=== PATIENT | male | born 1960 | race Caucasian/White ===

== ENCOUNTER 2016-11-08 14:46 | Emergency (ER) | payer OTHER ==
[~2016-11-08] VITALS: Ht 180.3 cm; Wt 82.0 kg
[2016-11-08 14:54] VITALS: Ht 180.3 cm; Wt 82.0 kg
[2016-11-08] MEDS ORDERED: SULF1TAB31 PO (15:14)
[2016-11-08] MEDS ORDERED: CEPH-443 PO (15:14)
[2016-11-08] MEDS ORDERED: NAPR-688 PO (15:14)
--- NOTE | 2016-11-08 15:36 | ERD ---
ER Documentation Chief Complaint Date/Time DATE: 11/08/16 TIME: 15:29 Chief Complaint right ring finger and right wrist wound, pt.doesn't want to be admitted. HPI This is a 56-year-old male with a history of congestive heart failure and IV drug abuse presenting to the emergency department with infected wound ulcers of the right volar wrist and proximal phalanx of the right fourth digit from a scratch that occurred on November 02. Patient states that his right hand started swelling with a lot of redness on Monday morning in which she was seen at [facility] and was admitted. Patient states that he was placed on Vancomycin IV, he was in the hospital for a few days until he eloped yesterday. Patient states that it has significantly got better however he does not want to get worse since he eloped from the hospital. Patient states that he does not want to get admitted again and he wants to try oral antibiotics. Patient denies any fevers. He states his pain is 2 out of 10 with no restricted range of motion. He denies any chest pain or shortness of breath. ROS All systems reviewed and are negative except as per history of present illness. Medications Home Meds Active Scripts Naproxen* (Naproxen*) 500 Mg Tablet, 500 MG PO BID Y for PAIN AND OR ELEVATED TEMP, #30 TAB Prov:VIDHYA QUIGLEY PA-C 11/08/16 Sulfamethoxazole/Trimethoprim* (Bactrim Ds* Tablet) 1 Each Tablet, 1 TAB PO BID for 10 Days, TAB Prov:VIDHYA QUIGLEY PA-C 11/08/16 Cephalexin* (Keflex*) 500 Mg Capsule, 500 MG PO QID for 10 Days, CAP Prov:VIDHYA QUIGLEY PA-C 11/08/16 Physical Exam Vitals Vital Signs Date Time Temp Pulse Resp B/P Pulse Ox O2 Delivery O2 Flow Rate FiO2 11/08/16 14:54 98.4 60 18 144/71 98 Physical Exam Const: Well-developed well-nourished no acute distress Head: Atraumatic Eyes: Normal Conjunctiva ENT: Normal External Ears, Nose and Mouth. Neck: Full range of motion..~ No meningismus. Resp: Clear to auscultation bilaterally Cardio: Regular rate and rhythm, no murmurs Abd: Soft, non tender, non distended. Normal bowel sounds Skin: No petechiae or rashes Back: No midline or flank tenderness Ext: open wound stage 1 ulcer 2cm x2cm on proximal dorsal right 4th digit with mild surrounding erythema with drainage, 3cm x 3cm stage 1 wound ulcer with mild surrounding erythema on right volar wrist Neur: Awake and alert Psych: Normal Mood and Affect Procedures/MDM This is a 56-year-old male with a history of congestive heart failure and IV drug abuse presenting to the emergency department with infected wound ulcers of the right volar wrist and proximal phalanx of the right fourth digit from a scratch that occurred on November 02. Patient was seen at [facility] and was admitted Monday morning. Patient states that he was placed on Vancomycin IV, he was in the hospital for a few days until he eloped yesterday. Patient states that it has significantly got better and he eloped from the hospital yesterday. He states it has not worsened. Patient states that he does not want to get admitted again and he wants to try oral antibiotics. On examination, patient had open wound stage 1 ulcer 2cm x2cm on proximal dorsal right 4th digit with mild surrounding erythema with drainage, 3cm x 3cm stage 1 wound ulcer with mild surrounding erythema on right volar wrist. There was no evidence of osteomyelitis, lymphangitis or bacteremia. Patient is afebrile and appears well. I have discussed this case with my supervising physician who suggested to place patient on Keflex and Bactrim for the next 10 days. I have given patient a lengthy discussion on his condition. In addition discussed to follow-up at a integration specialist as soon as possible, I have given him information on the amputation prevention center, I have discussed to return here for a wound check if he is unable to do that. Patient stable for discharge per home with strict precautions to return to the emergency room for any worsening signs or symptoms. He understands and agrees with this plan Departure Diagnosis: Primary Impression: Cellulitis Additional Impression: Abscess Condition: Fair Patient Instructions: Cellulitis Referrals: [facility] Additional Instructions: FOLLOW-UP AT THE [facility] SOON POSSIBLE Take all medicines as directed. Return to this facility if you are not improving as expected. VIDHYA QUIGLEY PA-C November 08, 2016 15:36
== END 2016-11-08 15:22 | disposition home or self-care (01) ==
LOC: E/R 14:46
DX: L03.011 Cellulitis of right finger (principal); L02.511 Cutaneous abscess of right hand

== ENCOUNTER 2017-02-21 07:55 | Inpatient (IN) | payer OTHER ==
[~2017-02-21] VITALS: Ht 180.3 cm; Wt 87.3 kg
[2017-02-21] VITALS (11 sets, daily range): BP systolic 95–114; BP diastolic 61–83; PULSE 87–96; RESP 13–20; Ht 180.3 cm; Wt 87.3 kg
[~2017-02-21 07:55] MED LIST: CEPH-443 PO; NAPR-688 PO; SULF1TAB31 PO
[2017-02-21] MEDS ORDERED: ONDANSETRON 4 MG INJ IV STA (08:10)
[2017-02-21] MEDS ORDERED: SODIUM CHLORIDE 0.9% 1L BAG IV* STA (08:10)
[2017-02-21] MEDS ORDERED: AZITHROMYCIN 500MG/NS (PMX) 250 ML IVPB ONE (08:30)
[2017-02-21] MEDS ORDERED: LIDOCAINE 1% (MPF) 5 ML VIAL SC ONE (08:30)
[2017-02-21] MEDS ORDERED: IBUPROFEN 600 MG TAB PO ONE (08:30)
[2017-02-21] MEDS ORDERED: NALOXONE 2 MG SYG IV ONE (08:30)
[2017-02-21] MEDS ORDERED: CEFTRIAXONE 1 GM/50 ML (PMX) 50 ML IVPB ONE (08:30)
[2017-02-21 09:02] LABS: ABNORMAL IP MESSAGE 1; BASOPHILS % 0.3 % (0.0-2.0); HEMATOCRIT 42.7 % (42.0-52.0); HEMOGLOBIN 13.7 g/dl (14.0-18.0); LYMPHOCYTES # 0.5 10^3/ul (0.8-2.9); MEAN CORPUSCULAR HEMOGLOBIN 27.2 pg (29.0-33.0); MEAN CORPUSCULAR HGB CONC 32.1 g/dl (32.0-37.0); MEAN CORPUSCULAR VOLUME 84.7 fl (82.0-101.0); MEAN PLATELET VOLUME 10.3 fl (7.4-10.4); MONOCYTE # 0.4 10^3/ul (0.3-0.9); MONOCYTES % 3.3 % (0.0-11.0); NEUTROPHILS % 91.8 % (39.0-77.0); PLATELET COUNT 249 10^3/UL (140-415); POSITIVE DIFF @See below; RED BLOOD COUNT 5.04 10^6/ul (4.70-6.10); RED CELL DISTRIBUTION WIDTH 16.6 % (11.5-14.5); WHITE BLOOD COUNT 12.6 10^3/ul (4.8-10.8)
--- NOTE | 2017-02-21 09:09 | RADRPT ---
PROCEDURE: XR Chest. CLINICAL INDICATION: Chest pain TECHNIQUE: Single frontal view of the chest was obtained COMPARISON: None FINDINGS: The heart is enlarged. The thoracic aorta is calcified. There is right lower lobe atelectasis. There is no pleural effusion or pneumothorax. RPTAT: AA IMPRESSION: Moderate cardiomegaly. Calcified aorta consistent with atherosclerotic disease. Right lower lobe atelectasis. .Manpreet Cordero MD, MD Date Time Electronically viewed and signed by .Manpreet Cordero MD, on 02/21/2017 09:08 .S/
[2017-02-21] MEDS ORDERED: ASPIRIN 81 MG TAB ONE (09:18)
[2017-02-21 09:19] LABS: ALBUMIN 3.4 g/dl (3.3-4.9); ALBUMIN/GLOBULIN RATIO 0.85; BILIRUBIN,INDIRECT 0.4 mg/dl (0-1.1); BILIRUBIN,TOTAL 0.4 mg/dl (0.2-1.3); CALCIUM 8.3 mg/dl (8.4-10.2); CREATININE 1.52 mg/dl (0.61-1.24); POTASSIUM 4.6 mmol/L (3.5-5.1); TOTAL PROTEIN 7.4 g/dl (6.1-8.1)
[2017-02-21 09:34] LABS: TROPONIN-I 0.14 ng/ml (0.00-0.12)
[2017-02-21 09:40] LABS: INR 1.29; PROTIME 16.2 Sec (12.2-14.2); PT RATIO 1.3
[2017-02-21 09:41] LABS: PARTIAL THROMBOPLASTIN TIME 29.1 Sec (25.0-35.0)
--- NOTE | 2017-02-21 10:21 | ERA ---
ER Documentation Chief Complaint Date/Time DATE: 02/21/17 TIME: 09:58 Chief Complaint sob HPI 56-year-old man with a history of congestive heart failure and IV Heroin abuse presents with cough, shortness, fever 1 day. He denies chest pain, no vomiting or diarrhea, no headache or blurry vision. Patient admits to using morphine today and is sleepy. He denies suicidal homicidal ideation. ROS All systems reviewed and are negative except as per history of present illness. Medications Home Meds Active Scripts Naproxen* (Naproxen*) 500 Mg Tablet, 500 MG PO BID Y for PAIN AND OR ELEVATED TEMP, #30 TAB Prov:VIDHYA QUIGLEY-C 11/08/16 Sulfamethoxazole/Trimethoprim* (Bactrim Ds* Tablet) 1 Each Tablet, 1 TAB PO BID for 10 Days, TAB Prov:VIDHYA QUIGLEY-C 11/08/16 Cephalexin* (Keflex*) 500 Mg Capsule, 500 MG PO QID for 10 Days, CAP Prov:VIDHYA QUIGLEY-C 11/08/16 Allergies Allergies: Coded Allergies: No Known Allergy (Unverified , 02/21/17) PMhx/Soc Congestive heart failure and IV heroin abuse Hx Respiratory Disorders: Yes (COPD) Hx Alcohol Use: Yes Hx Substance Use: Yes (HEROIN) Smoking Status: Current every day smoker FmHx Family History: No diabetes Physical Exam Vitals Vital Signs Date Time Temp Pulse Resp B/P Pulse Ox O2 Delivery O2 Flow Rate FiO2 02/21/17 09:42 111 30 117/81 95 Nasal Cannula 4.0 02/21/17 07:59 101.3 122 24 105/75 95 Physical Exam GENERAL: Well-developed man, appears intoxicated, dehydrated, febrile HEENT: Dry mucous membranes, pink conjunctiva, pinpoint pupils, no cervical spine deformity NEURO: Alert and oriented 1, no focal deficits or facial asymmetry, pinpoint pupils bilaterally CARDIAC: Tachycardic and regular, no murmurs rubs or gallops LUNGS: Poor breath sounds bilaterally, crackles at the bases, no wheezes or stridor ABDOMEN: Soft nontender, no guarding, no rigidity, no rebound, no psoas sign no obturator sign. Normoactive bowel sounds SKIN: Warm and dry to touch, no abrasions, contusions, or hematomas, no lacerations, no ecchymosis, no target lesions, and without ulcers EXTREMITIES: No clubbing cyanosis, 3+ pitting edema in the lower extremities bilaterally, calves are bilaterally symmetrical, no Homans sign, no popliteal cord sign. Distal pulses equal and bilateral PSYCH: Normal affect without agitation or irritability Result Diagram: 02/21/17 0833 02/21/17 0833 Results 24 hrs Laboratory Tests Test 02/21/17 08:33 White Blood Count 12.610^3/ul Red Blood Count 5.0410^6/ul Hemoglobin 13.7g/dl Hematocrit 42.7% Mean Corpuscular Volume 84.7fl Mean Corpuscular Hemoglobin 27.2pg Mean Corpuscular Hemoglobin Concent 32.1g/dl Red Cell Distribution Width 16.6% Platelet Count 63088^3/UL Mean Platelet Volume 10.3fl Neutrophils % 91.8% Lymphocytes % 4.0% Monocytes % 3.3% Eosinophils % 0.0% Basophils % 0.3% Nucleated Red Blood Cells % 0.0/100WBC Neutrophils # (Manual) 11.610^3/ul Lymphocytes # 0.510^3/ul Monocytes # 0.410^3/ul Eosinophils # 0.010^3/ul Basophils # 0.010^3/ul Nucleated Red Blood Cells # 0.010^3/ul Prothrombin Time 16.2Sec Prothrombin Time Ratio 1.3 INR International Normalized Ratio 1.29 Activated Partial Thromboplast Time 29.1Sec Sodium Level 140mmol/L Potassium Level 4.6mmol/L Chloride Level 106mmol/L Carbon Dioxide Level 17mmol/L Anion Gap 22 Blood Urea Nitrogen 29mg/dl Creatinine 1.52mg/dl Glucose Level 131mg/dl Lactic Acid Level 3.1mmol/L Calcium Level 8.3mg/dl Total Bilirubin 0.4mg/dl Direct Bilirubin 0.00mg/dl Indirect Bilirubin 0.4mg/dl Aspartate Amino Transf (AST/SGOT) 50IU/L Alanine Aminotransferase (ALT/SGPT) 38IU/L Alkaline Phosphatase 58IU/L Troponin I 0.140ng/ml Total Protein 7.4g/dl Albumin 3.4g/dl Globulin 4.00g/dl Albumin/Globulin Ratio 0.85 Lipase 78U/L Current Medications Medications (Trade) Dose Ordered Sig/Ilana Route PRN Reason Start Time Stop Time Status Last Admin Dose Admin Sodium Chloride 2000 ml 2,000 ml BOLUS OVER 2 HOURS STAT IV* 02/21/17 08:10 02/21/17 08:13 DC 02/21/17 09:09 Ceftriaxone Sodium 50 ml @ 100 mls/hr ONCE ONCE IVPB 02/21/17 08:30 02/21/17 08:59 DC 02/21/17 08:54 Azithromycin (Zithromax 500mg/ NS (Pmx)) 250 ml @ 250 mls/hr ONCE ONCE IVPB 02/21/17 08:30 02/21/17 09:29 DC 02/21/17 08:30 Ondansetron HCl (Zofran Inj) 4 mg ONCE STAT IV 02/21/17 08:10 02/21/17 08:13 DC 02/21/17 08:53 Ibuprofen (Motrin) 600 mg ONCE ONCE PO 02/21/17 08:30 02/21/17 08:31 DC 02/21/17 08:53 Naloxone HCl (Narcan) 2 mg ONCE ONCE IV 02/21/17 08:30 02/21/17 08:31 DC 02/21/17 08:53 Lidocaine (Xylocaine 1% (Mpf)) 5 ml ONCE ONCE SC 02/21/17 08:30 02/21/17 08:31 DC Aspirin (Aspirin) 81 mg STK-MED ONCE .ROUTE 02/21/17 09:18 02/21/17 09:19 DC Procedures/MDM IV line was established patient was placed on senior architect/design manager rhythm strip revealed a sinus tachycardia at 120 bpm. Patient was febrile, blood and urine cultures have been ordered results are pending I will follow-up. One view x-ray performed, read by me reveals a right lower lobe infiltrate, no pneumothorax, no end of the diaphragm. EKG performed, read by me revealed a sinus tachycardia at 117 bpm, right axis deviation, right ventricular conduction delay with incarceration of 102 ms, no concerning ST elevations or depressions noted. Diffuse T-wave inversions. CBC was normal, electrolytes revealed kidney injury with a BUN/creatinine 29/1.5 , liver function tests normal, troponin Positive at 0.14. Lactic acid elevated at 3.1.Coagulation profile is normal, urine analysis is also been ordered results are pending I will follow-up. I administered 2 L normal saline intravenously this is not the full 30 cc/kg although patient has history of severe CHF and I feel the risks of more IV fluids outweigh any benefit. Patient received ceftriaxone 1 g IV and azithromycin 500 mg IV. For fever he received ibuprofen 600 mg p.o. and naloxone 2 mg IV 1 for opioid intoxication. I also administered aspirin 324 mg p.o. for cardioprotective measures. Patient's infectious symptoms have not stabilized and the patient is at risk of rapid decompensation. The patient will be admitted for careful hydration, antibiotic therapy, and infectious source control. Severe Sepsis Assessment: Infectious Source: Right-sided pneumonia End organ damage indicated by: [Lactate > 2.0 mmol/L Elevated troponin at 0.14. Severe Sepsis Managment: Blood Cultures X 2 before broad spectrum antibiotics initiated within 3 hours of recognition. 30 ml/kg NS bolus Completed Initial Lactate: Elevated Repeat Lactate elevated Critical Care: Time: 50 minutes, this was time separate from other blue billable procedures. Treatments/Evaluations: Emergent fluid management, while maintaining close respiratory support. Immediate broad spectrum antibiotic therapy. Simultaneous assessment for possible sources in order to direct therapy. Consideration for invasive and chemical support to prevent respiratory or cardiac collapse. Septic Shock Assessment (1 hour post 30 ml/kg fluid bolus): Hypotension (SBP < 90 or 40 mmHg drop, MAP < 65): [No] Lactic acid > 4.0 [No] Perfusion Reassessment for Septic Shock: Temp 98.4, pulse 100, respiratory rate 20 breaths per minute, blood pressure 140 /80 Heart Exam: Regular rate rhythm Lung Exam: Bibasilar crackles Capillary Refill: Less than 2 seconds Peripheral Pulses: Radially present Skin: [place] warm and dry Hypotensive Treatment (not required for isolated lactic acid elevation): Comfort Care: No Central LIne: Not indicated Vasopressor started: Not indicated I considered further perfusion assessment with CVP measurement, SCVO2, bedside ultrasound volume assessment, passive leg raise, trial of further fluid bolus. And preceded with IV fluids, IV antibiotics, and aspirin Accepting Care Team: Current data and ongoing care discussed. Time: Time of admission Primary Provider: Hospitalist Consulting: Infectious disease and cardiology Outstanding Data: none Departure Diagnosis: Primary Impression: Sepsis Qualified Code: A41.9 - Sepsis, due to unspecified organism Additional Impressions: Aspiration pneumonia Qualified Code: J69.0 - Aspiration pneumonia of right lower lobe due to vomit Heroin overdose Qualified Code: T40.1X1A - Accidental overdose of heroin, initial encounter CHF (congestive heart failure) Qualified Code: I50.21 - Acute systolic congestive heart failure Non-STEMI (non-ST elevated myocardial infarction) Condition: DIVYA Trejo MD Feb 21, 2017 10:09
[2017-02-21] MEDS ORDERED: ONDANSETRON 4 MG INJ IV PRN (10:30)
[2017-02-21] MEDS ORDERED: HYDROCODONE/APAP (5/325) TAB PO PRN (10:30)
[2017-02-21] MEDS ORDERED: NACL 0.9% 3 ML SYG IV SCH (10:30)
[2017-02-21] MEDS ORDERED: DOCUSATE SODIUM 100 MG CAP PO PRN (10:30)
[2017-02-21] MEDS ORDERED: MAGNESIUM HYDROXIDE 30ML CUP PO PRN (10:30)
[2017-02-21] MEDS ORDERED: ASPIRIN 81 MG TAB PO ONE (10:30)
[2017-02-21] MEDS ORDERED: ACETAMINOPHEN 325 MG TAB PO PRN (10:30)
[2017-02-21] MEDS ORDERED: BISACODYL 10 MG SUPP PR PRN (10:30)
[2017-02-21] MEDS ORDERED: ACETAMINOPHEN 650 MG SUPP PR PRN (10:30)
[2017-02-21] MEDS ORDERED: NITROGLYCERIN (SL) 0.4 MG TAB SL PRN (10:30)
--- NOTE | 2017-02-21 11:33 | HP ---
Date/Time of Note Date/Time of Note DATE: 02/21/17 TIME: 11:28 Assessment/Plan VTE Prophylaxis VTE Prophylaxis Intervention: SCD's Assessment/Plan Chief Complaint/Hosp Course Assessment and plan 1. Sepsis likely from aspiration pneumonia. Will resume antibiotics for now. Will get ID consult to follow. Will check cook culture. Antipyretics for fever. 2. CHF with decompensation. Will get evs tech to follow. Follow-up on echocardiogram. 3. Elevated troponin. Suspect non-ST elevated myocardial infarction. Trend troponin levels. Will get evs tech evaluation. Placed on therapeutic dose of Lovenox for now. 4. Heroin overdose. Patient was given Narcan in the ER. Patient remains more alert. Continue with oxygen supplementation. Monitor neuro status. Will get director of social media marketing to follow. 5. Reported homeless status. flume worker to follow. 6. Acute renal insufficiency. Provide with IV hydration. Will get handy man consultation Admission process 40 minutes Discussed plan of care with Dr. Foster Problems: HPI/ROS Admit Date/Time Admit Date/Time Hx of Present Illness This is a 56-year-old male with history of CHF and IV heroin abuse who came [facility] after reports of increased shortness of breath for 5 days duration (per exam patient was also noted with increased swelling in bilateral lower extremities). Patient self reportedly stated that he took heroin last night and after he took heroin he became lethargic and had an increase in shortness of breath. He denies any chest pain however. He was brought to [facility] for further evaluation. Upon examination he had a chest x-ray that showed moderate cardiomegaly and calcified aorta consistent with atherosclerotic disease as well as right lower lobe atelectasis. On labs she was noted with a white count of 12.6 lactic 3.1 and acute renal insufficiency with creatinine of 1.52 and BUN of 29. He also had an elevated troponin I of 0.140. Patient was seen tachypneic with respirations in the 30s. His temp was 101.3 and heart rate at 111. Patient was given Narcan in the ER. He currently is more alert however remains tachypneic with increased shortness of breath. He reports he does have medications for congestive heart failure but does not take them at home. We will evaluate him for the aformentiond issues PMH/Family/Social Past Medical History Medical/surgical history 1. Heroin abuse 2. Congestive heart failure Family History Significant Family History: no pertinent family hx Social History Smoking Status: Current every day smoker Drug Use: heroin Exam/Review of Systems Vital Signs Vitals Vital Signs Date Time Temp Pulse Resp B/P Pulse Ox O2 Delivery O2 Flow Rate FiO2 02/21/17 09:42 111 30 117/81 95 Nasal Cannula 4.0 02/21/17 07:59 101.3 Exam Constitutional: alert, distress Psych: nl mood/affect Head: normocephalic Eyes: nl conjunctiva Respiratory: labored breathing, other (tachypneic, diminished) Cardiovascular: other (diminished heart sounds) Gastrointestinal: non-tender, soft Extremities: edema (bilateral upper and lower extremities ) Neurological: nl speech, other (lethargic) Labs Result Diagram: 02/21/1783202/21/17832 Medications Medications Current Medications Ondansetron HCl (Zofran Inj) 4 mg Q6H PRN IV NAUSEA AND/OR VOMITING; Start at 10:30 Acetaminophen (Tylenol Tab) 650 mg Q6H PRN PO PAIN LEVEL 1-3 OR FEVER; Start at 10:30 Acetaminophen (Tylenol Supp) 650 mg Q6H PRN [place] PAIN LEVEL 1-3 OR FEVER; Start 02/21/17 at 10:30 Acetaminophen/ Hydrocodone Bitart ([place] (5/325)) 1 tab Q6H PRN PO MODERATE PAIN LEVEL 4-6; Start 02/21/17 at 10:30 Morphine Sulfate (morphine) 2 mg Q4H PRN IV SEVERE PAIN LEVEL 7-10; Start 02/21 at 10:30 Docusate Sodium (Colace) 100 mg Q12H PRN PO CONSTIPATION; Start 02/21/17 at 10: 30 Magnesium Hydroxide (Milk Of Mag) 30 ml DAILY PRN PO CONSTIPATION; Start at 10:30 Bisacodyl (Dulcolax Supp) 10 mg DAILY PRN [place] CONSTIPATION; Start 02/21/17 at 10 :30 Pantoprazole (Protonix Iv) 40 mg DAILY@06 IV ; Start 02/22/17 at 06:00 Enoxaparin Sodium (Lovenox) 75 mg Q12 SC ; Start 02/21/17 at 21:00 Aspirin (Aspirin) 81 mg DAILY PO ; Start 02/23/17 at 09:00 Nitroglycerin (Nitroglycerin (Sl Tab) 0.4 Mg) 1 tab Q5M PRN SL CHEST PAIN; Start 02/21/17 at 10:30 TEODORO DALEY Feb 21, 2017 11:33
[2017-02-21] MEDS: CEFTRIAXONE 1 GM/50 ML (PMX) 50 ML IVPB SCH (12:00)
[2017-02-21] MEDS: AZITHROMYCIN 500MG/NS (PMX) 250 ML IV SCH (12:00)
[2017-02-21 12:05] LABS: AADO2 Arterial 45.2 mmHg (7.0-24.0); Allen Test ACCEPTAB; Arterial Base Excess -11.6 mmol/L (-3.0-3); Arterial COHb 0.3 % (0.0-3.0); Arterial Fraction of Oxyhgb 97.3 % (93.0-99.0); Arterial HCO3 12.1 mmol/L (22.0-26.0); Arterial MetHb 0.3 % (0.0-1.5); Arterial Total Hemglobin 14.4 g/dl (12.0-18.0); MODE NASAL CANNULA
--- NOTE | 2017-02-21 13:10 | CONS ---
Date/Time of Note Date/Time of Note DATE: 02/21/17 TIME: 13:09 Consultation Date/Type/Reason Admit Date/Time Date of Consultation: Feb 21, 2017 Type of Consultation: ID Reason for Consultation Antibiotic management Psychological: nl mood/affect Social History Smoking Status: Current every day smoker Drug Use: heroin Exam/Review of Systems Vital Signs Vitals Vital Signs Date Time Temp Pulse Resp B/P Pulse Ox O2 Delivery O2 Flow Rate FiO2 02/21/17 12:22 96 24 91/62 95 Nasal Cannula 2.0 02/21/17 07:59 101.3 Results Result Diagram: 02/21/17 0833 02/21/17 0833 Results 24 hrs Laboratory Tests Test 02/21/17 08:33 02/21/17 11:45 White Blood Count 12.6 H Red Blood Count 5.04 Hemoglobin 13.7 L Hematocrit 42.7 Mean Corpuscular Volume 84.7 Mean Corpuscular Hemoglobin 27.2 L Mean Corpuscular Hemoglobin Concent 32.1 Red Cell Distribution Width 16.6 H Platelet Count 249 Mean Platelet Volume 10.3 Neutrophils % 91.8 H Lymphocytes % 4.0 L Monocytes % 3.3 Eosinophils % 0.0 Basophils % 0.3 Nucleated Red Blood Cells % 0.0 Neutrophils # (Manual) 11.6 H Lymphocytes # 0.5 L Monocytes # 0.4 Eosinophils # 0.0 Basophils # 0.0 Nucleated Red Blood Cells # 0.0 Prothrombin Time 16.2 H Prothrombin Time Ratio 1.3 INR International Normalized Ratio 1.29 Activated Partial Thromboplast Time 29.1 Sodium Level 140 Potassium Level 4.6 Chloride Level 106 Carbon Dioxide Level 17 L Anion Gap 22 H Blood Urea Nitrogen 29 H Creatinine 1.52 H Glucose Level 131 Lactic Acid Level 3.1 *H Calcium Level 8.3 L Total Bilirubin 0.4 Direct Bilirubin 0.00 Indirect Bilirubin 0.4 Aspartate Amino Transf (AST/SGOT) 50 H Alanine Aminotransferase (ALT/SGPT) 38 Alkaline Phosphatase 58 Troponin I 0.140 *H Total Protein 7.4 Albumin 3.4 Globulin 4.00 H Albumin/Globulin Ratio 0.85 Lipase 78 Blood Gas Specimen Source Blood arterial Arterial Blood Date Drawn 02/21/2017 12:00:00 PM Arterial Blood pH (Temp corrected) 7.335 L Arterial Blood pCO2 (Temp correct) 23.3 L Arterial Blood pO2 (Temp corrected) 119.8 H Arterial Blood HCO3 12.1 L Arterial Blood Base Excess -11.6 L Arterial Blood Oxygen Saturation 97.9 Henri Test ACCEPTAB Arterial Blood Gas Puncture Site Left Radial Arterial Blood Carboxyhemoglobin 0.3 Arterial Blood Methemoglobin 0.3 Blood Gas A-a O2 Differential 45.2 H Oxyhemoglobin Percent 97.3 Total Hemoglobin 14.4 Blood Gas Temperature 37.0 Blood Gas Modality NASAL CANNULA FiO2 27.0 Blood Gas Notified Whom MDA Blood Gas Notified Time 02/21/2017 12:04:00 PM Medications Medications Current Medications Ondansetron HCl (Zofran Inj) 4 mg Q6H PRN IV NAUSEA AND/OR VOMITING; Start at 10:30 Acetaminophen (Tylenol Tab) 650 mg Q6H PRN PO PAIN LEVEL 1-3 OR FEVER; Start at 10:30 Acetaminophen (Tylenol Supp) 650 mg Q6H PRN [place] PAIN LEVEL 1-3 OR FEVER; Start 02/21/17 at 10:30 Acetaminophen/ Hydrocodone Bitart ([place] (5/325)) 1 tab Q6H PRN PO MODERATE PAIN LEVEL 4-6; Start 02/21/17 at 10:30 Morphine Sulfate (morphine) 2 mg Q4H PRN IV SEVERE PAIN LEVEL 7-10; Start 02/21 at 10:30 Docusate Sodium (Colace) 100 mg Q12H PRN PO CONSTIPATION; Start 02/21/17 at 10: 30 Magnesium Hydroxide (Milk Of Mag) 30 ml DAILY PRN PO CONSTIPATION; Start at 10:30 Bisacodyl (Dulcolax Supp) 10 mg DAILY PRN [place] CONSTIPATION; Start 02/21/17 at 10 :30 Pantoprazole (Protonix Iv) 40 mg DAILY@06 IV ; Start 02/22/17 at 06:00 Enoxaparin Sodium (Lovenox) 75 mg Q12 SC ; Start 02/21/17 at 21:00 Aspirin (Aspirin) 81 mg DAILY PO ; Start 02/23/17 at 09:00 Nitroglycerin 1 tab 1 tab Q5M PRN SL CHEST PAIN; Start 02/21/17 at 10:30 Ceftriaxone Sodium 50 ml @ 100 mls/hr Q24H IVPB ; Start 02/21/17 at 12:00 Azithromycin 250 ml @ 250 mls/hr Q24H IV ; Start 02/21/17 at 12:00 Sodium Chloride (NS) 1,000 ml @ 75 mls/hr [id number] IV ; Start 02/21/17 at 12:00 SUSANNA RICARDO MD Feb 21, 2017 13:09
[2017-02-21] MEDS ORDERED: SOD CHLORIDE 0.9% 100 ML ONE (13:36)
[2017-02-21] MEDS: SOD CHLORIDE 0.9% 1,000 ML IV SCH (13:43)
--- NOTE | 2017-02-21 13:55 | RADRPT ---
PROCEDURE: US guidance for PICC line CLINICAL INDICATION: PICC line placement TECHNIQUE: Multiple real-time images were acquired of the patient's arm utilizing a high resolutio n transducer. This was performed by the PICC line nurse for venous access. COMPARISON: None FINDINGS: Ultrasound guidance for PICC line placement. IMPRESSION: Ultrasound guidance for PICC line placement. RPTAT: AA .Manpreet Cordero MD, MD Date Time Electronically viewed and signed by .Manpreet Cordero MD, on 02/21/2017 13:55 .S/
--- NOTE | 2017-02-21 14:23 | RADRPT ---
PROCEDURE: XR Chest. CLINICAL INDICATION: Check Line Placement TECHNIQUE: Single frontal view of the chest was obtained. COMPARISON: Chest x-ray from 02/21/2017 FINDINGS: There has been interval placement of a left-sided PICC line with its tip in the mid SVC. There is stable moderate to severe cardiomegaly and mild pulmonary vascular congestion. A likely layering effusion is identified on the right. There is no pneumothorax. IMPRESSION: Interval placement of a left-sided PICC line with its tip in the mid SVC. Stable moderate to severe cardiomegaly and mild ovary vascular congestion. Likely layering right pleural effusion. RPTAT: EE Physician Grecia Date Time Electronically viewed and signed by Marshall Sena Physician on 02/21/2017 14:23 /
--- NOTE | 2017-02-21 15:34 | CONS ---
DATE OF ADMISSION: 02/21/2017 DATE OF CONSULTATION: 02/21/2017 INFECTIOUS DISEASE CONSULTATION: REASON FOR CONSULTATION: Antibiotic management. HISTORY OF PRESENT ILLNESS: Clyde Gonzalez is a 56-year-old male with numerous problems, who comes in with sepsis and is being seen for antibiotic management. Past problems include: 1. History of congestive heart failure. 2. IV heroin abuse. He comes into the emergency room with increased shortness of breath of 5 days duration. The patient also has swelling in his lower extremities bilaterally. The patient took heroin last night, became lethargic and had increasing shortness of breath. He has no chest pain. Chest x-ray shows moderate cardiomegaly, calcified aorta, consistent with atherosclerotic disease and right lower lobe atelectasis. LABORATORY DATA: His white count was 12.6, H and H of 13.7 and 42.7, platelet count 249,000. BUN and creatinine 29 and 1.52. CO2 was 17. PAST MEDICAL HISTORY: Past medical history and operations as outlined. FAMILY HISTORY: Noncontributory. SOCIAL HISTORY: He is a current every day smoker. He does not drink. He does abuse drugs, he uses heroin. ALLERGIES: NONE TO PENICILLIN, SULFA, OR FOODS. MEDICATION: Per chart. REVIEW OF SYSTEMS: As per HPI. PHYSICAL EXAMINATION: GENERAL: Patient is a well-developed, well-nourished male who is awake, responsive, in [id number] distress. VITAL SIGNS: T-max of 101.3. Pulse of 111, blood pressure 171/81, respirations of 30. He is on nasal cannula at 4 liters. SKIN: Without generalized rash. HEENT: Within normal limits. NECK: Supple. Lymph nodes nonpalpable. CHEST: Decreased breath sounds at the bases with tachypnea. HEART: Without murmur or gallop. ABDOMEN: Soft, nontender without organosplenomegaly or masses. EXTREMITIES: Without cyanosis or clubbing. He has edema bilateral lower extremities. RECTAL/GENITAL: Deferred. NEUROLOGICAL: No focal neurological abnormalities. IMPRESSION AND PLAN: The patient comes in with fever, leukocytosis, probable pneumonitis. He was started on ceftriaxone and azithromycin since it is community acquired pneumonia. Blood cultures and urine cultures were done. We will continue him on this current therapy. I will dictate my findings to the hospitalist. Dictated By: Pete Montoya MD JD/jeramy/chelsea /Document#: [id number]
[2017-02-21 17:06] LABS: CK-MB 49.3 ng/ml (0.0-2.4)
[2017-02-21 17:08] LABS: TROPONIN-I 1.16 ng/ml (0.00-0.12)
[2017-02-21 17:13] LABS: AADO2 Arterial 64.7 mmHg (7.0-24.0); Allen Test ACCEPTAB; Arterial Base Excess -6.4 mmol/L (-3.0-3); Arterial COHb 0.3 % (0.0-3.0); Arterial Fraction of Oxyhgb 95.9 % (93.0-99.0); Arterial HCO3 18.3 mmol/L (22.0-26.0); Arterial MetHb 0.3 % (0.0-1.5); Arterial Total Hemglobin 14.2 g/dl (12.0-18.0); MODE NASAL CANNULA
--- NOTE | 2017-02-21 17:20 | CONS ---
DATE OF ADMISSION: 02/21/2017 DATE OF CONSULTATION: 02/21/2017 REASON FOR CONSULTATION: Respiratory distress. Thank you, Dr. Mitchell, for this consultation. HISTORY OF PRESENT ILLNESS: This is a 56-year-old gentleman, history of heart failure, IV heroin abuse, states he last used heroin yesterday. He came in with increasing shortness of breath, orthopnea, PND. On admission, found to have lactic acidosis with metabolic acidosis. He was given Narcan in the emergency room at which point he became more alert and oriented. At this point, he is somewhat drowsy yet again. Currently, he is hemodynamically stable. PAST MEDICAL HISTORY: As above. MEDICATIONS: Per chart. ALLERGIES: UNKNOWN. SOCIAL HISTORY: Tobacco history: Unknown. Alcohol history: Unknown. History of IV drug abuse. PHYSICAL EXAMINATION: GENERAL: Chronically ill-appearing gentleman, grimaces to painful stimuli, follows simple commands. VITAL SIGNS: Currently afebrile. T-max was 101.3. Pulse is 110, blood pressure 117/81, O2 saturation 96 percent on 4 L nasal cannula. NECK: Supple. No JVD or lymphadenopathy. CARDIAC: S1, S2. No added sounds or murmurs. CHEST: Diminished air entry bilaterally. ABDOMEN: Soft, nontender. No guarding or rebound. EXTREMITIES: No cyanosis, clubbing. Edema +1. NEUROLOGIC: Generalized weakness. LABORATORY: White count 12.6, hemoglobin 13.7, platelets 249,000. Sodium 140, potassium 4.6, chloride 106. Bicarb was 17, BUN 29, creatinine 1.52, lactic acid 3.1. Troponin 0.14. ABG pending at time of this dictation. Chest x-ray shows right lower lobe atelectasis and cardiomegaly. EKG shows sinus tachycardia. IMPRESSION: 1. Intravenous heroin abuse with altered mental status. 2. Possible aspiration pneumonia. 3. Possible community-acquired pneumonia. 4. Metabolic acidosis. 5. Lactic acidosis. 6. Elevated troponin, likely secondary to hypoperfusion. 7. Exclude infective endocarditis given history of intravenous drug abuse. PLAN: 1. Admit to intensive care unit. 2. Continue broad-spectrum antibiotics pending cultures. 3. Aspiration precautions. 4. Supplemental O2. 5. Serial arterial blood gas, and lactate. 6. PICC line placement for IV access. 7. A 2D echocardiogram. 8. DVT and GI prophylaxis. Dictated By: Rd Young MD /jeramy/bernadine /Document#: [id number]
--- NOTE | 2017-02-21 17:41 | RADRPT ---
PROCEDURE: Renal US. CLINICAL INDICATION: Acute kidney injury. TECHNIQUE: Multiple sonographic images of the kidneys and urinary bladder were obtained. The imag es were reviewed on a PACS workstation. COMPARISON: No prior studies are available for comparison. FINDINGS: The right kidney measures 13.0 x 5.1 x 4.6 cm. The left kidney measures 12.7 x 4.9 x 4.4 cm. There is no renal mass. There is no hydronephrosis. There is no renal calculus. Renal parenchymal thickness is normal bilaterally. Both kidneys are hyperechoic consistent with medical renal disease. There is moderate ascites. Debris is present in the urinary bladder. The bladder is otherwise unremarkable. IMPRESSION: 1. Hydronephrosis. 2. Bilateral hyperechoic kidneys consistent with medical renal disease. 3. Moderate ascites. 4. Debris in the urinary bladder. RPTAT: QQ .Hugo Moreno MD, Date Time Electronically viewed and signed by .Hugo Moreno MD, MD on 02/21/2017 17:40 .R/
[2017-02-21 19:16] LABS: ADD UMIC YES; UR ASCORBIC ACID NEGATIVE (NEGATIVE); UR BILIRUBIN (Dip) NEGATIVE (NEGATIVE); UR BLOOD (Dip) 3+ mg/dL (NEGATIVE); UR CLARITY SLIGHTLY CLOUDY (CLEAR); UR COLOR AMBER (YELLOW); UR GLUCOSE (Dip) 1+ mg/dL (NEGATIVE); UR KETONES (Dip) NEGATIVE (NEGATIVE); UR LEUKOCYTE ESTERASE (Dip) NEGATIVE Leu/ul (NEGATIVE); UR NITRITE (Dip) NEGATIVE (NEGATIVE); UR RBC 2 /HPF (0-5); UR SPECIFIC GRAVITY (Dip) 1.018 (1.003-1.030); UR TOTAL PROTEIN (Dip) 2+ mg/dl (NEGATIVE); UR UROBILINOGEN (Dip) 2+ mg/dL (NEGATIVE)
[2017-02-21] MEDS: FAMOTIDINE 20 MG INJ IV SCH (20:52)
[2017-02-21] MEDS: ENOXAPARIN 100 MG/ML SYG SC SCH (20:54)
[2017-02-21 21:06] LABS: CK-MB 50.8 ng/ml (0.0-2.4); TROPONIN-I 1.38 ng/ml (0.00-0.12)
[2017-02-21] MEDS: IPRATROPIUM (NEB) 0.5 MG/2.5 ML AMP HHN SCH (22:09)
[2017-02-21] MEDS: LEVALBUTEROL (NEB) 0.63 MG/3 ML AMP HHN SCH (22:09)
[2017-02-22] VITALS (23 sets, daily range): BP systolic 75–125; BP diastolic 51–89; PULSE 88–114; RESP 13–33
[2017-02-22] MEDS: IPRATROPIUM (NEB) 0.5 MG/2.5 ML AMP HHN SCH ×5 (00:17→20:00)
[2017-02-22] MEDS: LEVALBUTEROL (NEB) 0.63 MG/3 ML AMP HHN SCH ×5 (00:17→20:00)
[2017-02-22] MEDS: SOD CHLORIDE 0.9% 1,000 ML IV SCH (02:29)
--- NOTE | 2017-02-22 03:02 | CONS ---
DATE OF ADMISSION: 02/21/2017 DATE OF CONSULTATION: 02/21/2017 REASON FOR CONSULTATION: Acute kidney injury. REFERRING PHYSICIAN: Dr. Hidalgo. HISTORY OF PRESENT ILLNESS: This is a 56-year-old male with a past medical history of CHF, a history of heroin abuse, who presents to [facility] with increased shortness of breath. The patient says he took heroin the prior evening, was noted to become lethargic, increased shortness of breath. As a result, came to [facility] for evaluation. Upon arrival, the patient noted to have an elevated white count 12.6, lactic acid 3.1. The patient had a BUN of 29, creatinine 1.52, and a temperature a 101. In the emergency room, the patient was given IV fluids, IV antibiotics and admitted to ICU for continued care. In terms of patient's renal history, the patient denies any prior history of chronic kidney disease. Denies any hemoptysis, hematemesis, hematochezia. PAST MEDICAL HISTORY: As stated above. History of heroin abuse, history of CHF, cardiomyopathy with previous ejection fraction of 25 percent. PAST SURGICAL HISTORY: None. ALLERGIES: NONE. FAMILY HISTORY: Noncontributory. SOCIAL HISTORY: Positive for heroin and tobacco use. MEDICATION: Reviewed. REVIEW OF SYSTEMS: Fourteen review of systems conducted. Pertinent positives stated in HPI, otherwise negative. PHYSICAL EXAMINATION: VITAL SIGNS: Blood pressure is 117/71, respirations 30, pulse 111, pulse ox is 90. HEENT: Head is normocephalic. NECK: Supple. HEART: Regular rate. LUNGS: Show diminished breath sounds at the base. ABDOMEN: Soft, nontender to palpation. No rebound or guarding. EXTREMITIES: Negative for clubbing, cyanosis. Positive edema. DERMATOLOGIC: Clean. No rashes. MUSCULOSKELETAL: No joint effusion. NEUROLOGIC: No change in exam. LABORATORY: Shows a white count 12.6, hemoglobin 13.7, crit of 42.7. Sodium 140, potassium 4.6, chloride 106, bicarb 17, BUN 29, creatinine 1.52. IMPRESSION AND PLAN: 1. Nonoliguric acute kidney injury with unknown baseline creatinine. Etiology is possibly due to see hemodynamics, questionable underlying chronic kidney disease. Plan at this point is to check a UA with microanalysis. Check urine electrolytes. We will check a renal ultrasound. Would continue current treatment plan and supportive care. Renally dose all medications. Avoid nephrotoxins. Continue gentle intravenous hydration. Monitor ins and outs closely, as the patient has underlying history of congestive heart failure. Continue antibiotic therapy. 2. Sepsis. The patient is currently on broad-spectrum antibiotics and gentle intravenous hydration. We will continue to monitor closely. 3. Anemia. Monitor H and H levels. 4. Mineral bone disorder. We will monitor calcium and phosphorus levels. 5. Congestive heart failure. The patient appears decompensated with lower extremity edema. We will follow up 2D echo. Monitor closely on intravenous hydration. The patient may require to be started on diuretic therapy. 6. Heroin overdose. 7. Continue supportive care. Thank you, Dr. Hidalgo, for this interesting consult. It will be a pleasure to follow the patient throughout the hospital course. Dictated By: Frandy Gonzalez DO /jeramy/heather /Document#: [id number]
[2017-02-22] MEDS ORDERED: PANTOPRAZOLE 40 MG INJ IV SCH (06:00)
[2017-02-22 06:40] LABS: BASOPHILS % 0.3 % (0.0-2.0); HEMATOCRIT 40.7 % (42.0-52.0); HEMOGLOBIN 12.7 g/dl (14.0-18.0); LYMPHOCYTES % 10.2 % (15.0-51.0); MEAN CORPUSCULAR HEMOGLOBIN 26.8 pg (29.0-33.0); MEAN CORPUSCULAR HGB CONC 31.2 g/dl (32.0-37.0); MEAN CORPUSCULAR VOLUME 85.9 fl (82.0-101.0); MONOCYTE # 0.8 10^3/ul (0.3-0.9); MONOCYTES % 8.2 % (0.0-11.0); NEUTROPHILS % 80.9 % (39.0-77.0); PLATELET COUNT 146 10^3/UL (140-415); RED BLOOD COUNT 4.74 10^6/ul (4.70-6.10); RED CELL DISTRIBUTION WIDTH 16.9 % (11.5-14.5); WHITE BLOOD COUNT 9.7 10^3/ul (4.8-10.8)
[2017-02-22 07:13] LABS: ALBUMIN 2.3 g/dl (3.3-4.9); ALBUMIN/GLOBULIN RATIO 0.69; BILIRUBIN,INDIRECT 0.1 mg/dl (0-1.1); BILIRUBIN,TOTAL 0.1 mg/dl (0.2-1.3); CALCIUM 7.1 mg/dl (8.4-10.2); CREATININE 1.59 mg/dl (0.61-1.24); MAGNESIUM 1.6 mg/dl (1.7-2.5); PHOSPHORUS 3.9 mg/dl (2.5-4.9); POTASSIUM 3.9 mmol/L (3.5-5.1); TOTAL PROTEIN 5.6 g/dl (6.1-8.1)
[2017-02-22 07:19] LABS: T3 UPTAKE 41.7 % (23.5-40.5)
[2017-02-22 07:33] LABS: THYROID STIMULATING HORMONE 2.06 MIU/L (0.465-4.680)
--- NOTE | 2017-02-22 07:48 | PN ---
DATE: 02/22/2017 SUBJECTIVE DATA: Patient is stable. No events overnight. No fevers, chills, nausea, vomiting. No shortness of breath. OBJECTIVE DATA: VITAL SIGNS: Blood pressure 137/49, respirations 18, pulse 92, temperature 97.8. HEENT: Head is normocephalic. NECK: Supple. HEART: Regular rate. LUNGS: Diminished breath sounds at the base. ABDOMEN: Soft, nontender to palpation. No rebound or guarding. EXTREMITIES: Negative for clubbing, cyanosis. Positive edema. DERMATOLOGIC: No rashes. MUSCULOSKELETAL: No joint effusion. NEUROLOGIC: No change in exam. MEDICATIONS: Reviewed. LABORATORY AND DIAGNOSTIC DATA: Is currently pending. The patient's urinalysis shows approximately 1 percent. Protein creatinine ratio 2 g/g of creatinine. The patient's renal ultrasound shows bilateral hyperechoic kidneys consistent with medical renal disease and moderate ascites. ASSESSMENT AND PLAN: 1. Nonoliguric acute kidney injury on top of chronic kidney disease with unknown baseline creatinine. The patient's renal ultrasound shows hyperechoic kidneys consistent with chronic kidney disease. Etiology of current acute kidney injury is possibly hemodynamics, sepsis. Plan at this point would be to continue supportive care. Renally dose medications for nephrotoxins. Will hold IV fluids. The patient is with noted lower extremity edema and history of cardiomyopathy. 2. Sepsis. Continue current treatment plan with IV antibiotics. 3. Anemia. Monitor H and H levels. 4. Mineral bone disorder. Continue to modify calcium and phosphorus levels. 5. History of congestive heart failure. The patient is currently decompensated with noted lower extremity edema. We will hold IV fluids. Follow up 2D echo. Consider starting diuretic therapy. 6. Thyroid overdose. Continue to monitor. Continue supportive care. Dictated By: Frandy Gonzalez DO /jeramy/power /Document#: [id number]
[2017-02-22] MEDS: FAMOTIDINE 20 MG INJ IV SCH ×2 (08:08→21:13)
[2017-02-22] MEDS: ENOXAPARIN 100 MG/ML SYG SC SCH (08:09)
[2017-02-22 08:17] LABS: AADO2 Arterial 82.3 mmHg (7.0-24.0); Allen Test ACCEPTAB; Arterial Base Excess -7.8 mmol/L (-3.0-3); Arterial COHb 0.4 % (0.0-3.0); Arterial Fraction of Oxyhgb 95.7 % (93.0-99.0); Arterial HCO3 14.5 mmol/L (22.0-26.0); Arterial MetHb 0.2 % (0.0-1.5); Arterial Total Hemglobin 14.2 g/dl (12.0-18.0); MODE NASAL CANNULA
--- NOTE | 2017-02-22 08:20 | CONS ---
DATE OF ADMISSION: 02/21/2017 DATE OF CONSULTATION: 02/21/2017 REFERRING PHYSICIAN: Dr. Grubbs. REASON FOR CONSULTATION: Shortness of breath, abnormal EKG. HISTORY OF PRESENT ILLNESS: Mr. Gonzalez is a 56-year-old gentleman with history of hypertension, dyslipidemia, history of cardiomyopathy, history of heart failure with reduced ejection fraction, according to him 20 percent to 10 percent, who comes to the hospital now for evaluation of fever for 1 day and lower extremity swelling. The patient with heroin use. Now the patient says that he has been hospitalized at [facility], had an angiogram with a doctor, which showed no blockages, but heart function of 10 percent. The patient is in congestive heart failure. At the moment, he reports some shortness of breath, but no chest pain. At this particular time, patient is tachycardic with some nonspecific ST-T changes. There is no evidence of ST elevations on EKG. For now, conservative therapy is expected. The patient's heroin overdose was reversed with Narcan and he is recovering now. We will try to obtain records from [facility] to evaluate if recent left heart cath was done. Other than that, we will continue medical optimization as noted. PAST MEDICAL HISTORY: 1. Hypertension. 2. Dyslipidemia. 3. History of drug abuse. 4. History of cardiomyopathy, likely nonischemic per patient's description. SOCIAL HISTORY: Patient has a history of heroin use, tobacco use, cocaine use, as well as smoking. ALLERGIES: NO KNOWN DRUG ALLERGIES. FAMILY HISTORY: Negative for sudden cardiac or premature coronary artery disease. MEDICATION: 1. Naproxen. 2. Bactrim double-strength. 3. Keflex for upper respiratory illness. REVIEW OF SYSTEMS: GENERAL: No fevers or chills. There is no shortness of breath. HEENT: No changes to vision or hearing. CARDIOVASCULAR: No chest pain reported. RESPIRATORY: No shortness of breath. GASTROINTESTINAL: No nausea, vomiting. GENITOURINARY: No dysuria, hematuria. NEUROLOGIC: No focal neurologic deficits. HEMATOLOGIC: . PSYCHIATRIC: Possible history of psychiatric disease. MUSCULOSKELETAL: Recent lower extremity swelling. PHYSICAL EXAMINATION: VITAL SIGNS: Temperature is 101.3, heart rate is 111, blood pressure 117/81. GENERAL: A thin gentleman, alert and oriented x3. Aware of his condition. HEENT: Head is normocephalic, atraumatic. Eyes, anicteric. NECK: Supple. JVD 6 cm. There is no lymphadenopathy, thyromegaly. CARDIAC: Regular with a soft 2/6 murmur, mid sternal, is appreciated. LUNGS: at the base. ABDOMEN: Distended. Bowel sounds are present. There is no hepatosplenomegaly. GENITOURINARY: Intact. EXTREMITIES: Show edema and chronic changes. LABORATORY: 1. White blood cell count 12.6, hemoglobin 13.7, platelets 249. He had an INR of 1.2. Lactic acid 3.1. Troponin is 0.14. 2. EKG: Sinus tachycardia with some nonspecific ST-T depressions. IMPRESSION AND PLAN: 1. Cardiomyopathy. Patient with cardiomyopathy, possibly nonischemic. Patient said that he had a left heart catheterization with a doctor at [facility] 2 weeks ago, which was normal. We will try to obtain records from [place]. For now, conservative therapy is expected. We will keep him euvolemic and diurese him gently as the blood pressure allows. 2. Hypertension. Patient has low blood pressure, status post heroin use, which might be contributing. Continue to monitor for now. He has some evidence of heart failure. 3. Congestive heart failure, acute on chronic, likely systolic. Continue gentle diuresis as blood pressure allows. 4. Elevated troponin. The patient has a mildly elevated troponin at 0.14. We will track troponin serially. We will continue to rule the patient out for acute ischemia. 5. Patient with fever, infectious versus drug related. Antibiotics per primary team. 6. Acute renal failure. Creatinine is elevated to 1.5. Continue to avoid nephrotoxic medications. I would like to thank, Dr. Grubbs, for referring this patient for my evaluation. Dictated By: Petr Quevedo MD /jeramy/heather /Document#: [id number]
[2017-02-22] MEDS: morphine 2 MG INJ IV PRN ×2 (08:23→12:09)
--- NOTE | 2017-02-22 08:36 | RADRPT ---
PROCEDURE: Chest 1 views. CLINICAL INDICATION: Shortness of breath. TECHNIQUE: AP views of the chest was obtained. COMPARISON: DR NICOLE CHEST 02/21/2017 FINDINGS: The heart is large. Central pulmonary vascular congestion and mild interstitial prominence is seen i n both lungs. Left mid and lower lung infiltrates, possibly combined with small pleural effusion ar e stable. Left-sided PICC line is unchanged. The osseous structures are stable. IMPRESSION: Cardiomegaly . Stable central pulmonary vascular congestion and mild interstitial prominence in both lungs. Stable right mid and lower lung infiltrates, possibly combined small pleural effusion. RPTAT: AA .Benjamin Simeon MD, MD Date Time Electronically viewed and signed by .Benjamin Simeon MD, MD on 02/22/2017 08:35 .P/
[2017-02-22] MEDS: CEFTRIAXONE 1 GM/50 ML (PMX) 50 ML IVPB SCH (11:28)
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
[2017-02-22] MEDS: AZITHROMYCIN 500MG/NS (PMX) 250 ML IV SCH (12:21)
--- NOTE | 2017-02-22 12:39 | PN ---
Date/Time of Note Date/Time of Note DATE: 02/22/17 TIME: 12:33 Assessment/Plan VTE Prophylaxis VTE Prophylaxis Intervention: SCD's Lines/Catheters IV Catheter Type (from [facility]): Central Line Central line still needed: Yes Urinary Cath still in place: No Assessment/Plan Chief Complaint/Hosp Course Assessment and plan 1. Sepsis from community-acquired pneumonia. Continue on antibiotics. ID consult following. Appears to be improving at present. 2. CHF with decompensation. shipping and receiving clerk following. Awaiting echo result. diuresis per dry mixer 3. Elevated troponin. Suspect non-ST elevated myocardial infarction. Sales Property Manager following. Continue the recommendations. 4. Heroin overdose. Patient was given Narcan in the ER. Patient remains more alert. Continue with oxygen supplementation. Monitor neuro status. Will get pain management physician to follow for possible methadone initiation 5. Reported homeless status. quarry worker to follow. 6. Acute renal insufficiency. IV fluids per dry mixer. Monitor renal panel. Medications to be renally dosed. 7. Transaminitis. Patient with history of hepatitis C. Patient for outpatient follow-up for this issue. Follow-up on serology Disposition plan: Continue telemetry monitoring. Continue medical optimization for CHF and antibiotics for pneumonia. Transfer to telemetry once cleared by consultants Discussed plan of care with Dr. Foster Problems: Subjective 24 Hr Interval Summary Free Text/Dictation More alert and oriented at this time. Reports better breathing. Denies any chest pain. Exam/Review of Systems Vital Signs Vitals Vital Signs Date Time Temp Pulse Resp B/P Pulse Ox O2 Delivery O2 Flow Rate FiO2 02/22/17 09:00 101 24 97/75 96 Nasal Cannula 2.0 02/22/17 08:00 98.6 Intake and Output 02/21/17 02/21/17 02/22/17 15:00 23:00 07:00 Intake Total 150 ml 840 ml 725 ml Output Total 200 ml 250 ml Balance 150 ml 640 ml 475 ml Exam Constitutional: alert, no s/s of distress Psych: nl mood/affect Head: normocephalic Eyes: nl conjunctiva Respiratory: diminished Cardiovascular: Tachycardic Gastrointestinal: non-tender, soft Extremities: edema (bilateral upper and lower extremities ) Neurological: nl speech, other (lethargic) Results Result Diagram: 02/22/1752902/22/17529 Results 24 hrs Laboratory Tests Test 02/21/17 15:39 02/21/17 16:27 02/21/17 17:00 02/21/17 18:30 Lactic Acid Level 1.2 Creatine Kinase 4407 H Creatine Kinase Index 1.1 Creatinine Kinase MB (Mass) 49.30 H Troponin I 1.160 *H Blood Gas Specimen Source Blood arterial Arterial Blood Date Drawn 02/21/2017 5:04:49 PM Arterial Blood pH (Temp corrected) 7.347 L Arterial Blood pCO2 (Temp correct) 34.2 L Arterial Blood pO2 (Temp corrected) 94.6 Arterial Blood HCO3 18.3 L Arterial Blood Base Excess -6.4 L Arterial Blood Oxygen Saturation 96.5 Henri Test ACCEPTAB Arterial Blood Gas Puncture Site Left Radial Arterial Blood Carboxyhemoglobin 0.3 Arterial Blood Methemoglobin 0.3 Blood Gas A-a O2 Differential 64.7 H Oxyhemoglobin Percent 95.9 Total Hemoglobin 14.2 Blood Gas Temperature 37.0 Blood Gas Modality NASAL CANNULA FiO2 28.0 Blood Gas Notified Whom M.D. Blood Gas Notified Time 02/21/2017 5:13:18 PM Urine Color HIWOT Urine Clarity SLIGHTLY CLOUDY A Urine pH 5.0 Urine Specific [place] 1.018 Urine Ketones NEGATIVE Urine Nitrite NEGATIVE Urine Bilirubin NEGATIVE Urine Urobilinogen 2+ H Urine Leukocyte Esterase NEGATIVE Urine Microscopic RBC 2 Urine Microscopic WBC 4 Urine Hemoglobin 3+ H Urine Random Creatinine 134.76 Urine Random Sodium 32 Urine Glucose 1+ H Urine Total Protein 324.0 H Test 02/21/17 20:16 02/22/17 05:30 02/22/17 07:00 Lactic Acid Level 1.8 Creatine Kinase 4400 H Creatine Kinase Index 1.2 Creatinine Kinase MB (Mass) 50.80 H Troponin I 1.380 *H White Blood Count 9.7 # Red Blood Count 4.74 Hemoglobin 12.7 L Hematocrit 40.7 L Mean Corpuscular Volume 85.9 Mean Corpuscular Hemoglobin 26.8 L Mean Corpuscular Hemoglobin Concent 31.2 L Red Cell Distribution Width 16.9 H Platelet Count 146 # Mean Platelet Volume 12.0 H Neutrophils % 80.9 H Lymphocytes % 10.2 L Monocytes % 8.2 Eosinophils % 0.0 Basophils % 0.3 Nucleated Red Blood Cells % 0.0 Neutrophils # (Manual) 7.9 H Lymphocytes # 1.0 Monocytes # 0.8 Eosinophils # 0.0 Basophils # 0.0 Nucleated Red Blood Cells # 0.0 Sodium Level 138 Potassium Level 3.9 Chloride Level 108 Carbon Dioxide Level 19 L Anion Gap 15 # Blood Urea Nitrogen 32 H Creatinine 1.59 H Glucose Level 89 # Hemoglobin A1c 5.9 Calcium Level 7.1 L Phosphorus Level 3.9 Magnesium Level 1.6 L Total Bilirubin 0.1 L Direct Bilirubin 0.00 Indirect Bilirubin 0.1 Aspartate Amino Transf (AST/SGOT) 158 #H Alanine Aminotransferase (ALT/SGPT) 83 H Alkaline Phosphatase 61 Total Protein 5.6 #L Albumin 2.3 #L Globulin 3.30 H Albumin/Globulin Ratio 0.69 Triglycerides Level 63 Cholesterol Level 57 L LDL Cholesterol, Calculated 25 HDL Cholesterol 19 L Cholesterol/HDL Ratio 3.0 Thyroid Stimulating Hormone (TSH) 2.060 Free Thyroxine Index 2.88 Thyroxine (T4) 6.9 Triiodothyronine (T3) Uptake 41.7 H Blood Gas Specimen Source Blood arterial Arterial Blood Date Drawn 02/22/2017 7:40:14 AM Arterial Blood pH (Temp corrected) 7.420 Arterial Blood pCO2 (Temp correct) 22.8 L Arterial Blood pO2 (Temp corrected) 83.3 Arterial Blood HCO3 14.5 L Arterial Blood Base Excess -7.8 L Arterial Blood Oxygen Saturation 96.3 Henri Test ACCEPTAB Arterial Blood Gas Puncture Site Right Radial Arterial Blood Carboxyhemoglobin 0.4 Arterial Blood Methemoglobin 0.2 Blood Gas A-a O2 Differential 82.3 H Oxyhemoglobin Percent 95.7 Total Hemoglobin 14.2 Blood Gas Temperature 37.0 Blood Gas Modality NASAL CANNULA FiO2 27.0 Blood Gas Notified Whom JLD Blood Gas Notified Time 02/22/2017 8:17:47 AM Medications Medications Current Medications Ondansetron HCl (Zofran Inj) 4 mg Q6H PRN IV NAUSEA AND/OR VOMITING; Start at 10:30 Acetaminophen (Tylenol Tab) 650 mg Q6H PRN PO PAIN LEVEL 1-3 OR FEVER; Start at 10:30 Acetaminophen (Tylenol Supp) 650 mg Q6H PRN [place] PAIN LEVEL 1-3 OR FEVER; Start 02/21/17 at 10:30 Acetaminophen/ Hydrocodone Bitart ([place] (5/325)) 1 tab Q6H PRN PO MODERATE PAIN LEVEL 4-6; Start 02/21/17 at 10:30 Morphine Sulfate (morphine) 2 mg Q4H PRN IV SEVERE PAIN LEVEL 7-10 Last administered on 02/22/17 12:09; Admin Dose 2 MG; Start 02/21/17 at 10:30 Docusate Sodium (Colace) 100 mg Q12H PRN PO CONSTIPATION; Start 02/21/17 at 10: 30 Magnesium Hydroxide (Milk Of Mag) 30 ml DAILY PRN PO CONSTIPATION; Start at 10:30 Bisacodyl (Dulcolax Supp) 10 mg DAILY PRN [place] CONSTIPATION; Start 02/21/17 at 10 :30 Enoxaparin Sodium (Lovenox) 75 mg Q12 SC Last administered on 02/22/17 08:09; Admin Dose 75 MG; Start 02/21/17 at 21:00 Aspirin (Aspirin) 81 mg DAILY PO ; Start 02/23/17 at 09:00 Nitroglycerin 1 tab 1 tab Q5M PRN SL CHEST PAIN; Start 02/21/17 at 10:30 Ceftriaxone Sodium 50 ml @ 100 mls/hr Q24H IVPB Last administered on 11:28; Admin Dose 100 MLS/HR; Start 02/21/17 at 12:00 Azithromycin (Zithromax 500mg/ NS (Pmx)) 250 ml @ 250 mls/hr Q24H IV Last administered on 02/22/17 12:21; Admin Dose 250 MLS/HR; Start 02/21/17 at 12:00 IV Flush (NS 10 ml) 10 ml PRN PRN IV IV PROTOCOL; Start 02/21/17 at 14:00 Famotidine (Pepcid Iv) 20 mg BID IV Last administered on 02/22/17 08:08; Admin Dose 20 MG; Start 02/21/17 at 21:00 TEODORO DALEY Feb 22, 2017 12:39
--- NOTE | 2017-02-22 12:46 | CONS ---
Date/Time of Note Date/Time of Note DATE: 02/22/17 TIME: 12:42 Consult Date/Type/Reason Admit Date/Time Feb 21, 2017 at 09:56 Initial Consult Date 02/21/17 Type of Consultation: Pulm Subjective Awake alert oriented. Hemodynamically stable. Objective Vital Signs Date Time Temp Pulse Resp B/P Pulse Ox O2 Delivery O2 Flow Rate FiO2 02/22/17 09:00 101 24 97/75 96 Nasal Cannula 2.0 02/22/17 08:00 98.6 Intake and Output 02/21/17 02/21/17 02/22/17 15:00 23:00 07:00 Intake Total 150 ml 840 ml 725 ml Output Total 200 ml 250 ml Balance 150 ml 640 ml 475 ml Exam PHYSICAL EXAMINATION: GENERAL: Chronically ill-appearing gentleman, oriented, comfortable. VITAL SIGNS: NECK: Supple. No JVD or lymphadenopathy. CARDIAC: S1, S2. No added sounds or murmurs. CHEST: Diminished air entry bilaterally. ABDOMEN: Soft, nontender. No guarding or rebound. EXTREMITIES: No cyanosis, clubbing. Edema +1. NEUROLOGIC: Generalized weakness. Results/Medications Result Diagram: 02/22/17 0530 02/22/17 0530 Results 24 hrs Laboratory Tests Test 02/21/17 15:39 02/21/17 16:27 02/21/17 17:00 02/21/17 18:30 Lactic Acid Level 1.2 Creatine Kinase 4407 H Creatine Kinase Index 1.1 Creatinine Kinase MB (Mass) 49.30 H Troponin I 1.160 *H Blood Gas Specimen Source Blood arterial Arterial Blood Date Drawn 02/21/2017 5:04:49 PM Arterial Blood pH (Temp corrected) 7.347 L Arterial Blood pCO2 (Temp correct) 34.2 L Arterial Blood pO2 (Temp corrected) 94.6 Arterial Blood HCO3 18.3 L Arterial Blood Base Excess -6.4 L Arterial Blood Oxygen Saturation 96.5 Henri Test ACCEPTAB Arterial Blood Gas Puncture Site Left Radial Arterial Blood Carboxyhemoglobin 0.3 Arterial Blood Methemoglobin 0.3 Blood Gas A-a O2 Differential 64.7 H Oxyhemoglobin Percent 95.9 Total Hemoglobin 14.2 Blood Gas Temperature 37.0 Blood Gas Modality NASAL CANNULA FiO2 28.0 Blood Gas Notified Whom [place] Blood Gas Notified Time 02/21/2017 5:13:18 PM Urine Color HIWOT Urine Clarity SLIGHTLY CLOUDY A Urine pH 5.0 Urine Specific [place] 1.018 Urine Ketones NEGATIVE Urine Nitrite NEGATIVE Urine Bilirubin NEGATIVE Urine Urobilinogen 2+ H Urine Leukocyte Esterase NEGATIVE Urine Microscopic RBC 2 Urine Microscopic WBC 4 Urine Hemoglobin 3+ H Urine Random Creatinine 134.76 Urine Random Sodium 32 Urine Glucose 1+ H Urine Total Protein 324.0 H Test 02/21/17 20:16 02/22/17 05:30 02/22/17 07:00 Lactic Acid Level 1.8 Creatine Kinase 4400 H Creatine Kinase Index 1.2 Creatinine Kinase MB (Mass) 50.80 H Troponin I 1.380 *H White Blood Count 9.7 # Red Blood Count 4.74 Hemoglobin 12.7 L Hematocrit 40.7 L Mean Corpuscular Volume 85.9 Mean Corpuscular Hemoglobin 26.8 L Mean Corpuscular Hemoglobin Concent 31.2 L Red Cell Distribution Width 16.9 H Platelet Count 146 # Mean Platelet Volume 12.0 H Neutrophils % 80.9 H Lymphocytes % 10.2 L Monocytes % 8.2 Eosinophils % 0.0 Basophils % 0.3 Nucleated Red Blood Cells % 0.0 Neutrophils # (Manual) 7.9 H Lymphocytes # 1.0 Monocytes # 0.8 Eosinophils # 0.0 Basophils # 0.0 Nucleated Red Blood Cells # 0.0 Sodium Level 138 Potassium Level 3.9 Chloride Level 108 Carbon Dioxide Level 19 L Anion Gap 15 # Blood Urea Nitrogen 32 H Creatinine 1.59 H Glucose Level 89 # Hemoglobin A1c 5.9 Calcium Level 7.1 L Phosphorus Level 3.9 Magnesium Level 1.6 L Total Bilirubin 0.1 L Direct Bilirubin 0.00 Indirect Bilirubin 0.1 Aspartate Amino Transf (AST/SGOT) 158 #H Alanine Aminotransferase (ALT/SGPT) 83 H Alkaline Phosphatase 61 Total Protein 5.6 #L Albumin 2.3 #L Globulin 3.30 H Albumin/Globulin Ratio 0.69 Triglycerides Level 63 Cholesterol Level 57 L LDL Cholesterol, Calculated 25 HDL Cholesterol 19 L Cholesterol/HDL Ratio 3.0 Thyroid Stimulating Hormone (TSH) 2.060 Free Thyroxine Index 2.88 Thyroxine (T4) 6.9 Triiodothyronine (T3) Uptake 41.7 H Blood Gas Specimen Source Blood arterial Arterial Blood Date Drawn 02/22/2017 7:40:14 AM Arterial Blood pH (Temp corrected) 7.420 Arterial Blood pCO2 (Temp correct) 22.8 L Arterial Blood pO2 (Temp corrected) 83.3 Arterial Blood HCO3 14.5 L Arterial Blood Base Excess -7.8 L Arterial Blood Oxygen Saturation 96.3 Henri Test ACCEPTAB Arterial Blood Gas Puncture Site Right Radial Arterial Blood Carboxyhemoglobin 0.4 Arterial Blood Methemoglobin 0.2 Blood Gas A-a O2 Differential 82.3 H Oxyhemoglobin Percent 95.7 Total Hemoglobin 14.2 Blood Gas Temperature 37.0 Blood Gas Modality NASAL CANNULA FiO2 27.0 Blood Gas Notified Whom JLD Blood Gas Notified Time 02/22/2017 8:17:47 AM Medications Current Medications Ondansetron HCl (Zofran Inj) 4 mg Q6H PRN IV NAUSEA AND/OR VOMITING; Start at 10:30 Acetaminophen (Tylenol Tab) 650 mg Q6H PRN PO PAIN LEVEL 1-3 OR FEVER; Start at 10:30 Acetaminophen (Tylenol Supp) 650 mg Q6H PRN [place] PAIN LEVEL 1-3 OR FEVER; Start 02/21/17 at 10:30 Acetaminophen/ Hydrocodone Bitart ([place] (5/325)) 1 tab Q6H PRN PO MODERATE PAIN LEVEL 4-6; Start 02/21/17 at 10:30 Morphine Sulfate (morphine) 2 mg Q4H PRN IV SEVERE PAIN LEVEL 7-10 Last administered on 02/22/17 12:09; Admin Dose 2 MG; Start 02/21/17 at 10:30 Docusate Sodium (Colace) 100 mg Q12H PRN PO CONSTIPATION; Start 02/21/17 at 10: 30 Magnesium Hydroxide (Milk Of Mag) 30 ml DAILY PRN PO CONSTIPATION; Start at 10:30 Bisacodyl (Dulcolax Supp) 10 mg DAILY PRN [place] CONSTIPATION; Start 02/21/17 at 10 :30 Enoxaparin Sodium (Lovenox) 75 mg Q12 SC Last administered on 02/22/17 08:09; Admin Dose 75 MG; Start 02/21/17 at 21:00 Aspirin (Aspirin) 81 mg DAILY PO ; Start 02/23/17 at 09:00 Nitroglycerin 1 tab 1 tab Q5M PRN SL CHEST PAIN; Start 02/21/17 at 10:30 Ceftriaxone Sodium 50 ml @ 100 mls/hr Q24H IVPB Last administered on 11:28; Admin Dose 100 MLS/HR; Start 02/21/17 at 12:00 Azithromycin (Zithromax 500mg/ NS (Pmx)) 250 ml @ 250 mls/hr Q24H IV Last administered on 02/22/17 12:21; Admin Dose 250 MLS/HR; Start 02/21/17 at 12:00 IV Flush (NS 10 ml) 10 ml PRN PRN IV IV PROTOCOL; Start 02/21/17 at 14:00 Famotidine (Pepcid Iv) 20 mg BID IV Last administered on 02/22/17 08:08; Admin Dose 20 MG; Start 02/21/17 at 21:00 Assessment/Plan Chief Complaint/Hosp Course IMPRESSION: 1. Intravenous heroin abuse with altered mental status. Now neurologically improved. 2. Possible aspiration pneumonia. 3. Possible community-acquired pneumonia. 4. Metabolic acidosis. 5. Lactic acidosis. 6. Elevated troponin, likely secondary to hypoperfusion. 7. Exclude infective endocarditis given history of intravenous drug abuse. PLAN: 1. Transfer [facility]. 2. Continue broad-spectrum antibiotics pending cultures. de escalate abx soon. 3. Aspiration precautions. 4. Supplemental O2. 5. Serial arterial blood gas, and lactate. 6. s/w consult re substance abuse. 7. Cardiac recs. recent angiogram per chart. 8. DVT and GI prophylaxis. Problems: MANOLO DURAN MD, [facility] Feb 22, 2017 12:46
[2017-02-22] MEDS ORDERED: NA BICARBONATE 8.4% 50 ML SYG IV STA ×2 (13:53→14:00)
[2017-02-22] MEDS: SODIUM BICARBONATE (IV ADD) 150 MEQ in DEXTROSE 5%-0.45% NACL 1,000 ML IV SCH (14:44)
[2017-02-22 14:53] LABS: HAAIG REFLEX REFLEX FILED
[2017-02-22 14:58] LABS: ABNORMAL IP MESSAGE 1; HEMATOCRIT 41.7 % (42.0-52.0); HEMOGLOBIN 12.8 g/dl (14.0-18.0); MEAN CORPUSCULAR HEMOGLOBIN 26.7 pg (29.0-33.0); MEAN CORPUSCULAR HGB CONC 30.7 g/dl (32.0-37.0); MEAN CORPUSCULAR VOLUME 87.1 fl (82.0-101.0); MEAN PLATELET VOLUME 11.3 fl (7.4-10.4); PLATELET COUNT 158 10^3/UL (140-415); POSITIVE DIFF @See below; RED BLOOD COUNT 4.79 10^6/ul (4.70-6.10); RED CELL DISTRIBUTION WIDTH 16.7 % (11.5-14.5); WHITE BLOOD COUNT 7.3 10^3/ul (4.8-10.8)
[2017-02-22 15:16] LABS: AADO2 Arterial 243.6 mmHg (7.0-24.0); Allen Test ACCEPTAB; Arterial Base Excess -19.2 mmol/L (-3.0-3); Arterial COHb 0.1 % (0.0-3.0); Arterial HCO3 7.5 mmol/L (22.0-26.0); Arterial MetHb 0.2 % (0.0-1.5); Arterial Total Hemglobin 15.2 g/dl (12.0-18.0); MODE NEBULIZER8
[2017-02-22 15:19] LABS: AADO2 Arterial 489.8 mmHg (7.0-24.0); Allen Test ACCEPTAB; Arterial Base Excess -6.9 mmol/L (-3.0-3); Arterial COHb 0.1 % (0.0-3.0); Arterial Fraction of Oxyhgb 98.8 % (93.0-99.0); Arterial HCO3 16.6 mmol/L (22.0-26.0); Arterial MetHb 0.3 % (0.0-1.5); Arterial Total Hemglobin 14.2 g/dl (12.0-18.0); MODE MASK - NRB
[2017-02-22 15:21] LABS: CALCIUM 7.1 mg/dl (8.4-10.2); CREATININE 1.81 mg/dl (0.61-1.24); POTASSIUM 3.8 mmol/L (3.5-5.1)
[2017-02-22] MEDS: ALBUMIN HUMAN 5% 250 ML IV SCH ×2 (15:42→17:46)
[2017-02-22] MEDS ORDERED: FUROSEMIDE 40 MG INJ IV ONE (16:00)
[2017-02-22 16:31] LABS: LYMPHOCYTES # 0.4 10^3/ul (0.8-2.9); MONOCYTE # 0.2 10^3/ul (0.3-0.9); MONOCYTES % (M) 3 % (0-11)
[2017-02-22 16:32] LABS: BURR CELLS FEW; HEPATITIS B CORE ANTIBODY NEGATIVE (NEGATIVE)
[2017-02-22 16:33] LABS: PLATELET ESTIMATE NORMAL
--- NOTE | 2017-02-22 16:56 | CONS ---
Date/Time of Note Date/Time of Note DATE: 02/22/17 TIME: 16:49 Assessment/Plan Assessment/Plan Chief Complaint/Hosp Course IMP: 1.CHF 2.Hypotensiopn 3.Renal failure 4.Nstemi-decreasing enzymes 5. Acidosis 6. Bacteremia Recc: -Tele -serial ecg's -trend cardiac enzymes -Contineu asa -Follow HR/BP closely -ongoing renal eval Problems: Consultation Date/Type/Reason Admit Date/Time Feb 21, 2017 at 09:56 Initial Consult Date 02/21/17 Type of Consultation: cardiology Reason for Consultation Chest pain Referring Provider: NOLBERTO MEDINA MD Exam/Review of Systems Vital Signs Vitals Vital Signs Date Time Temp Pulse Resp B/P Pulse Ox O2 Delivery O2 Flow Rate FiO2 02/22/17 16:00 98.0 103 24 112/85 100 Nasal Cannula 2.0 Intake and Output 02/21/17 02/21/17 02/22/17 14:59 22:59 06:59 Intake Total 75 ml 840 ml 800 ml Output Total 200 ml 250 ml Balance 75 ml 640 ml 550 ml Exam Review of Systems: CONSTITUTIONAL: No fevers, chills. PULMONARY: No sob CARDIOVASCULAR: No chest pain/palpitations GASTROINTESTINAL: No nausea/vomiting. GENITOURINARY: No hematuria/dysuria. MUSCULOSKELETAL: No myagias/arthalgias. PSYCHIATRIC: The patient denies depression. NEUROLOGIC: No weakness Constitutional: alert Psych: no complaints ENMT: mucosa pink and moist Neck: jvd, supple Cardiovascular: regular rate and rhythm Gastrointestinal: non-tender, soft Musculoskeletal: muscle tone (normal) Extremities: pitting pedal edema (Bilateral) Neurological: other (No focal deficits) Results Result Diagram: 02/22/17 1440 02/22/17 1440 Results 24 hrs Laboratory Tests Test 02/21/17 17:00 02/21/17 18:30 02/21/17 20:16 02/22/17 05:30 Blood Gas Specimen Source Blood arterial Arterial Blood Date Drawn 02/21/2017 5:04:49 PM Arterial Blood pH (Temp corrected) 7.347 L Arterial Blood pCO2 (Temp correct) 34.2 L Arterial Blood pO2 (Temp corrected) 94.6 Arterial Blood HCO3 18.3 L Arterial Blood Base Excess -6.4 L Arterial Blood Oxygen Saturation 96.5 Henri Test ACCEPTAB Arterial Blood Gas Puncture Site Left Radial Arterial Blood Carboxyhemoglobin 0.3 Arterial Blood Methemoglobin 0.3 Blood Gas A-a O2 Differential 64.7 H Oxyhemoglobin Percent 95.9 Total Hemoglobin 14.2 Blood Gas Temperature 37.0 Blood Gas Modality NASAL CANNULA FiO2 28.0 Blood Gas Notified Whom M.DJaclyn Blood Gas Notified Time 02/21/2017 5:13:18 PM Urine Color HIWOT Urine Clarity SLIGHTLY CLOUDY A Urine pH 5.0 Urine Specific [facility] 1.018 Urine Ketones NEGATIVE Urine Nitrite NEGATIVE Urine Bilirubin NEGATIVE Urine Urobilinogen 2+ H Urine Leukocyte Esterase NEGATIVE Urine Microscopic RBC 2 Urine Microscopic WBC 4 Urine Hemoglobin 3+ H Urine Random Creatinine 134.76 Urine Random Sodium 32 Urine Glucose 1+ H Urine Total Protein 324.0 H Lactic Acid Level 1.8 Creatine Kinase 4400 H Creatine Kinase Index 1.2 Creatinine Kinase MB (Mass) 50.80 H Troponin I 1.380 *H White Blood Count 9.7 # Red Blood Count 4.74 Hemoglobin 12.7 L Hematocrit 40.7 L Mean Corpuscular Volume 85.9 Mean Corpuscular Hemoglobin 26.8 L Mean Corpuscular Hemoglobin Concent 31.2 L Red Cell Distribution Width 16.9 H Platelet Count 146 # Mean Platelet Volume 12.0 H Neutrophils % 80.9 H Lymphocytes % 10.2 L Monocytes % 8.2 Eosinophils % 0.0 Basophils % 0.3 Nucleated Red Blood Cells % 0.0 Neutrophils # (Manual) 7.9 H Lymphocytes # 1.0 Monocytes # 0.8 Eosinophils # 0.0 Basophils # 0.0 Nucleated Red Blood Cells # 0.0 Sodium Level 138 Potassium Level 3.9 Chloride Level 108 Carbon Dioxide Level 19 L Anion Gap 15 # Blood Urea Nitrogen 32 H Creatinine 1.59 H Glucose Level 89 # Hemoglobin A1c 5.9 Calcium Level 7.1 L Phosphorus Level 3.9 Magnesium Level 1.6 L Total Bilirubin 0.1 L Direct Bilirubin 0.00 Indirect Bilirubin 0.1 Aspartate Amino Transf (AST/SGOT) 158 #H Alanine Aminotransferase (ALT/SGPT) 83 H Alkaline Phosphatase 61 Total Protein 5.6 #L Albumin 2.3 #L Globulin 3.30 H Albumin/Globulin Ratio 0.69 Triglycerides Level 63 Cholesterol Level 57 L LDL Cholesterol, Calculated 25 HDL Cholesterol 19 L Cholesterol/HDL Ratio 3.0 Thyroid Stimulating Hormone (TSH) 2.060 Free Thyroxine Index 2.88 Thyroxine (T4) 6.9 Triiodothyronine (T3) Uptake 41.7 H Test 02/22/17 07:00 02/22/17 13:18 02/22/17 14:40 02/22/17 14:45 Blood Gas Specimen Source Blood arterial Blood arterial Blood arterial Arterial Blood Date Drawn 02/22/2017 7:40:14 AM 02/22/2017 1:30:00 PM 02/22/2017 2:50:33 PM Arterial Blood pH (Temp corrected) 7.420 7.158 *L 7.385 Arterial Blood pCO2 (Temp correct) 22.8 L 21.6 L 28.3 L Arterial Blood pO2 (Temp corrected) 83.3 110.2 H 194.9 H Arterial Blood HCO3 14.5 L 7.5 *L 16.6 L Arterial Blood Base Excess -7.8 L -19.2 L -6.9 L Arterial Blood Oxygen Saturation 96.3 96.3 99.2 H Henri Test ACCEPTAB ACCEPTAB ACCEPTAB Arterial Blood Gas Puncture Site Right Radial Right Radial Right Radial Arterial Blood Carboxyhemoglobin 0.4 0.1 0.1 Arterial Blood Methemoglobin 0.2 0.2 0.3 Blood Gas A-a O2 Differential 82.3 H 243.6 H 489.8 H Oxyhemoglobin Percent 95.7 96.0 98.8 Total Hemoglobin 14.2 15.2 14.2 Blood Gas Temperature 37.0 37.0 37.0 Blood Gas Modality NASAL CANNULA NEBULIZER8 MASK - NRB FiO2 27.0 53.0 100.0 Blood Gas Notified Whom LUCAS ZAVALA Blood Gas Notified Time 02/22/2017 8:17:47 AM 02/22/2017 1:40:00 PM 02/22/2017 3:19:08 PM Blood Gas Critical Value Read Back Gabriella PERKINS RN White Blood Count 7.3 # Red Blood Count 4.79 Hemoglobin 12.8 L Hematocrit 41.7 L Mean Corpuscular Volume 87.1 Mean Corpuscular Hemoglobin 26.7 L Mean Corpuscular Hemoglobin Concent 30.7 L Red Cell Distribution Width 16.7 H Platelet Count 158 Mean Platelet Volume 11.3 H Neutrophils % Segmented Neutrophils % (Manual) 88 H Band Neutrophils % (Manual) 3 Lymphocytes % Lymphocytes % (Manual) 6 L Monocytes % Monocytes % (Manual) 3 Eosinophils % Basophils % Nucleated Red Blood Cells % 0.0 Neutrophils # (Manual) 6.4 Band Neutrophils # 0.2 Absolute Lymphocytes (Manual) 0.4 L Lymphocytes # 0.4 L Monocytes # 0.2 L Absolute Monocytes (Manual) 0.2 L Eosinophils # Basophils # Nucleated Red Blood Cells # Platelet Estimate NORMAL Macrocytosis FEW Sodium Level 141 Potassium Level 3.8 Chloride Level 105 Carbon Dioxide Level 20 L Anion Gap 20 H Blood Urea Nitrogen 35 H Creatinine 1.81 H Glucose Level 237 #H Lactic Acid Level 6.2 *H Calcium Level 7.1 L Hepatitis B Surface Antigen NEGATIVE Hepatitis B Core Total Antibody NEGATIVE Hepatitis C Antibody REACTIVE H Medications Medications Current Medications Ondansetron HCl (Zofran Inj) 4 mg Q6H PRN IV NAUSEA AND/OR VOMITING; Start at 10:30 Acetaminophen (Tylenol Tab) 650 mg Q6H PRN PO PAIN LEVEL 1-3 OR FEVER; Start at 10:30 Acetaminophen (Tylenol Supp) 650 mg Q6H PRN [place] PAIN LEVEL 1-3 OR FEVER; Start 02/21/17 at 10:30 Acetaminophen/ Hydrocodone Bitart ([place] (5/325)) 1 tab Q6H PRN PO MODERATE PAIN LEVEL 4-6; Start 02/21/17 at 10:30 Morphine Sulfate (morphine) 2 mg Q4H PRN IV SEVERE PAIN LEVEL 7-10 Last administered on 02/22/17 12:09; Admin Dose 2 MG; Start 02/21/17 at 10:30 Docusate Sodium (Colace) 100 mg Q12H PRN PO CONSTIPATION; Start 02/21/17 at 10: 30 Magnesium Hydroxide (Milk Of Mag) 30 ml DAILY PRN PO CONSTIPATION; Start at 10:30 Bisacodyl (Dulcolax Supp) 10 mg DAILY PRN [place] CONSTIPATION; Start 02/21/17 at 10 :30 Enoxaparin Sodium (Lovenox) 75 mg Q12 SC Last administered on 02/22/17 08:09; Admin Dose 75 MG; Start 02/21/17 at 21:00 Aspirin (Aspirin) 81 mg DAILY PO ; Start 02/23/17 at 09:00 Nitroglycerin 1 tab 1 tab Q5M PRN SL CHEST PAIN; Start 02/21/17 at 10:30 Ceftriaxone Sodium 50 ml @ 100 mls/hr Q24H IVPB Last administered on 11:28; Admin Dose 100 MLS/HR; Start 02/21/17 at 12:00 Azithromycin (Zithromax 500mg/ NS (Pmx)) 250 ml @ 250 mls/hr Q24H IV Last administered on 02/22/17 12:21; Admin Dose 250 MLS/HR; Start 02/21/17 at 12:00 IV Flush (NS 10 ml) 10 ml PRN PRN IV IV PROTOCOL; Start 02/21/17 at 14:00 Famotidine 20 mg 20 mg BID IV Last administered on 02/22/17 08:08; Admin Dose 20 MG; Start 02/21/17 at 21:00 Sodium Bicarbonate 150 meq/Dextrose/ Sodium Chloride 1,150 ml @ 100 mls/hr [id number] IV Last administered on 02/22/17 14:44; Admin Dose 100 MLS/HR; Start 02/22/17 at 14:30 Albumin Human 250 ml @ 250 mls/hr Q1H IV Last administered on 02/22/17 15:42 ; Admin Dose 250 MLS/HR; Start 02/22/17 at 15:30; Stop 02/22/17 at 17:29 Norepinephrine/ Dextrose (Levophed/D5W) 500 ml @ 1.87 mls/hr TITRATE PRN IV SBP ABOVE 90; Start 02/22/17 at 15:30 CELINE LI Feb 22, 2017 16:56
--- NOTE | 2017-02-22 17:54 | CONS ---
Date/Time of Note Date/Time of Note DATE: 02/22/17 TIME: 17:50 Assessment/Plan Assessment/Plan Additional Assessment/Plan Brief note H/O heroin use last time 2 day ago CHF asp pna SHRUTHI Homeless Hep OD Begin methadone 40 mg daily Will not escalate current opioids Consultation Date/Type/Reason Admit Date/Time Feb 21, 2017 at 09:56 Type of Consultation: Pain Management Psychological: no complaints Social History Smoking Status: Current every day smoker Drug Use: heroin Exam/Review of Systems Vital Signs Vitals Vital Signs Date Time Temp Pulse Resp B/P Pulse Ox O2 Delivery O2 Flow Rate FiO2 02/22/17 17:18 2.0 02/22/17 17:00 100 23 98/76 100 Nasal Cannula 02/22/17 16:00 98.0 Intake and Output 02/21/17 02/21/17 02/22/17 15:00 23:00 07:00 Intake Total 150 ml 840 ml 725 ml Output Total 200 ml 250 ml Balance 150 ml 640 ml 475 ml Exam Constitutional: alert, oriented, well developed Eyes: EOMI, PERRL, nl conjunctiva, nl lids, nl sclera Respiratory: congested cough, crackles/rales Cardiovascular: No S3, No S4, No bruits, No diastolic murmur, No edema, No gallop, No irregular rhythm, No jugular venous distention (JVD), No murmurs/ extra sounds, No nl pulses, No other, No regular rate and rhythm, No rub, No systolic murmur Neurological: 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-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, nl mental status, nl speech, nl strength, No DTR's symmetric, No confused, No focal weakness, No lethargic, No numbness , No other, No reflexes, No unresponsive Results Result Diagram: 02/22/17 1440 02/22/17 1440 Results 24 hrs Laboratory Tests Test 02/21/17 18:30 02/21/17 20:16 02/22/17 05:30 02/22/17 07:00 Urine Color HIWOT Urine Clarity SLIGHTLY CLOUDY A Urine pH 5.0 Urine Specific [place] 1.018 Urine Ketones NEGATIVE Urine Nitrite NEGATIVE Urine Bilirubin NEGATIVE Urine Urobilinogen 2+ H Urine Leukocyte Esterase NEGATIVE Urine Microscopic RBC 2 Urine Microscopic WBC 4 Urine Hemoglobin 3+ H Urine Random Creatinine 134.76 Urine Random Sodium 32 Urine Glucose 1+ H Urine Total Protein 324.0 H Lactic Acid Level 1.8 Creatine Kinase 4400 H Creatine Kinase Index 1.2 Creatinine Kinase MB (Mass) 50.80 H Troponin I 1.380 *H White Blood Count 9.7 # Red Blood Count 4.74 Hemoglobin 12.7 L Hematocrit 40.7 L Mean Corpuscular Volume 85.9 Mean Corpuscular Hemoglobin 26.8 L Mean Corpuscular Hemoglobin Concent 31.2 L Red Cell Distribution Width 16.9 H Platelet Count 146 # Mean Platelet Volume 12.0 H Neutrophils % 80.9 H Lymphocytes % 10.2 L Monocytes % 8.2 Eosinophils % 0.0 Basophils % 0.3 Nucleated Red Blood Cells % 0.0 Neutrophils # (Manual) 7.9 H Lymphocytes # 1.0 Monocytes # 0.8 Eosinophils # 0.0 Basophils # 0.0 Nucleated Red Blood Cells # 0.0 Sodium Level 138 Potassium Level 3.9 Chloride Level 108 Carbon Dioxide Level 19 L Anion Gap 15 # Blood Urea Nitrogen 32 H Creatinine 1.59 H Glucose Level 89 # Hemoglobin A1c 5.9 Calcium Level 7.1 L Phosphorus Level 3.9 Magnesium Level 1.6 L Total Bilirubin 0.1 L Direct Bilirubin 0.00 Indirect Bilirubin 0.1 Aspartate Amino Transf (AST/SGOT) 158 #H Alanine Aminotransferase (ALT/SGPT) 83 H Alkaline Phosphatase 61 Total Protein 5.6 #L Albumin 2.3 #L Globulin 3.30 H Albumin/Globulin Ratio 0.69 Triglycerides Level 63 Cholesterol Level 57 L LDL Cholesterol, Calculated 25 HDL Cholesterol 19 L Cholesterol/HDL Ratio 3.0 Thyroid Stimulating Hormone (TSH) 2.060 Free Thyroxine Index 2.88 Thyroxine (T4) 6.9 Triiodothyronine (T3) Uptake 41.7 H Blood Gas Specimen Source Blood arterial Arterial Blood Date Drawn 02/22/2017 7:40:14 AM Arterial Blood pH (Temp corrected) 7.420 Arterial Blood pCO2 (Temp correct) 22.8 L Arterial Blood pO2 (Temp corrected) 83.3 Arterial Blood HCO3 14.5 L Arterial Blood Base Excess -7.8 L Arterial Blood Oxygen Saturation 96.3 Henri Test ACCEPTAB Arterial Blood Gas Puncture Site Right Radial Arterial Blood Carboxyhemoglobin 0.4 Arterial Blood Methemoglobin 0.2 Blood Gas A-a O2 Differential 82.3 H Oxyhemoglobin Percent 95.7 Total Hemoglobin 14.2 Blood Gas Temperature 37.0 Blood Gas Modality NASAL CANNULA FiO2 27.0 Blood Gas Notified Whom JLD Blood Gas Notified Time 02/22/2017 8:17:47 AM Test 02/22/17 13:18 02/22/17 14:40 02/22/17 14:45 Blood Gas Specimen Source Blood arterial Blood arterial Arterial Blood Date Drawn 02/22/2017 1:30:00 PM 02/22/2017 2:50:33 PM Arterial Blood pH (Temp corrected) 7.158 *L 7.385 Arterial Blood pCO2 (Temp correct) 21.6 L 28.3 L Arterial Blood pO2 (Temp corrected) 110.2 H 194.9 H Arterial Blood HCO3 7.5 *L 16.6 L Arterial Blood Base Excess -19.2 L -6.9 L Arterial Blood Oxygen Saturation 96.3 99.2 H Henri Test ACCEPTAB ACCEPTAB Arterial Blood Gas Puncture Site Right Radial Right Radial Arterial Blood Carboxyhemoglobin 0.1 0.1 Arterial Blood Methemoglobin 0.2 0.3 Blood Gas A-a O2 Differential 243.6 H 489.8 H Oxyhemoglobin Percent 96.0 98.8 Total Hemoglobin 15.2 14.2 Blood Gas Temperature 37.0 37.0 Blood Gas Modality NEBULIZER8 MASK - NRB FiO2 53.0 100.0 Blood Gas Critical Value Read Back Gabriella PERKINS RN Blood Gas Notified Whom LUCAS JLD Blood Gas Notified Time 02/22/2017 1:40:00 PM 02/22/2017 3:19:08 PM White Blood Count 7.3 # Red Blood Count 4.79 Hemoglobin 12.8 L Hematocrit 41.7 L Mean Corpuscular Volume 87.1 Mean Corpuscular Hemoglobin 26.7 L Mean Corpuscular Hemoglobin Concent 30.7 L Red Cell Distribution Width 16.7 H Platelet Count 158 Mean Platelet Volume 11.3 H Neutrophils % Segmented Neutrophils % (Manual) 88 H Band Neutrophils % (Manual) 3 Lymphocytes % Lymphocytes % (Manual) 6 L Monocytes % Monocytes % (Manual) 3 Eosinophils % Basophils % Nucleated Red Blood Cells % 0.0 Neutrophils # (Manual) 6.4 Band Neutrophils # 0.2 Absolute Lymphocytes (Manual) 0.4 L Lymphocytes # 0.4 L Monocytes # 0.2 L Absolute Monocytes (Manual) 0.2 L Eosinophils # Basophils # Nucleated Red Blood Cells # Platelet Estimate NORMAL Macrocytosis FEW Sodium Level 141 Potassium Level 3.8 Chloride Level 105 Carbon Dioxide Level 20 L Anion Gap 20 H Blood Urea Nitrogen 35 H Creatinine 1.81 H Glucose Level 237 #H Lactic Acid Level 6.2 *H Calcium Level 7.1 L Hepatitis B Surface Antigen NEGATIVE Hepatitis B Core Total Antibody NEGATIVE Hepatitis C Antibody REACTIVE H Medications Medications Current Medications Ondansetron HCl (Zofran Inj) 4 mg Q6H PRN IV NAUSEA AND/OR VOMITING; Start at 10:30 Acetaminophen (Tylenol Tab) 650 mg Q6H PRN PO PAIN LEVEL 1-3 OR FEVER; Start at 10:30 Acetaminophen (Tylenol Supp) 650 mg Q6H PRN IN PAIN LEVEL 1-3 OR FEVER; Start 02/21/17 at 10:30 Acetaminophen/ Hydrocodone Bitart (Cyclone (5/325)) 1 tab Q6H PRN PO MODERATE PAIN LEVEL 4-6; Start 02/21/17 at 10:30 Morphine Sulfate (morphine) 2 mg Q4H PRN IV SEVERE PAIN LEVEL 7-10 Last administered on 02/22/17 12:09; Admin Dose 2 MG; Start 02/21/17 at 10:30 Docusate Sodium (Colace) 100 mg Q12H PRN PO CONSTIPATION; Start 02/21/17 at 10: 30 Magnesium Hydroxide (Milk Of Mag) 30 ml DAILY PRN PO CONSTIPATION; Start at 10:30 Bisacodyl (Dulcolax Supp) 10 mg DAILY PRN IN CONSTIPATION; Start 02/21/17 at 10 :30 Aspirin (Aspirin) 81 mg DAILY PO ; Start 02/23/17 at 09:00 Nitroglycerin 1 tab 1 tab Q5M PRN SL CHEST PAIN; Start 02/21/17 at 10:30 Ceftriaxone Sodium 50 ml @ 100 mls/hr Q24H IVPB Last administered on 11:28; Admin Dose 100 MLS/HR; Start 02/21/17 at 12:00 Azithromycin (Zithromax 500mg/ NS (Pmx)) 250 ml @ 250 mls/hr Q24H IV Last administered on 02/22/17 12:21; Admin Dose 250 MLS/HR; Start 02/21/17 at 12:00 IV Flush (NS 10 ml) 10 ml PRN PRN IV IV PROTOCOL; Start 02/21/17 at 14:00 Famotidine 20 mg 20 mg BID IV Last administered on 02/22/17 08:08; Admin Dose 20 MG; Start 02/21/17 at 21:00 Sodium Bicarbonate 150 meq/Dextrose/ Sodium Chloride 1,150 ml @ 100 mls/hr [id number] IV Last administered on 02/22/17 14:44; Admin Dose 100 MLS/HR; Start 02/22/17 at 14:30 Norepinephrine/ Dextrose (Levophed/D5W) 500 ml @ 1.87 mls/hr TITRATE PRN IV SBP ABOVE 90; Start 02/22/17 at 15:30 Enoxaparin Sodium (Lovenox) 75 mg DAILY SC ; Start 02/23/17 at 09:00 ROSEMARY HANEY Feb 22, 2017 17:54
[2017-02-22] MEDS: METHADONE 10 MG TAB PO SCH (18:14)
--- NOTE | 2017-02-22 18:24 | RADRPT ---
Echocardiogram Report ADDENDUM Patient Name: KHADIJAH MALDONADO Gender: Male Date: 1960 Study Date: 21-Feb-2017 Manager People: [facility] Location: [facility] Ref. Physician: SANTANA NGO Quality: Adequate Procedures: Transthoracic echocardiogram with complete 2D, M-Mode, and doppler examination. Indications: Chest Pain. 2D/M Mode Doppler Measurement Value Normal Ranges Measurement Value Normal Ranges LVIDd 2D 7.6 3.5 - 5.6 cm AV Peak Sergio 0.5 m/sec LVIDs 2D 7.0 2.1 - 4.1 cm AV Peak PG 1.0 mmHg FS 2D 7.5 % AI Peak PG 27.0 mmHg LVPWd 2D 1.1 0.6 - 1.1 cm AI Peak Sergio 2.6 m/sec IVSd 2D 1.1 0.6 - 1.1 cm AI PHT 383.0 msec IVS/LVPW 2D 1.0 LVOT Peak Sergio 0.4 m/sec AoR Diam 2D 2.8 2.0 - 3.7 cm LVOT Peak PG 1.0 mmHg LA/Ao 2D 2 0 - 1 MV E Peak Sergio 0.4 m/sec EDV 2D 437.0 cm3 MR Peak PG 56.0 mmHg ESV 2D 346.0 cm3 MR Peak Sergio 3.7 m/sec LA Dimen 2D 5.4 2.3 - 4.0 cm TR Peak Sergio 2.8 m/sec TR Peak PG 32.0 mmHg RVSP 47.0 mmHg Findings Left Ventricle: Normal left ventricular wall thickness. Severe enlargement of left ventricle cavity. Severe global left ventricular systolic dysfunction. Ejection fraction is visually estimated at 15 %. Abnormal Diastolic Function. Right Ventricle: Moderate right ventricular systolic dysfunction. Severe enlargement of right ventricle. Left Atrium: There is severe enlargement of left atrium. Right Atrium: There is severe enlargement of right atrium. Mitral Valve: Mitral valve leaflets appear mildly thickened. Moderate mitral valve regurgitation. Aortic Valve: Aortic sclerosis without stenosis. Trace aortic valve regurgitation. Tricuspid Valve: Estimated peak PA systolic pressure 47 mmHg. Tricuspid valve appears mildly thickened. There is moderate tricuspid regurgitation. Pulmonic Valve: Pulmonic valve not well visualized. There is trace pulmonic regurgitation. Pericardium: Normal pericardium with no significant pericardial effusion. Aorta: Normal aortic root. IVC: Dilated IVC without respiratory collapse consistent with elevated right atrial pressure. Conclusions 1.Normal left ventricular wall thickness. Severe enlargement of left ventricle cavity. Severe global left ventricular systolic dysfunction. Ejection fraction is visually estimated at 15%. Abnormal Diastolic Function. 2.Moderate right ventricular systolic dysfunction. Severe enlargement of right ventricle. 3.There is severe enlargement of left atrium. 4.There is severe enlargement of right atrium. 5.Mitral valve leaflets appear mildly thickened. Moderate mitral valve regurgitation. 6.Aortic sclerosis without stenosis. Trace aortic valve regurgitation. 7.Estimated peak PA systolic pressure 47 mmHg. Tricuspid valve appears mildly thickened. There is moderate tricuspid regurgitation. 8.Pulmonic valve not well visualized. There is trace pulmonic regurgitation. Electronically Signed By: Cem Gipson 22-Feb-2017 18:25:14 -0700 [ADDENDUM] Patient Name: KHADIJAH MALDONADO Study Date: 21-Feb-2017 [id number]
[2017-02-22 20:13] LABS: ADD UMIC YES; UR ASCORBIC ACID NEGATIVE (NEGATIVE); UR BILIRUBIN (Dip) NEGATIVE (NEGATIVE); UR BLOOD (Dip) 2+ mg/dL (NEGATIVE); UR CLARITY CLOUDY (CLEAR); UR COLOR AMBER (YELLOW); UR GLUCOSE (Dip) 2+ mg/dL (NEGATIVE); UR KETONES (Dip) NEGATIVE (NEGATIVE); UR LEUKOCYTE ESTERASE (Dip) NEGATIVE Leu/ul (NEGATIVE); UR NITRITE (Dip) NEGATIVE (NEGATIVE); UR NONSQUAMOUS EPITHELIAL CELL 1 /HPF (NONE SEEN); UR RBC 3 /HPF (0-5); UR SPECIFIC GRAVITY (Dip) 1.017 (1.003-1.030); UR TOTAL PROTEIN (Dip) 2+ mg/dl (NEGATIVE); UR UROBILINOGEN (Dip) 2+ mg/dL (NEGATIVE)
--- NOTE | 2017-02-22 20:39 | RADRPT ---
PROCEDURE: Ultrasound of the bilateral lower extremity venous system. CLINICAL INDICATION: Bilateral leg pain and swelling, deep venous thrombosis TECHNIQUE: Soni scale with and without compression, color doppler, spectral doppler of the venous system of the bilateral lower extremities was performed. Venous augmentation maneuvers were utilized . COMPARISON: No prior studies are available for comparison. FINDINGS: RIGHT: Common femoral vein: Patent. Femoral vein: Patent. Popliteal vein: Patent. Calf veins: Patent. No soft tissue abnormalities are identified. LEFT: Common femoral vein: Patent. Femoral vein: Patent. Popliteal vein: Patent. Calf veins: Patent. No soft tissue abnormalities are identified. IMPRESSION: No evidence of a deep vein thrombosis within the bilateral lower extremities. RPTAT: AADD .Gerald Haji MD, MD Date Time Electronically viewed and signed by .Gerald Haji MD, on 02/22/2017 20:39 .B/
[2017-02-23] VITALS (14 sets, daily range): BP systolic 104–127; BP diastolic 73–88; PULSE 85–94; RESP 13–19
[2017-02-23] MEDS: LEVALBUTEROL (NEB) 0.63 MG/3 ML AMP HHN SCH ×4 (02:00→20:43)
[2017-02-23] MEDS: IPRATROPIUM (NEB) 0.5 MG/2.5 ML AMP HHN SCH ×4 (02:00→20:43)
[2017-02-23] MEDS: SODIUM BICARBONATE (IV ADD) 150 MEQ in DEXTROSE 5%-0.45% NACL 1,000 ML IV SCH (02:07)
[2017-02-23 04:16] LABS: CALCIUM 7.6 mg/dl (8.4-10.2); CREATININE 1.51 mg/dl (0.61-1.24); POTASSIUM 3.6 mmol/L (3.5-5.1)
[2017-02-23 04:19] LABS: POSITIVE DIFF @See below; RED CELL DISTRIBUTION WIDTH 16.6 % (11.5-14.5)
[2017-02-23 04:27] LABS: BASOPHILS % 0.2 % (0.0-2.0); EOSINOPHILS % 0.2 % (0.0-7.0); HEMATOCRIT 35.5 % (42.0-52.0); HEMOGLOBIN 11.5 g/dl (14.0-18.0); LYMPHOCYTES # 0.9 10^3/ul (0.8-2.9); LYMPHOCYTES % 9.4 % (15.0-51.0); MEAN CORPUSCULAR HEMOGLOBIN 27.6 pg (29.0-33.0); MEAN CORPUSCULAR HGB CONC 32.4 g/dl (32.0-37.0); MEAN CORPUSCULAR VOLUME 85.1 fl (82.0-101.0); MEAN PLATELET VOLUME 11.7 fl (7.4-10.4); MONOCYTE # 0.7 10^3/ul (0.3-0.9); MONOCYTES % 7.6 % (0.0-11.0); NEUTROPHILS % 82.2 % (39.0-77.0); PLATELET COUNT 131 10^3/UL (140-415); RED BLOOD COUNT 4.17 10^6/ul (4.70-6.10); WHITE BLOOD COUNT 9.1 10^3/ul (4.8-10.8)
[2017-02-23 05:08] LABS: CK-MB 14.7 ng/ml (0.0-2.4); TROPONIN-I 1.09 ng/ml (0.00-0.12)
--- NOTE | 2017-02-23 07:42 | PN ---
Date/Time of Note Date/Time of Note DATE: 02/23/17 TIME: 07:35 Assessment/Plan VTE Prophylaxis VTE Prophylaxis Intervention: SCD's Lines/Catheters IV Catheter Type (from Nrs): Central Line Central line still needed: Yes Urinary Cath still in place: Yes Reason Cath still needed: other (indicate) (monitor I&O) Assessment/Plan Chief Complaint/Hosp Course Assessment and plan 1. Sepsis from community-acquired pneumonia. Continue on antibiotics. ID consult following. slowly improving. 2. CHF with decompensation. drop wire hanger following. Awaiting echo result. diuresis per certified public accountant 3. Elevated troponin. in the setting of sepsis and renal insufficiency. Shoulder Joiner following. continue with recs 4. Heroin overdose. methadone per pain director of revenue cycle management. 5. Reported homeless status. lead worker of housekeeping and laundry following 6. Acute renal insufficiency. IV fluids per certified public accountant. Monitor renal panel. Medications renally dosed. slowly improving 7. Transaminitis. Patient with history of hepatitis C. monitor. For outpatient follow up Disposition plan: monitor for clinical improvement of resp status. PT ordered. Discussed plan of care with Dr. Foster Critical Care time: 30 minutes Problems: Subjective 24 Hr Interval Summary Free Text/Dictation Less reported shortness of breath at this time. No reports of chest pain. Exam/Review of Systems Vital Signs Vitals Vital Signs Date Time Temp Pulse Resp B/P Pulse Ox O2 Delivery O2 Flow Rate FiO2 02/23/17 04:00 88 02/23/17 03:00 13 127/82 100 Nasal Cannula 2.0 02/23/17 02:27 27 02/23/17 00:00 98.0 Intake and Output 02/22/17 02/22/17 02/23/17 15:00 23:00 07:00 Intake Total 700 ml 1420 ml 800 ml Output Total 240 ml 1775 ml 125 ml Balance 460 ml -355 ml 675 ml Exam Constitutional: alert, no s/s of distress, less sob Psych: nl mood/affect Head: normocephalic Eyes: nl conjunctiva Respiratory: diminished bilaterally Cardiovascular: regular rate today Gastrointestinal: non-tender, soft Extremities: edema (bilateral upper and lower extremities ) Neurological: nl speech, other (lethargic) Results Result Diagram: 02/23/17 0342 02/23/17 0342 Results 24 hrs Laboratory Tests Test 8/30/17 13:18 02/22/17 14:40 02/22/17 14:45 02/22/17 15:10 Blood Gas Specimen Source Blood arterial Blood arterial Arterial Blood Date Drawn 02/22/2017 1:30:00 PM 02/22/2017 2:50:33 PM Arterial Blood pH (Temp corrected) 7.158 *L 7.385 Arterial Blood pCO2 (Temp correct) 21.6 L 28.3 L Arterial Blood pO2 (Temp corrected) 110.2 H 194.9 H Arterial Blood HCO3 7.5 *L 16.6 L Arterial Blood Base Excess -19.2 L -6.9 L Arterial Blood Oxygen Saturation 96.3 99.2 H Henri Test ACCEPTAB ACCEPTAB Arterial Blood Gas Puncture Site Right Radial Right Radial Arterial Blood Carboxyhemoglobin 0.1 0.1 Arterial Blood Methemoglobin 0.2 0.3 Blood Gas A-a O2 Differential 243.6 H 489.8 H Oxyhemoglobin Percent 96.0 98.8 Total Hemoglobin 15.2 14.2 Blood Gas Temperature 37.0 37.0 Blood Gas Modality [id number] MASK - NRB FiO2 53.0 100.0 Blood Gas Critical Value Read Back Gabriella PERKINS RN Blood Gas Notified Whom RASHMID LUCAS Blood Gas Notified Time 02/22/2017 1:40:00 PM 02/22/2017 3:19:08 PM White Blood Count 7.3 # Red Blood Count 4.79 Hemoglobin 12.8 L Hematocrit 41.7 L Mean Corpuscular Volume 87.1 Mean Corpuscular Hemoglobin 26.7 L Mean Corpuscular Hemoglobin Concent 30.7 L Red Cell Distribution Width 16.7 H Platelet Count 158 Mean Platelet Volume 11.3 H Neutrophils % Segmented Neutrophils % (Manual) 88 H Band Neutrophils % (Manual) 3 Lymphocytes % Lymphocytes % (Manual) 6 L Monocytes % Monocytes % (Manual) 3 Eosinophils % Basophils % Nucleated Red Blood Cells % 0.0 Neutrophils # (Manual) 6.4 Band Neutrophils # 0.2 Absolute Lymphocytes (Manual) 0.4 L Lymphocytes # 0.4 L Monocytes # 0.2 L Absolute Monocytes (Manual) 0.2 L Eosinophils # Basophils # Nucleated Red Blood Cells # Platelet Estimate NORMAL Macrocytosis FEW Sodium Level 141 Potassium Level 3.8 Chloride Level 105 Carbon Dioxide Level 20 L Anion Gap 20 H Blood Urea Nitrogen 35 H Creatinine 1.81 H Glucose Level 237 #H Lactic Acid Level 6.2 *H Calcium Level 7.1 L Hepatitis B Surface Antigen NEGATIVE Hepatitis B Core Total Antibody NEGATIVE Hepatitis C Antibody REACTIVE H Urine Color HIWOT Urine Clarity CLOUDY A Urine pH 5.0 Urine Specific [place] 1.017 Urine Ketones NEGATIVE Urine Nitrite NEGATIVE Urine Bilirubin NEGATIVE Urine Urobilinogen 2+ H Urine Leukocyte Esterase NEGATIVE Urine Microscopic RBC 3 Urine Microscopic WBC 1 Urine Granular Casts FEW A Urine Hemoglobin 2+ H Urine Glucose 2+ H Urine Total Protein 2+ H Test 02/23/17 03:42 White Blood Count 9.1 # Red Blood Count 4.17 L Hemoglobin 11.5 L Hematocrit 35.5 L Mean Corpuscular Volume 85.1 Mean Corpuscular Hemoglobin 27.6 L Mean Corpuscular Hemoglobin Concent 32.4 Red Cell Distribution Width 16.6 H Platelet Count 131 L Mean Platelet Volume 11.7 H Neutrophils % 82.2 H Lymphocytes % 9.4 L Monocytes % 7.6 Eosinophils % 0.2 Basophils % 0.2 Nucleated Red Blood Cells % 0.0 Neutrophils # (Manual) 7.5 Lymphocytes # 0.9 Monocytes # 0.7 Eosinophils # 0.0 Basophils # 0.0 Nucleated Red Blood Cells # 0.0 Sodium Level 141 Potassium Level 3.6 Chloride Level 100 Carbon Dioxide Level 29 Anion Gap 16 Blood Urea Nitrogen 34 H Creatinine 1.51 H Glucose Level 106 # Calcium Level 7.6 L Creatine Kinase 1512 #H Creatine Kinase Index 1.0 Creatinine Kinase MB (Mass) 14.70 H Troponin I 1.090 *H Medications Medications Current Medications Ondansetron HCl (Zofran Inj) 4 mg Q6H PRN IV NAUSEA AND/OR VOMITING; Start at 10:30 Acetaminophen (Tylenol Tab) 650 mg Q6H PRN PO PAIN LEVEL 1-3 OR FEVER; Start at 10:30 Acetaminophen (Tylenol Supp) 650 mg Q6H PRN ND PAIN LEVEL 1-3 OR FEVER; Start 02/21/17 at 10:30 Morphine Sulfate (morphine) 2 mg Q4H PRN IV SEVERE PAIN LEVEL 7-10 Last administered on 02/22/17t 12:09; Admin Dose 2 MG; Start 02/21/17 at 10:30 Docusate Sodium (Colace) 100 mg Q12H PRN PO CONSTIPATION; Start 02/21/17 at 10: 30 Magnesium Hydroxide (Milk Of Mag) 30 ml DAILY PRN PO CONSTIPATION; Start at 10:30 Bisacodyl (Dulcolax Supp) 10 mg DAILY PRN ND CONSTIPATION; Start 02/21/17 at 10 :30 Aspirin (Aspirin) 81 mg DAILY PO ; Start 02/23/17 at 09:00 Nitroglycerin 1 tab 1 tab Q5M PRN SL CHEST PAIN; Start 02/21/17 at 10:30 Ceftriaxone Sodium 50 ml @ 100 mls/hr Q24H IVPB Last administered on 11:28; Admin Dose 100 MLS/HR; Start 02/21/17 at 12:00 Azithromycin (Zithromax 500mg/ NS (Pmx)) 250 ml @ 250 mls/hr Q24H IV Last administered on 02/22/17 12:21; Admin Dose 250 MLS/HR; Start 02/21/17 at 12:00 IV Flush (NS 10 ml) 10 ml PRN PRN IV IV PROTOCOL; Start 02/21/17 at 14:00 Famotidine 20 mg 20 mg BID IV Last administered on 02/22/17 21:13; Admin Dose 20 MG; Start 02/21/17 at 21:00 Sodium Bicarbonate 150 meq/Dextrose/ Sodium Chloride 1,150 ml @ 100 mls/hr [id number] IV Last administered on 02/23/17 02:07; Admin Dose 100 MLS/HR; Start 02/22/17 at 14:30 Norepinephrine/ Dextrose (Levophed/D5W) 500 ml @ 1.87 mls/hr TITRATE PRN IV SBP ABOVE 90; Start 02/22/17 at 15:30 Enoxaparin Sodium (Lovenox) 75 mg DAILY SC ; Start 02/23/17 at 09:00 TEODORO DALEY Feb 23, 2017 07:42
--- NOTE | 2017-02-23 08:21 | RADRPT ---
PROCEDURE: XR Chest. CLINICAL INDICATION: Shortness of breath, CHF TECHNIQUE: AP Portable chest. COMPARISON: 02/22/2017 FINDINGS: The left PICC line is unchanged. The cardiac silhouette is markedly enlarged, stable. The aortic arch is calcified. Pulmonary edema, right lower lung opacity and pleural effusion are similar in appearance. Retrocardiac opacity also again noted. No pneumothorax is seen. The osseous structures are intact. IMPRESSION: Left PICC line remains in place. P Unchanged CHF, right pleural effusion, right lower lobe and retrocardiac opacities. Cardiomegaly. Physician Willard Date Time Electronically viewed and signed by Physician Willard on 02/23/2017 08:20 CS/
[2017-02-23 08:36] LABS: AADO2 Arterial 20.9 mmHg (7.0-24.0); Allen Test ACCEPTAB; Arterial Base Excess 6.6 mmol/L (-3.0-3); Arterial COHb 0.2 % (0.0-3.0); Arterial Fraction of Oxyhgb 95.6 % (93.0-99.0); Arterial HCO3 30.7 mmol/L (22.0-26.0); Arterial MetHb 0.3 % (0.0-1.5); Arterial Total Hemglobin 12.9 g/dl (12.0-18.0); MODE ROOM AIR
[2017-02-23] MEDS ORDERED: FUROSEMIDE 40 MG INJ IV ONE (09:00)
[2017-02-23] MEDS: METHADONE 10 MG TAB PO SCH (09:13)
[2017-02-23] MEDS: ASPIRIN 81 MG TAB PO SCH (09:13)
[2017-02-23] MEDS: FAMOTIDINE 20 MG INJ IV SCH (09:14)
[2017-02-23] MEDS: ENOXAPARIN 80 MG/0.8 ML SYG SC SCH (09:16)
--- NOTE | 2017-02-23 10:08 | PN ---
DATE: 02/23/2017 SUBJECTIVE DATA: Patient is stable. No events overnight. No fevers, chills, nausea, vomiting. OBJECTIVE DATA: VITAL SIGNS: Blood pressure is 104/73, temperature 98, respiration 18, pulse 72. HEENT: Head is normocephalic. NECK: Supple. HEART: Regular rate. LUNGS: Show diminished breath sounds at the base. ABDOMEN: Soft, nontender to palpation. No rebound or guarding. EXTREMITIES: Negative for clubbing, cyanosis. No edema. DERMATOLOGIC: Clean. No rashes. MUSCULOSKELETAL: No joint effusion. NEUROLOGIC: Unchanged exam. MEDICATIONS: Reviewed. LABORATORY AND DIAGNOSTIC DATA: Shows sodium 141, potassium 3.6, chloride 100, BUN 34, creatinine 1.51. White count 9.1, hemoglobin 11.5, crit 35.5, platelet count is 131. ASSESSMENT AND PLAN: 1. Nonoliguric acute kidney injury on top of chronic kidney disease. Etiology of acute kidney injury secondary to hemodynamics, possible tubular injury. Renal function has improved in the last 24 hours. The patient responded well to a diuretic challenge. At this point, continue current treatment, supportive care. Renally dose all meds. 2. Severe metabolic acidosis. Gap . The patient is currently on bicarbonate drip with clinical improvement. We will discontinue bicarbonate drip at this time, and monitor. 3. Sepsis. Continue current intravenous antibiotics. 4. Anemia. Continue to monitor H and H levels. 5. Mineral bone disorder. Continue to monitor calcium and phosphorus levels. 6. History of congestive heart failure. The patient is decompensated. Continue intermittent diuretic therapy as needed. 7. Heroin overdose. Continue to monitor. Continue supportive care. Dictated By: Frandy Gonzalez DO /jeramy/heather /Document#: [id number]
[2017-02-23] MEDS ORDERED: BACITRACIN 0.9 GM OINT TOP SCH (13:00)
--- NOTE | 2017-02-23 13:14 | CONS ---
Date/Time of Note Date/Time of Note DATE: 02/23/17 TIME: 13:13 Consult Date/Type/Reason Admit Date/Time Feb 21, 2017 at 09:56 Initial Consult Date 02/21/17 Type of Consultation: Pulmonary Ordering Provider: NOLBERTO MEDINA MD Subjective Significant improvement compared to yesterday Objective Vital Signs Date Time Temp Pulse Resp B/P Pulse Ox O2 Delivery O2 Flow Rate FiO2 02/23/17 12:26 98.0 82 18 113/78 98 02/23/17 07:35 21 02/23/17 03:00 Nasal Cannula 2.0 Intake and Output 02/22/17 02/22/17 02/23/17 15:00 23:00 07:00 Intake Total 700 ml 1420 ml 800 ml Output Total 240 ml 1775 ml 125 ml Balance 460 ml -355 ml 675 ml Exam PHYSICAL EXAMINATION GENERAL: Elderly gentleman, nasal cannula oxygen VITAL SIGNS: see below. HEENT: Pupils equal, round, and reactive to light. CARDIAC: S1, S2, 1/6 systolic ejection murmur CHEST: Diminished air entry bilaterally. ABDOMEN: Mildly distended. Bowel sounds present no guarding or rebound EXTREMITIES: No cyanosis, clubbing edema +1 NEUROLOGIC: Generalized weakness Results/Medications Result Diagram: 02/23/17 0342 02/23/17 0342 Results 24 hrs Laboratory Tests Test 02/22/17 13:18 02/22/17 14:40 02/22/17 14:45 02/22/17 15:10 Blood Gas Specimen Source Blood arterial Blood arterial Arterial Blood Date Drawn 02/22/2017 1:30:00 PM 02/22/2017 2:50:33 PM Arterial Blood pH (Temp corrected) 7.158 *L 7.385 Arterial Blood pCO2 (Temp correct) 21.6 L 28.3 L Arterial Blood pO2 (Temp corrected) 110.2 H 194.9 H Arterial Blood HCO3 7.5 *L 16.6 L Arterial Blood Base Excess -19.2 L -6.9 L Arterial Blood Oxygen Saturation 96.3 99.2 H Henri Test ACCEPTAB ACCEPTAB Arterial Blood Gas Puncture Site Right Radial Right Radial Arterial Blood Carboxyhemoglobin 0.1 0.1 Arterial Blood Methemoglobin 0.2 0.3 Blood Gas A-a O2 Differential 243.6 H 489.8 H Oxyhemoglobin Percent 96.0 98.8 Total Hemoglobin 15.2 14.2 Blood Gas Temperature 37.0 37.0 Blood Gas Modality [id number] MASK - NRB FiO2 53.0 100.0 Blood Gas Critical Value Read Back Gabriella PERKINS RN Blood Gas Notified Whom JLMariya ZAVALA Blood Gas Notified Time 02/22/2017 1:40:00 PM 02/22/2017 3:19:08 PM White Blood Count 7.3 # Red Blood Count 4.79 Hemoglobin 12.8 L Hematocrit 41.7 L Mean Corpuscular Volume 87.1 Mean Corpuscular Hemoglobin 26.7 L Mean Corpuscular Hemoglobin Concent 30.7 L Red Cell Distribution Width 16.7 H Platelet Count 158 Mean Platelet Volume 11.3 H Neutrophils % Segmented Neutrophils % (Manual) 88 H Band Neutrophils % (Manual) 3 Lymphocytes % Lymphocytes % (Manual) 6 L Monocytes % Monocytes % (Manual) 3 Eosinophils % Basophils % Nucleated Red Blood Cells % 0.0 Neutrophils # (Manual) 6.4 Band Neutrophils # 0.2 Absolute Lymphocytes (Manual) 0.4 L Lymphocytes # 0.4 L Monocytes # 0.2 L Absolute Monocytes (Manual) 0.2 L Eosinophils # Basophils # Nucleated Red Blood Cells # Platelet Estimate NORMAL Macrocytosis FEW Sodium Level 141 Potassium Level 3.8 Chloride Level 105 Carbon Dioxide Level 20 L Anion Gap 20 H Blood Urea Nitrogen 35 H Creatinine 1.81 H Glucose Level 237 #H Lactic Acid Level 6.2 *H Calcium Level 7.1 L Hepatitis B Surface Antigen NEGATIVE Hepatitis B Core Total Antibody NEGATIVE Hepatitis C Antibody REACTIVE H Urine Color HIWOT Urine Clarity CLOUDY A Urine pH 5.0 Urine Specific [place] 1.017 Urine Ketones NEGATIVE Urine Nitrite NEGATIVE Urine Bilirubin NEGATIVE Urine Urobilinogen 2+ H Urine Leukocyte Esterase NEGATIVE Urine Microscopic RBC 3 Urine Microscopic WBC 1 Urine Granular Casts FEW A Urine Hemoglobin 2+ H Urine Glucose 2+ H Urine Total Protein 2+ H Test 02/23/17 03:42 02/23/17 07:00 02/23/17 07:58 White Blood Count 9.1 # Red Blood Count 4.17 L Hemoglobin 11.5 L Hematocrit 35.5 L Mean Corpuscular Volume 85.1 Mean Corpuscular Hemoglobin 27.6 L Mean Corpuscular Hemoglobin Concent 32.4 Red Cell Distribution Width 16.6 H Platelet Count 131 L Mean Platelet Volume 11.7 H Neutrophils % 82.2 H Lymphocytes % 9.4 L Monocytes % 7.6 Eosinophils % 0.2 Basophils % 0.2 Nucleated Red Blood Cells % 0.0 Neutrophils # (Manual) 7.5 Lymphocytes # 0.9 Monocytes # 0.7 Eosinophils # 0.0 Basophils # 0.0 Nucleated Red Blood Cells # 0.0 Sodium Level 141 Potassium Level 3.6 Chloride Level 100 Carbon Dioxide Level 29 Anion Gap 16 Blood Urea Nitrogen 34 H Creatinine 1.51 H Glucose Level 106 # Calcium Level 7.6 L Creatine Kinase 1512 #H Creatine Kinase Index 1.0 Creatinine Kinase MB (Mass) 14.70 H Troponin I 1.090 *H Blood Gas Specimen Source Blood arterial Arterial Blood Date Drawn 02/23/2017 8:20:38 AM Arterial Blood pH (Temp corrected) 7.481 H Arterial Blood pCO2 (Temp correct) 42.1 Arterial Blood pO2 (Temp corrected) 78.4 L Arterial Blood HCO3 30.7 H Arterial Blood Base Excess 6.6 H Arterial Blood Oxygen Saturation 96.1 Henri Test ACCEPTAB Arterial Blood Gas Puncture Site Right Radial Arterial Blood Carboxyhemoglobin 0.2 Arterial Blood Methemoglobin 0.3 Blood Gas A-a O2 Differential 20.9 Oxyhemoglobin Percent 95.6 Total Hemoglobin 12.9 Blood Gas Temperature 37.0 Blood Gas Modality ROOM AIR FiO2 21.0 Blood Gas Notified Whom SN Blood Gas Notified Time 02/23/2017 8:36:15 AM Lactic Acid Level 2.0 Medications Current Medications Ondansetron HCl (Zofran Inj) 4 mg Q6H PRN IV NAUSEA AND/OR VOMITING; Start at 10:30 Acetaminophen (Tylenol Tab) 650 mg Q6H PRN PO PAIN LEVEL 1-3 OR FEVER; Start at 10:30 Acetaminophen (Tylenol Supp) 650 mg Q6H PRN [place] PAIN LEVEL 1-3 OR FEVER; Start 02/21/17 at 10:30 Morphine Sulfate (morphine) 2 mg Q4H PRN IV SEVERE PAIN LEVEL 7-10 Last administered on 02/22/17t 12:09; Admin Dose 2 MG; Start 02/21/17 at 10:30 Docusate Sodium (Colace) 100 mg Q12H PRN PO CONSTIPATION; Start 02/21/17 at 10: 30 Magnesium Hydroxide (Milk Of Mag) 30 ml DAILY PRN PO CONSTIPATION; Start at 10:30 Bisacodyl (Dulcolax Supp) 10 mg DAILY PRN [place] CONSTIPATION; Start 02/21/17 at 10 :30 Aspirin (Aspirin) 81 mg DAILY PO Last administered on 02/23/17 09:13; Admin Dose 81 MG; Start 02/23/17 at 09:00 Nitroglycerin 1 tab 1 tab Q5M PRN SL CHEST PAIN; Start 02/21/17 at 10:30 Ceftriaxone Sodium 50 ml @ 100 mls/hr Q24H IVPB Last administered on 11:28; Admin Dose 100 MLS/HR; Start 02/21/17 at 12:00 Azithromycin (Zithromax 500mg/ NS (Pmx)) 250 ml @ 250 mls/hr Q24H IV Last administered on 02/22/17 12:21; Admin Dose 250 MLS/HR; Start 02/21/17 at 12:00 IV Flush 10 ml 10 ml PRN PRN IV IV PROTOCOL; Start 02/21/17 at 14:00 Norepinephrine/ Dextrose (Levophed/D5W) 500 ml @ 1.87 mls/hr TITRATE PRN IV SBP ABOVE 90; Start 02/22/17 at 15:30; Status Future Hold Enoxaparin Sodium (Lovenox) 75 mg DAILY SC Last administered on 02/23/17 09:16 ; Admin Dose 75 MG; Start 02/23/17 at 09:00 Pantoprazole (Protonix Tab) 40 mg DAILY@06 PO ; Start 02/24/17 at 06:00 Assessment/Plan Chief Complaint/Hosp Course IMPRESSION: 1. Intravenous heroin abuse with altered mental status. Now neurologically improved. 2. Possible aspiration pneumonia. 3. Possible community-acquired pneumonia. 4. Metabolic acidosis. 5. Lactic acidosis. 6. Elevated troponin, likely secondary to hypoperfusion. 7. Exclude infective endocarditis given history of intravenous drug abuse. PLAN: 1. Transfer to tele. 2. Continue broad-spectrum antibiotics pending cultures. de escalate abx soon. 3. Aspiration precautions. 4. Supplemental O2. 5. Serial arterial blood gas, and lactate. 6. s/w consult re substance abuse. 7. Cardiac recs. recent angiogram per chart. 8. DVT and GI prophylaxis. Problems: MANOLO DURAN [facility], [facility] Feb 23, 2017 13:14
[2017-02-23] MEDS: CEFTRIAXONE 1 GM/50 ML (PMX) 50 ML IVPB SCH (13:44)
[2017-02-23] MEDS: AZITHROMYCIN 500MG/NS (PMX) 250 ML IV SCH (15:01)
--- NOTE | 2017-02-23 15:03 | CONS ---
Date/Time of Note Date/Time of Note DATE: 02/23/17 TIME: 15:02 Assessment/Plan Assessment/Plan Additional Assessment/Plan There is no nausea vomiting not complaining of withdrawal symptoms dizziness diplopia disorientation tachycardia tachypnea or diaphoresis. He is comfortable right now but he is negotiating with me to give him opioids to go home, strongly recommend against this including not giving him methadone when he is ready to be discharged. He will be instructed to go directly to methadone clinic. Consultation Date/Type/Reason Admit Date/Time Feb 21, 2017 at 09:56 Initial Consult Date 02/21/17 Type of Consultation: Pain management Referring Provider: NOLBERTO MEDINA MD Exam/Review of Systems Vital Signs Vitals Vital Signs Date Time Temp Pulse Resp B/P Pulse Ox O2 Delivery O2 Flow Rate FiO2 02/23/17 13:20 18 95 21 02/23/17 12:26 98.0 82 113/78 02/23/17 03:00 Nasal Cannula 2.0 Intake and Output 02/22/17 02/22/17 02/23/17 14:59 22:59 06:59 Intake Total 600 ml 1320 ml 500 ml Output Total 240 ml 1675 ml 225 ml Balance 360 ml -355 ml 275 ml Exam Constitutional: alert, oriented, well developed, No distress, No frail, No non-verbal, No obese, No other Neurological: 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, nl mental status, nl speech, nl strength, No DTR's symmetric, No confused, No focal weakness, No lethargic, No numbness , No other, No reflexes, No unresponsive Results Result Diagram: 02/23/17 0342 02/23/17 0342 Results 24 hrs Laboratory Tests Test 02/22/17 15:10 02/23/17 03:42 02/23/17 07:00 02/23/17 07:58 Urine Color HIWOT Urine Clarity CLOUDY A Urine pH 5.0 Urine Specific [place] 1.017 Urine Ketones NEGATIVE Urine Nitrite NEGATIVE Urine Bilirubin NEGATIVE Urine Urobilinogen 2+ H Urine Leukocyte Esterase NEGATIVE Urine Microscopic RBC 3 Urine Microscopic WBC 1 Urine Granular Casts FEW A Urine Hemoglobin 2+ H Urine Glucose 2+ H Urine Total Protein 2+ H White Blood Count 9.1 # Red Blood Count 4.17 L Hemoglobin 11.5 L Hematocrit 35.5 L Mean Corpuscular Volume 85.1 Mean Corpuscular Hemoglobin 27.6 L Mean Corpuscular Hemoglobin Concent 32.4 Red Cell Distribution Width 16.6 H Platelet Count 131 L Mean Platelet Volume 11.7 H Neutrophils % 82.2 H Lymphocytes % 9.4 L Monocytes % 7.6 Eosinophils % 0.2 Basophils % 0.2 Nucleated Red Blood Cells % 0.0 Neutrophils # (Manual) 7.5 Lymphocytes # 0.9 Monocytes # 0.7 Eosinophils # 0.0 Basophils # 0.0 Nucleated Red Blood Cells # 0.0 Sodium Level 141 Potassium Level 3.6 Chloride Level 100 Carbon Dioxide Level 29 Anion Gap 16 Blood Urea Nitrogen 34 H Creatinine 1.51 H Glucose Level 106 # Calcium Level 7.6 L Creatine Kinase 1512 #H Creatine Kinase Index 1.0 Creatinine Kinase MB (Mass) 14.70 H Troponin I 1.090 *H Blood Gas Specimen Source Blood arterial Arterial Blood Date Drawn 02/23/2017 8:20:38 AM Arterial Blood pH (Temp corrected) 7.481 H Arterial Blood pCO2 (Temp correct) 42.1 Arterial Blood pO2 (Temp corrected) 78.4 L Arterial Blood HCO3 30.7 H Arterial Blood Base Excess 6.6 H Arterial Blood Oxygen Saturation 96.1 Henri Test ACCEPTAB Arterial Blood Gas Puncture Site Right Radial Arterial Blood Carboxyhemoglobin 0.2 Arterial Blood Methemoglobin 0.3 Blood Gas A-a O2 Differential 20.9 Oxyhemoglobin Percent 95.6 Total Hemoglobin 12.9 Blood Gas Temperature 37.0 Blood Gas Modality ROOM AIR FiO2 21.0 Blood Gas Notified Whom SN Blood Gas Notified Time 02/23/2017 8:36:15 AM Lactic Acid Level 2.0 Medications Medications Current Medications Ondansetron HCl (Zofran Inj) 4 mg Q6H PRN IV NAUSEA AND/OR VOMITING; Start at 10:30 Acetaminophen (Tylenol Tab) 650 mg Q6H PRN PO PAIN LEVEL 1-3 OR FEVER; Start at 10:30 Acetaminophen (Tylenol Supp) 650 mg Q6H PRN [place] PAIN LEVEL 1-3 OR FEVER; Start 02/21/17 at 10:30 Morphine Sulfate (morphine) 2 mg Q4H PRN IV SEVERE PAIN LEVEL 7-10 Last administered on 02/22/17t 12:09; Admin Dose 2 MG; Start 02/21/17 at 10:30 Docusate Sodium (Colace) 100 mg Q12H PRN PO CONSTIPATION; Start 02/21/17 at 10: 30 Magnesium Hydroxide (Milk Of Mag) 30 ml DAILY PRN PO CONSTIPATION; Start at 10:30 Bisacodyl (Dulcolax Supp) 10 mg DAILY PRN [place] CONSTIPATION; Start 02/21/17 at 10 :30 Aspirin (Aspirin) 81 mg DAILY PO Last administered on 02/23/17 09:13; Admin Dose 81 MG; Start 02/23/17 at 09:00 Nitroglycerin 1 tab 1 tab Q5M PRN SL CHEST PAIN; Start 02/21/17 at 10:30 Ceftriaxone Sodium 50 ml @ 100 mls/hr Q24H IVPB Last administered on 13:44; Admin Dose 100 MLS/HR; Start 02/21/17 at 12:00 Azithromycin (Zithromax 500mg/ NS (Pmx)) 250 ml @ 250 mls/hr Q24H IV Last administered on 02/22/17 12:21; Admin Dose 250 MLS/HR; Start 02/21/17 at 12:00 IV Flush 10 ml 10 ml PRN PRN IV IV PROTOCOL; Start 02/21/17 at 14:00 Norepinephrine/ Dextrose (Levophed/D5W) 500 ml @ 1.87 mls/hr TITRATE PRN IV SBP ABOVE 90; Start 02/22/17 at 15:30; Status Future Hold Enoxaparin Sodium (Lovenox) 75 mg DAILY SC Last administered on 02/23/17 09:16 ; Admin Dose 75 MG; Start 02/23/17 at 09:00 Pantoprazole (Protonix Tab) 40 mg DAILY@06 PO ; Start 02/24/17 at 06:00 Mupirocin (Bactroban) 1 applic BID TOP ; Start 02/23/17 at 15:30 ROSEMARY HANEY Feb 23, 2017 15:03
[2017-02-23] MEDS: MUPIROCIN 2% 22 GM OINT TOP SCH ×2 (15:30→22:27)
[2017-02-23 15:37] LABS: MICROALBUMIN 97.9 mg/dL
--- NOTE | 2017-02-23 16:56 | PN ---
DATE: 02/23/2017 SUBJECTIVE DATA: No events overnight. No fevers. The patient is awake, looks comfortable. Denies pain. LABORATORY AND DIAGNOSTIC DATA: WBC 9.1, platelets 131, neutrophils 82.2. BUN 34, creatinine 1.51. Lactic acid went down to 2. Microbiology: Blood culture grew staph species. Nares swab came back positive for MRSA. Urine culture negative. Antimicrobials. The patient is on topical Bactroban to nares, Zithromax, Rocephin. PHYSICAL EXAMINATION: GENERAL: This is an ill-appearing, middle-aged, white man, who is awake, in no distress. HEENT: Head atraumatic, normocephalic. Sclerae anicteric. Buccal mucosa dry. NECK: Supple. CHEST: Rise symmetrical. Breath sounds diminished at the bases. HEART: S1, S2. ABDOMEN: Soft, bowel sounds present. EXTREMITIES: Trace edema. ASSESSMENT: 1. Resolving sepsis. 2. Staph bacteremia, likely contaminant. 3. Pneumonia. 4. Methicillin-resistant Staphylococcus aureus nares colonization. 5. Elevated troponin. 6. Acute possibly on chronic kidney disease. 7. History of drug abuse. PLAN: The patient remains stable. 2D echo on admission revealed no vegetations, however, ejection fraction was 15 percent. Cardiology follows him. He is also being seen by pulmonary team and nephrology. Continue present care. Dictated By: Wes Elaine NP /[email or web address]/[email or web address] /Document#: [id number]
--- NOTE | 2017-02-23 17:03 | RADRPT ---
Vent Rate: 86 bpm RR Interval: 0 msec TX Interval: 150 msec QRS Duration: 104 msec QT Interval: 398 msec QTC Interval: 476 msec P-R-T Norden: 39 - 74 - -90 degrees Normal sinus rhythm ST amp; T wave abnormality, consider inferolateral ischemia Prolonged QT Abnormal ECG Electronically Signed By: Eliseo Hernández [id number]
--- NOTE | 2017-02-23 18:11 | CONS ---
Date/Time of Note Date/Time of Note DATE: 02/23/17 TIME: 18:07 Assessment/Plan Assessment/Plan Chief Complaint/Hosp Course IMP: 1.CHF 2.Hypotension 3.Renal failure 4.Nstemi-decreasing enzymes 5. Acidosis 6. Bacteremia 7. Cardiomyopathy-low EF 15-20% by echo this admit Recc: -Tele -serial ecg's -trend cardiac enzymes -Contineu asa -lasix diuresis -Follow HR/BP closely -ongoing renal eval Problems: Consultation Date/Type/Reason Admit Date/Time Feb 21, 2017 at 09:56 Initial Consult Date 02/21/17 Type of Consultation: cardiology Reason for Consultation CHF Referring Provider: NOLBERTO MEDINA MD Exam/Review of Systems Vital Signs Vitals Vital Signs Date Time Temp Pulse Resp B/P Pulse Ox O2 Delivery O2 Flow Rate FiO2 02/23/17 16:29 98.0 110 18 118/79 98 02/23/17 13:20 21 02/23/17 03:00 Nasal Cannula 2.0 Intake and Output 02/22/17 02/22/17 02/23/17 15:00 23:00 07:00 Intake Total 700 ml 1420 ml 800 ml Output Total 240 ml 1775 ml 125 ml Balance 460 ml -355 ml 675 ml Exam Review of Systems: CONSTITUTIONAL: No fevers, chills. PULMONARY: ongoing sob CARDIOVASCULAR: No chest pain/palpitations GASTROINTESTINAL: No nausea/vomiting. GENITOURINARY: No hematuria/dysuria. MUSCULOSKELETAL: No myagias/arthalgias. PSYCHIATRIC: The patient denies depression. NEUROLOGIC: No weakness Constitutional: alert Psych: no complaints ENMT: mucosa pink and moist Neck: jvd (9 cm water), supple Respiratory: diminished breath sounds Cardiovascular: regular rate and rhythm Gastrointestinal: non-tender, soft Musculoskeletal: muscle tone Extremities: pitting pedal edema (bilaterall) Neurological: other (No focal def) Results Result Diagram: 02/23/17 0342 02/23/17 0342 Results 24 hrs Laboratory Tests Test 02/23/17 03:42 02/23/17 07:00 02/23/17 07:58 White Blood Count 9.1 # Red Blood Count 4.17 L Hemoglobin 11.5 L Hematocrit 35.5 L Mean Corpuscular Volume 85.1 Mean Corpuscular Hemoglobin 27.6 L Mean Corpuscular Hemoglobin Concent 32.4 Red Cell Distribution Width 16.6 H Platelet Count 131 L Mean Platelet Volume 11.7 H Neutrophils % 82.2 H Lymphocytes % 9.4 L Monocytes % 7.6 Eosinophils % 0.2 Basophils % 0.2 Nucleated Red Blood Cells % 0.0 Neutrophils # (Manual) 7.5 Lymphocytes # 0.9 Monocytes # 0.7 Eosinophils # 0.0 Basophils # 0.0 Nucleated Red Blood Cells # 0.0 Sodium Level 141 Potassium Level 3.6 Chloride Level 100 Carbon Dioxide Level 29 Anion Gap 16 Blood Urea Nitrogen 34 H Creatinine 1.51 H Glucose Level 106 # Calcium Level 7.6 L Creatine Kinase 1512 #H Creatine Kinase Index 1.0 Creatinine Kinase MB (Mass) 14.70 H Troponin I 1.090 *H Blood Gas Specimen Source Blood arterial Arterial Blood Date Drawn 02/23/2017 8:20:38 AM Arterial Blood pH (Temp corrected) 7.481 H Arterial Blood pCO2 (Temp correct) 42.1 Arterial Blood pO2 (Temp corrected) 78.4 L Arterial Blood HCO3 30.7 H Arterial Blood Base Excess 6.6 H Arterial Blood Oxygen Saturation 96.1 Henri Test ACCEPTAB Arterial Blood Gas Puncture Site Right Radial Arterial Blood Carboxyhemoglobin 0.2 Arterial Blood Methemoglobin 0.3 Blood Gas A-a O2 Differential 20.9 Oxyhemoglobin Percent 95.6 Total Hemoglobin 12.9 Blood Gas Temperature 37.0 Blood Gas Modality ROOM AIR FiO2 21.0 Blood Gas Notified Whom SN Blood Gas Notified Time 02/23/2017 8:36:15 AM Lactic Acid Level 2.0 Medications Medications Current Medications Ondansetron HCl (Zofran Inj) 4 mg Q6H PRN IV NAUSEA AND/OR VOMITING; Start at 10:30 Acetaminophen (Tylenol Tab) 650 mg Q6H PRN PO PAIN LEVEL 1-3 OR FEVER; Start at 10:30 Acetaminophen (Tylenol Supp) 650 mg Q6H PRN [place] PAIN LEVEL 1-3 OR FEVER; Start 02/21/17 at 10:30 Morphine Sulfate (morphine) 2 mg Q4H PRN IV SEVERE PAIN LEVEL 7-10 Last administered on 02/22/17t 12:09; Admin Dose 2 MG; Start 02/21/17 at 10:30 Docusate Sodium (Colace) 100 mg Q12H PRN PO CONSTIPATION; Start 02/21/17 at 10: 30 Magnesium Hydroxide (Milk Of Mag) 30 ml DAILY PRN PO CONSTIPATION; Start at 10:30 Bisacodyl (Dulcolax Supp) 10 mg DAILY PRN [place] CONSTIPATION; Start 02/21/17 at 10 :30 Aspirin (Aspirin) 81 mg DAILY PO Last administered on 02/23/17 09:13; Admin Dose 81 MG; Start 02/23/17 at 09:00 Nitroglycerin 1 tab 1 tab Q5M PRN SL CHEST PAIN; Start 02/21/17 at 10:30 Ceftriaxone Sodium 50 ml @ 100 mls/hr Q24H IVPB Last administered on 13:44; Admin Dose 100 MLS/HR; Start 02/21/17 at 12:00 Azithromycin (Zithromax 500mg/ NS (Pmx)) 250 ml @ 250 mls/hr Q24H IV Last administered on 02/23/17 15:01; Admin Dose 250 MLS/HR; Start 02/21/17 at 12:00 IV Flush 10 ml 10 ml PRN PRN IV IV PROTOCOL; Start 02/21/17 at 14:00 Norepinephrine/ Dextrose (Levophed/D5W) 500 ml @ 1.87 mls/hr TITRATE PRN IV SBP ABOVE 90; Start 02/22/17 at 15:30; Status Future Hold Enoxaparin Sodium (Lovenox) 75 mg DAILY SC Last administered on 02/23/17 09:16 ; Admin Dose 75 MG; Start 02/23/17 at 09:00 Pantoprazole (Protonix Tab) 40 mg DAILY@06 PO ; Start 02/24/17 at 06:00 Mupirocin (Bactroban) 1 applic BID TOP ; Start 02/23/17 at 15:30 CELINE LI Feb 23, 2017 18:11
[2017-02-23] MEDS ORDERED: MUPIROCIN 2% 22 GM OINT TOP SCH (21:00)
[2017-02-23] MEDS ORDERED: FAMOTIDINE 20 MG TAB PO SCH (21:00)
[2017-02-24] VITALS (11 sets, daily range): BP systolic 109–147; BP diastolic 76–96; PULSE 91–102; RESP 16–20
[2017-02-24] MEDS: LEVALBUTEROL (NEB) 0.63 MG/3 ML AMP HHN SCH ×4 (01:56→19:39)
[2017-02-24] MEDS: IPRATROPIUM (NEB) 0.5 MG/2.5 ML AMP HHN SCH ×4 (01:57→19:39)
[2017-02-24 07:35] LABS: BASOPHILS % 0.4 % (0.0-2.0); EOSINOPHILS # 0.1 10^3/ul (0.0-0.5); EOSINOPHILS % 1.2 % (0.0-7.0); HEMATOCRIT 35.8 % (42.0-52.0); HEMOGLOBIN 11.1 g/dl (14.0-18.0); LYMPHOCYTES # 1.1 10^3/ul (0.8-2.9); LYMPHOCYTES % 14.4 % (15.0-51.0); MEAN CORPUSCULAR HEMOGLOBIN 26.7 pg (29.0-33.0); MEAN CORPUSCULAR VOLUME 86.3 fl (82.0-101.0); MONOCYTE # 0.6 10^3/ul (0.3-0.9); MONOCYTES % 7.9 % (0.0-11.0); NEUTROPHILS % 75.7 % (39.0-77.0); PLATELET COUNT 128 10^3/UL (140-415); POSITIVE DIFF @See below; RED BLOOD COUNT 4.15 10^6/ul (4.70-6.10); RED CELL DISTRIBUTION WIDTH 16.7 % (11.5-14.5); WHITE BLOOD COUNT 7.6 10^3/ul (4.8-10.8)
[2017-02-24 07:57] LABS: CALCIUM 7.7 mg/dl (8.4-10.2); CREATININE 1.31 mg/dl (0.61-1.24); POTASSIUM 3.8 mmol/L (3.5-5.1)
[2017-02-24] MEDS: PANTOPRAZOLE (EC) 40 MG TAB PO SCH (08:05)
[2017-02-24] MEDS: FUROSEMIDE 20 MG INJ IV SCH ×2 (08:05→17:34)
[2017-02-24] MEDS: ENOXAPARIN 80 MG/0.8 ML SYG SC SCH (08:09)
[2017-02-24] MEDS: ASPIRIN 81 MG TAB PO SCH (08:21)
[2017-02-24] MEDS: METHADONE 10 MG TAB PO SCH (08:21)
--- NOTE | 2017-02-24 09:22 | PN ---
DATE: 02/24/2017 SUBJECTIVE DATA: Patient is stable. No acute events overnight. No fevers, chills, nausea, vomiting. OBJECTIVE DATA: VITAL SIGNS: Blood pressure is 147/96, respirations 16, pulse 74, temperature 98.1. HEENT: Head is normocephalic. NECK: Supple. HEART: Regular rate. LUNGS: Diminished breath sounds at the base. ABDOMEN: Soft. Nontender to palpation. No rebound or guarding. EXTREMITIES: Negative for clubbing, cyanosis. No edema. DERMATOLOGIC: No rashes. MUSCULOSKELETAL: No joint effusion. NEUROLOGIC: No change in exam. MEDICATIONS: Reviewed. LABORATORY AND DIAGNOSTIC DATA: Sodium 135, potassium 3.8, BUN 31, creatinine 1.31. White count 7.7, hemoglobin 9.1, hematocrit 25.8. Platelet count is 128,000. ASSESSMENT AND PLAN: 1. Nonoliguric acute kidney injury on top of chronic kidney disease, etiology can secondary to hemodynamics. Renal function has been improving. Responding well to diuretic therapy. Continue current treatment plan. 2. Status post metabolic acidosis. 3. Sepsis. Continue current antibiotic regimen. 4. Anemia. Monitor H and H levels. 5. Mineral bone disorder. Monitor calcium and phosphorus levels. 6. History of congestive heart failure. Continue current medical management. Continue diuretic therapy. 7. History of heroin overdose. Continue supportive care. 8. Acute respiratory failure secondary to congestive heart failure. Continue nebulizers and bronchodilators. Follow up with Pulmonary. Dictated By: Frandy Gonzalez DO /[email or web address]/power /Document#: [id number]
[2017-02-24] MEDS: MUPIROCIN 2% 22 GM OINT TOP SCH ×2 (10:16→21:05)
[2017-02-24] MEDS: CEFTRIAXONE 1 GM/50 ML (PMX) 50 ML IVPB SCH (12:14)
[2017-02-24] MEDS: AZITHROMYCIN 500MG/NS (PMX) 250 ML IV SCH (12:30)
--- NOTE | 2017-02-24 13:27 | CONS ---
Date/Time of Note Date/Time of Note DATE: 02/24/17 TIME: 13:25 Assessment/Plan Assessment/Plan Additional Assessment/Plan Chest x-ray was reviewed from yesterday which is showing cardiomegaly and possibly right pleural effusion. Assessment recommendations; 1. Patient admitted with CHF exacerbation with significant clinical improvement. 2. History of heroine abuse. 3. Renal insufficiency with continually improving serum creatinine. 4. Severe cardiomyopathy. 5. Coagulase-negative bacteremia. 6. Possibly right lower lobe pneumonia as well. Continue current treatment. Patient responding well to current treatment regimen. Consultation Date/Type/Reason Admit Date/Time Feb 21, 2017 at 09:56 Initial Consult Date 02/21/17 Type of Consultation: Pulmonary Referring Provider: NOLBERTO MEDINA MD 24 HR Interval Summary Free Text/Dictation Patient condition stable. Patient currently being walked in the room by physical therapist. He denies any chest pain, does complain of dyspnea on exertion. Denies any wheezing, sputum production. General exam; middle-aged male, awake and alert. Currently in no distress. Exam/Review of Systems Vital Signs Vitals Vital Signs Date Time Temp Pulse Resp B/P Pulse Ox O2 Delivery O2 Flow Rate FiO2 02/24/17 12:58 95 02/24/17 11:34 98.1 18 109/76 94 02/24/17 08:00 Nasal Cannula 5.0 02/24/17 01:57 21 Intake and Output 02/23/17 02/23/17 02/24/17 15:00 23:00 07:00 Intake Total 250 ml 750 ml 400 ml Output Total 200 ml 900 ml Balance 50 ml -150 ml 400 ml Exam HEENT exam; supple neck, positive JVD. No lymphadenopathy. Midline trachea. No thyromegaly. No neck masses. No neck bruits. Patient has a multiple carious teeth. Chest exam; diminished but clear breath sounds. S1-S2 audible, no murmurs. Regular rhythm. Abdomen exam; soft, no organomegaly. Bowel sounds audible. Extremity exam; 1+ edema in lower extremities bilaterally. 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 Results Result Diagram: 02/24/17 0717 02/24/17 0717 Results 24 hrs Laboratory Tests Test 02/24/17 07:17 White Blood Count 7.6 Red Blood Count 4.15 L Hemoglobin 11.1 L Hematocrit 35.8 L Mean Corpuscular Volume 86.3 Mean Corpuscular Hemoglobin 26.7 L Mean Corpuscular Hemoglobin Concent 31.0 L Red Cell Distribution Width 16.7 H Platelet Count 128 L Mean Platelet Volume 12.0 H Neutrophils % 75.7 Lymphocytes % 14.4 L Monocytes % 7.9 Eosinophils % 1.2 Basophils % 0.4 Nucleated Red Blood Cells % 0.0 Neutrophils # (Manual) 5.7 Lymphocytes # 1.1 Monocytes # 0.6 Eosinophils # 0.1 Basophils # 0.0 Nucleated Red Blood Cells # 0.0 Sodium Level 135 Potassium Level 3.8 Chloride Level 100 Carbon Dioxide Level 28 Anion Gap 11 Blood Urea Nitrogen 31 H Creatinine 1.31 H Glucose Level 83 Calcium Level 7.7 L Medications Medications Current Medications Ondansetron HCl (Zofran Inj) 4 mg Q6H PRN IV NAUSEA AND/OR VOMITING; Start at 10:30 Acetaminophen (Tylenol Tab) 650 mg Q6H PRN PO PAIN LEVEL 1-3 OR FEVER; Start at 10:30 Acetaminophen (Tylenol Supp) 650 mg Q6H PRN [place] PAIN LEVEL 1-3 OR FEVER; Start 02/21/17 at 10:30 Morphine Sulfate (morphine) 2 mg Q4H PRN IV SEVERE PAIN LEVEL 7-10 Last administered on 02/22/17 12:09; Admin Dose 2 MG; Start 02/21/17 at 10:30 Docusate Sodium (Colace) 100 mg Q12H PRN PO CONSTIPATION; Start 02/21/17 at 10: 30 Magnesium Hydroxide (Milk Of Mag) 30 ml DAILY PRN PO CONSTIPATION; Start at 10:30 Bisacodyl (Dulcolax Supp) 10 mg DAILY PRN [place] CONSTIPATION; Start 02/21/17 at 10 :30 Aspirin (Aspirin) 81 mg DAILY PO Last administered on 02/24/17 08:21; Admin Dose 81 MG; Start 02/23/17 at 09:00 Nitroglycerin 1 tab 1 tab Q5M PRN SL CHEST PAIN; Start 02/21/17 at 10:30 Ceftriaxone Sodium 50 ml @ 100 mls/hr Q24H IVPB Last administered on 02/24/17 12:14; Admin Dose 100 MLS/HR; Start 02/21/17 at 12:00 Azithromycin (Zithromax 500mg/ NS (Pmx)) 250 ml @ 250 mls/hr Q24H IV Last administered on 02/24/17 12:30; Admin Dose 250 MLS/HR; Start 02/21/17 at 12:00 IV Flush (NS 10 ml) 10 ml PRN PRN IV IV PROTOCOL; Start 02/21/17 at 14:00 Enoxaparin Sodium (Lovenox) 75 mg DAILY SC Last administered on 02/24/17 08:09 ; Admin Dose 75 MG; Start 02/23/17 at 09:00 Pantoprazole (Protonix Tab) 40 mg DAILY@06 PO Last administered on 02/24/17 08: 05; Admin Dose 40 MG; Start 02/24/17 at 06:00 Mupirocin (Bactroban) 1 applic BID TOP Last administered on 02/24/17 10:16; Admin Dose 1 APPLIC; Start 02/23/17 at 15:30 SUSHIL MORENO Feb 24, 2017 13:27
--- NOTE | 2017-02-24 13:29 | CONS ---
Date/Time of Note Date/Time of Note DATE: 02/24/17 TIME: 13:26 Assessment/Plan Assessment/Plan Chief Complaint/Hosp Course SUBJECTIVE DATA: No events overnight. No fevers. The patient is alert and feels better today Microbiology: Blood culture grew staph species. Nares swab came back positive for MRSA. Urine culture negative. Antimicrobials: topical Bactroban to nares, Zithromax, Rocephin. PHYSICAL EXAMINATION: GENERAL: This is an ill-appearing, middle-aged, white man, who is awake, in no distress. HEENT: Head atraumatic, normocephalic. Sclerae anicteric. Buccal mucosa dry. NECK: Supple. CHEST: Rise symmetrical. Breath sounds diminished at the bases. HEART: S1, S2. ABDOMEN: Soft, bowel sounds present. EXTREMITIES: BLE edema +1. ASSESSMENT: 1. Resolving sepsis. 2. Staph bacteremia, likely contaminant. 3. Pneumonia. 4. Methicillin-resistant Staphylococcus aureus nares colonization. 5. CM with EF 15% and NSTEMI. 6. Acute possibly on chronic kidney disease. 7. History of drug abuse. PLAN: The patient remains stable. Continue present care, abx, f/u card/ pulmonary rec-s. 2D echo on admission revealed no vegetations DW staff Problems: Consultation Date/Type/Reason Admit Date/Time Feb 21, 2017 at 09:56 Initial Consult Date 02/21/17 Type of Consultation: id Referring Provider: NOLBERTO MEDINA MD Exam/Review of Systems Vital Signs Vitals Vital Signs Date Time Temp Pulse Resp B/P Pulse Ox O2 Delivery O2 Flow Rate FiO2 02/24/17 12:58 95 02/24/17 11:34 98.1 18 109/76 94 02/24/17 08:00 Nasal Cannula 5.0 02/24/17 01:57 21 Intake and Output 02/23/17 02/23/17 02/24/17 15:00 23:00 07:00 Intake Total 250 ml 750 ml 400 ml Output Total 200 ml 900 ml Balance 50 ml -150 ml 400 ml Results Result Diagram: 02/24/1717 02/24/1717 Results 24 hrs Laboratory Tests Test 02/24/17 07:17 White Blood Count 7.6 Red Blood Count 4.15 L Hemoglobin 11.1 L Hematocrit 35.8 L Mean Corpuscular Volume 86.3 Mean Corpuscular Hemoglobin 26.7 L Mean Corpuscular Hemoglobin Concent 31.0 L Red Cell Distribution Width 16.7 H Platelet Count 128 L Mean Platelet Volume 12.0 H Neutrophils % 75.7 Lymphocytes % 14.4 L Monocytes % 7.9 Eosinophils % 1.2 Basophils % 0.4 Nucleated Red Blood Cells % 0.0 Neutrophils # (Manual) 5.7 Lymphocytes # 1.1 Monocytes # 0.6 Eosinophils # 0.1 Basophils # 0.0 Nucleated Red Blood Cells # 0.0 Sodium Level 135 Potassium Level 3.8 Chloride Level 100 Carbon Dioxide Level 28 Anion Gap 11 Blood Urea Nitrogen 31 H Creatinine 1.31 H Glucose Level 83 Calcium Level 7.7 L Medications Medications Current Medications Ondansetron HCl (Zofran Inj) 4 mg Q6H PRN IV NAUSEA AND/OR VOMITING; Start at 10:30 Acetaminophen (Tylenol Tab) 650 mg Q6H PRN PO PAIN LEVEL 1-3 OR FEVER; Start at 10:30 Acetaminophen (Tylenol Supp) 650 mg Q6H PRN [place] PAIN LEVEL 1-3 OR FEVER; Start 02/21/17 at 10:30 Morphine Sulfate (morphine) 2 mg Q4H PRN IV SEVERE PAIN LEVEL 7-10 Last administered on 02/22/17 12:09; Admin Dose 2 MG; Start 02/21/17 at 10:30 Docusate Sodium (Colace) 100 mg Q12H PRN PO CONSTIPATION; Start 02/21/17 at 10: 30 Magnesium Hydroxide (Milk Of Mag) 30 ml DAILY PRN PO CONSTIPATION; Start at 10:30 Bisacodyl (Dulcolax Supp) 10 mg DAILY PRN [place] CONSTIPATION; Start 02/21/17 at 10 :30 Aspirin (Aspirin) 81 mg DAILY PO Last administered on 02/24/17 08:21; Admin Dose 81 MG; Start 02/23/17 at 09:00 Nitroglycerin 1 tab 1 tab Q5M PRN SL CHEST PAIN; Start 02/21/17 at 10:30 Ceftriaxone Sodium 50 ml @ 100 mls/hr Q24H IVPB Last administered on 02/24/17 12:14; Admin Dose 100 MLS/HR; Start 02/21/17 at 12:00 Azithromycin (Zithromax 500mg/ NS (Pmx)) 250 ml @ 250 mls/hr Q24H IV Last administered on 02/24/17 12:30; Admin Dose 250 MLS/HR; Start 02/21/17 at 12:00 IV Flush (NS 10 ml) 10 ml PRN PRN IV IV PROTOCOL; Start 02/21/17 at 14:00 Enoxaparin Sodium (Lovenox) 75 mg DAILY SC Last administered on 02/24/17 08:09 ; Admin Dose 75 MG; Start 02/23/17 at 09:00 Pantoprazole (Protonix Tab) 40 mg DAILY@06 PO Last administered on 02/24/17 08: 05; Admin Dose 40 MG; Start 02/24/17 at 06:00 Mupirocin (Bactroban) 1 applic BID TOP Last administered on 02/24/17 10:16; Admin Dose 1 APPLIC; Start 02/23/17 at 15:30 BRETT DEL ANGEL NP Feb 24, 2017 13:29
[2017-02-24] MEDS ORDERED: FUROSEMIDE 20 MG INJ IV ONE (14:00)
--- NOTE | 2017-02-24 14:20 | RADRPT ---
PROCEDURE: XR Chest. CLINICAL INDICATION: Shortness of breath. TECHNIQUE: Single frontal view. COMPARISON: 02/23/2017. FINDINGS: There is air space disease in the right mid and lower lung zones consistent with pneumonia, worse th an seen previously. There is left basilar atelectasis or pneumonia, also worse than seen previously . The left arm PICC line is in satisfactory and unchanged position. The heart is enlarged. There is calcification in the aorta consistent with atherosclerosis. There is a moderate right pleural effusion and small left pleural effusion. There is no pneumothorax. IMPRESSION: 1. Worse appearance of the lungs and larger bilateral pleural effusions. 2. Cardiomegaly and atherosclerosis. 3. Left arm PICC line in satisfactory position. RPTAT: QQ .Hugo Moreno MD, MD Date Time Electronically viewed and signed by .Hugo Moreno MD, MD on 02/24/2017 14:19 .R/
--- NOTE | 2017-02-24 15:17 | CONS ---
Date/Time of Note Date/Time of Note DATE: 02/24/17 TIME: 15:14 Assessment/Plan Assessment/Plan Chief Complaint/Hosp Course IMP: 1.CHF 2.Hypotension 3.Renal failure 4.Nstemi-decreasing enzymes 5. Acidosis 6. Bacteremia 7. Cardiomyopathy-low EF 15-20% by echo this admit Recc: -Tele -serial ecg's -Continue asa -lasix diuresis -Follow HR/BP closely and will digoxin IVP and then PO -Low dose ACEI afterload reduction as tolerated -ongoing renal eval Problems: Consultation Date/Type/Reason Admit Date/Time Feb 21, 2017 at 09:56 Initial Consult Date 02/21/17 Type of Consultation: cardiology Reason for Consultation Chest pain/cardiomyopathy/CHF Referring Provider: NOLBERTO MEDINA MD Exam/Review of Systems Vital Signs Vitals Vital Signs Date Time Temp Pulse Resp B/P Pulse Ox O2 Delivery O2 Flow Rate FiO2 02/24/17 13:53 121 20 97 Nasal Cannula 5.0 02/24/17 11:34 98.1 109/76 02/24/17 01:57 21 Intake and Output 02/23/17 02/23/17 02/24/17 15:00 23:00 07:00 Intake Total 250 ml 750 ml 400 ml Output Total 200 ml 900 ml Balance 50 ml -150 ml 400 ml Exam Review of Systems: CONSTITUTIONAL: No fevers, chills. PULMONARY: No sob CARDIOVASCULAR: No chest pain/palpitations GASTROINTESTINAL: No nausea/vomiting. GENITOURINARY: No hematuria/dysuria. MUSCULOSKELETAL: No myagias/arthalgias. PSYCHIATRIC: The patient denies depression. NEUROLOGIC: No weakness Constitutional: alert Psych: no complaints Head: normocephalic ENMT: mucosa pink and moist Neck: jvd (9 cm water), supple Respiratory: diminished breath sounds (at bases/B) Cardiovascular: regular rate and rhythm Gastrointestinal: non-tender, soft Musculoskeletal: muscle tone (normal) Extremities: edema (none) Neurological: other (No focal deficits) Results Result Diagram: 02/24/1717 02/24/1717 Results 24 hrs Laboratory Tests Test 02/24/17 07:17 02/24/17 13:49 White Blood Count 7.6 Red Blood Count 4.15 L Hemoglobin 11.1 L Hematocrit 35.8 L Mean Corpuscular Volume 86.3 Mean Corpuscular Hemoglobin 26.7 L Mean Corpuscular Hemoglobin Concent 31.0 L Red Cell Distribution Width 16.7 H Platelet Count 128 L Mean Platelet Volume 12.0 H Neutrophils % 75.7 Lymphocytes % 14.4 L Monocytes % 7.9 Eosinophils % 1.2 Basophils % 0.4 Nucleated Red Blood Cells % 0.0 Neutrophils # (Manual) 5.7 Lymphocytes # 1.1 Monocytes # 0.6 Eosinophils # 0.1 Basophils # 0.0 Nucleated Red Blood Cells # 0.0 Sodium Level 135 Potassium Level 3.8 Chloride Level 100 Carbon Dioxide Level 28 Anion Gap 11 Blood Urea Nitrogen 31 H Creatinine 1.31 H Glucose Level 83 Calcium Level 7.7 L Bedside Glucose 163 Medications Medications Current Medications Ondansetron HCl (Zofran Inj) 4 mg Q6H PRN IV NAUSEA AND/OR VOMITING; Start at 10:30 Acetaminophen (Tylenol Tab) 650 mg Q6H PRN PO PAIN LEVEL 1-3 OR FEVER Last administered on 02/24/17 14:00; Admin Dose 650 MG; Start 02/21/17 at 10:30 Acetaminophen (Tylenol Supp) 650 mg Q6H PRN [place] PAIN LEVEL 1-3 OR FEVER; Start 02/21/17 at 10:30 Morphine Sulfate (morphine) 2 mg Q4H PRN IV SEVERE PAIN LEVEL 7-10 Last administered on 02/22/17 12:09; Admin Dose 2 MG; Start 02/21/17 at 10:30 Docusate Sodium (Colace) 100 mg Q12H PRN PO CONSTIPATION; Start 02/21/17 at 10: 30 Magnesium Hydroxide (Milk Of Mag) 30 ml DAILY PRN PO CONSTIPATION; Start at 10:30 Bisacodyl (Dulcolax Supp) 10 mg DAILY PRN [place] CONSTIPATION; Start 02/21/17 at 10 :30 Aspirin (Aspirin) 81 mg DAILY PO Last administered on 02/24/17 08:21; Admin Dose 81 MG; Start 02/23/17 at 09:00 Nitroglycerin 1 tab 1 tab Q5M PRN SL CHEST PAIN Last administered on 02/24/17 14:17; Admin Dose 1 TAB; Start 02/21/17 at 10:30 Ceftriaxone Sodium 50 ml @ 100 mls/hr Q24H IVPB Last administered on 02/24/17 12:14; Admin Dose 100 MLS/HR; Start 02/21/17 at 12:00 Azithromycin (Zithromax 500mg/ NS (Pmx)) 250 ml @ 250 mls/hr Q24H IV Last administered on 02/24/17 12:30; Admin Dose 250 MLS/HR; Start 02/21/17 at 12:00 IV Flush (NS 10 ml) 10 ml PRN PRN IV IV PROTOCOL; Start 02/21/17 at 14:00 Enoxaparin Sodium (Lovenox) 75 mg DAILY SC Last administered on 02/24/17 08:09 ; Admin Dose 75 MG; Start 02/23/17 at 09:00 Pantoprazole (Protonix Tab) 40 mg DAILY@06 PO Last administered on 02/24/17 08: 05; Admin Dose 40 MG; Start 02/24/17 at 06:00 Mupirocin (Bactroban) 1 applic BID TOP Last administered on 02/24/17 10:16; Admin Dose 1 APPLIC; Start 02/23/17 at 15:30 CELINE LI Feb 24, 2017 15:17
[2017-02-24] MEDS ORDERED: DIGOXIN 500 MCG INJ IV ONE (15:30)
--- NOTE | 2017-02-24 15:40 | RADRPT ---
Vent Rate: 110 bpm RR Interval: 0 msec HI Interval: 154 msec QRS Duration: 112 msec QT Interval: 358 msec QTC Interval: 484 msec P-R-T [place]: 49 - 104 - -36 degrees Sinus tachycardia Rightward axis Voltage criteria for left ventricular hypertrophy Cannot rule out Septal infarct , age undetermined T wave abnormality, consider inferior ischemia Abnormal ECG Electronically Signed By: Eliseo Hernández [id number]
--- NOTE | 2017-02-24 16:19 | PN ---
Date/Time of Note Date/Time of Note DATE: 02/24/17 TIME: 16:10 Assessment/Plan VTE Prophylaxis VTE Prophylaxis Intervention: LMWH Lines/Catheters IV Catheter Type (from Nrsg): PICC Line Central line still needed: Yes Urinary Cath still in place: Yes Reason Cath still needed: other (indicate) Assessment/Plan Assessment/Plan 1. CHF, systolic, LVEF 15-20%, acute on chronic, lasix and lisinopril, follow up with cardiology 2. Hypotension due to CHF 3. Nstemi-decreasing enzymes, on lovenox/aspirin, statin, follow up with cardiology 4. CKD, stage 3, follow up with BMP 5. Polysubstance abuse, including IVDA, on methadone 6. Bacteremia, follow up with ID 7. Community acquired pneumonia, on rocephin and zithromax 8. Hepatitis C Subjective 24 Hr Interval Summary Free Text/Dictation shortness of breath, orthopnea, and dizziness Exam/Review of Systems Vital Signs Vitals Vital Signs Date Time Temp Pulse Resp B/P Pulse Ox O2 Delivery O2 Flow Rate FiO2 02/24/17 15:33 98.4 52 16 112/78 99 02/24/17 13:53 Nasal Cannula 5.0 02/24/17 01:57 21 Intake and Output 02/23/17 02/23/17 02/24/17 15:00 23:00 07:00 Intake Total 250 ml 750 ml 400 ml Output Total 200 ml 900 ml Balance 50 ml -150 ml 400 ml Exam Constitutional: alert, oriented Head: atraumatic, normocephalic Eyes: EOMI, PERRL, nl conjunctiva, nl lids ENMT: nl external ears & nose, nl lips & teeth, nl nasal mucosa & septum Neck: non-tender, supple Respiratory: crackles/rales, normal air movement, No congested cough, No diminished breath sounds, No intercostal retraction, No labored breathing, No other, No respirations, No tactile fremitus, No wheezing Cardiovascular: nl pulses, regular rate and rhythm, No S3, No S4, No bruits, No diastolic murmur, No edema, No gallop, No irregular rhythm, No jugular venous distention (JVD), No murmurs/extra sounds, No other, No rub, No systolic murmur Gastrointestinal: nl liver, spleen, non-tender, soft, No ascites, No bowel sounds, No distended, No firm, No hepatomegaly, No mass , No other, No rebound or guarding, No splenomegaly, No surgical scars, No tender Musculoskeletal: nl extremities to inspection Extremities: edema, normal pulses Neurological: PERCUSSION INSTRUMENT TUNER II-XII intact, nl mental status, nl speech, nl strength Results Result Diagram: 02/24/17 0717 02/24/17 0717 Results 24 hrs Laboratory Tests Test 02/24/17 07:17 02/24/17 13:49 White Blood Count 7.6 Red Blood Count 4.15 L Hemoglobin 11.1 L Hematocrit 35.8 L Mean Corpuscular Volume 86.3 Mean Corpuscular Hemoglobin 26.7 L Mean Corpuscular Hemoglobin Concent 31.0 L Red Cell Distribution Width 16.7 H Platelet Count 128 L Mean Platelet Volume 12.0 H Neutrophils % 75.7 Lymphocytes % 14.4 L Monocytes % 7.9 Eosinophils % 1.2 Basophils % 0.4 Nucleated Red Blood Cells % 0.0 Neutrophils # (Manual) 5.7 Lymphocytes # 1.1 Monocytes # 0.6 Eosinophils # 0.1 Basophils # 0.0 Nucleated Red Blood Cells # 0.0 Sodium Level 135 Potassium Level 3.8 Chloride Level 100 Carbon Dioxide Level 28 Anion Gap 11 Blood Urea Nitrogen 31 H Creatinine 1.31 H Glucose Level 83 Calcium Level 7.7 L Bedside Glucose 163 Medications Medications Current Medications Ondansetron HCl (Zofran Inj) 4 mg Q6H PRN IV NAUSEA AND/OR VOMITING; Start at 10:30 Acetaminophen (Tylenol Tab) 650 mg Q6H PRN PO PAIN LEVEL 1-3 OR FEVER Last administered on 02/24/17 14:00; Admin Dose 650 MG; Start 02/21/17 at 10:30 Acetaminophen (Tylenol Supp) 650 mg Q6H PRN [place] PAIN LEVEL 1-3 OR FEVER; Start 02/21/17 at 10:30 Morphine Sulfate (morphine) 2 mg Q4H PRN IV SEVERE PAIN LEVEL 7-10 Last administered on 02/22/17 12:09; Admin Dose 2 MG; Start 02/21/17 at 10:30 Docusate Sodium (Colace) 100 mg Q12H PRN PO CONSTIPATION; Start 02/21/17 at 10: 30 Magnesium Hydroxide (Milk Of Mag) 30 ml DAILY PRN PO CONSTIPATION; Start at 10:30 Bisacodyl (Dulcolax Supp) 10 mg DAILY PRN [place] CONSTIPATION; Start 02/21/17 at 10 :30 Aspirin (Aspirin) 81 mg DAILY PO Last administered on 02/24/17 08:21; Admin Dose 81 MG; Start 02/23/17 at 09:00 Nitroglycerin 1 tab 1 tab Q5M PRN SL CHEST PAIN Last administered on 02/24/17 14:17; Admin Dose 1 TAB; Start 02/21/17 at 10:30 Ceftriaxone Sodium 50 ml @ 100 mls/hr Q24H IVPB Last administered on 02/24/17 12:14; Admin Dose 100 MLS/HR; Start 02/21/17 at 12:00 Azithromycin (Zithromax 500mg/ NS (Pmx)) 250 ml @ 250 mls/hr Q24H IV Last administered on 02/24/17 12:30; Admin Dose 250 MLS/HR; Start 02/21/17 at 12:00 IV Flush (NS 10 ml) 10 ml PRN PRN IV IV PROTOCOL; Start 02/21/17 at 14:00 Enoxaparin Sodium (Lovenox) 75 mg DAILY SC Last administered on 02/24/17 08:09 ; Admin Dose 75 MG; Start 02/23/17 at 09:00 Pantoprazole (Protonix Tab) 40 mg DAILY@06 PO Last administered on 02/24/17 08: 05; Admin Dose 40 MG; Start 02/24/17 at 06:00 Mupirocin (Bactroban) 1 applic BID TOP Last administered on 02/24/17 10:16; Admin Dose 1 APPLIC; Start 02/23/17 at 15:30 Hydralazine HCl (Apresoline) 10 mg Q8 PO ; Start 02/24/17 at 22:00 JERRY ALVAREZ MD Feb 24, 2017 16:19
[2017-02-25] VITALS (13 sets, daily range): BP systolic 110–148; BP diastolic 63–89; PULSE 86–104; RESP 16–18
[2017-02-25] MEDS: IPRATROPIUM (NEB) 0.5 MG/2.5 ML AMP HHN SCH ×4 (01:48→20:00)
[2017-02-25] MEDS: LEVALBUTEROL (NEB) 0.63 MG/3 ML AMP HHN SCH ×4 (01:48→20:00)
[2017-02-25] MEDS ORDERED: MAGNESIUM SULFATE 2 GM/50 ML 50 ML IVPB ONE (05:30)
[2017-02-25] MEDS: PANTOPRAZOLE (EC) 40 MG TAB PO SCH (06:30)
[2017-02-25] MEDS: FUROSEMIDE 20 MG INJ IV SCH ×2 (06:31→17:38)
[2017-02-25 06:55] LABS: ABNORMAL IP MESSAGE 1; BASOPHILS % 0.4 % (0.0-2.0); EOSINOPHILS # 0.1 10^3/ul (0.0-0.5); EOSINOPHILS % 1.7 % (0.0-7.0); HEMATOCRIT 35.3 % (42.0-52.0); HEMOGLOBIN 10.8 g/dl (14.0-18.0); LYMPHOCYTES # 0.7 10^3/ul (0.8-2.9); LYMPHOCYTES % 13.5 % (15.0-51.0); MEAN CORPUSCULAR HEMOGLOBIN 26.4 pg (29.0-33.0); MEAN CORPUSCULAR HGB CONC 30.6 g/dl (32.0-37.0); MEAN CORPUSCULAR VOLUME 86.3 fl (82.0-101.0); MEAN PLATELET VOLUME 13.1 fl (7.4-10.4); MONOCYTE # 0.6 10^3/ul (0.3-0.9); MONOCYTES % 11.2 % (0.0-11.0); NEUTROPHILS % 72.8 % (39.0-77.0); PLATELET COUNT 103 10^3/UL (140-415); POSITIVE DIFF @See below; RED BLOOD COUNT 4.09 10^6/ul (4.70-6.10); RED CELL DISTRIBUTION WIDTH 16.5 % (11.5-14.5); WHITE BLOOD COUNT 5.2 10^3/ul (4.8-10.8)
[2017-02-25 07:14] LABS: CALCIUM 7.6 mg/dl (8.4-10.2); CREATININE 1.16 mg/dl (0.61-1.24); POTASSIUM 3.6 mmol/L (3.5-5.1)
[2017-02-25] MEDS: MUPIROCIN 2% 22 GM OINT TOP SCH ×2 (08:28→21:16)
[2017-02-25] MEDS: METHADONE 10 MG TAB PO SCH (08:29)
[2017-02-25] MEDS: ASPIRIN 81 MG TAB PO SCH (08:29)
[2017-02-25] MEDS: ENOXAPARIN 80 MG/0.8 ML SYG SC SCH (08:42)
[2017-02-25] MEDS ORDERED: LISINOPRIL 5 MG TAB PO SCH (09:00)
--- NOTE | 2017-02-25 11:04 | PN ---
Date/Time of Note Date/Time of Note DATE: 02/25/17 TIME: 11:04 Assessment/Plan VTE Prophylaxis VTE Prophylaxis Intervention: other Lines/Catheters IV Catheter Type (from [facility]): PICC Line Central line still needed: Yes Urinary Cath still in place: Yes Reason Cath still needed: urinary retention Assessment/Plan Chief Complaint/Hosp Course SUBJECTIVE DATA: Patient is stable. No acute events overnight. No fevers, chills, nausea, vomiting. OBJECTIVE DATA: HEENT: Head is normocephalic. NECK: Supple. HEART: Regular rate. LUNGS: Diminished breath sounds at the base. ABDOMEN: Soft. Nontender to palpation. No rebound or guarding. EXTREMITIES: Negative for clubbing, cyanosis. No edema. DERMATOLOGIC: No rashes. MUSCULOSKELETAL: No joint effusion. NEUROLOGIC: No change in exam. MEDICATIONS: Reviewed. ASSESSMENT AND PLAN: 1. Nonoliguric acute kidney injury on top of chronic kidney disease, etiology can secondary to hemodynamics. Renal function has been improving. Responding well to diuretic therapy. Continue current treatment plan. 2. Status post metabolic acidosis. 3. Sepsis. Continue current antibiotic regimen. 4. Anemia. Monitor H and H levels. 5. Mineral bone disorder. Monitor calcium and phosphorus levels. 6. History of congestive heart failure. Continue current medical management. Continue diuretic therapy. 7. History of heroin overdose. Continue supportive care. 8. Acute respiratory failure secondary to congestive heart failure. Continue nebulizers and bronchodilators. Follow up with Pulmonary. Problems: Exam/Review of Systems Vital Signs Vitals Vital Signs Date Time Temp Pulse Resp B/P Pulse Ox O2 Delivery O2 Flow Rate FiO2 02/25/17 08:36 91 02/25/17 07:46 98.7 18 119/80 99 02/25/17 01:56 3.0 02/25/17 01:48 Nasal Cannula 02/24/17 01:57 21 Intake and Output 02/24/17 02/24/17 02/25/17 15:00 23:00 07:00 Intake Total 350 ml 720 ml 650 ml Output Total 2850 ml 1800 ml Balance 350 ml -2130 ml -1150 ml Results Result Diagram: 02/25/17 0556 02/25/17 0556 Results 24 hrs Laboratory Tests Test 02/24/17 13:49 02/24/17 15:15 02/25/17 05:56 Bedside Glucose 163 Troponin I 0.513 *H White Blood Count 5.2 # Red Blood Count 4.09 L Hemoglobin 10.8 L Hematocrit 35.3 L Mean Corpuscular Volume 86.3 Mean Corpuscular Hemoglobin 26.4 L Mean Corpuscular Hemoglobin Concent 30.6 L Red Cell Distribution Width 16.5 H Platelet Count 103 L Mean Platelet Volume 13.1 H Neutrophils % 72.8 Lymphocytes % 13.5 L Monocytes % 11.2 H Eosinophils % 1.7 Basophils % 0.4 Nucleated Red Blood Cells % 0.0 Neutrophils # (Manual) 3.8 Lymphocytes # 0.7 L Monocytes # 0.6 Eosinophils # 0.1 Basophils # 0.0 Nucleated Red Blood Cells # 0.0 Sodium Level 137 Potassium Level 3.6 Chloride Level 97 Carbon Dioxide Level 32 H Anion Gap 12 Blood Urea Nitrogen 26 H Creatinine 1.16 Glucose Level 80 Calcium Level 7.6 L Medications Medications Current Medications Ondansetron HCl (Zofran Inj) 4 mg Q6H PRN IV NAUSEA AND/OR VOMITING; Start at 10:30 Acetaminophen (Tylenol Tab) 650 mg Q6H PRN PO PAIN LEVEL 1-3 OR FEVER Last administered on 02/24/17 14:00; Admin Dose 650 MG; Start 02/21/17 at 10:30 Acetaminophen (Tylenol Supp) 650 mg Q6H PRN [place] PAIN LEVEL 1-3 OR FEVER; Start 02/21/17 at 10:30 Morphine Sulfate (morphine) 2 mg Q4H PRN IV SEVERE PAIN LEVEL 7-10 Last administered on 02/22/17 12:09; Admin Dose 2 MG; Start 02/21/17 at 10:30 Docusate Sodium (Colace) 100 mg Q12H PRN PO CONSTIPATION; Start 02/21/17 at 10: 30 Magnesium Hydroxide (Milk Of Mag) 30 ml DAILY PRN PO CONSTIPATION; Start at 10:30 Bisacodyl (Dulcolax Supp) 10 mg DAILY PRN [place] CONSTIPATION; Start 02/21/17 at 10 :30 Aspirin (Aspirin) 81 mg DAILY PO Last administered on 02/25/17 08:29; Admin Dose 81 MG; Start 02/23/17 at 09:00 Nitroglycerin 1 tab 1 tab Q5M PRN SL CHEST PAIN Last administered on 02/24/17 14:17; Admin Dose 1 TAB; Start 02/21/17 at 10:30 Ceftriaxone Sodium 50 ml @ 100 mls/hr Q24H IVPB Last administered on 02/24/17 12:14; Admin Dose 100 MLS/HR; Start 02/21/17 at 12:00 Azithromycin (Zithromax 500mg/ NS (Pmx)) 250 ml @ 250 mls/hr Q24H IV Last administered on 02/24/17 12:30; Admin Dose 250 MLS/HR; Start 02/21/17 at 12:00 IV Flush (NS 10 ml) 10 ml PRN PRN IV IV PROTOCOL; Start 02/21/17 at 14:00 Enoxaparin Sodium (Lovenox) 75 mg DAILY SC Last administered on 02/25/17 08:42 ; Admin Dose 75 MG; Start 02/23/17 at 09:00 Pantoprazole (Protonix Tab) 40 mg DAILY@06 PO Last administered on 02/25/17 06: 30; Admin Dose 40 MG; Start 02/24/17 at 06:00 Mupirocin (Bactroban) 1 applic BID TOP Last administered on 02/25/17 08:28; Admin Dose 1 APPLIC; Start 02/23/17 at 15:30 Hydralazine HCl (Apresoline) 10 mg Q8 PO Last administered on 02/25/17 06:31; Admin Dose 10 MG; Start 02/24/17 at 22:00 CAN RIBERA DO Feb 25, 2017 11:04
--- NOTE | 2017-02-25 11:39 | CONS ---
Date/Time of Note Date/Time of Note DATE: 02/25/17 TIME: 11:38 Consult Date/Type/Reason Admit Date/Time Feb 21, 2017 at 09:56 Initial Consult Date 02/21/17 Type of Consultation: Pulmonary Ordering Provider: NOLBERTO MEDINA MD Subjective Remains comfortable slowly improving Objective Vital Signs Date Time Temp Pulse Resp B/P Pulse Ox O2 Delivery O2 Flow Rate FiO2 02/25/17 11:24 98.1 79 16 148/83 97 02/25/17 08:20 Nasal Cannula 5.0 02/24/17 01:57 21 Intake and Output 02/24/17 02/24/17 02/25/17 15:00 23:00 07:00 Intake Total 350 ml 720 ml 650 ml Output Total 2850 ml 1800 ml Balance 350 ml -2130 ml -1150 ml Exam PHYSICAL EXAMINATION GENERAL: Elderly gentleman, nasal cannula oxygen VITAL SIGNS: see below. HEENT: Pupils equal, round, and reactive to light. CARDIAC: S1, S2, 1/6 systolic ejection murmur CHEST: Diminished air entry bilaterally. ABDOMEN: Mildly distended. Bowel sounds present no guarding or rebound EXTREMITIES: No cyanosis, clubbing edema +1 NEUROLOGIC: Generalized weakness Results/Medications Result Diagram: 02/25/17 0556 02/25/17 0556 Results 24 hrs Laboratory Tests Test 02/24/17 13:49 02/24/17 15:15 02/25/17 05:56 Bedside Glucose 163 Troponin I 0.513 *H White Blood Count 5.2 # Red Blood Count 4.09 L Hemoglobin 10.8 L Hematocrit 35.3 L Mean Corpuscular Volume 86.3 Mean Corpuscular Hemoglobin 26.4 L Mean Corpuscular Hemoglobin Concent 30.6 L Red Cell Distribution Width 16.5 H Platelet Count 103 L Mean Platelet Volume 13.1 H Neutrophils % 72.8 Lymphocytes % 13.5 L Monocytes % 11.2 H Eosinophils % 1.7 Basophils % 0.4 Nucleated Red Blood Cells % 0.0 Neutrophils # (Manual) 3.8 Lymphocytes # 0.7 L Monocytes # 0.6 Eosinophils # 0.1 Basophils # 0.0 Nucleated Red Blood Cells # 0.0 Sodium Level 137 Potassium Level 3.6 Chloride Level 97 Carbon Dioxide Level 32 H Anion Gap 12 Blood Urea Nitrogen 26 H Creatinine 1.16 Glucose Level 80 Calcium Level 7.6 L Medications Current Medications Ondansetron HCl (Zofran Inj) 4 mg Q6H PRN IV NAUSEA AND/OR VOMITING; Start at 10:30 Acetaminophen (Tylenol Tab) 650 mg Q6H PRN [place] PAIN LEVEL 1-3 OR FEVER Last administered on 02/24/17 14:00; Admin Dose 650 MG; Start 02/21/17 at 10:30 Acetaminophen (Tylenol Supp) 650 mg Q6H PRN [place] PAIN LEVEL 1-3 OR FEVER; Start 02/21/17 at 10:30 Morphine Sulfate (morphine) 2 mg Q4H PRN IV SEVERE PAIN LEVEL 7-10 Last administered on 02/22/17 12:09; Admin Dose 2 MG; Start 02/21/17 at 10:30 Docusate Sodium (Colace) 100 mg Q12H PRN PO CONSTIPATION; Start 02/21/17 at 10: 30 Magnesium Hydroxide (Milk Of Mag) 30 ml DAILY PRN PO CONSTIPATION; Start at 10:30 Bisacodyl (Dulcolax Supp) 10 mg DAILY PRN [place] CONSTIPATION; Start 02/21/17 at 10 :30 Aspirin (Aspirin) 81 mg DAILY PO Last administered on 02/25/17 08:29; Admin Dose 81 MG; Start 02/23/17 at 09:00 Nitroglycerin 1 tab 1 tab Q5M PRN SL CHEST PAIN Last administered on 02/24/17 14:17; Admin Dose 1 TAB; Start 02/21/17 at 10:30 Ceftriaxone Sodium 50 ml @ 100 mls/hr Q24H IVPB Last administered on 02/24/17 12:14; Admin Dose 100 MLS/HR; Start 02/21/17 at 12:00 Azithromycin (Zithromax 500mg/ NS (Pmx)) 250 ml @ 250 mls/hr Q24H IV Last administered on 02/24/17 12:30; Admin Dose 250 MLS/HR; Start 02/21/17 at 12:00 IV Flush (NS 10 ml) 10 ml PRN PRN IV IV PROTOCOL; Start 02/21/17 at 14:00 Enoxaparin Sodium (Lovenox) 75 mg DAILY SC Last administered on 02/25/17 08:42 ; Admin Dose 75 MG; Start 02/23/17 at 09:00 Pantoprazole (Protonix Tab) 40 mg DAILY@06 PO Last administered on 02/25/17 06: 30; Admin Dose 40 MG; Start 02/24/17 at 06:00 Mupirocin (Bactroban) 1 applic BID TOP Last administered on 02/25/17 08:28; Admin Dose 1 APPLIC; Start 02/23/17 at 15:30 Hydralazine HCl (Apresoline) 10 mg Q8 PO Last administered on 02/25/17 06:31; Admin Dose 10 MG; Start 02/24/17 at 22:00 Assessment/Plan Chief Complaint/Hosp Course IMPRESSION: 1. Intravenous heroin abuse with altered mental status. Now neurologically improved. 2. Possible aspiration pneumonia. 3. Possible community-acquired pneumonia. 4. Metabolic acidosis. 5. Lactic acidosis. 6. Elevated troponin, likely secondary to hypoperfusion. 7. Exclude infective endocarditis given history of intravenous drug abuse. PLAN: 1. Encourage ambulation 2. Continue broad-spectrum antibiotics pending cultures. de escalate abx soon. 3. Aspiration precautions. 4. Supplemental O2. Consider discharge planning Problems: MANOLO DURAN [facility], [facility] Feb 25, 2017 11:39
[2017-02-25] MEDS: AZITHROMYCIN 500MG/NS (PMX) 250 ML IV SCH (12:24)
[2017-02-25] MEDS: CEFTRIAXONE 1 GM/50 ML (PMX) 50 ML IVPB SCH (12:24)
--- NOTE | 2017-02-25 18:00 | CONS ---
Date/Time of Note Date/Time of Note DATE: 02/25/17 TIME: 18:00 Assessment/Plan Assessment/Plan Chief Complaint/Hosp Course DUPLICATE DRAFT NOTE OPENED IN ERROR -> Patient seen & examined, see alternative note of same date 02/25/17 Problems: Consultation Date/Type/Reason Admit Date/Time Feb 21, 2017 at 09:56 Initial Consult Date 02/21/17 Type of Consultation: ID Referring Provider: NOLBERTO MEDINA MD Exam/Review of Systems Vital Signs Vitals Vital Signs Date Time Temp Pulse Resp B/P Pulse Ox O2 Delivery O2 Flow Rate FiO2 02/25/17 16:37 86 02/25/17 15:29 98.1 16 110/63 97 02/25/17 13:50 3.0 02/25/17 13:28 Nasal Cannula 02/24/17 01:57 21 Intake and Output 02/24/17 02/24/17 02/25/17 15:00 23:00 07:00 Intake Total 350 ml 720 ml 650 ml Output Total 2850 ml 1800 ml Balance 350 ml -2130 ml -1150 ml Results Result Diagram: 02/25/17 0556 02/25/17 0556 Results 24 hrs Laboratory Tests Test 02/25/17 05:56 White Blood Count 5.2 # Red Blood Count 4.09 L Hemoglobin 10.8 L Hematocrit 35.3 L Mean Corpuscular Volume 86.3 Mean Corpuscular Hemoglobin 26.4 L Mean Corpuscular Hemoglobin Concent 30.6 L Red Cell Distribution Width 16.5 H Platelet Count 103 L Mean Platelet Volume 13.1 H Neutrophils % 72.8 Lymphocytes % 13.5 L Monocytes % 11.2 H Eosinophils % 1.7 Basophils % 0.4 Nucleated Red Blood Cells % 0.0 Neutrophils # (Manual) 3.8 Lymphocytes # 0.7 L Monocytes # 0.6 Eosinophils # 0.1 Basophils # 0.0 Nucleated Red Blood Cells # 0.0 Sodium Level 137 Potassium Level 3.6 Chloride Level 97 Carbon Dioxide Level 32 H Anion Gap 12 Blood Urea Nitrogen 26 H Creatinine 1.16 Glucose Level 80 Calcium Level 7.6 L Medications Medications Current Medications Ondansetron HCl (Zofran Inj) 4 mg Q6H PRN IV NAUSEA AND/OR VOMITING; Start at 10:30 Acetaminophen (Tylenol Tab) 650 mg Q6H PRN PO PAIN LEVEL 1-3 OR FEVER Last administered on 02/24/17 14:00; Admin Dose 650 MG; Start 02/21/17 at 10:30 Acetaminophen (Tylenol Supp) 650 mg Q6H PRN [place] PAIN LEVEL 1-3 OR FEVER; Start 02/21/17 at 10:30 Morphine Sulfate (morphine) 2 mg Q4H PRN IV SEVERE PAIN LEVEL 7-10 Last administered on 02/22/17 12:09; Admin Dose 2 MG; Start 02/21/17 at 10:30 Docusate Sodium (Colace) 100 mg Q12H PRN PO CONSTIPATION; Start 02/21/17 at 10: 30 Magnesium Hydroxide (Milk Of Mag) 30 ml DAILY PRN PO CONSTIPATION; Start at 10:30 Bisacodyl (Dulcolax Supp) 10 mg DAILY PRN [place] CONSTIPATION; Start 02/21/17 at 10 :30 Aspirin (Aspirin) 81 mg DAILY PO Last administered on 02/25/17 08:29; Admin Dose 81 MG; Start 02/23/17 at 09:00 Nitroglycerin 1 tab 1 tab Q5M PRN SL CHEST PAIN Last administered on 02/24/17 14:17; Admin Dose 1 TAB; Start 02/21/17 at 10:30 Ceftriaxone Sodium 50 ml @ 100 mls/hr Q24H IVPB Last administered on 02/25/17 12:24; Admin Dose 100 MLS/HR; Start 02/21/17 at 12:00 Azithromycin (Zithromax 500mg/ NS (Pmx)) 250 ml @ 250 mls/hr Q24H IV Last administered on 02/25/17 12:24; Admin Dose 250 MLS/HR; Start 02/21/17 at 12:00 IV Flush (NS 10 ml) 10 ml PRN PRN IV IV PROTOCOL; Start 02/21/17 at 14:00 Enoxaparin Sodium (Lovenox) 75 mg DAILY SC Last administered on 02/25/17 08:42 ; Admin Dose 75 MG; Start 02/23/17 at 09:00 Pantoprazole (Protonix Tab) 40 mg DAILY@06 PO Last administered on 02/25/17 06: 30; Admin Dose 40 MG; Start 02/24/17 at 06:00 Mupirocin (Bactroban) 1 applic BID TOP Last administered on 02/25/17 08:28; Admin Dose 1 APPLIC; Start 02/23/17 at 15:30 Hydralazine HCl (Apresoline) 10 mg Q8 PO Last administered on 02/25/17 13:21; Admin Dose 10 MG; Start 02/24/17 at 22:00 MANISHA WONG NP Feb 25, 2017 18:00 14:17; Admin Dose 1 TAB; Start 02/21/17 at 10:30 Ceftriaxone Sodium 50 ml @ 100 mls/hr Q24H IVPB Last administered on 02/25/17 12:24; Admin Dose 100 MLS/HR; Start 02/21/17 at 12:00 Azithromycin (Zithromax 500mg/ NS (Pmx)) 250 ml @ 250 mls/hr Q24H IV Last administered on 02/25/17 12:24; Admin Dose 250 MLS/HR; Start 02/21/17 at 12:00 IV Flush (NS 10 ml) 10 ml PRN PRN IV IV PROTOCOL; Start 02/21/17 at 14:00 Enoxaparin Sodium (Lovenox) 75 mg DAILY SC Last administered on 02/25/17 08:42 ; Admin Dose 75 MG; Start 02/23/17 at 09:00 Pantoprazole (Protonix Tab) 40 mg DAILY@06 PO Last administered on 02/25/17 06: 30; Admin Dose 40 MG; Start 02/24/17 at 06:00 Mupirocin (Bactroban) 1 applic BID TOP Last administered on 02/25/17 08:28; Admin Dose 1 APPLIC; Start 02/23/17 at 15:30 Hydralazine HCl (Apresoline) 10 mg Q8 PO Last administered on 02/25/17 13:21; Admin Dose 10 MG; Start 02/24/17 at 22:00 MANISHA WONG NP Feb 25, 2017 18:00
--- NOTE | 2017-02-25 18:49 | PN ---
Date/Time of Note Date/Time of Note DATE: 02/25/17 TIME: 18:41 Assessment/Plan VTE Prophylaxis VTE Prophylaxis Intervention: SCD's Lines/Catheters IV Catheter Type (from Nrs): PICC Line Central line still needed: Yes Urinary Cath still in place: Yes Reason Cath still needed: other (indicate) (monitor I&O) Assessment/Plan Chief Complaint/Hosp Course Assessment and plan 1. Sepsis from community-acquired pneumonia. Continue on antibiotics. Monitor for clinical improvement. 2. CHF with decompensation. aircraft layout worker following. continue optimization with cardiovascular medications 3. Elevated troponin. in the setting of sepsis and renal insufficiency. Vehicle Inspector following. continue with recs 4. Heroin overdose. methadone per pain rental management trainee. 5. Reported homeless status. second worker following 6. Acute renal insufficiency. IV fluids per director nursery school. Monitor renal panel. Medications renally dosed. stable. 7. Transaminitis. Patient with history of hepatitis C. monitor. For outpatient follow up Disposition plan: Will get case management to follow. Patient reports homeless status. Will see for placement. Discussed plan of care with Dr. Foster Problems: Subjective 24 Hr Interval Summary Free Text/Dictation Patient with some reported shortness of breath. slightly worse today. Exam/Review of Systems Vital Signs Vitals Vital Signs Date Time Temp Pulse Resp B/P Pulse Ox O2 Delivery O2 Flow Rate FiO2 02/25/17 16:37 86 02/25/17 15:29 98.1 16 110/63 97 02/25/17 13:50 3.0 02/25/17 13:28 Nasal Cannula 02/24/17 01:57 21 Intake and Output 02/24/17 02/24/17 02/25/17 15:00 23:00 07:00 Intake Total 350 ml 720 ml 650 ml Output Total 2850 ml 1800 ml Balance 350 ml -2130 ml -1150 ml Exam Constitutional: slightly anxious, reports some dyspnea Psych: nl mood/affect Head: normocephalic Eyes: nl conjunctiva Respiratory: diminished bilaterally Cardiovascular: regular rate Gastrointestinal: non-tender, soft Extremities: edema (bilateral upper and lower extremities less on lower extremities) Neurological: nl speech, other (lethargic) Results Result Diagram: 02/25/17 0556 02/25/17 0556 Results 24 hrs Laboratory Tests Test 02/25/17 05:56 White Blood Count 5.2 # Red Blood Count 4.09 L Hemoglobin 10.8 L Hematocrit 35.3 L Mean Corpuscular Volume 86.3 Mean Corpuscular Hemoglobin 26.4 L Mean Corpuscular Hemoglobin Concent 30.6 L Red Cell Distribution Width 16.5 H Platelet Count 103 L Mean Platelet Volume 13.1 H Neutrophils % 72.8 Lymphocytes % 13.5 L Monocytes % 11.2 H Eosinophils % 1.7 Basophils % 0.4 Nucleated Red Blood Cells % 0.0 Neutrophils # (Manual) 3.8 Lymphocytes # 0.7 L Monocytes # 0.6 Eosinophils # 0.1 Basophils # 0.0 Nucleated Red Blood Cells # 0.0 Sodium Level 137 Potassium Level 3.6 Chloride Level 97 Carbon Dioxide Level 32 H Anion Gap 12 Blood Urea Nitrogen 26 H Creatinine 1.16 Glucose Level 80 Calcium Level 7.6 L Medications Medications Current Medications Ondansetron HCl (Zofran Inj) 4 mg Q6H PRN IV NAUSEA AND/OR VOMITING; Start at 10:30 Acetaminophen (Tylenol Tab) 650 mg Q6H PRN PO PAIN LEVEL 1-3 OR FEVER Last administered on 02/24/17 14:00; Admin Dose 650 MG; Start 02/21/17 at 10:30 Acetaminophen (Tylenol Supp) 650 mg Q6H PRN [place] PAIN LEVEL 1-3 OR FEVER; Start 02/21/17 at 10:30 Morphine Sulfate (morphine) 2 mg Q4H PRN IV SEVERE PAIN LEVEL 7-10 Last administered on 02/22/17 12:09; Admin Dose 2 MG; Start 02/21/17 at 10:30 Docusate Sodium (Colace) 100 mg Q12H PRN PO CONSTIPATION; Start 02/21/17 at 10: 30 Magnesium Hydroxide (Milk Of Mag) 30 ml DAILY PRN PO CONSTIPATION; Start at 10:30 Bisacodyl (Dulcolax Supp) 10 mg DAILY PRN [place] CONSTIPATION; Start 02/21/17 at 10 :30 Aspirin (Aspirin) 81 mg DAILY PO Last administered on 02/25/17 08:29; Admin Dose 81 MG; Start 02/23/17 at 09:00 Nitroglycerin 1 tab 1 tab Q5M PRN SL CHEST PAIN Last administered on 02/24/17 14:17; Admin Dose 1 TAB; Start 02/21/17 at 10:30 Ceftriaxone Sodium 50 ml @ 100 mls/hr Q24H IVPB Last administered on 02/25/17 12:24; Admin Dose 100 MLS/HR; Start 02/21/17 at 12:00 Azithromycin (Zithromax 500mg/ NS (Pmx)) 250 ml @ 250 mls/hr Q24H IV Last administered on 02/25/17 12:24; Admin Dose 250 MLS/HR; Start 02/21/17 at 12:00 IV Flush (NS 10 ml) 10 ml PRN PRN IV IV PROTOCOL; Start 02/21/17 at 14:00 Enoxaparin Sodium (Lovenox) 75 mg DAILY SC Last administered on 02/25/17 08:42 ; Admin Dose 75 MG; Start 02/23/17 at 09:00 Pantoprazole (Protonix Tab) 40 mg DAILY@06 PO Last administered on 02/25/17 06: 30; Admin Dose 40 MG; Start 02/24/17 at 06:00 Mupirocin (Bactroban) 1 applic BID TOP Last administered on 02/25/17 08:28; Admin Dose 1 APPLIC; Start 02/23/17 at 15:30 Hydralazine HCl (Apresoline) 10 mg Q8 PO Last administered on 02/25/17 13:21; Admin Dose 10 MG; Start 02/24/17 at 22:00 TEODORO DALEY Feb 25, 2017 18:49
--- NOTE | 2017-02-25 20:33 | CONS ---
Date/Time of Note Date/Time of Note DATE: 02/25/17 TIME: 20:19 Assessment/Plan Assessment/Plan Chief Complaint/Hosp Course ID PROGRESS NOTE CURRENT ABX: => Bactroban to nares, Zithromax, Rocephin. 24H INTERVAL SUMMARY * No fevers, VSS, no new issues, no c/o offered, O2 5L via NC * Microbiology: Blood culture grew staph species. Nares swab came back positive for MRSA. Urine culture negative. EXAM GEN: VSS, no fevers, HEENT: Unremarkable NECK: WNL CVS: RRR CHEST: Equal chest rise bilaterally, without dyspnea on observation ABD: Soft, NT EXT: (+)Generalized edema x 4, fluid overload ID ASSESSMENT 56 yo M w/PMHx illicit IVDU heroin abuse admit with: 1. Sepsis present on admission 2. Staph bacteremia CoNS x 2 species in 1/2 bottles on admission, likely contaminant. * 2D ECHO (-)Vegetation 3. Pneumonia = CAP w/bilateral infiltrates 4. Acute CHF exacerbation 5. CMY with EF 15% and NSTEMI. 6. Acute possibly on chronic kidney disease. 7. (+)Tobaccoism (+) MRSA Nares->Bactroban INVASIVES: PICC CURRENT ABX: =>Azith #4 + Ceftriaxone ID RECOMMENDATIONS 1. DC Azith & Continue Ceftriaxone 2. Start Doxycycline IV Q12 H for MRSA coverage of PNA 3. DC PICC upon discharge from [facility]; would NOT DC current IVDU home with PICC line due to high risk self-injury if he self-injects . Problems: Consultation Date/Type/Reason Admit Date/Time Feb 21, 2017 at 09:56 Initial Consult Date 02/21/17 Type of Consultation: ID Referring Provider: NOLBERTO MEDINA MD Exam/Review of Systems Vital Signs Vitals Vital Signs Date Time Temp Pulse Resp B/P Pulse Ox O2 Delivery O2 Flow Rate FiO2 02/25/17 19:49 98.5 91 18 128/89 93 02/25/17 13:50 3.0 02/25/17 13:28 Nasal Cannula 02/24/17 01:57 21 Intake and Output 02/24/17 02/24/17 02/25/17 15:00 23:00 07:00 Intake Total 350 ml 720 ml 650 ml Output Total 2850 ml 1800 ml Balance 350 ml -2130 ml -1150 ml Results Result Diagram: 02/25/17 0556 02/25/17 0556 Results 24 hrs Laboratory Tests Test 02/25/17 05:56 White Blood Count 5.2 # Red Blood Count 4.09 L Hemoglobin 10.8 L Hematocrit 35.3 L Mean Corpuscular Volume 86.3 Mean Corpuscular Hemoglobin 26.4 L Mean Corpuscular Hemoglobin Concent 30.6 L Red Cell Distribution Width 16.5 H Platelet Count 103 L Mean Platelet Volume 13.1 H Neutrophils % 72.8 Lymphocytes % 13.5 L Monocytes % 11.2 H Eosinophils % 1.7 Basophils % 0.4 Nucleated Red Blood Cells % 0.0 Neutrophils # (Manual) 3.8 Lymphocytes # 0.7 L Monocytes # 0.6 Eosinophils # 0.1 Basophils # 0.0 Nucleated Red Blood Cells # 0.0 Sodium Level 137 Potassium Level 3.6 Chloride Level 97 Carbon Dioxide Level 32 H Anion Gap 12 Blood Urea Nitrogen 26 H Creatinine 1.16 Glucose Level 80 Calcium Level 7.6 L Medications Medications Current Medications Ondansetron HCl (Zofran Inj) 4 mg Q6H PRN IV NAUSEA AND/OR VOMITING; Start at 10:30 Acetaminophen (Tylenol Tab) 650 mg Q6H PRN PO PAIN LEVEL 1-3 OR FEVER Last administered on 02/24/17 14:00; Admin Dose 650 MG; Start 02/21/17 at 10:30 Acetaminophen (Tylenol Supp) 650 mg Q6H PRN [place] PAIN LEVEL 1-3 OR FEVER; Start 02/21/17 at 10:30 Morphine Sulfate (morphine) 2 mg Q4H PRN IV SEVERE PAIN LEVEL 7-10 Last administered on 02/22/17 12:09; Admin Dose 2 MG; Start 02/21/17 at 10:30 Docusate Sodium (Colace) 100 mg Q12H PRN PO CONSTIPATION; Start 02/21/17 at 10: 30 Magnesium Hydroxide (Milk Of Mag) 30 ml DAILY PRN PO CONSTIPATION; Start at 10:30 Bisacodyl (Dulcolax Supp) 10 mg DAILY PRN [place] CONSTIPATION; Start 02/21/17 at 10 :30 Aspirin (Aspirin) 81 mg DAILY PO Last administered on 02/25/17 08:29; Admin Dose 81 MG; Start 02/23/17 at 09:00 Nitroglycerin 1 tab 1 tab Q5M PRN SL CHEST PAIN Last administered on 02/24/17 14:17; Admin Dose 1 TAB; Start 02/21/17 at 10:30 Ceftriaxone Sodium 50 ml @ 100 mls/hr Q24H IVPB Last administered on 02/25/17 12:24; Admin Dose 100 MLS/HR; Start 02/21/17 at 12:00 Azithromycin (Zithromax 500mg/ NS (Pmx)) 250 ml @ 250 mls/hr Q24H IV Last administered on 02/25/17 12:24; Admin Dose 250 MLS/HR; Start 02/21/17 at 12:00 IV Flush (NS 10 ml) 10 ml PRN PRN IV IV PROTOCOL; Start 02/21/17 at 14:00 Enoxaparin Sodium (Lovenox) 75 mg DAILY SC Last administered on 02/25/17 08:42 ; Admin Dose 75 MG; Start 02/23/17 at 09:00 Pantoprazole (Protonix Tab) 40 mg DAILY@06 PO Last administered on 02/25/17 06: 30; Admin Dose 40 MG; Start 02/24/17 at 06:00 Mupirocin (Bactroban) 1 applic BID TOP Last administered on 02/25/17 08:28; Admin Dose 1 APPLIC; Start 02/23/17 at 15:30 Hydralazine HCl (Apresoline) 10 mg Q8 PO Last administered on 02/25/17 13:21; Admin Dose 10 MG; Start 02/24/17 at 22:00 MANISHA WONG NP Feb 25, 2017 20:30
[2017-02-25] MEDS: DOXYCYCLINE 100 MG in SOD CHLORIDE 0.9% 250 ML IVPB SCH (21:00)
[2017-02-26] VITALS (15 sets, daily range): BP systolic 120–139; BP diastolic 69–88; PULSE 94–169; RESP 16–18
[2017-02-26] MEDS: IPRATROPIUM (NEB) 0.5 MG/2.5 ML AMP HHN SCH ×6 (00:08→19:27)
[2017-02-26] MEDS: LEVALBUTEROL (NEB) 0.63 MG/3 ML AMP HHN SCH ×6 (00:09→19:28)
[2017-02-26] MEDS: PANTOPRAZOLE (EC) 40 MG TAB PO SCH (05:09)
[2017-02-26] MEDS: FUROSEMIDE 20 MG INJ IV SCH ×2 (05:10→17:40)
[2017-02-26 06:59] LABS: BASOPHILS % 0.4 % (0.0-2.0); EOSINOPHILS # 0.1 10^3/ul (0.0-0.5); EOSINOPHILS % 0.9 % (0.0-7.0); HEMATOCRIT 38.8 % (42.0-52.0); HEMOGLOBIN 12.3 g/dl (14.0-18.0); LYMPHOCYTES # 0.8 10^3/ul (0.8-2.9); LYMPHOCYTES % 14.1 % (15.0-51.0); MEAN CORPUSCULAR HGB CONC 31.7 g/dl (32.0-37.0); MEAN CORPUSCULAR VOLUME 85.3 fl (82.0-101.0); MEAN PLATELET VOLUME 12.1 fl (7.4-10.4); MONOCYTE # 0.5 10^3/ul (0.3-0.9); MONOCYTES % 9.8 % (0.0-11.0); NEUTROPHILS % 74.2 % (39.0-77.0); PLATELET COUNT 152 10^3/UL (140-415); RED BLOOD COUNT 4.55 10^6/ul (4.70-6.10); RED CELL DISTRIBUTION WIDTH 16.2 % (11.5-14.5); WHITE BLOOD COUNT 5.3 10^3/ul (4.8-10.8)
[2017-02-26 07:26] LABS: CREATININE 0.92 mg/dl (0.61-1.24); POTASSIUM 3.3 mmol/L (3.5-5.1)
[2017-02-26] MEDS: MUPIROCIN 2% 22 GM OINT TOP SCH ×2 (08:44→21:14)
[2017-02-26] MEDS: DOXYCYCLINE 100 MG in SOD CHLORIDE 0.9% 250 ML IVPB SCH ×2 (08:44→21:14)
[2017-02-26] MEDS: METHADONE 10 MG TAB PO SCH (08:44)
[2017-02-26] MEDS: ASPIRIN 81 MG TAB PO SCH (08:44)
[2017-02-26] MEDS: ENOXAPARIN 80 MG/0.8 ML SYG SC SCH (08:51)
--- NOTE | 2017-02-26 09:26 | CONS ---
Date/Time of Note Date/Time of Note DATE: 02/26/17 TIME: 09:25 Consult Date/Type/Reason Admit Date/Time Feb 21, 2017 at 09:56 Initial Consult Date 02/21/17 Type of Consultation: Pulm Ordering Provider: NOLBERTO MEDINA MD Subjective Slowly improving. Objective Vital Signs Date Time Temp Pulse Resp B/P Pulse Ox O2 Delivery O2 Flow Rate FiO2 02/26/17 08:18 95 02/26/17 07:46 98.6 18 124/80 98 02/26/17 04:30 3.0 31 02/25/17 23:10 Nasal Cannula Intake and Output 02/25/17 02/25/17 02/26/17 15:00 23:00 07:00 Intake Total 50 ml 1190 ml 700 ml Output Total 3100 ml 3000 ml Balance 50 ml -1910 ml -2300 ml Exam PHYSICAL EXAMINATION GENERAL: Elderly gentleman, nasal cannula oxygen VITAL SIGNS: see below. HEENT: Pupils equal, round, and reactive to light. CARDIAC: S1, S2, 1/6 systolic ejection murmur CHEST: Diminished air entry bilaterally. ABDOMEN: Mildly distended. Bowel sounds present no guarding or rebound EXTREMITIES: No cyanosis, clubbing edema +1 NEUROLOGIC: Generalized weakness Results/Medications Result Diagram: 02/26/17 0619 02/26/17 0619 Results 24 hrs Laboratory Tests Test 02/26/17 06:19 White Blood Count 5.3 Red Blood Count 4.55 L Hemoglobin 12.3 L Hematocrit 38.8 L Mean Corpuscular Volume 85.3 Mean Corpuscular Hemoglobin 27.0 L Mean Corpuscular Hemoglobin Concent 31.7 L Red Cell Distribution Width 16.2 H Platelet Count 152 # Mean Platelet Volume 12.1 H Neutrophils % 74.2 Lymphocytes % 14.1 L Monocytes % 9.8 Eosinophils % 0.9 Basophils % 0.4 Nucleated Red Blood Cells % 0.0 Neutrophils # (Manual) 4.0 Lymphocytes # 0.8 Monocytes # 0.5 Eosinophils # 0.1 Basophils # 0.0 Nucleated Red Blood Cells # 0.0 Sodium Level 136 Potassium Level 3.3 L Chloride Level 96 L Carbon Dioxide Level 33 H Anion Gap 10 Blood Urea Nitrogen 22 H Creatinine 0.92 Glucose Level 107 Calcium Level 8.0 L Medications Current Medications Ondansetron HCl (Zofran Inj) 4 mg Q6H PRN IV NAUSEA AND/OR VOMITING; Start at 10:30 Acetaminophen (Tylenol Tab) 650 mg Q6H PRN PO PAIN LEVEL 1-3 OR FEVER Last administered on 02/24/17 14:00; Admin Dose 650 MG; Start 02/21/17 at 10:30 Acetaminophen (Tylenol Supp) 650 mg Q6H PRN [place] PAIN LEVEL 1-3 OR FEVER; Start 02/21/17 at 10:30 Morphine Sulfate (morphine) 2 mg Q4H PRN IV SEVERE PAIN LEVEL 7-10 Last administered on 02/22/17 12:09; Admin Dose 2 MG; Start 02/21/17 at 10:30 Docusate Sodium (Colace) 100 mg Q12H PRN PO CONSTIPATION; Start 02/21/17 at 10: 30 Magnesium Hydroxide (Milk Of Mag) 30 ml DAILY PRN PO CONSTIPATION; Start at 10:30 Bisacodyl (Dulcolax Supp) 10 mg DAILY PRN [place] CONSTIPATION; Start 02/21/17 at 10 :30 Aspirin (Aspirin) 81 mg DAILY PO Last administered on 02/26/17 08:44; Admin Dose 81 MG; Start 02/23/17 at 09:00 Nitroglycerin 1 tab 1 tab Q5M PRN SL CHEST PAIN Last administered on 02/24/17 14:17; Admin Dose 1 TAB; Start 02/21/17 at 10:30 Ceftriaxone Sodium (Rocephin) 50 ml @ 100 mls/hr Q24H IVPB Last administered on 02/25/17 12:24; Admin Dose 100 MLS/HR; Start 02/21/17 at 12:00 IV Flush (NS 10 ml) 10 ml PRN PRN IV IV PROTOCOL; Start 02/21/17 at 14:00 Enoxaparin Sodium (Lovenox) 75 mg DAILY SC Last administered on 02/26/17 08:51 ; Admin Dose 75 MG; Start 02/23/17 at 09:00 Pantoprazole (Protonix Tab) 40 mg DAILY@06 PO Last administered on 02/26/17 05: 09; Admin Dose 40 MG; Start 02/24/17 at 06:00 Mupirocin (Bactroban) 1 applic BID TOP Last administered on 02/26/17 08:44; Admin Dose 1 APPLIC; Start 02/23/17 at 15:30 Hydralazine HCl 10 mg 10 mg Q8 PO Last administered on 02/26/17 05:10; Admin Dose 10 MG; Start 02/24/17 at 22:00 Doxycycline Hyclate/Sodium Chloride (Vibramycin/NS) 250 ml @ 250 mls/hr Q12 IVPB Last administered on 02/26/17 08:44; Admin Dose 250 MLS/HR; Start 02/25/17 at 21:00 Assessment/Plan Chief Complaint/Hosp Course IMPRESSION: 1. Intravenous heroin abuse with altered mental status. Now neurologically improved. 2. Possible aspiration pneumonia.MRSA nares. 3. Possible community-acquired pneumonia. 4. Metabolic acidosis resolved, 5. Lactic acidosis resolved 6. Elevated troponin, likely secondary to hypoperfusion. 7. No vegetations on echo. PLAN: 1. Encourage ambulation 2. Continue broad-spectrum antibiotics pending cultures. de escalate abx soon. 3. Aspiration precautions. 4. Supplemental O2. Discharge planning Problems: MANOLO DURAN MD, [facility] Feb 26, 2017 09:26
--- NOTE | 2017-02-26 11:40 | PN ---
Date/Time of Note Date/Time of Note DATE: 02/26/17 TIME: 11:40 Assessment/Plan VTE Prophylaxis VTE Prophylaxis Intervention: other Lines/Catheters IV Catheter Type (from [facility]): PICC Line Central line still needed: Yes Urinary Cath still in place: Yes Reason Cath still needed: urinary retention Assessment/Plan Chief Complaint/Hosp Course renal follow up SUBJECTIVE DATA: Patient is stable. No acute events overnight. No fevers, chills, nausea, vomiting. OBJECTIVE DATA: HEENT: Head is normocephalic. NECK: Supple. HEART: Regular rate. LUNGS: Diminished breath sounds at the base. ABDOMEN: Soft. Nontender to palpation. No rebound or guarding. EXTREMITIES: Negative for clubbing, cyanosis. No edema. DERMATOLOGIC: No rashes. MUSCULOSKELETAL: No joint effusion. NEUROLOGIC: No change in exam. MEDICATIONS: Reviewed. ASSESSMENT AND PLAN: 1. Nonoliguric acute kidney injury on top of chronic kidney disease, etiology can secondary to hemodynamics. Renal function has been improving. Responding well to diuretic therapy. Continue current treatment plan. 2. Status post metabolic acidosis. 3. Sepsis. Continue current antibiotic regimen. 4. Anemia. Monitor H and H levels. 5. Mineral bone disorder. Monitor calcium and phosphorus levels. 6. History of congestive heart failure. Continue current medical management. Continue diuretic therapy. 7. History of heroin overdose. Continue supportive care. 8. Acute respiratory failure secondary to congestive heart failure. Continue nebulizers and bronchodilators. Follow up with Pulmonary. Problems: Exam/Review of Systems Vital Signs Vitals Vital Signs Date Time Temp Pulse Resp B/P Pulse Ox O2 Delivery O2 Flow Rate FiO2 02/26/17 11:28 99.1 95 18 128/78 98 02/26/17 10:02 Nasal Cannula 3.0 02/26/17 04:30 31 Intake and Output 02/25/17 02/25/17 02/26/17 15:00 23:00 07:00 Intake Total 50 ml 1190 ml 700 ml Output Total 3100 ml 3000 ml Balance 50 ml -1910 ml -2300 ml Results Result Diagram: 02/26/17 0619 02/26/17 0619 Results 24 hrs Laboratory Tests Test 02/26/17 06:19 White Blood Count 5.3 Red Blood Count 4.55 L Hemoglobin 12.3 L Hematocrit 38.8 L Mean Corpuscular Volume 85.3 Mean Corpuscular Hemoglobin 27.0 L Mean Corpuscular Hemoglobin Concent 31.7 L Red Cell Distribution Width 16.2 H Platelet Count 152 # Mean Platelet Volume 12.1 H Neutrophils % 74.2 Lymphocytes % 14.1 L Monocytes % 9.8 Eosinophils % 0.9 Basophils % 0.4 Nucleated Red Blood Cells % 0.0 Neutrophils # (Manual) 4.0 Lymphocytes # 0.8 Monocytes # 0.5 Eosinophils # 0.1 Basophils # 0.0 Nucleated Red Blood Cells # 0.0 Sodium Level 136 Potassium Level 3.3 L Chloride Level 96 L Carbon Dioxide Level 33 H Anion Gap 10 Blood Urea Nitrogen 22 H Creatinine 0.92 Glucose Level 107 Calcium Level 8.0 L Medications Medications Current Medications Ondansetron HCl (Zofran Inj) 4 mg Q6H PRN IV NAUSEA AND/OR VOMITING; Start at 10:30 Acetaminophen (Tylenol Tab) 650 mg Q6H PRN PO PAIN LEVEL 1-3 OR FEVER Last administered on 02/24/17 14:00; Admin Dose 650 MG; Start 02/21/17 at 10:30 Acetaminophen (Tylenol Supp) 650 mg Q6H PRN [place] PAIN LEVEL 1-3 OR FEVER; Start 02/21/17 at 10:30 Morphine Sulfate (morphine) 2 mg Q4H PRN IV SEVERE PAIN LEVEL 7-10 Last administered on 02/22/17 12:09; Admin Dose 2 MG; Start 02/21/17 at 10:30 Docusate Sodium (Colace) 100 mg Q12H PRN PO CONSTIPATION; Start 02/21/17 at 10: 30 Magnesium Hydroxide (Milk Of Mag) 30 ml DAILY PRN PO CONSTIPATION; Start at 10:30 Bisacodyl (Dulcolax Supp) 10 mg DAILY PRN [place] CONSTIPATION; Start 02/21/17 at 10 :30 Aspirin (Aspirin) 81 mg DAILY PO Last administered on 02/26/17 08:44; Admin Dose 81 MG; Start 02/23/17 at 09:00 Nitroglycerin 1 tab 1 tab Q5M PRN SL CHEST PAIN Last administered on 02/24/17 14:17; Admin Dose 1 TAB; Start 02/21/17 at 10:30 Ceftriaxone Sodium (Rocephin) 50 ml @ 100 mls/hr Q24H IVPB Last administered on 02/25/17 12:24; Admin Dose 100 MLS/HR; Start 02/21/17 at 12:00 IV Flush (NS 10 ml) 10 ml PRN PRN IV IV PROTOCOL; Start 02/21/17 at 14:00 Enoxaparin Sodium (Lovenox) 75 mg DAILY SC Last administered on 02/26/17 08:51 ; Admin Dose 75 MG; Start 02/23/17 at 09:00 Pantoprazole (Protonix Tab) 40 mg DAILY@06 PO Last administered on 02/26/17 05: 09; Admin Dose 40 MG; Start 02/24/17 at 06:00 Mupirocin (Bactroban) 1 applic BID TOP Last administered on 02/26/17 08:44; Admin Dose 1 APPLIC; Start 02/23/17 at 15:30 Hydralazine HCl 10 mg 10 mg Q8 PO Last administered on 02/26/17 05:10; Admin Dose 10 MG; Start 02/24/17 at 22:00 Doxycycline Hyclate/Sodium Chloride (Vibramycin/NS) 250 ml @ 250 mls/hr Q12 IVPB Last administered on 02/26/17 08:44; Admin Dose 250 MLS/HR; Start 02/25/17 at 21:00 CAN RIBERA DO Feb 26, 2017 11:40
[2017-02-26] MEDS: CEFTRIAXONE 1 GM/50 ML (PMX) 50 ML IVPB SCH (11:51)
--- NOTE | 2017-02-26 14:29 | PN ---
Date/Time of Note Date/Time of Note DATE: 02/26/17 TIME: 14:27 Assessment/Plan VTE Prophylaxis VTE Prophylaxis Intervention: LMWH Lines/Catheters IV Catheter Type (from Nrsg): PICC Line Central line still needed: Yes Urinary Cath still in place: Yes Reason Cath still needed: other (indicate) (monitor I&O) Assessment/Plan Chief Complaint/Hosp Course Assessment and plan 1. Sepsis from community-acquired pneumonia. Continue on antibiotics. improving 2. CHF with decompensation. glaze grinder following. continue optimization with cardiovascular medications. improving 3. Elevated troponin. in the setting of sepsis and renal insufficiency. Electric Power Line Examiner following. continue with recs 4. Heroin overdose. methadone per pain configuration management manager. 5. Reported homeless status. back shoe worker following 6. Acute renal insufficiency. IV fluids per spragger. Monitor renal panel. Medications renally dosed. stable. 7. Transaminitis. Patient with history of hepatitis C. monitor. For outpatient follow up Disposition plan: Awaiting for possible placement. Follow up with case management Discussed plan of care with Dr. Foster Problems: Subjective 24 Hr Interval Summary Free Text/Dictation no s/s of distress Exam/Review of Systems Vital Signs Vitals Vital Signs Date Time Temp Pulse Resp B/P Pulse Ox O2 Delivery O2 Flow Rate FiO2 02/26/17 13:32 96 02/26/17 11:28 99.1 18 128/78 98 02/26/17 10:02 Nasal Cannula 3.0 02/26/17 04:30 31 Intake and Output 02/25/17 02/25/17 02/26/17 14:59 22:59 06:59 Intake Total 50 ml 1190 ml 700 ml Output Total 3100 ml 3000 ml Balance 50 ml -1910 ml -2300 ml Exam Constitutional: slightly anxious, reports some dyspnea Psych: nl mood/affect Head: normocephalic Eyes: nl conjunctiva Respiratory: diminished bilaterally Cardiovascular: regular rate Gastrointestinal: non-tender, soft Extremities: edema (bilateral upper and lower extremities less on lower extremities) Neurological: nl speech, other (lethargic) Results Result Diagram: 02/26/1719 02/26/1719 Results 24 hrs Laboratory Tests Test 02/26/17 06:19 White Blood Count 5.3 Red Blood Count 4.55 L Hemoglobin 12.3 L Hematocrit 38.8 L Mean Corpuscular Volume 85.3 Mean Corpuscular Hemoglobin 27.0 L Mean Corpuscular Hemoglobin Concent 31.7 L Red Cell Distribution Width 16.2 H Platelet Count 152 # Mean Platelet Volume 12.1 H Neutrophils % 74.2 Lymphocytes % 14.1 L Monocytes % 9.8 Eosinophils % 0.9 Basophils % 0.4 Nucleated Red Blood Cells % 0.0 Neutrophils # (Manual) 4.0 Lymphocytes # 0.8 Monocytes # 0.5 Eosinophils # 0.1 Basophils # 0.0 Nucleated Red Blood Cells # 0.0 Sodium Level 136 Potassium Level 3.3 L Chloride Level 96 L Carbon Dioxide Level 33 H Anion Gap 10 Blood Urea Nitrogen 22 H Creatinine 0.92 Glucose Level 107 Calcium Level 8.0 L Medications Medications Current Medications Ondansetron HCl (Zofran Inj) 4 mg Q6H PRN IV NAUSEA AND/OR VOMITING; Start at 10:30 Acetaminophen (Tylenol Tab) 650 mg Q6H PRN PO PAIN LEVEL 1-3 OR FEVER Last administered on 02/24/17 14:00; Admin Dose 650 MG; Start 02/21/17 at 10:30 Acetaminophen (Tylenol Supp) 650 mg Q6H PRN [place] PAIN LEVEL 1-3 OR FEVER; Start 02/21/17 at 10:30 Morphine Sulfate (morphine) 2 mg Q4H PRN IV SEVERE PAIN LEVEL 7-10 Last administered on 02/22/17 12:09; Admin Dose 2 MG; Start 02/21/17 at 10:30 Docusate Sodium (Colace) 100 mg Q12H PRN PO CONSTIPATION; Start 02/21/17 at 10: 30 Magnesium Hydroxide (Milk Of Mag) 30 ml DAILY PRN PO CONSTIPATION; Start at 10:30 Bisacodyl (Dulcolax Supp) 10 mg DAILY PRN [place] CONSTIPATION; Start 02/21/17 at 10 :30 Aspirin (Aspirin) 81 mg DAILY PO Last administered on 02/26/17 08:44; Admin Dose 81 MG; Start 02/23/17 at 09:00 Nitroglycerin 1 tab 1 tab Q5M PRN SL CHEST PAIN Last administered on 02/24/17 14:17; Admin Dose 1 TAB; Start 02/21/17 at 10:30 Ceftriaxone Sodium (Rocephin) 50 ml @ 100 mls/hr Q24H IVPB Last administered on 02/26/17 11:51; Admin Dose 100 MLS/HR; Start 02/21/17 at 12:00 IV Flush (NS 10 ml) 10 ml PRN PRN IV IV PROTOCOL; Start 02/21/17 at 14:00 Enoxaparin Sodium (Lovenox) 75 mg DAILY SC Last administered on 02/26/17 08:51 ; Admin Dose 75 MG; Start 02/23/17 at 09:00 Pantoprazole (Protonix Tab) 40 mg DAILY@06 PO Last administered on 02/26/17 05: 09; Admin Dose 40 MG; Start 02/24/17 at 06:00 Mupirocin (Bactroban) 1 applic BID TOP Last administered on 02/26/17 08:44; Admin Dose 1 APPLIC; Start 02/23/17 at 15:30 Hydralazine HCl 10 mg 10 mg Q8 PO Last administered on 02/26/17 05:10; Admin Dose 10 MG; Start 02/24/17 at 22:00 Doxycycline Hyclate/Sodium Chloride (Vibramycin/NS) 250 ml @ 250 mls/hr Q12 IVPB Last administered on 02/26/17 08:44; Admin Dose 250 MLS/HR; Start 02/25/17 at 21:00 TEODORO DALEY Feb 26, 2017 14:29
--- NOTE | 2017-02-26 17:50 | CONS ---
Date/Time of Note Date/Time of Note DATE: 02/26/17 TIME: 17:48 Assessment/Plan Assessment/Plan Chief Complaint/Hosp Course ID PROGRESS NOTE CURRENT ABX: => Bactroban to nares, + Ceftriaxone #5 + Doxy #2 Azith #4 Zithromax, Rocephin. 24H INTERVAL SUMMARY * Lethargic, sitting HOB 45degrees in bed dozing off -- No fevers, VSS, no new issues, no c/o offered, O2 5L via NC * Microbiology: Blood culture grew staph species. Nares swab came back positive for MRSA. Urine culture negative. EXAM GEN: VSS, no fevers, HEENT: Unremarkable NECK: WNL CVS: RRR CHEST: Equal chest rise bilaterally, without dyspnea on observation ABD: Soft, NT EXT: (+)Generalized edema x 4, fluid overload ID ASSESSMENT 56 yo M w/PMHx illicit IVDU heroin abuse admit with: 1. Sepsis present on admission 2. Staph bacteremia CoNS x 2 species in 1/2 bottles on admission, likely contaminant. * 2D ECHO (-)Vegetation 3. Pneumonia = CAP w/bilateral infiltrates 4. Acute CHF exacerbation 5. CMY with EF 15% and NSTEMI. 6. Acute possibly on chronic kidney disease. 7. (+)Tobaccoism (+) MRSA Nares->Bactroban INVASIVES: PICC CURRENT ABX: =>+ Ceftriaxone #5 + Doxy #2 Azith #4 ID RECOMMENDATIONS 1. DC Azith 02/25/17 & Continue Ceftriaxone 2. Started Doxycycline IV Q12 H for MRSA coverage of PNA 3. DC PICC upon discharge from [facility]; would NOT DC current IVDU home with PICC line due to high risk self-injury if he self-injects . Problems: Consultation Date/Type/Reason Admit Date/Time Feb 21, 2017 at 09:56 Initial Consult Date 02/21/17 Type of Consultation: ID Referring Provider: NOLBERTO MEDINA MD Exam/Review of Systems Vital Signs Vitals Vital Signs Date Time Temp Pulse Resp B/P Pulse Ox O2 Delivery O2 Flow Rate FiO2 02/26/17 16:16 94 02/26/17 15:48 18 95 Nasal Cannula 2.0 02/26/17 15:36 98.0 120/69 02/26/17 04:30 31 Intake and Output 02/25/17 02/25/17 02/26/17 15:00 23:00 07:00 Intake Total 50 ml 1190 ml 700 ml Output Total 3100 ml 3000 ml Balance 50 ml -1910 ml -2300 ml Results Result Diagram: 02/26/17 0619 02/26/17 0619 Results 24 hrs Laboratory Tests Test 02/26/17 06:19 White Blood Count 5.3 Red Blood Count 4.55 L Hemoglobin 12.3 L Hematocrit 38.8 L Mean Corpuscular Volume 85.3 Mean Corpuscular Hemoglobin 27.0 L Mean Corpuscular Hemoglobin Concent 31.7 L Red Cell Distribution Width 16.2 H Platelet Count 152 # Mean Platelet Volume 12.1 H Neutrophils % 74.2 Lymphocytes % 14.1 L Monocytes % 9.8 Eosinophils % 0.9 Basophils % 0.4 Nucleated Red Blood Cells % 0.0 Neutrophils # (Manual) 4.0 Lymphocytes # 0.8 Monocytes # 0.5 Eosinophils # 0.1 Basophils # 0.0 Nucleated Red Blood Cells # 0.0 Sodium Level 136 Potassium Level 3.3 L Chloride Level 96 L Carbon Dioxide Level 33 H Anion Gap 10 Blood Urea Nitrogen 22 H Creatinine 0.92 Glucose Level 107 Calcium Level 8.0 L Medications Medications Current Medications Ondansetron HCl (Zofran Inj) 4 mg Q6H PRN IV NAUSEA AND/OR VOMITING; Start at 10:30 Acetaminophen (Tylenol Tab) 650 mg Q6H PRN PO PAIN LEVEL 1-3 OR FEVER Last administered on 02/24/17 14:00; Admin Dose 650 MG; Start 02/21/17 at 10:30 Acetaminophen (Tylenol Supp) 650 mg Q6H PRN [place] PAIN LEVEL 1-3 OR FEVER; Start 02/21/17 at 10:30 Morphine Sulfate (morphine) 2 mg Q4H PRN IV SEVERE PAIN LEVEL 7-10 Last administered on 02/22/17 12:09; Admin Dose 2 MG; Start 02/21/17 at 10:30 Docusate Sodium (Colace) 100 mg Q12H PRN PO CONSTIPATION; Start 02/21/17 at 10: 30 Magnesium Hydroxide (Milk Of Mag) 30 ml DAILY PRN PO CONSTIPATION; Start at 10:30 Bisacodyl (Dulcolax Supp) 10 mg DAILY PRN [place] CONSTIPATION; Start 02/21/17 at 10 :30 Aspirin (Aspirin) 81 mg DAILY PO Last administered on 02/26/17 08:44; Admin Dose 81 MG; Start 02/23/17 at 09:00 Nitroglycerin 1 tab 1 tab Q5M PRN SL CHEST PAIN Last administered on 02/24/17 14:17; Admin Dose 1 TAB; Start 02/21/17 at 10:30 Ceftriaxone Sodium (Rocephin) 50 ml @ 100 mls/hr Q24H IVPB Last administered on 02/26/17 11:51; Admin Dose 100 MLS/HR; Start 02/21/17 at 12:00 IV Flush (NS 10 ml) 10 ml PRN PRN IV IV PROTOCOL; Start 02/21/17 at 14:00 Enoxaparin Sodium (Lovenox) 75 mg DAILY SC Last administered on 02/26/17 08:51 ; Admin Dose 75 MG; Start 02/23/17 at 09:00 Pantoprazole (Protonix Tab) 40 mg DAILY@06 PO Last administered on 02/26/17 05: 09; Admin Dose 40 MG; Start 02/24/17 at 06:00 Mupirocin (Bactroban) 1 applic BID TOP Last administered on 02/26/17 08:44; Admin Dose 1 APPLIC; Start 02/23/17 at 15:30 Hydralazine HCl 10 mg 10 mg Q8 PO Last administered on 02/26/17 14:35; Admin Dose 10 MG; Start 02/24/17 at 22:00 Doxycycline Hyclate/Sodium Chloride (Vibramycin/NS) 250 ml @ 250 mls/hr Q12 IVPB Last administered on 02/26/17 08:44; Admin Dose 250 MLS/HR; Start 02/25/17 at 21:00 MANISHA WONG NP Feb 26, 2017 17:50
[2017-02-27] VITALS (12 sets, daily range): BP systolic 108–159; BP diastolic 83–100; PULSE 95–105; RESP 15–18
[2017-02-27] MEDS: IPRATROPIUM (NEB) 0.5 MG/2.5 ML AMP HHN SCH ×4 (01:03→19:20)
[2017-02-27] MEDS: LEVALBUTEROL (NEB) 0.63 MG/3 ML AMP HHN SCH ×4 (01:04→19:20)
--- NOTE | 2017-02-27 04:37 | RADRPT ---
PROCEDURE: XR Chest. CLINICAL INDICATION: Dyspnea, pneumonia TECHNIQUE: Single frontal view of the chest was obtained COMPARISON: 02/24/2017 FINDINGS: Increased density is again seen the right mid to lower lung suggestive of consolidation/pneumonia in addition to a small to moderate pleural effusion with the pleural effusion apparently improved comp ared to previous study. There is increased density in the left lower lobe behind the heart which ap pears to be minimal improved compared to previous study which could be secondary to consolidation/pn eumonia. Enlargement of the cardiac silhouette is again seen. Calcification in the aortic arch. Th ere is minimal prominence of the lung interstitium likely minimal chronic changes. Left PICC line ti p near atriocaval junction. ECG leads projected over the chest. IMPRESSION: Increased density is again seen the right mid to lower lung suggestive of consolidation/pneumonia in addition to a small to moderate pleural effusion with the pleural effusion apparently improved comp ared to previous study. There is increased density in the left lower lobe behind the heart which ap pears to be minimal improved compared to previous study which could be secondary to consolidation/pn eumonia. Enlargement of the cardiac silhouette is again seen. RPTAT: HJES .Satya Pacheco MD, MD Date Time Electronically viewed and signed by .Satya Pacheco MD, MD on 02/27/2017 04:36 .S/
[2017-02-27] MEDS: PANTOPRAZOLE (EC) 40 MG TAB PO SCH (05:30)
[2017-02-27] MEDS: FUROSEMIDE 20 MG INJ IV SCH ×2 (05:30→17:24)
[2017-02-27] MEDS: METHADONE 10 MG TAB PO SCH ×2 (07:25→10:45)
[2017-02-27] MEDS: ENOXAPARIN 80 MG/0.8 ML SYG SC SCH (09:00)
[2017-02-27] MEDS: MUPIROCIN 2% 22 GM OINT TOP SCH ×2 (09:00→21:00)
--- NOTE | 2017-02-27 09:23 | PN ---
DATE: 02/27/2017 SUBJECTIVE DATA: The patient is stable. No events overnight. No fevers, chills, nausea, vomiting. OBJECTIVE DATA: VITAL SIGNS: Blood pressure is 131/85, temperature 99.6, pulse 106, respirations 18. HEENT: Head is normocephalic. NECK: Supple. HEART: Regular rate. LUNGS: Diminished breath sounds at the base. ABDOMEN: Soft, nontender to palpation. No rebound. No guarding. EXTREMITIES: Negative for clubbing, cyanosis. No edema. DERMATOLOGIC: No rashes. MUSCULOSKELETAL: No joint effusion. NEUROLOGIC: No change in exam. MEDICATIONS: Reviewed. LABORATORY AND DIAGNOSTIC DATA: Currently pending. ASSESSMENT AND PLAN: 1. Nonoliguric acute kidney injury on top of chronic kidney disease, etiology secondary to hemodynamics. Renal function has improved. Continue current treatment. Supportive care. Renally dose all meds. 2. Anemia. Monitor H and H levels. 3. Mineral bone disorder. Monitor calcium and phosphorus levels. 4. Sepsis. Continue current antibiotic regimen. 5. History of congestive heart failure. Continue current medical management. 6. History of heroin overdose. Continue supportive care. 7. Acute respiratory failure secondary to congestive heart failure. Continue current medical management. Dictated By: Frandy Gonzalez DO /jeramy/ec /Document#: [id number]
[2017-02-27] MEDS: ASPIRIN 81 MG TAB PO SCH (09:33)
[2017-02-27] MEDS: DOXYCYCLINE 100 MG in SOD CHLORIDE 0.9% 250 ML IVPB SCH ×2 (09:50→21:27)
[2017-02-27 10:42] LABS: BASOPHILS % 0.4 % (0.0-2.0); EOSINOPHILS % 0.4 % (0.0-7.0); HEMATOCRIT 36.6 % (42.0-52.0); HEMOGLOBIN 11.2 g/dl (14.0-18.0); LYMPHOCYTES # 0.8 10^3/ul (0.8-2.9); LYMPHOCYTES % 15.8 % (15.0-51.0); MEAN CORPUSCULAR HEMOGLOBIN 26.2 pg (29.0-33.0); MEAN CORPUSCULAR HGB CONC 30.6 g/dl (32.0-37.0); MEAN CORPUSCULAR VOLUME 85.5 fl (82.0-101.0); MEAN PLATELET VOLUME 11.9 fl (7.4-10.4); MONOCYTE # 0.4 10^3/ul (0.3-0.9); MONOCYTES % 8.3 % (0.0-11.0); NEUTROPHILS % 74.7 % (39.0-77.0); PLATELET COUNT 161 10^3/UL (140-415); RED BLOOD COUNT 4.28 10^6/ul (4.70-6.10); RED CELL DISTRIBUTION WIDTH 16.5 % (11.5-14.5); WHITE BLOOD COUNT 5.2 10^3/ul (4.8-10.8)
[2017-02-27 11:20] LABS: CALCIUM 8.1 mg/dl (8.4-10.2); CREATININE 0.84 mg/dl (0.61-1.24); POTASSIUM 3.4 mmol/L (3.5-5.1)
--- NOTE | 2017-02-27 11:38 | CONS ---
Date/Time of Note Date/Time of Note DATE: 02/27/17 TIME: 11:37 Consult Date/Type/Reason Admit Date/Time Feb 21, 2017 at 09:56 Initial Consult Date 02/21/17 Type of Consultation: pulm Ordering Provider: NOLBERTO MEDINA MD Subjective Comfortable Objective Vital Signs Date Time Temp Pulse Resp B/P Pulse Ox O2 Delivery O2 Flow Rate FiO2 02/27/17 11:13 Nasal Cannula 3.0 02/27/17 08:18 105 02/27/17 07:41 99.6 18 131/85 92 02/26/17 04:30 31 Intake and Output 02/26/17 02/26/17 02/27/17 15:00 23:00 07:00 Intake Total 1300 ml 900 ml Output Total 900 ml 1000 ml Balance 400 ml -100 ml Exam PHYSICAL EXAMINATION GENERAL: Elderly gentleman, nasal cannula oxygen VITAL SIGNS: see below. HEENT: Pupils equal, round, and reactive to light. CARDIAC: S1, S2, 1/6 systolic ejection murmur CHEST: Diminished air entry bilaterally. ABDOMEN: Mildly distended. Bowel sounds present no guarding or rebound EXTREMITIES: No cyanosis, clubbing edema +1 NEUROLOGIC: Generalized weakness Results/Medications Result Diagram: 02/27/17 1003 02/27/17 1003 Results 24 hrs Laboratory Tests Test 02/27/17 10:03 White Blood Count 5.2 Red Blood Count 4.28 L Hemoglobin 11.2 L Hematocrit 36.6 L Mean Corpuscular Volume 85.5 Mean Corpuscular Hemoglobin 26.2 L Mean Corpuscular Hemoglobin Concent 30.6 L Red Cell Distribution Width 16.5 H Platelet Count 161 Mean Platelet Volume 11.9 H Neutrophils % 74.7 Lymphocytes % 15.8 Monocytes % 8.3 Eosinophils % 0.4 Basophils % 0.4 Nucleated Red Blood Cells % 0.0 Neutrophils # (Manual) 3.9 Lymphocytes # 0.8 Monocytes # 0.4 Eosinophils # 0.0 Basophils # 0.0 Nucleated Red Blood Cells # 0.0 Sodium Level 136 Potassium Level 3.4 L Chloride Level 96 L Carbon Dioxide Level 33 H Anion Gap 10 Blood Urea Nitrogen 22 H Creatinine 0.84 Glucose Level 104 Calcium Level 8.1 L Medications Current Medications Ondansetron HCl (Zofran Inj) 4 mg Q6H PRN IV NAUSEA AND/OR VOMITING; Start at 10:30 Acetaminophen (Tylenol Tab) 650 mg Q6H PRN PO PAIN LEVEL 1-3 OR FEVER Last administered on 02/24/17 14:00; Admin Dose 650 MG; Start 02/21/17 at 10:30 Acetaminophen (Tylenol Supp) 650 mg Q6H PRN [place] PAIN LEVEL 1-3 OR FEVER; Start 02/21/17 at 10:30 Morphine Sulfate (morphine) 2 mg Q4H PRN IV SEVERE PAIN LEVEL 7-10 Last administered on 02/22/17 12:09; Admin Dose 2 MG; Start 02/21/17 at 10:30 Docusate Sodium (Colace) 100 mg Q12H PRN PO CONSTIPATION; Start 02/21/17 at 10: 30 Magnesium Hydroxide (Milk Of Mag) 30 ml DAILY PRN PO CONSTIPATION; Start at 10:30 Bisacodyl (Dulcolax Supp) 10 mg DAILY PRN [place] CONSTIPATION; Start 02/21/17 at 10 :30 Aspirin (Aspirin) 81 mg DAILY PO Last administered on 02/27/17 09:33; Admin Dose 81 MG; Start 02/23/17 at 09:00 Nitroglycerin 1 tab 1 tab Q5M PRN SL CHEST PAIN Last administered on 02/24/17 14:17; Admin Dose 1 TAB; Start 02/21/17 at 10:30 Ceftriaxone Sodium (Rocephin) 50 ml @ 100 mls/hr Q24H IVPB Last administered on 02/26/17 11:51; Admin Dose 100 MLS/HR; Start 02/21/17 at 12:00 IV Flush (NS 10 ml) 10 ml PRN PRN IV IV PROTOCOL; Start 02/21/17 at 14:00 Enoxaparin Sodium (Lovenox) 75 mg DAILY SC Last administered on 02/26/17 08:51 ; Admin Dose 75 MG; Start 02/23/17 at 09:00 Pantoprazole (Protonix Tab) 40 mg DAILY@06 PO Last administered on 02/27/17 05: 30; Admin Dose 40 MG; Start 02/24/17 at 06:00 Mupirocin (Bactroban) 1 applic BID TOP Last administered on 02/26/17 21:14; Admin Dose 1 APPLIC; Start 8/31/17 at 15:30 Hydralazine HCl 10 mg 10 mg Q8 PO Last administered on 02/27/17 05:31; Admin Dose 10 MG; Start 02/24/17 at 22:00 Doxycycline Hyclate/Sodium Chloride (Vibramycin/NS) 250 ml @ 250 mls/hr Q12 IVPB Last administered on 02/27/17 09:50; Admin Dose 250 MLS/HR; Start 02/25/17 at 21:00 Assessment/Plan Chief Complaint/Hosp Course IMPRESSION: 1. Intravenous heroin abuse with altered mental status. Now neurologically improved. 2. Possible aspiration pneumonia.MRSA nares. 3. Possible community-acquired pneumonia. 4. Metabolic acidosis resolved, 5. Lactic acidosis resolved 6. Elevated troponin, likely secondary to hypoperfusion. 7. No vegetations on echo. 8. ABG on RA, may require home o2. PLAN: 1. Encourage ambulation 2. Continue broad-spectrum antibiotics pending cultures. de escalate abx soon. 3. Aspiration precautions. 4. Supplemental O2. Discharge planning Problems: MANOLO DURAN MD, [facility] Feb 27, 2017 11:38
[2017-02-27] MEDS: CEFTRIAXONE 1 GM/50 ML (PMX) 50 ML IVPB SCH (12:12)
--- NOTE | 2017-02-27 15:32 | PN ---
Date/Time of Note Date/Time of Note DATE: 02/27/17 TIME: 15:31 Assessment/Plan VTE Prophylaxis VTE Prophylaxis Intervention: LMWH Lines/Catheters [facility] ([facility] PICC Line Central line still needed: Yes Urinary Cath still in place: Yes Reason Cath still needed: other (indicate) Assessment/Plan Chief Complaint/Hosp Course 1. Sepsis with underlying pneumonia [aspiration versus community-acquired] and gram-positive bacteremia. No evidence of septic shock. On antimicrobials as per infectious diseases. 2. Acute on chronic congestive heart failure exacerbation. Systolic and diastolic dysfunction. Renew diuresis. 3. Severe cardiomyopathy. Ejection fraction 15%. Management as per cardiology. 4. Non-ST elevation myocardial infarction. Remains on therapeutic anticoagulation. Followed by cardiology. Aspirin. 5. Acute nonoliguric kidney injury. Being followed by nephrology. Improving BUN and creatinine. Renal dose medications. 6. Heroin abuse. Being followed by pain management team. On methadone. 7. Homeless status. 8. Fluids, electrolytes, and nutrition. Low cholesterol diet. 9. Prophylaxis. On therapeutic anticoagulation. 10. GI prophylaxis. Proton pump inhibitors. 11. Plan. Continue current management. Await further recommendations from consultants. Case discussed with Dr. Palacios. Problems: Subjective 24 Hr Interval Summary Free Text/Dictation Denies any chest pain or dyspnea. Exam/Review of Systems Vital Signs Vitals Vital Signs Date Time Temp Pulse Resp B/P Pulse Ox O2 Delivery O2 Flow Rate FiO2 02/27/17 12:10 100 02/27/17 11:58 98.5 18 131/86 96 02/27/17 11:13 Nasal Cannula 1.0 02/26/17 04:30 31 Intake and Output 02/26/17 02/26/17 02/27/17 15:00 23:00 07:00 Intake Total 1300 ml 900 ml Output Total 900 ml 1000 ml Balance 400 ml -100 ml Exam General: Adequately build 56 year-old male lying in bed in no apparent distress. HEENT: Normocephalic, atraumatic. Eyes: Anicteric sclerae, conjunctivae clear. ENT: Nasal septum midline, oral mucosa moist. Neck supple, no JVD noticed. Respiratory: Bilaterally diminished breath sounds. No use of accessory muscles of respiration. No adventitious breath sounds. Cardiovascular: S1, S2 heard. Lower rate and rhythm. Abdomen: Soft, nontender, and nondistended. Bowel sounds positive in all 4 quadrants. Genitourinary: Penoscrotal edema. Gupta catheter in place Extremities: No cyanosis, no clubbing, no edema. Peripheral pulses palpable. Neurologic: Cranial nerves II through XII grossly intact. The patient is awake, alert, and oriented. Results Result Diagram: 02/27/17 1003 02/27/17 1003 Results 24 hrs Laboratory Tests Test 02/27/17 10:03 White Blood Count 5.2 Red Blood Count 4.28 L Hemoglobin 11.2 L Hematocrit 36.6 L Mean Corpuscular Volume 85.5 Mean Corpuscular Hemoglobin 26.2 L Mean Corpuscular Hemoglobin Concent 30.6 L Red Cell Distribution Width 16.5 H Platelet Count 161 Mean Platelet Volume 11.9 H Neutrophils % 74.7 Lymphocytes % 15.8 Monocytes % 8.3 Eosinophils % 0.4 Basophils % 0.4 Nucleated Red Blood Cells % 0.0 Neutrophils # (Manual) 3.9 Lymphocytes # 0.8 Monocytes # 0.4 Eosinophils # 0.0 Basophils # 0.0 Nucleated Red Blood Cells # 0.0 Sodium Level 136 Potassium Level 3.4 L Chloride Level 96 L Carbon Dioxide Level 33 H Anion Gap 10 Blood Urea Nitrogen 22 H Creatinine 0.84 Glucose Level 104 Calcium Level 8.1 L Medications Medications Current Medications Ondansetron HCl (Zofran Inj) 4 mg Q6H PRN IV NAUSEA AND/OR VOMITING; Start at 10:30 Acetaminophen (Tylenol Tab) 650 mg Q6H PRN PO PAIN LEVEL 1-3 OR FEVER Last administered on 02/24/17 14:00; Admin Dose 650 MG; Start 02/21/17 at 10:30 Acetaminophen (Tylenol Supp) 650 mg Q6H PRN [place] PAIN LEVEL 1-3 OR FEVER; Start 02/21/17 at 10:30 Morphine Sulfate (morphine) 2 mg Q4H PRN IV SEVERE PAIN LEVEL 7-10 Last administered on 02/22/17 12:09; Admin Dose 2 MG; Start 02/21/17 at 10:30 Docusate Sodium (Colace) 100 mg Q12H PRN PO CONSTIPATION; Start 02/21/17 at 10: 30 Magnesium Hydroxide (Milk Of Mag) 30 ml DAILY PRN PO CONSTIPATION; Start at 10:30 Bisacodyl (Dulcolax Supp) 10 mg DAILY PRN [place] CONSTIPATION; Start 02/21/17 at 10 :30 Aspirin (Aspirin) 81 mg DAILY PO Last administered on 02/27/17 09:33; Admin Dose 81 MG; Start 02/23/17 at 09:00 Nitroglycerin 1 tab 1 tab Q5M PRN SL CHEST PAIN Last administered on 02/24/17 14:17; Admin Dose 1 TAB; Start 02/21/17 at 10:30 Ceftriaxone Sodium (Rocephin) 50 ml @ 100 mls/hr Q24H IVPB Last administered on 02/27/17 12:12; Admin Dose 100 MLS/HR; Start 02/21/17 at 12:00 IV Flush (NS 10 ml) 10 ml PRN PRN IV IV PROTOCOL; Start 02/21/17 at 14:00 Enoxaparin Sodium (Lovenox) 75 mg DAILY SC Last administered on 02/27/17 09:00 ; Admin Dose 75 MG; Start 02/23/17 at 09:00 Pantoprazole (Protonix Tab) 40 mg DAILY@06 PO Last administered on 02/27/17 05: 30; Admin Dose 40 MG; Start 02/24/17 at 06:00 Mupirocin (Bactroban) 1 applic BID TOP Last administered on 02/26/17 21:14; Admin Dose 1 APPLIC; Start 02/23/17 at 15:30 Hydralazine HCl 10 mg 10 mg Q8 PO Last administered on 02/27/17 13:50; Admin Dose 10 MG; Start 02/24/17 at 22:00 Doxycycline Hyclate/Sodium Chloride (Vibramycin/NS) 250 ml @ 250 mls/hr Q12 IVPB Last administered on 02/27/17 09:50; Admin Dose 250 MLS/HR; Start 02/25/17 at 21:00 LORRIE STERLING NP Feb 27, 2017 15:32
--- NOTE | 2017-02-27 16:45 | CONS ---
Date/Time of Note Date/Time of Note DATE: 02/27/17 TIME: 16:36 Assessment/Plan Assessment/Plan Chief Complaint/Hosp Course ID PROGRESS NOTE CURRENT ABX: => Bactroban to nares, + Ceftriaxone # + Doxy # Azith #4 Zithromax, Rocephin. 24H INTERVAL SUMMARY * Lethargic, sitting HOB 45degrees in bed dozing off -- No fevers, VSS, no new issues, no c/o offered, O2 5L via NC * Microbiology: Blood culture grew staph species. Nares swab came back positive for MRSA. Urine culture negative. EXAM GEN: VSS, no fevers, HEENT: Unremarkable NECK: WNL CVS: RRR CHEST: Equal chest rise bilaterally, without dyspnea on observation ABD: Soft, NT EXT: (+)Generalized edema x 4, fluid overload ID ASSESSMENT 56 yo M w/PMHx illicit IVDU heroin abuse admit with: 1. Sepsis present on admission 2. Staph bacteremia CoNS x 2 species in 1/2 bottles on admission, likely contaminant. * 2D ECHO (-)Vegetation 3. Pneumonia = CAP w/bilateral infiltrates 4. Acute CHF exacerbation 5. CMY with EF 15% and NSTEMI. 6. Acute possibly on chronic kidney disease. 7. (+)Tobaccoism (+) MRSA Nares->Bactroban INVASIVES: PICC CURRENT ABX: =>+ Ceftriaxone # + Doxy # Azith #4 ID RECOMMENDATIONS 1. DC Azith 02/25/17 & Continue Ceftriaxone 2. Started Doxycycline IV Q12 H for MRSA coverage of PNA 3. DC PICC upon discharge from [facility]; would NOT DC current IVDU home with PICC line due to high risk self-injury if he self-injects . Problems: Consultation Date/Type/Reason Admit Date/Time Feb 21, 2017 at 09:56 Initial Consult Date 02/21/17 Type of Consultation: pulm Referring Provider: NOLBERTO MEDINA MD Exam/Review of Systems Vital Signs Vitals Vital Signs Date Time Temp Pulse Resp B/P Pulse Ox O2 Delivery O2 Flow Rate FiO2 02/27/17 16:07 98.5 80 18 108/85 97 02/27/17 11:13 Nasal Cannula 1.0 02/26/17 04:30 31 Intake and Output 02/26/17 02/26/17 02/27/17 15:00 23:00 07:00 Intake Total 1300 ml 900 ml Output Total 900 ml 1000 ml Balance 400 ml -100 ml Results Result Diagram: 02/27/17 1003 02/27/17 1003 Results 24 hrs Laboratory Tests Test 02/27/17 10:03 White Blood Count 5.2 Red Blood Count 4.28 L Hemoglobin 11.2 L Hematocrit 36.6 L Mean Corpuscular Volume 85.5 Mean Corpuscular Hemoglobin 26.2 L Mean Corpuscular Hemoglobin Concent 30.6 L Red Cell Distribution Width 16.5 H Platelet Count 161 Mean Platelet Volume 11.9 H Neutrophils % 74.7 Lymphocytes % 15.8 Monocytes % 8.3 Eosinophils % 0.4 Basophils % 0.4 Nucleated Red Blood Cells % 0.0 Neutrophils # (Manual) 3.9 Lymphocytes # 0.8 Monocytes # 0.4 Eosinophils # 0.0 Basophils # 0.0 Nucleated Red Blood Cells # 0.0 Sodium Level 136 Potassium Level 3.4 L Chloride Level 96 L Carbon Dioxide Level 33 H Anion Gap 10 Blood Urea Nitrogen 22 H Creatinine 0.84 Glucose Level 104 Calcium Level 8.1 L Medications Medications Current Medications Ondansetron HCl (Zofran Inj) 4 mg Q6H PRN IV NAUSEA AND/OR VOMITING; Start at 10:30 Acetaminophen (Tylenol Tab) 650 mg Q6H PRN PO PAIN LEVEL 1-3 OR FEVER Last administered on 02/24/17 14:00; Admin Dose 650 MG; Start 02/21/17 at 10:30 Acetaminophen (Tylenol Supp) 650 mg Q6H PRN [place] PAIN LEVEL 1-3 OR FEVER; Start 02/21/17 at 10:30 Morphine Sulfate (morphine) 2 mg Q4H PRN IV SEVERE PAIN LEVEL 7-10 Last administered on 02/22/17 12:09; Admin Dose 2 MG; Start 02/21/17 at 10:30 Docusate Sodium (Colace) 100 mg Q12H PRN PO CONSTIPATION; Start 02/21/17 at 10: 30 Magnesium Hydroxide (Milk Of Mag) 30 ml DAILY PRN PO CONSTIPATION; Start at 10:30 Bisacodyl (Dulcolax Supp) 10 mg DAILY PRN [place] CONSTIPATION; Start 02/21/17 at 10 :30 Aspirin (Aspirin) 81 mg DAILY PO Last administered on 02/27/17 09:33; Admin Dose 81 MG; Start 02/23/17 at 09:00 Nitroglycerin 1 tab 1 tab Q5M PRN SL CHEST PAIN Last administered on 02/24/17 14:17; Admin Dose 1 TAB; Start 02/21/17 at 10:30 Ceftriaxone Sodium (Rocephin) 50 ml @ 100 mls/hr Q24H IVPB Last administered on 02/27/17 12:12; Admin Dose 100 MLS/HR; Start 02/21/17 at 12:00 IV Flush (NS 10 ml) 10 ml PRN PRN IV IV PROTOCOL; Start 02/21/17 at 14:00 Enoxaparin Sodium (Lovenox) 75 mg DAILY SC Last administered on 02/27/17 09:00 ; Admin Dose 75 MG; Start 02/23/17 at 09:00 Pantoprazole (Protonix Tab) 40 mg DAILY@06 PO Last administered on 02/27/17 05: 30; Admin Dose 40 MG; Start 02/24/17 at 06:00 Mupirocin (Bactroban) 1 applic BID TOP Last administered on 02/26/17 21:14; Admin Dose 1 APPLIC; Start 02/23/17 at 15:30 Hydralazine HCl 10 mg 10 mg Q8 PO Last administered on 02/27/17 13:50; Admin Dose 10 MG; Start 02/24/17 at 22:00 Doxycycline Hyclate/Sodium Chloride (Vibramycin/NS) 250 ml @ 250 mls/hr Q12 IVPB Last administered on 02/27/17 09:50; Admin Dose 250 MLS/HR; Start 02/25/17 at 21:00 MANISHA WONG VENETIAN BLIND CLEANER Feb 27, 2017 16:45
[2017-02-27 22:10] LABS: AADO2 Arterial 25.2 mmHg (7.0-24.0); Allen Test ACCEPTAB; Arterial Base Excess 10.7 mmol/L (-3.0-3); Arterial COHb 0.3 % (0.0-3.0); Arterial Fraction of Oxyhgb 93.4 % (93.0-99.0); Arterial HCO3 35.3 mmol/L (22.0-26.0); Arterial MetHb 0.3 % (0.0-1.5); Arterial Total Hemglobin 13.1 g/dl (12.0-18.0); MODE ROOM AIR
[2017-02-28] VITALS (12 sets, daily range): BP systolic 121–138; BP diastolic 83–95; PULSE 87–110; RESP 17–19
[2017-02-28] MEDS: LEVALBUTEROL (NEB) 0.63 MG/3 ML AMP HHN SCH ×4 (01:24→19:59)
[2017-02-28] MEDS: IPRATROPIUM (NEB) 0.5 MG/2.5 ML AMP HHN SCH ×4 (01:24→19:59)
[2017-02-28] MEDS: FUROSEMIDE 20 MG INJ IV SCH ×2 (05:35→17:30)
[2017-02-28] MEDS: PANTOPRAZOLE (EC) 40 MG TAB PO SCH (05:35)
[2017-02-28 06:36] LABS: BASOPHILS % 0.4 % (0.0-2.0); EOSINOPHILS % 0.5 % (0.0-7.0); HEMATOCRIT 39.3 % (42.0-52.0); HEMOGLOBIN 12.5 g/dl (14.0-18.0); LYMPHOCYTES # 1.1 10^3/ul (0.8-2.9); LYMPHOCYTES % 19.3 % (15.0-51.0); MEAN CORPUSCULAR HEMOGLOBIN 26.7 pg (29.0-33.0); MEAN CORPUSCULAR HGB CONC 31.8 g/dl (32.0-37.0); MEAN PLATELET VOLUME 11.1 fl (7.4-10.4); MONOCYTE # 0.4 10^3/ul (0.3-0.9); MONOCYTES % 7.3 % (0.0-11.0); NEUTROPHILS % 71.8 % (39.0-77.0); PLATELET COUNT 207 10^3/UL (140-415); RED BLOOD COUNT 4.68 10^6/ul (4.70-6.10); RED CELL DISTRIBUTION WIDTH 16.5 % (11.5-14.5); WHITE BLOOD COUNT 5.5 10^3/ul (4.8-10.8)
[2017-02-28 07:12] LABS: MAGNESIUM 1.1 mg/dl (1.7-2.5); PHOSPHORUS 3.9 mg/dl (2.5-4.9)
[2017-02-28 07:16] LABS: CALCIUM 8.3 mg/dl (8.4-10.2); CREATININE 0.91 mg/dl (0.61-1.24); POTASSIUM 3.8 mmol/L (3.5-5.1)
[2017-02-28] MEDS: ASPIRIN 81 MG TAB PO SCH (08:02)
[2017-02-28] MEDS: DOXYCYCLINE 100 MG in SOD CHLORIDE 0.9% 250 ML IVPB SCH ×2 (08:04→22:15)
[2017-02-28] MEDS: ENOXAPARIN 80 MG/0.8 ML SYG SC SCH (08:12)
[2017-02-28] MEDS: MUPIROCIN 2% 22 GM OINT TOP SCH ×2 (08:13→22:14)
[2017-02-28] MEDS ORDERED: MAGNESIUM SULFATE 2 GM/50 ML 50 ML IVPB ONE (09:00)
--- NOTE | 2017-02-28 09:11 | PN ---
Date/Time of Note Date/Time of Note DATE: 02/28/17 TIME: 09:09 Assessment/Plan VTE Prophylaxis VTE Prophylaxis Intervention: LMWH Lines/Catheters [facility] Type [facility] PICC Line Central line still needed: Yes Urinary Cath still in place: Yes Reason Cath still needed: other (indicate) Assessment/Plan Chief Complaint/Hosp Course 1. Sepsis with underlying pneumonia [aspiration versus community-acquired] and gram-positive bacteremia. No evidence of septic shock. On antimicrobials as per infectious diseases. 2. Acute on chronic congestive heart failure exacerbation. Systolic and diastolic dysfunction. Renew diuresis. 3. Severe cardiomyopathy. Ejection fraction 15%. Management as per cardiology. 4. Non-ST elevation myocardial infarction. Remains on therapeutic anticoagulation. Followed by cardiology. Aspirin. 5. Acute nonoliguric kidney injury. Being followed by nephrology. Improving BUN and creatinine. Renal dose medications. 6. Heroin abuse. Being followed by pain management team. On methadone. 7. Homeless status. 8. Fluids, electrolytes, and nutrition. Low cholesterol diet. 9. Prophylaxis. On therapeutic anticoagulation. 10. GI prophylaxis. Proton pump inhibitors. 11. Plan. Continue current management. Replete magnesium. Await further recommendations from consultants. Case discussed with Dr. Palacios. Problems: Subjective 24 Hr Interval Summary Free Text/Dictation Feeling tired. Exam/Review of Systems Vital Signs Vitals Vital Signs Date Time Temp Pulse Resp B/P Pulse Ox O2 Delivery O2 Flow Rate FiO2 02/28/17 08:13 110 02/28/17 07:55 Nasal Cannula 1.0 02/28/17 07:53 98.4 17 134/91 92 02/27/17 19:57 21 Intake and Output 02/27/17 02/27/17 02/28/17 15:00 23:00 07:00 Intake Total 300 ml 1200 ml 500 ml Output Total 4000 ml 500 ml Balance 300 ml -2800 ml 0 ml Exam General: Adequately build 56 year-old male lying in bed in no apparent distress. HEENT: Normocephalic, atraumatic. Eyes: Anicteric sclerae, conjunctivae clear. ENT: Nasal septum midline, oral mucosa moist. Neck supple, no JVD noticed. Respiratory: Bilaterally diminished breath sounds. No use of accessory muscles of respiration. No adventitious breath sounds. Cardiovascular: S1, S2 heard. Lower rate and rhythm. Abdomen: Soft, nontender, and nondistended. Bowel sounds positive in all 4 quadrants. Genitourinary: Penoscrotal edema. Gupta catheter in place Extremities: No cyanosis, no clubbing, no edema. Peripheral pulses palpable. LUE bruising. Neurologic: Cranial nerves II through XII grossly intact. The patient is awake, alert, and oriented. Results Result Diagram: 02/28/17 0615 02/28/17 0615 Results 24 hrs Laboratory Tests Test 02/27/17 10:03 02/27/17 14:00 02/28/17 06:15 White Blood Count 5.2 5.5 Red Blood Count 4.28 L 4.68 L Hemoglobin 11.2 L 12.5 L Hematocrit 36.6 L 39.3 L Mean Corpuscular Volume 85.5 84.0 Mean Corpuscular Hemoglobin 26.2 L 26.7 L Mean Corpuscular Hemoglobin Concent 30.6 L 31.8 L Red Cell Distribution Width 16.5 H 16.5 H Platelet Count 161 207 # Mean Platelet Volume 11.9 H 11.1 H Neutrophils % 74.7 71.8 Lymphocytes % 15.8 19.3 Monocytes % 8.3 7.3 Eosinophils % 0.4 0.5 Basophils % 0.4 0.4 Nucleated Red Blood Cells % 0.0 0.0 Neutrophils # (Manual) 3.9 3.9 Lymphocytes # 0.8 1.1 Monocytes # 0.4 0.4 Eosinophils # 0.0 0.0 Basophils # 0.0 0.0 Nucleated Red Blood Cells # 0.0 0.0 Sodium Level 136 138 Potassium Level 3.4 L 3.8 Chloride Level 96 L 95 L Carbon Dioxide Level 33 H 35 H Anion Gap 10 12 Blood Urea Nitrogen 22 H 22 H Creatinine 0.84 0.91 Glucose Level 104 90 Calcium Level 8.1 L 8.3 L Blood Gas Specimen Source Blood arterial Arterial Blood Date Drawn 02/27/2017 9:50:13 PM Arterial Blood pH (Temp corrected) 7.498 H Arterial Blood pCO2 (Temp correct) 46.5 H Arterial Blood pO2 (Temp corrected) 68.8 L Arterial Blood HCO3 35.3 H Arterial Blood Base Excess 10.7 H Arterial Blood Oxygen Saturation 94.0 L Henri Test ACCEPTAB Arterial Blood Gas Puncture Site Right Radial Arterial Blood Carboxyhemoglobin 0.3 Arterial Blood Methemoglobin 0.3 Blood Gas A-a O2 Differential 25.2 H Oxyhemoglobin Percent 93.4 Total Hemoglobin 13.1 Blood Gas Temperature 37.0 Blood Gas Modality ROOM AIR FiO2 21.0 Blood Gas Notified Whom Blood Gas Notified Time 02/27/2017 10:09:50 PM Phosphorus Level 3.9 Magnesium Level 1.1 L Medications Medications Current Medications Ondansetron HCl (Zofran Inj) 4 mg Q6H PRN IV NAUSEA AND/OR VOMITING; Start at 10:30 Acetaminophen (Tylenol Tab) 650 mg Q6H PRN PO PAIN LEVEL 1-3 OR FEVER Last administered on 02/24/17 14:00; Admin Dose 650 MG; Start 02/21/17 at 10:30 Acetaminophen (Tylenol Supp) 650 mg Q6H PRN [place] PAIN LEVEL 1-3 OR FEVER; Start 02/21/17 at 10:30 Morphine Sulfate (morphine) 2 mg Q4H PRN IV SEVERE PAIN LEVEL 7-10 Last administered on 02/22/17 12:09; Admin Dose 2 MG; Start 02/21/17 at 10:30 Docusate Sodium (Colace) 100 mg Q12H PRN PO CONSTIPATION; Start 02/21/17 at 10: 30 Magnesium Hydroxide (Milk Of Mag) 30 ml DAILY PRN PO CONSTIPATION; Start at 10:30 Bisacodyl (Dulcolax Supp) 10 mg DAILY PRN [place] CONSTIPATION; Start 02/21/17 at 10 :30 Aspirin (Aspirin) 81 mg DAILY PO Last administered on 02/28/17 08:02; Admin Dose 81 MG; Start 02/23/17 at 09:00 Nitroglycerin 1 tab 1 tab Q5M PRN SL CHEST PAIN Last administered on 02/24/17 14:17; Admin Dose 1 TAB; Start 02/21/17 at 10:30 Ceftriaxone Sodium (Rocephin) 50 ml @ 100 mls/hr Q24H IVPB Last administered on 02/27/17 12:12; Admin Dose 100 MLS/HR; Start 02/21/17 at 12:00 IV Flush (NS 10 ml) 10 ml PRN PRN IV IV PROTOCOL; Start 02/21/17 at 14:00 Enoxaparin Sodium (Lovenox) 75 mg DAILY SC Last administered on 02/28/17 08:12 ; Admin Dose 75 MG; Start 02/23/17 at 09:00 Pantoprazole (Protonix Tab) 40 mg DAILY@06 PO Last administered on 02/28/17 05: 35; Admin Dose 40 MG; Start 02/24/17 at 06:00 Mupirocin (Bactroban) 1 applic BID TOP Last administered on 02/28/17 08:13; Admin Dose 1 APPLIC; Start 02/23/17 at 15:30 Hydralazine HCl 10 mg 10 mg Q8 PO Last administered on 02/28/17 05:34; Admin Dose 10 MG; Start 02/24/17 at 22:00 Doxycycline Hyclate 100 mg/ Sodium Chloride 250 ml @ 250 mls/hr Q12 IVPB Last administered on 02/28/17 08:04; Admin Dose 250 MLS/HR; Start 02/25/17 at 21:00 Magnesium Sulfate (Magnesium Sulfate 2 Gm/50 ml) 50 ml @ 25 mls/hr ONCE ONCE IVPB ; Start 02/28/17 at 09:00; Stop 02/28/17 at 10:59 LORRIE STERLING MALE IMPERSONATOR Feb 28, 2017 09:11
--- NOTE | 2017-02-28 10:33 | PN ---
DATE: 02/28/2017 SUBJECTIVE DATA: Patient is stable. No events overnight. No fevers, chills, nausea, vomiting. OBJECTIVE DATA: VITAL SIGNS: Blood pressure 134/91, respirations 17, pulse 109, temperature 98.4. HEENT: Head is normocephalic. NECK: Supple. HEART: Regular rate. LUNGS: Show diminished breath sounds at the base. ABDOMEN: Soft, nontender to palpation. No rebound or guarding. EXTREMITIES: Negative for clubbing, cyanosis. No edema. DERMATOLOGIC: Clean. No rashes. MUSCULOSKELETAL: No joint effusion. NEUROLOGIC: No change in exam. MEDICATIONS: Reviewed. LABORATORY AND DIAGNOSTIC DATA: Shows sodium 138, potassium 3.9, chloride 95, BUN 22, creatinine 0.91, magnesium 1.1. White count 5.5, hemoglobin 12.5, crit 39.3, platelet count is 207. ASSESSMENT AND PLAN: 1. Nonoliguric acute kidney injury on top of chronic kidney disease. Etiology secondary to hemodynamics. Renal function has improved. Continue current treatment plan. 2. Anemia. Monitor H and H levels. 3. Metabolic bone disorder. Monitor calcium and phosphorus levels. 4. Hypomagnesemia. We will replete with magnesium sulfate. 5. Sepsis. Continue current antibiotic regimen. 6. Congestive heart failure. Continue current medical management. 7. Acute respiratory failure. The patient is clinically improving. Continue current treatment plan. Dictated By: Frandy Gonzalez DO /jeramy/heather /Document#: [id number]
[2017-02-28] MEDS: METHADONE 10 MG TAB PO SCH (10:41)
[2017-02-28] MEDS: CEFTRIAXONE 1 GM/50 ML (PMX) 50 ML IVPB SCH (12:19)
--- NOTE | 2017-02-28 15:31 | CONS ---
Date/Time of Note Date/Time of Note DATE: 02/28/17 TIME: 15:30 Consult Date/Type/Reason Admit Date/Time Feb 21, 2017 at 09:56 Initial Consult Date 02/21/17 Type of Consultation: pulm Ordering Provider: NOLBERTO MEDINA MD Subjective Patient remains comfortable reluctant to get out of bed and participate in physical therapy. Objective Vital Signs Date Time Temp Pulse Resp B/P Pulse Ox O2 Delivery O2 Flow Rate FiO2 02/28/17 13:45 94 4.0 02/28/17 13:44 104 16 Nasal Cannula 02/28/17 11:34 99.0 124/89 02/27/17 19:57 21 Intake and Output 02/27/17 02/27/17 02/28/17 15:00 23:00 07:00 Intake Total 300 ml 1200 ml 500 ml Output Total 4000 ml 500 ml Balance 300 ml -2800 ml 0 ml Exam PHYSICAL EXAMINATION GENERAL: Elderly gentleman, nasal cannula oxygen VITAL SIGNS: see below. HEENT: Pupils equal, round, and reactive to light. CARDIAC: S1, S2, 1/6 systolic ejection murmur CHEST: Diminished air entry bilaterally. ABDOMEN: Mildly distended. Bowel sounds present no guarding or rebound EXTREMITIES: No cyanosis, clubbing edema +1 NEUROLOGIC: Generalized weakness Results/Medications Result Diagram: 02/28/17 0615 02/28/17 0615 Results 24 hrs Laboratory Tests Test 02/28/17 06:15 White Blood Count 5.5 Red Blood Count 4.68 L Hemoglobin 12.5 L Hematocrit 39.3 L Mean Corpuscular Volume 84.0 Mean Corpuscular Hemoglobin 26.7 L Mean Corpuscular Hemoglobin Concent 31.8 L Red Cell Distribution Width 16.5 H Platelet Count 207 # Mean Platelet Volume 11.1 H Neutrophils % 71.8 Lymphocytes % 19.3 Monocytes % 7.3 Eosinophils % 0.5 Basophils % 0.4 Nucleated Red Blood Cells % 0.0 Neutrophils # (Manual) 3.9 Lymphocytes # 1.1 Monocytes # 0.4 Eosinophils # 0.0 Basophils # 0.0 Nucleated Red Blood Cells # 0.0 Sodium Level 138 Potassium Level 3.8 Chloride Level 95 L Carbon Dioxide Level 35 H Anion Gap 12 Blood Urea Nitrogen 22 H Creatinine 0.91 Glucose Level 90 Calcium Level 8.3 L Phosphorus Level 3.9 Magnesium Level 1.1 L Medications Current Medications Ondansetron HCl (Zofran Inj) 4 mg Q6H PRN IV NAUSEA AND/OR VOMITING; Start at 10:30 Acetaminophen (Tylenol Tab) 650 mg Q6H PRN PO PAIN LEVEL 1-3 OR FEVER Last administered on 02/24/17 14:00; Admin Dose 650 MG; Start 02/21/17 at 10:30 Acetaminophen (Tylenol Supp) 650 mg Q6H PRN [place] PAIN LEVEL 1-3 OR FEVER; Start 02/21/17 at 10:30 Morphine Sulfate (morphine) 2 mg Q4H PRN IV SEVERE PAIN LEVEL 7-10 Last administered on 02/22/17 12:09; Admin Dose 2 MG; Start 02/21/17 at 10:30 Docusate Sodium (Colace) 100 mg Q12H PRN PO CONSTIPATION; Start 02/21/17 at 10: 30 Magnesium Hydroxide (Milk Of Mag) 30 ml DAILY PRN PO CONSTIPATION; Start at 10:30 Bisacodyl (Dulcolax Supp) 10 mg DAILY PRN [place] CONSTIPATION; Start 02/21/17 at 10 :30 Aspirin (Aspirin) 81 mg DAILY PO Last administered on 02/28/17 08:02; Admin Dose 81 MG; Start 02/23/17 at 09:00 Nitroglycerin 1 tab 1 tab Q5M PRN SL CHEST PAIN Last administered on 02/24/17 14:17; Admin Dose 1 TAB; Start 02/21/17 at 10:30 Ceftriaxone Sodium (Rocephin) 50 ml @ 100 mls/hr Q24H IVPB Last administered on 02/28/17 12:19; Admin Dose 100 MLS/HR; Start 02/21/17 at 12:00 IV Flush (NS 10 ml) 10 ml PRN PRN IV IV PROTOCOL; Start 02/21/17 at 14:00 Enoxaparin Sodium (Lovenox) 75 mg DAILY SC Last administered on 02/28/17 08:12 ; Admin Dose 75 MG; Start 02/23/17 at 09:00 Pantoprazole (Protonix Tab) 40 mg DAILY@06 PO Last administered on 02/28/17 05: 35; Admin Dose 40 MG; Start 02/24/17 at 06:00 Mupirocin (Bactroban) 1 applic BID TOP Last administered on 02/28/17 08:13; Admin Dose 1 APPLIC; Start 02/23/17 at 15:30 Hydralazine HCl 10 mg 10 mg Q8 PO Last administered on 02/28/17 13:08; Admin Dose 10 MG; Start 02/24/17 at 22:00 Doxycycline Hyclate/Sodium Chloride (Vibramycin/NS) 250 ml @ 250 mls/hr Q12 IVPB Last administered on 02/28/17 08:04; Admin Dose 250 MLS/HR; Start 02/25/17 at 21:00 Assessment/Plan Chief Complaint/Hosp Course IMPRESSION: 1. Intravenous heroin abuse with altered mental status. Now neurologically improved. 2. Possible aspiration pneumonia.MRSA nares. 3. Possible community-acquired pneumonia. 4. Metabolic acidosis resolved, 5. Lactic acidosis resolved 6. Elevated troponin, likely secondary to hypoperfusion. 7. No vegetations on echo. 8. ABG on RA, may require home o2. PLAN: 1. Encourage ambulation 2. Continue broad-spectrum antibiotics pending cultures. de escalate abx soon. 3. Aspiration precautions. 4. Supplemental O2. 5. May require pain management consult for long-term opioid therapy. Discharge planning Problems: MANOLO DURAN MD, [facility] Feb 28, 2017 15:31
--- NOTE | 2017-02-28 19:45 | PN ---
DATE: 02/28/2017 SUBJECTIVE DATA: No acute changes. The patient is alert, feels better, looks comfortable. He is afebrile. OBJECTIVE DATA: VITAL SIGNS: Temperature 97.9, pulse 106, respirations 16, blood pressure 128/89, and saturation 94 percent on nasal cannula. LABORATORY AND DIAGNOSTIC DATA: WBC 5.5, platelets 207, no shift, no bands. BUN 22, creatinine 0.91. ANTIMICROBIALS: Doxycycline and Rocephin. PHYSICAL EXAMINATION: GENERAL: Well developed, middle-aged, white man, who is alert, in no distress. HEENT: Head atraumatic, normocephalic. Sclerae anicteric. Buccal mucosa pink. NECK: Supple. CHEST: Chest rise symmetrical. Breath sounds diminished at bases. HEART: S1, S2. ABDOMEN: Soft, bowel sounds present. EXTREMITIES: With bilateral trace edema. ASSESSMENT: 1. Resolving sepsis. 2. Community-acquired pneumonia. 3. Methicillin-resistant Staphylococcus aureus nares colonization. 4. Status post Staph bacteremia with repeat cultures negative. 5. Cardiomyopathy. 6. Non ST-elevation myocardial infarction (MT). 7. Acute possibly on chronic kidney disease. 8. History of drug abuse. PLAN: 1. The patient remains stable. 2. Clinically improving. 3. He is being followed by multiple consultants. 4. 2D echo revealed no vegetations. 5. Continue antibiotics. Dictated By: Wes Elaine NP /jeramy/sanchez /Document#: [id number]
--- NOTE | 2017-02-28 22:57 | CONS ---
Date/Time of Note Date/Time of Note DATE: 02/28/17 TIME: 22:30 Assessment/Plan Assessment/Plan Additional Assessment/Plan 1. Intravenous heroin abuse with altered mental status. Now neurologically improved. 2. Possible aspiration pneumonia.MRSA nares. 3. Possible community-acquired pneumonia. 4. Metabolic acidosis resolved, 5. Lactic acidosis resolved 6. Elevated troponin, likely secondary to hypoperfusion. 7. No vegetations on echo. 8. Persistent scrotal and bilateral lower extremities edema. PLAN: 1. Continue diuresis and supportive treatment. 2. Continue O2 per nasal cannula. Poor intermediate prognosis. Consultation Date/Type/Reason Admit Date/Time Feb 21, 2017 at 09:56 Hx of Present Illness This is a 56-year-old male with history of CHF and IV heroin abuse who came [facility] after reports of increased shortness of breath for 5 days duration (per exam patient was also noted with increased swelling in bilateral lower extremities). Patient self reportedly stated that he took heroin last night and after he took heroin he became lethargic and had an increase in shortness of breath. He denies any chest pain however. He was brought to [facility] for further evaluation. Upon examination he had a chest x-ray that showed moderate cardiomegaly and calcified aorta consistent with atherosclerotic disease as well as right lower lobe atelectasis. On labs she was noted with a white count of 12.6 lactic 3.1 and acute renal insufficiency with creatinine of 1.52 and BUN of 29. He also had an elevated troponin I of 0.140. Patient was seen tachypneic with respirations in the 30s. His temp was 101.3 and heart rate at 111. Patient was given Narcan in the ER. He currently is more alert however remains tachypneic with increased shortness of breath. He reports he does have medications for congestive heart failure but does not take them at home. The reason for cardiology consultation is: chest pain, hypotension and decompensated (?) congestive heart failure. The patient has dilated cardiomyopathy with very low LVEF. He has chronic CHF due to drugs and alcohol. This is a recurrent admission. Since admission patient has improved and he4 can carry a conversation without dyspnea. Constitutional: improved, no complaints Respiratory: cough, shortness of breath Cardiovascular: edema (bilateral lower extremities edema and severe scrotal edema) Psychological: no complaints Social History Smoking Status: Current every day smoker Drug Use: heroin Exam/Review of Systems Vital Signs Vitals Vital Signs Date Time Temp Pulse Resp B/P Pulse Ox O2 Delivery O2 Flow Rate FiO2 02/28/17 20:22 107 02/28/17 19:54 Nasal Cannula 1.0 02/28/17 19:50 98 02/28/17 19:50 20 02/28/17 19:44 98.1 121/95 02/27/17 19:57 21 Intake and Output 02/27/17 02/27/17 02/28/17 15:00 23:00 07:00 Intake Total 300 ml 1200 ml 500 ml Output Total 4000 ml 500 ml Balance 300 ml -2800 ml 0 ml Exam Constitutional: alert, oriented, well developed Head: atraumatic, normocephalic Neck: supple Respiratory: diminished breath sounds Cardiovascular: nl pulses, regular rate and rhythm Gastrointestinal: soft Genitourinary - Male: CVA tenderness, discharge, nl penis, nl scrotum (marked scrotal edema), other Results Result Diagram: 02/28/17 0615 02/28/17 0615 Results 24 hrs Laboratory Tests Test 02/28/17 06:15 White Blood Count 5.5 Red Blood Count 4.68 L Hemoglobin 12.5 L Hematocrit 39.3 L Mean Corpuscular Volume 84.0 Mean Corpuscular Hemoglobin 26.7 L Mean Corpuscular Hemoglobin Concent 31.8 L Red Cell Distribution Width 16.5 H Platelet Count 207 # Mean Platelet Volume 11.1 H Neutrophils % 71.8 Lymphocytes % 19.3 Monocytes % 7.3 Eosinophils % 0.5 Basophils % 0.4 Nucleated Red Blood Cells % 0.0 Neutrophils # (Manual) 3.9 Lymphocytes # 1.1 Monocytes # 0.4 Eosinophils # 0.0 Basophils # 0.0 Nucleated Red Blood Cells # 0.0 Sodium Level 138 Potassium Level 3.8 Chloride Level 95 L Carbon Dioxide Level 35 H Anion Gap 12 Blood Urea Nitrogen 22 H Creatinine 0.91 Glucose Level 90 Calcium Level 8.3 L Phosphorus Level 3.9 Magnesium Level 1.1 L Medications Medications Current Medications Ondansetron HCl (Zofran Inj) 4 mg Q6H PRN IV NAUSEA AND/OR VOMITING; Start at 10:30 Acetaminophen (Tylenol Tab) 650 mg Q6H PRN PO PAIN LEVEL 1-3 OR FEVER Last administered on 02/24/17 14:00; Admin Dose 650 MG; Start 02/21/17 at 10:30 Acetaminophen (Tylenol Supp) 650 mg Q6H PRN [place] PAIN LEVEL 1-3 OR FEVER; Start 02/21/17 at 10:30 Morphine Sulfate (morphine) 2 mg Q4H PRN IV SEVERE PAIN LEVEL 7-10 Last administered on 02/22/17 12:09; Admin Dose 2 MG; Start 02/21/17 at 10:30 Docusate Sodium (Colace) 100 mg Q12H PRN PO CONSTIPATION; Start 02/21/17 at 10: 30 Magnesium Hydroxide (Milk Of Mag) 30 ml DAILY PRN PO CONSTIPATION; Start at 10:30 Bisacodyl (Dulcolax Supp) 10 mg DAILY PRN [place] CONSTIPATION; Start 02/21/17 at 10 :30 Aspirin (Aspirin) 81 mg DAILY PO Last administered on 02/28/17 08:02; Admin Dose 81 MG; Start 02/23/17 at 09:00 Nitroglycerin 1 tab 1 tab Q5M PRN SL CHEST PAIN Last administered on 02/24/17 14:17; Admin Dose 1 TAB; Start 02/21/17 at 10:30 Ceftriaxone Sodium (Rocephin) 50 ml @ 100 mls/hr Q24H IVPB Last administered on 02/28/17 12:19; Admin Dose 100 MLS/HR; Start 02/21/17 at 12:00 IV Flush (NS 10 ml) 10 ml PRN PRN IV IV PROTOCOL; Start 02/21/17 at 14:00 Enoxaparin Sodium (Lovenox) 75 mg DAILY SC Last administered on 02/28/17 08:12 ; Admin Dose 75 MG; Start 02/23/17 at 09:00 Pantoprazole (Protonix Tab) 40 mg DAILY@06 PO Last administered on 02/28/17 05: 35; Admin Dose 40 MG; Start 02/24/17 at 06:00 Mupirocin (Bactroban) 1 applic BID TOP Last administered on 02/28/17 22:14; Admin Dose 1 APPLIC; Start 02/23/17 at 15:30 Hydralazine HCl 10 mg 10 mg Q8 PO Last administered on 02/28/17 22:14; Admin Dose 10 MG; Start 02/24/17 at 22:00 Doxycycline Hyclate/Sodium Chloride (Vibramycin/NS) 250 ml @ 250 mls/hr Q12 IVPB Last administered on 02/28/17 22:15; Admin Dose 250 MLS/HR; Start 02/25/17 at 21:00 JUAN RADER MD Feb 28, 2017 22:43
[2017-03-01] VITALS (11 sets, daily range): BP systolic 121–144; BP diastolic 68–102; PULSE 87–103; RESP 17–19
[2017-03-01] MEDS: IPRATROPIUM (NEB) 0.5 MG/2.5 ML AMP HHN SCH ×4 (01:43→20:00)
[2017-03-01] MEDS: LEVALBUTEROL (NEB) 0.63 MG/3 ML AMP HHN SCH ×4 (01:43→20:00)
[2017-03-01] MEDS: PANTOPRAZOLE (EC) 40 MG TAB PO SCH (05:58)
[2017-03-01] MEDS: FUROSEMIDE 20 MG INJ IV SCH ×2 (05:59→17:33)
[2017-03-01] MEDS: METHADONE 10 MG TAB PO SCH (06:45)
[2017-03-01 07:37] LABS: BASOPHILS % 0.2 % (0.0-2.0); EOSINOPHILS % 0.2 % (0.0-7.0); HEMATOCRIT 38.6 % (42.0-52.0); HEMOGLOBIN 11.6 g/dl (14.0-18.0); LYMPHOCYTES # 1.1 10^3/ul (0.8-2.9); LYMPHOCYTES % 25.5 % (15.0-51.0); MEAN CORPUSCULAR HEMOGLOBIN 25.6 pg (29.0-33.0); MEAN CORPUSCULAR HGB CONC 30.1 g/dl (32.0-37.0); MEAN CORPUSCULAR VOLUME 85.2 fl (82.0-101.0); MEAN PLATELET VOLUME 11.8 fl (7.4-10.4); MONOCYTE # 0.5 10^3/ul (0.3-0.9); NEUTROPHILS % 61.6 % (39.0-77.0); PLATELET COUNT 174 10^3/UL (140-415); RED BLOOD COUNT 4.53 10^6/ul (4.70-6.10); RED CELL DISTRIBUTION WIDTH 16.6 % (11.5-14.5); WHITE BLOOD COUNT 4.2 10^3/ul (4.8-10.8)
[2017-03-01 08:14] LABS: CALCIUM 7.9 mg/dl (8.4-10.2); CREATININE 0.81 mg/dl (0.61-1.24); POTASSIUM 3.3 mmol/L (3.5-5.1)
[2017-03-01] MEDS: MUPIROCIN 2% 22 GM OINT TOP SCH ×2 (08:34→21:06)
[2017-03-01 09:10] LABS: MAGNESIUM 1.5 mg/dl (1.7-2.5); PHOSPHORUS 3.5 mg/dl (2.5-4.9)
[2017-03-01] MEDS: DOXYCYCLINE 100 MG in SOD CHLORIDE 0.9% 250 ML IVPB SCH ×2 (09:13→21:56)
[2017-03-01] MEDS: ASPIRIN 81 MG TAB PO SCH (09:13)
[2017-03-01] MEDS: ENOXAPARIN 80 MG/0.8 ML SYG SC SCH (09:14)
[2017-03-01] MEDS ORDERED: POTASSIUM CHLORIDE (SR) 20 MEQ TAB PO STA (09:48)
[2017-03-01] MEDS ORDERED: MAGNESIUM SULFATE 2 GM/50 ML 50 ML IVPB ONE (10:00)
--- NOTE | 2017-03-01 10:19 | PN ---
DATE: 03/01/2017 SUBJECTIVE DATA: The patient is stable. No events overnight. No fevers, chills, nausea, vomiting. No shortness of breath. OBJECTIVE DATA: VITAL SIGNS: Blood pressure is 135/58, respirations 18, pulse 91, temperature 98.2. HEENT: Head is normocephalic. NECK: Supple. HEART: Regular rate. LUNGS: Diminished breath sounds at the base. ABDOMEN: Soft, nontender to palpation. No rebound or guarding. EXTREMITIES: Negative for clubbing, cyanosis. Positive edema. DERMATOLOGIC: Clean. No rashes. MUSCULOSKELETAL: No joint effusion. NEUROLOGIC: Unchanged exam. MEDICATIONS: Reviewed. LABORATORY AND DIAGNOSTIC DATA: Sodium 134, potassium 3.3, BUN 20, creatinine 0.81. White count 4.2, hemoglobin 9.6, hematocrit 30.6, platelet count is 174,000. ASSESSMENT AND PLAN: 1. Nonoliguric acute kidney injury on top of chronic kidney disease, etiology secondary to hemodynamics. Renal function has improved. Continue current treatment plan. 2. Anemia. Monitor hemoglobin and hematocrit levels. 3. Mineral bone disorder. Monitor calcium and phosphorus levels. 4. Hypomagnesemia, hypokalemia. Will replete with potassium chloride and magnesium sulfate. 5. Sepsis. The patient is completing antibiotic course. 6. Congestive heart failure. Continue medical management. 7. Acute respiratory failure. Clinically improving. Continue current treatment plan. Dictated By: Frandy Gonzalez DO /jeramy/kathie /Document#: [id number]
--- NOTE | 2017-03-01 10:20 | PN ---
Date/Time of Note Date/Time of Note DATE: 03/01/17 TIME: 10:19 Assessment/Plan VTE Prophylaxis VTE Prophylaxis Intervention: LMWH Lines/Catheters IV Catheter Type (from [facility]): PICC Line Central line still needed: Yes Urinary Cath still in place: Yes Reason Cath still needed: other (indicate) Assessment/Plan Chief Complaint/Hosp Course 1. Sepsis with underlying pneumonia [aspiration versus community-acquired] and gram-positive bacteremia. No evidence of septic shock. On antimicrobials as per infectious diseases. 2. Acute on chronic congestive heart failure exacerbation. Systolic and diastolic dysfunction. Continue diuresis. 3. Severe cardiomyopathy. Ejection fraction 15%. Management as per cardiology. 4. Non-ST elevation myocardial infarction. Remains on therapeutic anticoagulation. Followed by cardiology. Aspirin. 5. Acute nonoliguric kidney injury. Being followed by nephrology. Improving BUN and creatinine. Renal dose medications. 6. Heroin abuse. Being followed by pain management team. On methadone. 7. Homeless status. 8. Fluids, electrolytes, and nutrition. Low cholesterol diet. 9. Prophylaxis. On therapeutic anticoagulation. 10. GI prophylaxis. Proton pump inhibitors. 11. Plan. Continue current management. Replete magnesium and potassium. Await further recommendations from consultants. Obtain LUE venous Doppler. Case discussed with Dr. Palacios. Problems: Subjective 24 Hr Interval Summary Free Text/Dictation Left upper extremity pain. Exam/Review of Systems Vital Signs Vitals Vital Signs Date Time Temp Pulse Resp B/P Pulse Ox O2 Delivery O2 Flow Rate FiO2 03/01/17 08:37 98.2 91 17 135/82 99 03/01/17 07:22 Nasal Cannula 1.0 02/27/17 19:57 21 Intake and Output 02/28/17 02/28/17 03/01/17 15:00 23:00 07:00 Intake Total 1850 ml 650 ml Output Total 1600 ml 2000 ml Balance 250 ml -1350 ml Exam General: Adequately build 56 year-old male lying in bed in no apparent distress. HEENT: Normocephalic, atraumatic. Eyes: Anicteric sclerae, conjunctivae clear. ENT: Nasal septum midline, oral mucosa moist. Neck supple, no JVD noticed. Respiratory: Bilaterally diminished breath sounds. No use of accessory muscles of respiration. No adventitious breath sounds. Cardiovascular: S1, S2 heard. Lower rate and rhythm. Abdomen: Soft, nontender, and nondistended. Bowel sounds positive in all 4 quadrants. Genitourinary: Penoscrotal edema. Gupta catheter in place Extremities: No cyanosis, no clubbing, no edema. Peripheral pulses palpable. LUE bruising. Neurologic: Cranial nerves II through XII grossly intact. The patient is awake, alert, and oriented. Results Result Diagram: 03/01/17 0710 03/01/17 0710 Results 24 hrs Laboratory Tests Test 03/01/17 07:10 White Blood Count 4.2 #L Red Blood Count 4.53 L Hemoglobin 11.6 L Hematocrit 38.6 L Mean Corpuscular Volume 85.2 Mean Corpuscular Hemoglobin 25.6 L Mean Corpuscular Hemoglobin Concent 30.1 L Red Cell Distribution Width 16.6 H Platelet Count 174 Mean Platelet Volume 11.8 H Neutrophils % 61.6 Lymphocytes % 25.5 Monocytes % 12.0 H Eosinophils % 0.2 Basophils % 0.2 Nucleated Red Blood Cells % 0.0 Neutrophils # (Manual) 2.6 Lymphocytes # 1.1 Monocytes # 0.5 Eosinophils # 0.0 Basophils # 0.0 Nucleated Red Blood Cells # 0.0 Sodium Level 134 L Potassium Level 3.3 L Chloride Level 95 L Carbon Dioxide Level 32 H Anion Gap 10 Blood Urea Nitrogen 20 Creatinine 0.81 Glucose Level 88 Calcium Level 7.9 L Phosphorus Level 3.5 Magnesium Level 1.5 L Medications Medications Current Medications Ondansetron HCl (Zofran Inj) 4 mg Q6H PRN IV NAUSEA AND/OR VOMITING; Start at 10:30 Acetaminophen (Tylenol Tab) 650 mg Q6H PRN PO PAIN LEVEL 1-3 OR FEVER Last administered on 02/24/17 14:00; Admin Dose 650 MG; Start 02/21/17 at 10:30 Acetaminophen (Tylenol Supp) 650 mg Q6H PRN [place] PAIN LEVEL 1-3 OR FEVER; Start 02/21/17 at 10:30 Morphine Sulfate (morphine) 2 mg Q4H PRN IV SEVERE PAIN LEVEL 7-10 Last administered on 02/22/17 12:09; Admin Dose 2 MG; Start 02/21/17 at 10:30 Docusate Sodium (Colace) 100 mg Q12H PRN PO CONSTIPATION; Start 02/21/17 at 10: 30 Magnesium Hydroxide (Milk Of Mag) 30 ml DAILY PRN PO CONSTIPATION; Start at 10:30 Bisacodyl (Dulcolax Supp) 10 mg DAILY PRN [place] CONSTIPATION; Start 02/21/17 at 10 :30 Aspirin (Aspirin) 81 mg DAILY PO Last administered on 03/01/17 09:13; Admin Dose 81 MG; Start 02/23/17 at 09:00 Nitroglycerin 1 tab 1 tab Q5M PRN SL CHEST PAIN Last administered on 02/24/17 14:17; Admin Dose 1 TAB; Start 02/21/17 at 10:30 Ceftriaxone Sodium (Rocephin) 50 ml @ 100 mls/hr Q24H IVPB Last administered on 02/28/17 12:19; Admin Dose 100 MLS/HR; Start 02/21/17 at 12:00 IV Flush (NS 10 ml) 10 ml PRN PRN IV IV PROTOCOL; Start 02/21/17 at 14:00 Enoxaparin Sodium (Lovenox) 75 mg DAILY SC Last administered on 03/01/17 09:14 ; Admin Dose 75 MG; Start 02/23/17 at 09:00 Pantoprazole (Protonix Tab) 40 mg DAILY@06 PO Last administered on 03/01/17 05: 58; Admin Dose 40 MG; Start 02/24/17 at 06:00 Mupirocin (Bactroban) 1 applic BID TOP Last administered on 03/01/17 08:34; Admin Dose 1 APPLIC; Start 02/23/17 at 15:30 Hydralazine HCl 10 mg 10 mg Q8 PO Last administered on 03/01/17 05:58; Admin Dose 10 MG; Start 02/24/17 at 22:00 Doxycycline Hyclate 100 mg/ Sodium Chloride 250 ml @ 250 mls/hr Q12 IVPB Last administered on 03/01/17 09:13; Admin Dose 250 MLS/HR; Start 02/25/17 at 21:00 Magnesium Sulfate (Magnesium Sulfate 2 Gm/50 ml) 50 ml @ 25 mls/hr ONCE ONCE IVPB ; Start 03/01/17 at 10:00; Stop 03/01/17 at 11:59 LORRIE STERLING NP Mar 01, 2017 10:20
[2017-03-01] MEDS: CEFTRIAXONE 1 GM/50 ML (PMX) 50 ML IVPB SCH (12:36)
--- NOTE | 2017-03-01 13:49 | CONS ---
Date/Time of Note Date/Time of Note DATE: 03/01/17 TIME: 13:47 Assessment/Plan Assessment/Plan Additional Assessment/Plan Assessment and recommendations; 1. Patient admitted with acute heroin overdose with marked overall clinical improvement. 2. Cardiomyopathy. 3. Improving scrotal edema. 4. Acute renal insufficiency with normalization of renal function. 5. Coagulase negative bacteremia. 6. Right lower lobe pneumonia. Continue current treatment. Consultation Date/Type/Reason Admit Date/Time Feb 21, 2017 at 09:56 Initial Consult Date 02/21/17 Type of Consultation: Pulmonary Referring Provider: NOLBERTO MEDINA MD 24 HR Interval Summary Free Text/Dictation Patient condition stable. Remains awake and alert. Denies any shortness of breath. Complains of very mild chest congestion. Patient currently sitting in a chair by bedside. And eating lunch. General exam; middle-aged male, awake and alert. Currently in no distress. Exam/Review of Systems Vital Signs Vitals Vital Signs Date Time Temp Pulse Resp B/P Pulse Ox O2 Delivery O2 Flow Rate FiO2 03/01/17 12:50 Nasal Cannula 1.0 03/01/17 12:06 98.0 98 18 121/78 100 02/27/17 19:57 21 Intake and Output 02/28/17 02/28/17 03/01/17 15:00 23:00 07:00 Intake Total 1850 ml 650 ml Output Total 1600 ml 2000 ml Balance 250 ml -1350 ml Exam HEENT exam; supple neck, positive JVD. No lymphadenopathy. Midline trachea. No thyromegaly. Patient has fair dentition. Pharynx is clear. Pupils are midsize and reactive to light. Chest exam; diminished but clear breath sounds. S1-S2 audible, no murmurs. Regular rhythm. Abdomen exam; soft, no organomegaly. Bowel sounds audible. Nontender. Patient has significant edema involving the scrotum. Extremity exam; no peripheral edema. Pulses 2+ bilaterally. [employer] exam; no focal deficit. Results Result Diagram: 03/01/17 0710 03/01/17 0710 Results 24 hrs Laboratory Tests Test 03/01/17 07:10 White Blood Count 4.2 #L Red Blood Count 4.53 L Hemoglobin 11.6 L Hematocrit 38.6 L Mean Corpuscular Volume 85.2 Mean Corpuscular Hemoglobin 25.6 L Mean Corpuscular Hemoglobin Concent 30.1 L Red Cell Distribution Width 16.6 H Platelet Count 174 Mean Platelet Volume 11.8 H Neutrophils % 61.6 Lymphocytes % 25.5 Monocytes % 12.0 H Eosinophils % 0.2 Basophils % 0.2 Nucleated Red Blood Cells % 0.0 Neutrophils # (Manual) 2.6 Lymphocytes # 1.1 Monocytes # 0.5 Eosinophils # 0.0 Basophils # 0.0 Nucleated Red Blood Cells # 0.0 Sodium Level 134 L Potassium Level 3.3 L Chloride Level 95 L Carbon Dioxide Level 32 H Anion Gap 10 Blood Urea Nitrogen 20 Creatinine 0.81 Glucose Level 88 Calcium Level 7.9 L Phosphorus Level 3.5 Magnesium Level 1.5 L Medications Medications Current Medications Ondansetron HCl (Zofran Inj) 4 mg Q6H PRN IV NAUSEA AND/OR VOMITING; Start at 10:30 Acetaminophen (Tylenol Tab) 650 mg Q6H PRN PO PAIN LEVEL 1-3 OR FEVER Last administered on 02/24/17 14:00; Admin Dose 650 MG; Start 02/21/17 at 10:30 Acetaminophen (Tylenol Supp) 650 mg Q6H PRN [place] PAIN LEVEL 1-3 OR FEVER; Start 02/21/17 at 10:30 Morphine Sulfate (morphine) 2 mg Q4H PRN IV SEVERE PAIN LEVEL 7-10 Last administered on 02/22/17 12:09; Admin Dose 2 MG; Start 02/21/17 at 10:30 Docusate Sodium (Colace) 100 mg Q12H PRN PO CONSTIPATION; Start 02/21/17 at 10: 30 Magnesium Hydroxide (Milk Of Mag) 30 ml DAILY PRN PO CONSTIPATION; Start at 10:30 Bisacodyl (Dulcolax Supp) 10 mg DAILY PRN [place] CONSTIPATION; Start 02/21/17 at 10 :30 Aspirin (Aspirin) 81 mg DAILY PO Last administered on 03/01/17 09:13; Admin Dose 81 MG; Start 02/23/17 at 09:00 Nitroglycerin 1 tab 1 tab Q5M PRN SL CHEST PAIN Last administered on 02/24/17 14:17; Admin Dose 1 TAB; Start 02/21/17 at 10:30 Ceftriaxone Sodium (Rocephin) 50 ml @ 100 mls/hr Q24H IVPB Last administered on 03/01/17 12:36; Admin Dose 100 MLS/HR; Start 02/21/17 at 12:00 IV Flush (NS 10 ml) 10 ml PRN PRN IV IV PROTOCOL; Start 02/21/17 at 14:00 Enoxaparin Sodium (Lovenox) 75 mg DAILY SC Last administered on 03/01/17 09:14 ; Admin Dose 75 MG; Start 02/23/17 at 09:00 Pantoprazole (Protonix Tab) 40 mg DAILY@06 PO Last administered on 03/01/17 05: 58; Admin Dose 40 MG; Start 02/24/17 at 06:00 Mupirocin (Bactroban) 1 applic BID TOP Last administered on 03/01/17 08:34; Admin Dose 1 APPLIC; Start 02/23/17 at 15:30 Hydralazine HCl 10 mg 10 mg Q8 PO Last administered on 03/01/17 05:58; Admin Dose 10 MG; Start 02/24/17 at 22:00 Doxycycline Hyclate/Sodium Chloride (Vibramycin/NS) 250 ml @ 250 mls/hr Q12 IVPB Last administered on 03/01/17 09:13; Admin Dose 250 MLS/HR; Start 02/25/17 at 21:00 SUSHLI MORENO Mar 01, 2017 13:49
--- NOTE | 2017-03-01 14:21 | CONS ---
Date/Time of Note Date/Time of Note DATE: 03/01/17 TIME: 14:20 Assessment/Plan Assessment/Plan Chief Complaint/Hosp Course SUBJECTIVE DATA: No acute changes. The patient is alert, feels ok, looks comfortable, afebrile. ANTIMICROBIALS: Doxycycline and Rocephin. PHYSICAL EXAMINATION: GENERAL: Well developed, middle-aged, white man, who is alert, in no distress. HEENT: Head atraumatic, normocephalic. Sclerae anicteric. Buccal mucosa pink. NECK: Supple. CHEST: Chest rise symmetrical. Breath sounds diminished at bases. HEART: S1, S2. ABDOMEN: Soft, bowel sounds present. EXTREMITIES: With bilateral trace edema. ASSESSMENT: 1. Resolving sepsis. 2. Community-acquired pneumonia. 3. Methicillin-resistant Staphylococcus aureus nares colonization. 4. Status post Staph bacteremia with repeat cultures negative. 5. Cardiomyopathy. 6. Non ST-elevation myocardial infarction (NC). 7. Acute possibly on chronic kidney disease. 8. History of drug abuse. PLAN: 1. The patient remains stable. 2. Clinically improving. 3. He is being followed by multiple consultants. 4. 2D echo revealed no vegetations. 5. Completing antibiotics. 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 Problems: Consultation Date/Type/Reason Admit Date/Time Feb 21, 2017 at 09:56 Initial Consult Date 02/21/17 Type of Consultation: ID Referring Provider: NOLBERTO MEDINA MD Exam/Review of Systems Vital Signs Vitals Vital Signs Date Time Temp Pulse Resp B/P Pulse Ox O2 Delivery O2 Flow Rate FiO2 03/01/17 12:50 Nasal Cannula 1.0 03/01/17 12:06 98.0 98 18 121/78 100 02/27/17 19:57 21 Intake and Output 02/28/17 02/28/17 03/01/17 15:00 23:00 07:00 Intake Total 1850 ml 650 ml Output Total 1600 ml 2000 ml Balance 250 ml -1350 ml Results Result Diagram: 03/01/17 0710 03/01/17 0710 Results 24 hrs Laboratory Tests Test 03/01/17 07:10 White Blood Count 4.2 #L Red Blood Count 4.53 L Hemoglobin 11.6 L Hematocrit 38.6 L Mean Corpuscular Volume 85.2 Mean Corpuscular Hemoglobin 25.6 L Mean Corpuscular Hemoglobin Concent 30.1 L Red Cell Distribution Width 16.6 H Platelet Count 174 Mean Platelet Volume 11.8 H Neutrophils % 61.6 Lymphocytes % 25.5 Monocytes % 12.0 H Eosinophils % 0.2 Basophils % 0.2 Nucleated Red Blood Cells % 0.0 Neutrophils # (Manual) 2.6 Lymphocytes # 1.1 Monocytes # 0.5 Eosinophils # 0.0 Basophils # 0.0 Nucleated Red Blood Cells # 0.0 Sodium Level 134 L Potassium Level 3.3 L Chloride Level 95 L Carbon Dioxide Level 32 H Anion Gap 10 Blood Urea Nitrogen 20 Creatinine 0.81 Glucose Level 88 Calcium Level 7.9 L Phosphorus Level 3.5 Magnesium Level 1.5 L Medications Medications Current Medications Ondansetron HCl (Zofran Inj) 4 mg Q6H PRN IV NAUSEA AND/OR VOMITING; Start at 10:30 Acetaminophen (Tylenol Tab) 650 mg Q6H PRN PO PAIN LEVEL 1-3 OR FEVER Last administered on 02/24/17 14:00; Admin Dose 650 MG; Start 02/21/17 at 10:30 Acetaminophen (Tylenol Supp) 650 mg Q6H PRN [place] PAIN LEVEL 1-3 OR FEVER; Start 02/21/17 at 10:30 Morphine Sulfate (morphine) 2 mg Q4H PRN IV SEVERE PAIN LEVEL 7-10 Last administered on 02/22/17 12:09; Admin Dose 2 MG; Start 02/21/17 at 10:30 Docusate Sodium (Colace) 100 mg Q12H PRN PO CONSTIPATION; Start 02/21/17 at 10: 30 Magnesium Hydroxide (Milk Of Mag) 30 ml DAILY PRN PO CONSTIPATION; Start at 10:30 Bisacodyl (Dulcolax Supp) 10 mg DAILY PRN [place] CONSTIPATION; Start 02/21/17 at 10 :30 Aspirin (Aspirin) 81 mg DAILY PO Last administered on 03/01/17 09:13; Admin Dose 81 MG; Start 02/23/17 at 09:00 Nitroglycerin 1 tab 1 tab Q5M PRN SL CHEST PAIN Last administered on 02/24/17 14:17; Admin Dose 1 TAB; Start 02/21/17 at 10:30 Ceftriaxone Sodium (Rocephin) 50 ml @ 100 mls/hr Q24H IVPB Last administered on 03/01/17 12:36; Admin Dose 100 MLS/HR; Start 02/21/17 at 12:00 IV Flush (NS 10 ml) 10 ml PRN PRN IV IV PROTOCOL; Start 02/21/17 at 14:00 Enoxaparin Sodium (Lovenox) 75 mg DAILY SC Last administered on 03/01/17 09:14 ; Admin Dose 75 MG; Start 02/23/17 at 09:00 Pantoprazole (Protonix Tab) 40 mg DAILY@06 PO Last administered on 03/01/17 05: 58; Admin Dose 40 MG; Start 02/24/17 at 06:00 Mupirocin (Bactroban) 1 applic BID TOP Last administered on 03/01/17 08:34; Admin Dose 1 APPLIC; Start 02/23/17 at 15:30 Hydralazine HCl 10 mg 10 mg Q8 PO Last administered on 03/01/17 14:12; Admin Dose 10 MG; Start 02/24/17 at 22:00 Doxycycline Hyclate/Sodium Chloride (Vibramycin/NS) 250 ml @ 250 mls/hr Q12 IVPB Last administered on 03/01/17 09:13; Admin Dose 250 MLS/HR; Start 02/25/17 at 21:00 BRETT DEL ANGEL NP Mar 01, 2017 14:21
--- NOTE | 2017-03-01 14:35 | RADRPT ---
PROCEDURE: Ultrasound of the left upper extremity venous system. CLINICAL INDICATION: Left upper extremity edema. Left upper extremity PICC line. TECHNIQUE: Soni scale with and without compression, color doppler, spectral doppler of the venous system of the left upper extremity was performed. Venous augmentation maneuvers were utilized. COMPARISON: Previous lower extremity venous ultrasound from 02/22/2017 FINDINGS: Left: Jugular vein: Patent and compressible. Subclavian vein: Patent and compressible. Axillary vein: Patent and compressible. Brachial vein: Patent and compressible. Basilic vein: Patent and compressible. Cephalic vein: Patent and compressible. Soft tissues:Subcutaneous edema noted. IMPRESSION: 1. No evidence of left upper extremity deep vein thrombosis. RPTAT: [facility] Physician Fabiola Date Time Electronically viewed and signed by Physician Fabiola on 03/01/2017 14:34 /
--- NOTE | 2017-03-01 15:19 | CONS ---
Date/Time of Note Date/Time of Note DATE: 03/01/17 TIME: 15:11 Assessment/Plan Assessment/Plan Chief Complaint/Hosp Course IMP: 1.CHF-systolic acute on chronic 2.Hypotension 3.Renal failure 4.Nstemi-trended negative 5. Acidosis 6. Bacteremia 7. Cardiomyopathy-low EF 15-20% by echo this admit Recc: -Tele -serial ecg's -Continue asa -lasix diuresis -start Low dose ACEI afterload reduction as tolerated and low dose BB -PO digoxin -d/c hydralazine now that creatnine improved Problems: Consultation Date/Type/Reason Admit Date/Time Feb 21, 2017 at 09:56 Initial Consult Date 02/21/17 Type of Consultation: cardiology Reason for Consultation CHF/cardiomyopathy Referring Provider: NOLBERTO MEDINA MD Exam/Review of Systems Vital Signs Vitals Vital Signs Date Time Temp Pulse Resp B/P Pulse Ox O2 Delivery O2 Flow Rate FiO2 03/01/17 12:50 Nasal Cannula 1.0 03/01/17 12:06 98.0 98 18 121/78 100 02/27/17 19:57 21 Intake and Output 02/28/17 02/28/17 03/01/17 14:59 22:59 06:59 Intake Total 1850 ml 650 ml Output Total 1600 ml 2000 ml Balance 250 ml -1350 ml Exam Review of Systems: CONSTITUTIONAL: No fevers, chills. PULMONARY: ongoing sob CARDIOVASCULAR: No chest pain/palpitations GASTROINTESTINAL: No nausea/vomiting. GENITOURINARY: No hematuria/dysuria. MUSCULOSKELETAL: No myagias/arthalgias. PSYCHIATRIC: The patient denies depression. NEUROLOGIC: lethargic Constitutional: alert Psych: no complaints Head: normocephalic ENMT: mucosa pink and moist Neck: jvd (10 ), supple Respiratory: diminished breath sounds (at bases/B) Cardiovascular: regular rate and rhythm Gastrointestinal: soft Musculoskeletal: muscle weakness (generalized) Extremities: edema (bilateral) Neurological: lethargic Results Result Diagram: 03/01/17 0710 03/01/17 0710 Results 24 hrs Laboratory Tests Test 03/01/17 07:10 White Blood Count 4.2 #L Red Blood Count 4.53 L Hemoglobin 11.6 L Hematocrit 38.6 L Mean Corpuscular Volume 85.2 Mean Corpuscular Hemoglobin 25.6 L Mean Corpuscular Hemoglobin Concent 30.1 L Red Cell Distribution Width 16.6 H Platelet Count 174 Mean Platelet Volume 11.8 H Neutrophils % 61.6 Lymphocytes % 25.5 Monocytes % 12.0 H Eosinophils % 0.2 Basophils % 0.2 Nucleated Red Blood Cells % 0.0 Neutrophils # (Manual) 2.6 Lymphocytes # 1.1 Monocytes # 0.5 Eosinophils # 0.0 Basophils # 0.0 Nucleated Red Blood Cells # 0.0 Sodium Level 134 L Potassium Level 3.3 L Chloride Level 95 L Carbon Dioxide Level 32 H Anion Gap 10 Blood Urea Nitrogen 20 Creatinine 0.81 Glucose Level 88 Calcium Level 7.9 L Phosphorus Level 3.5 Magnesium Level 1.5 L Medications Medications Current Medications Ondansetron HCl (Zofran Inj) 4 mg Q6H PRN IV NAUSEA AND/OR VOMITING; Start at 10:30 Acetaminophen (Tylenol Tab) 650 mg Q6H PRN PO PAIN LEVEL 1-3 OR FEVER Last administered on 02/24/17 14:00; Admin Dose 650 MG; Start 02/21/17 at 10:30 Acetaminophen (Tylenol Supp) 650 mg Q6H PRN [place] PAIN LEVEL 1-3 OR FEVER; Start 02/21/17 at 10:30 Morphine Sulfate (morphine) 2 mg Q4H PRN IV SEVERE PAIN LEVEL 7-10 Last administered on 02/22/17 12:09; Admin Dose 2 MG; Start 02/21/17 at 10:30 Docusate Sodium (Colace) 100 mg Q12H PRN PO CONSTIPATION; Start 02/21/17 at 10: 30 Magnesium Hydroxide (Milk Of Mag) 30 ml DAILY PRN PO CONSTIPATION; Start at 10:30 Bisacodyl (Dulcolax Supp) 10 mg DAILY PRN [place] CONSTIPATION; Start 02/21/17 at 10 :30 Aspirin (Aspirin) 81 mg DAILY PO Last administered on 03/01/17 09:13; Admin Dose 81 MG; Start 02/23/17 at 09:00 Nitroglycerin 1 tab 1 tab Q5M PRN SL CHEST PAIN Last administered on 02/24/17 14:17; Admin Dose 1 TAB; Start 02/21/17 at 10:30 Ceftriaxone Sodium (Rocephin) 50 ml @ 100 mls/hr Q24H IVPB Last administered on 03/01/17 12:36; Admin Dose 100 MLS/HR; Start 02/21/17 at 12:00 IV Flush (NS 10 ml) 10 ml PRN PRN IV IV PROTOCOL; Start 02/21/17 at 14:00 Enoxaparin Sodium (Lovenox) 75 mg DAILY SC Last administered on 03/01/17 09:14 ; Admin Dose 75 MG; Start 02/23/17 at 09:00 Pantoprazole (Protonix Tab) 40 mg DAILY@06 PO Last administered on 03/01/17 05: 58; Admin Dose 40 MG; Start 02/24/17 at 06:00 Mupirocin (Bactroban) 1 applic BID TOP Last administered on 03/01/17 08:34; Admin Dose 1 APPLIC; Start 02/23/17 at 15:30 Hydralazine HCl 10 mg 10 mg Q8 PO Last administered on 03/01/17 14:12; Admin Dose 10 MG; Start 02/24/17 at 22:00 Doxycycline Hyclate/Sodium Chloride (Vibramycin/NS) 250 ml @ 250 mls/hr Q12 IVPB Last administered on 03/01/17 09:13; Admin Dose 250 MLS/HR; Start 02/25/17 at 21:00 CELINE LI Mar 01, 2017 15:19
[2017-03-01] MEDS ORDERED: ALTEPLASE (CATHFLO) 2 MG INJ CATHETER PRN (18:00)
[2017-03-01] MEDS ORDERED: ALTEPLASE (CATHFLO) 2 MG INJ CATHETER ONE (18:00)
[2017-03-02] VITALS (12 sets, daily range): BP systolic 103–120; BP diastolic 59–79; PULSE 80–99; RESP 16–21
[2017-03-02] MEDS: IPRATROPIUM (NEB) 0.5 MG/2.5 ML AMP HHN SCH ×4 (00:24→20:11)
[2017-03-02] MEDS: LEVALBUTEROL (NEB) 0.63 MG/3 ML AMP HHN SCH ×4 (00:24→20:11)
[2017-03-02] MEDS: morphine 2 MG INJ IV PRN ×2 (02:50→15:19)
[2017-03-02] MEDS: FUROSEMIDE 20 MG INJ IV SCH ×2 (06:09→17:09)
[2017-03-02] MEDS: PANTOPRAZOLE (EC) 40 MG TAB PO SCH (06:10)
[2017-03-02 07:08] LABS: BASOPHILS % 0.2 % (0.0-2.0); HEMATOCRIT 37.3 % (42.0-52.0); HEMOGLOBIN 11.3 g/dl (14.0-18.0); LYMPHOCYTES # 1.2 10^3/ul (0.8-2.9); MEAN CORPUSCULAR HEMOGLOBIN 25.8 pg (29.0-33.0); MEAN CORPUSCULAR HGB CONC 30.3 g/dl (32.0-37.0); MEAN CORPUSCULAR VOLUME 85.2 fl (82.0-101.0); MEAN PLATELET VOLUME 12.1 fl (7.4-10.4); MONOCYTE # 0.6 10^3/ul (0.3-0.9); MONOCYTES % 10.7 % (0.0-11.0); NEUTROPHILS % 67.8 % (39.0-77.0); PLATELET COUNT 205 10^3/UL (140-415); RED BLOOD COUNT 4.38 10^6/ul (4.70-6.10); RED CELL DISTRIBUTION WIDTH 16.5 % (11.5-14.5); WHITE BLOOD COUNT 5.9 10^3/ul (4.8-10.8)
[2017-03-02 07:34] LABS: CALCIUM 7.9 mg/dl (8.4-10.2); CREATININE 0.81 mg/dl (0.61-1.24); POTASSIUM 3.9 mmol/L (3.5-5.1)
[2017-03-02 07:41] LABS: MAGNESIUM 1.6 mg/dl (1.7-2.5); PHOSPHORUS 3.4 mg/dl (2.5-4.9)
[2017-03-02] MEDS: METHADONE 10 MG TAB PO SCH (08:07)
[2017-03-02] MEDS: ASPIRIN 81 MG TAB PO SCH (08:16)
[2017-03-02] MEDS: DOXYCYCLINE 100 MG in SOD CHLORIDE 0.9% 250 ML IVPB SCH (08:18)
[2017-03-02] MEDS: ENOXAPARIN 80 MG/0.8 ML SYG SC SCH (08:20)
[2017-03-02] MEDS: MUPIROCIN 2% 22 GM OINT TOP SCH ×2 (08:21→21:00)
[2017-03-02] MEDS ORDERED: LISINOPRIL 5 MG TAB PO SCH (09:00)
[2017-03-02] MEDS ORDERED: MAGNESIUM SULFATE 2 GM/50 ML 50 ML IVPB ONE (09:00)
--- NOTE | 2017-03-02 11:02 | PN ---
DATE: 03/02/2017 SUBJECTIVE DATA: Patient is stable. No events overnight. No fevers, chills, nausea, vomiting. OBJECTIVE DATA: VITAL SIGNS: Blood pressure is 104/78, pulse 94, temperature 98.2, respirations 18. HEENT: Head is normocephalic. NECK: Supple. HEART: Regular rate. LUNGS: Diminished breath sounds at the base. ABDOMEN: Soft, nontender to palpation. No rebound or guarding. EXTREMITIES: Negative for clubbing, cyanosis. No edema. DERMATOLOGIC: Clean. No rashes. MUSCULOSKELETAL: No joint effusion. NEUROLOGIC: No change in exam. MEDICATIONS: Reviewed. LABORATORY AND DIAGNOSTIC DATA: Shows sodium 131, potassium 3.9, chloride 92, BUN 23, creatinine 0.81, magnesium 1.6. White count 5.9, hemoglobin 9.3, hematocrit 37.3, platelet count 205,000. ASSESSMENT AND PLAN: 1. Nonoliguric acute kidney injury on top of chronic kidney disease, etiology secondary to hemodynamics. Renal function has improved. Continue current treatment plan. 2. Anemia. Monitor hemoglobin and hematocrit levels. 3. Mineral bone disorder. Monitor calcium and phosphorus levels. 4. Hypomagnesemia. Replete with magnesium sulfate 2 grams intravenously x1. 5. Sepsis. The patient is completing antibiotic course. 6. Congestive heart failure. Continue current medical management. 7. Acute respiratory failure, improving. Continue current treatment plan. Dictated By: Frandy Gonzalez DO /[email or web address]/kathie /Document#: [id number]
--- NOTE | 2017-03-02 11:51 | CONS ---
Date/Time of Note Date/Time of Note DATE: 03/02/17 TIME: 11:45 Assessment/Plan Assessment/Plan Additional Assessment/Plan Assessment recommendations; 1. Patient admitted with drug overdose doing very well overall. 2. Cardiomyopathy with persistent scrotal edema however improving gradually. 3. Coagulase-negative bacteremia. Likely skin contaminant. 4. Possibly right lower lobe pneumonia with interval improvement. Continue current treatment. Antibiotics per ID recommendations. Consultation Date/Type/Reason Admit Date/Time Feb 21, 2017 at 09:56 Initial Consult Date 02/21/17 Type of Consultation: Pulmonary Referring Provider: NOLBERTO MEDINA MD 24 HR Interval Summary Free Text/Dictation Patient condition stable. Denies any shortness of breath. Any chest pain. Still complains of scrotal edema. General exam; middle-aged male, awake, currently in no distress. Exam/Review of Systems Vital Signs Vitals Vital Signs Date Time Temp Pulse Resp B/P Pulse Ox O2 Delivery O2 Flow Rate FiO2 03/02/17 08:50 94 03/02/17 07:57 98.2 18 104/78 98 03/02/17 07:45 Nasal Cannula 3.0 02/27/17 19:57 21 Intake and Output 03/01/17 03/01/17 03/02/17 14:59 22:59 06:59 Intake Total 2350 ml 500 ml Output Total 1600 ml 850 ml Balance 750 ml -350 ml Exam HEENT exam; supple neck, no JVD. No lymphadenopathy. Midline trachea. No thyromegaly. Pharynx is clear. Patient has fair dentition. Chest exam; clear to auscultation. S1-S2 audible, no murmurs. Regular rhythm. Abdomen exam; soft, no organomegaly. Nontender. Bowel sounds audible. Patient still has persistent significant scrotal edema. Extremity exam; no peripheral edema. [employer] exam; no focal deficit. Results Result Diagram: 03/02/17 0615 03/02/17 0615 Results 24 hrs Laboratory Tests Test 03/02/17 06:15 03/02/17 06:56 White Blood Count 5.9 # Red Blood Count 4.38 L Hemoglobin 11.3 L Hematocrit 37.3 L Mean Corpuscular Volume 85.2 Mean Corpuscular Hemoglobin 25.8 L Mean Corpuscular Hemoglobin Concent 30.3 L Red Cell Distribution Width 16.5 H Platelet Count 205 Mean Platelet Volume 12.1 H Neutrophils % 67.8 Lymphocytes % 21.0 Monocytes % 10.7 Eosinophils % 0.0 Basophils % 0.2 Nucleated Red Blood Cells % 0.0 Neutrophils # (Manual) 4.0 Lymphocytes # 1.2 Monocytes # 0.6 Eosinophils # 0.0 Basophils # 0.0 Nucleated Red Blood Cells # 0.0 Sodium Level 131 L Potassium Level 3.9 Chloride Level 92 L Carbon Dioxide Level 33 H Anion Gap 10 Blood Urea Nitrogen 23 H Creatinine 0.81 Glucose Level 93 Calcium Level 7.9 L Phosphorus Level 3.4 Magnesium Level 1.6 L Lab Scanned Report REFERENCE LAB Medications Medications Current Medications Ondansetron HCl (Zofran Inj) 4 mg Q6H PRN IV NAUSEA AND/OR VOMITING; Start at 10:30 Acetaminophen (Tylenol Tab) 650 mg Q6H PRN PO PAIN LEVEL 1-3 OR FEVER Last administered on 02/24/17 14:00; Admin Dose 650 MG; Start 02/21/17 at 10:30 Acetaminophen (Tylenol Supp) 650 mg Q6H PRN [place] PAIN LEVEL 1-3 OR FEVER; Start 02/21/17 at 10:30 Morphine Sulfate (morphine) 2 mg Q4H PRN IV SEVERE PAIN LEVEL 7-10 Last administered on 03/02/17 02:50; Admin Dose 2 MG; Start 02/21/17 at 10:30 Docusate Sodium (Colace) 100 mg Q12H PRN PO CONSTIPATION; Start 02/21/17 at 10: 30 Magnesium Hydroxide (Milk Of Mag) 30 ml DAILY PRN PO CONSTIPATION; Start at 10:30 Bisacodyl (Dulcolax Supp) 10 mg DAILY PRN [place] CONSTIPATION; Start 02/21/17 at 10 :30 Aspirin (Aspirin) 81 mg DAILY PO Last administered on 03/02/17 08:16; Admin Dose 81 MG; Start 02/23/17 at 09:00 Nitroglycerin 1 tab 1 tab Q5M PRN SL CHEST PAIN Last administered on 02/24/17 14:17; Admin Dose 1 TAB; Start 02/21/17 at 10:30 Ceftriaxone Sodium (Rocephin) 50 ml @ 100 mls/hr Q24H IVPB Last administered on 03/01/17 12:36; Admin Dose 100 MLS/HR; Start 02/21/17 at 12:00 IV Flush (NS 10 ml) 10 ml PRN PRN IV IV PROTOCOL; Start 02/21/17 at 14:00 Enoxaparin Sodium (Lovenox) 75 mg DAILY SC Last administered on 03/02/17 08:20 ; Admin Dose 75 MG; Start 02/23/17 at 09:00 Pantoprazole (Protonix Tab) 40 mg DAILY@06 PO Last administered on 03/02/17 06: 10; Admin Dose 40 MG; Start 02/24/17 at 06:00 Mupirocin (Bactroban) 1 applic BID TOP Last administered on 03/02/17 08:21; Admin Dose 1 APPLIC; Start 02/23/17 at 15:30 Hydralazine HCl 10 mg 10 mg Q8 PO Last administered on 03/02/17 06:10; Admin Dose 10 MG; Start 02/24/17 at 22:00 Doxycycline Hyclate/Sodium Chloride (Vibramycin/NS) 250 ml @ 250 mls/hr Q12 IVPB Last administered on 03/02/17 08:18; Admin Dose 250 MLS/HR; Start 02/25/17 at 21:00 Carvedilol (Coreg) 3.125 mg BID PO Last administered on 03/02/17 08:17; Admin Dose 3.125 MG; Start 03/01/17 at 21:00 Lisinopril (Zestril) 5 mg DAILY PO ; Start 03/02/17 at 09:00 SUSHIL MORENO Mar 02, 2017 11:51
--- NOTE | 2017-03-02 12:21 | CONS ---
Date/Time of Note Date/Time of Note DATE: 03/02/17 TIME: 12:18 Assessment/Plan Assessment/Plan Chief Complaint/Hosp Course IMP: 1.CHF-systolic acute on chronic 2.Hypotension 3.Renal failure 4.Nstemi-trended negative 5. Acidosis 6. Bacteremia 7. Cardiomyopathy-low EF 15-20% by echo this admit Recc: -Tele -serial ecg's -Continue asa -lasix diuresis -Continue low dose BB/ACEI as tolerated for treatment of cardiomyopathy -PO digoxin Problems: Consultation Date/Type/Reason Admit Date/Time Feb 21, 2017 at 09:56 Initial Consult Date 02/21/17 Type of Consultation: cardiology Reason for Consultation Cardiomyopathy/CHF Referring Provider: NOLBERTO MEDINA MD Exam/Review of Systems Vital Signs Vitals Vital Signs Date Time Temp Pulse Resp B/P Pulse Ox O2 Delivery O2 Flow Rate FiO2 03/02/17 11:56 98.4 81 16 103/59 95 03/02/17 07:45 Nasal Cannula 3.0 02/27/17 19:57 21 Intake and Output 03/01/17 03/01/17 03/02/17 14:59 22:59 06:59 Intake Total 2350 ml 500 ml Output Total 1600 ml 850 ml Balance 750 ml -350 ml Exam Review of Systems: CONSTITUTIONAL: No fevers, chills. PULMONARY: No sob CARDIOVASCULAR: No chest pain/palpitations GASTROINTESTINAL: No nausea/vomiting. GENITOURINARY: No hematuria/dysuria. MUSCULOSKELETAL: No myagias/arthalgias. PSYCHIATRIC: The patient denies depression. NEUROLOGIC: lethargic Constitutional: alert, oriented Psych: no complaints Head: normocephalic ENMT: mucosa pink and moist Neck: jvd (9 cm water), supple Respiratory: diminished breath sounds (at bases/B) Cardiovascular: regular rate and rhythm Gastrointestinal: non-tender, soft Musculoskeletal: muscle tone (normal) Extremities: pitting pedal edema (bilateral) Neurological: lethargic Results Result Diagram: 03/02/1715 03/02/17 0615 Results 24 hrs Laboratory Tests Test 03/02/17 06:15 03/02/17 06:56 White Blood Count 5.9 # Red Blood Count 4.38 L Hemoglobin 11.3 L Hematocrit 37.3 L Mean Corpuscular Volume 85.2 Mean Corpuscular Hemoglobin 25.8 L Mean Corpuscular Hemoglobin Concent 30.3 L Red Cell Distribution Width 16.5 H Platelet Count 205 Mean Platelet Volume 12.1 H Neutrophils % 67.8 Lymphocytes % 21.0 Monocytes % 10.7 Eosinophils % 0.0 Basophils % 0.2 Nucleated Red Blood Cells % 0.0 Neutrophils # (Manual) 4.0 Lymphocytes # 1.2 Monocytes # 0.6 Eosinophils # 0.0 Basophils # 0.0 Nucleated Red Blood Cells # 0.0 Sodium Level 131 L Potassium Level 3.9 Chloride Level 92 L Carbon Dioxide Level 33 H Anion Gap 10 Blood Urea Nitrogen 23 H Creatinine 0.81 Glucose Level 93 Calcium Level 7.9 L Phosphorus Level 3.4 Magnesium Level 1.6 L Lab Scanned Report REFERENCE LAB Medications Medications Current Medications Ondansetron HCl (Zofran Inj) 4 mg Q6H PRN IV NAUSEA AND/OR VOMITING; Start at 10:30 Acetaminophen (Tylenol Tab) 650 mg Q6H PRN PO PAIN LEVEL 1-3 OR FEVER Last administered on 02/24/17 14:00; Admin Dose 650 MG; Start 02/21/17 at 10:30 Acetaminophen (Tylenol Supp) 650 mg Q6H PRN [place] PAIN LEVEL 1-3 OR FEVER; Start 02/21/17 at 10:30 Morphine Sulfate (morphine) 2 mg Q4H PRN IV SEVERE PAIN LEVEL 7-10 Last administered on 03/02/17 02:50; Admin Dose 2 MG; Start 02/21/17 at 10:30 Docusate Sodium (Colace) 100 mg Q12H PRN PO CONSTIPATION; Start 02/21/17 at 10: 30 Magnesium Hydroxide (Milk Of Mag) 30 ml DAILY PRN PO CONSTIPATION; Start at 10:30 Bisacodyl (Dulcolax Supp) 10 mg DAILY PRN [place] CONSTIPATION; Start 02/21/17 at 10 :30 Aspirin (Aspirin) 81 mg DAILY PO Last administered on 03/02/17 08:16; Admin Dose 81 MG; Start 02/23/17 at 09:00 Nitroglycerin 1 tab 1 tab Q5M PRN SL CHEST PAIN Last administered on 02/24/17 14:17; Admin Dose 1 TAB; Start 02/21/17 at 10:30 Ceftriaxone Sodium (Rocephin) 50 ml @ 100 mls/hr Q24H IVPB Last administered on 03/01/17 12:36; Admin Dose 100 MLS/HR; Start 02/21/17 at 12:00 IV Flush (NS 10 ml) 10 ml PRN PRN IV IV PROTOCOL; Start 02/21/17 at 14:00 Enoxaparin Sodium (Lovenox) 75 mg DAILY SC Last administered on 03/02/17 08:20 ; Admin Dose 75 MG; Start 02/23/17 at 09:00 Pantoprazole (Protonix Tab) 40 mg DAILY@06 PO Last administered on 03/02/17 06: 10; Admin Dose 40 MG; Start 02/24/17 at 06:00 Mupirocin (Bactroban) 1 applic BID TOP Last administered on 03/02/17 08:21; Admin Dose 1 APPLIC; Start 02/23/17 at 15:30 Hydralazine HCl 10 mg 10 mg Q8 PO Last administered on 03/02/17 06:10; Admin Dose 10 MG; Start 02/24/17 at 22:00 Doxycycline Hyclate/Sodium Chloride (Vibramycin/NS) 250 ml @ 250 mls/hr Q12 IVPB Last administered on 03/02/17 08:18; Admin Dose 250 MLS/HR; Start 02/25/17 at 21:00 Carvedilol (Coreg) 3.125 mg BID PO Last administered on 03/02/17 08:17; Admin Dose 3.125 MG; Start 03/01/17 at 21:00 Lisinopril (Zestril) 5 mg DAILY PO ; Start 03/02/17 at 09:00 CELINE LI Mar 02, 2017 12:21
[2017-03-02] MEDS: CEFTRIAXONE 1 GM/50 ML (PMX) 50 ML IVPB SCH (12:23)
--- NOTE | 2017-03-02 13:07 | PN ---
Date/Time of Note Date/Time of Note DATE: 03/02/17 TIME: 13:05 Assessment/Plan VTE Prophylaxis VTE Prophylaxis Intervention: LMWH Lines/Catheters IV [facility] Type (from [facility]): PICC Line Central line still needed: Yes Urinary Cath still in place: Yes Reason Cath still needed: other (indicate) Assessment/Plan Chief Complaint/Hosp Course 1. Sepsis with underlying pneumonia [aspiration versus community-acquired] and gram-positive bacteremia. No evidence of septic shock. On antimicrobials as per infectious diseases. 2. Acute on chronic congestive heart failure exacerbation. Systolic and diastolic dysfunction. Continue diuresis. 3. Severe cardiomyopathy. Ejection fraction 15%. On ACEI and BB. Management as per cardiology. 4. Non-ST elevation myocardial infarction. Remains on therapeutic anticoagulation. Followed by cardiology. On Aspirin. 5. Acute nonoliguric kidney injury. Being followed by nephrology. Improving BUN and creatinine. Renal dose medications. 6. Heroin abuse. Being followed by pain management team. On methadone. 7. Homeless status. 8. Fluids, electrolytes, and nutrition. Low cholesterol diet. 9. Prophylaxis. On therapeutic anticoagulation. 10. GI prophylaxis. Proton pump inhibitors. 11. Plan. Continue current management. Replete magnesium and potassium. Await further recommendations from consultants. Case discussed with Dr. Mcgrath. Problems: Subjective 24 Hr Interval Summary Free Text/Dictation Refused PT today. Feeling SOB. Exam/Review of Systems Vital Signs Vitals Vital Signs Date Time Temp Pulse Resp B/P Pulse Ox O2 Delivery O2 Flow Rate FiO2 03/02/17 11:56 98.4 81 16 103/59 95 03/02/17 08:00 Nasal Cannula 3.0 02/27/17 19:57 21 Intake and Output 03/01/17 03/01/17 03/02/17 15:00 23:00 07:00 Intake Total 2350 ml 500 ml Output Total 1600 ml 850 ml Balance 750 ml -350 ml Exam General: Adequately build 56 year-old male lying in bed in no apparent distress. HEENT: Normocephalic, atraumatic. Eyes: Anicteric sclerae, conjunctivae clear. ENT: Nasal septum midline, oral mucosa moist. Neck supple, no JVD noticed. Respiratory: Bilaterally diminished breath sounds. No use of accessory muscles of respiration. No adventitious breath sounds. Cardiovascular: S1, S2 heard. Lower rate and rhythm. Abdomen: Soft, nontender, and nondistended. Bowel sounds positive in all 4 quadrants. Genitourinary: Penoscrotal edema. Gupta catheter in place Extremities: No cyanosis, no clubbing. Peripheral pulses palpable. LUE bruising and edema. B/L LE 2+ edema. Neurologic: Cranial nerves II through XII grossly intact. The patient is awake, alert, and oriented. Results Result Diagram: 03/02/17 0615 03/02/17 0615 Results 24 hrs Laboratory Tests Test 03/02/17 06:15 03/02/17 06:56 White Blood Count 5.9 # Red Blood Count 4.38 L Hemoglobin 11.3 L Hematocrit 37.3 L Mean Corpuscular Volume 85.2 Mean Corpuscular Hemoglobin 25.8 L Mean Corpuscular Hemoglobin Concent 30.3 L Red Cell Distribution Width 16.5 H Platelet Count 205 Mean Platelet Volume 12.1 H Neutrophils % 67.8 Lymphocytes % 21.0 Monocytes % 10.7 Eosinophils % 0.0 Basophils % 0.2 Nucleated Red Blood Cells % 0.0 Neutrophils # (Manual) 4.0 Lymphocytes # 1.2 Monocytes # 0.6 Eosinophils # 0.0 Basophils # 0.0 Nucleated Red Blood Cells # 0.0 Sodium Level 131 L Potassium Level 3.9 Chloride Level 92 L Carbon Dioxide Level 33 H Anion Gap 10 Blood Urea Nitrogen 23 H Creatinine 0.81 Glucose Level 93 Calcium Level 7.9 L Phosphorus Level 3.4 Magnesium Level 1.6 L Lab Scanned Report REFERENCE LAB Medications Medications Current Medications Ondansetron HCl (Zofran Inj) 4 mg Q6H PRN IV NAUSEA AND/OR VOMITING; Start at 10:30 Acetaminophen (Tylenol Tab) 650 mg Q6H PRN PO PAIN LEVEL 1-3 OR FEVER Last administered on 02/24/17 14:00; Admin Dose 650 MG; Start 02/21/17 at 10:30 Acetaminophen (Tylenol Supp) 650 mg Q6H PRN [place] PAIN LEVEL 1-3 OR FEVER; Start 02/21/17 at 10:30 Morphine Sulfate (morphine) 2 mg Q4H PRN IV SEVERE PAIN LEVEL 7-10 Last administered on 03/02/17 02:50; Admin Dose 2 MG; Start 02/21/17 at 10:30 Docusate Sodium (Colace) 100 mg Q12H PRN PO CONSTIPATION; Start 02/21/17 at 10: 30 Magnesium Hydroxide (Milk Of Mag) 30 ml DAILY PRN PO CONSTIPATION; Start at 10:30 Bisacodyl (Dulcolax Supp) 10 mg DAILY PRN [place] CONSTIPATION; Start 02/21/17 at 10 :30 Aspirin (Aspirin) 81 mg DAILY PO Last administered on 03/02/17 08:16; Admin Dose 81 MG; Start 02/23/17 at 09:00 Nitroglycerin 1 tab 1 tab Q5M PRN SL CHEST PAIN Last administered on 02/24/17 14:17; Admin Dose 1 TAB; Start 02/21/17 at 10:30 Ceftriaxone Sodium (Rocephin) 50 ml @ 100 mls/hr Q24H IVPB Last administered on 03/02/17 12:23; Admin Dose 100 MLS/HR; Start 02/21/17 at 12:00 IV Flush (NS 10 ml) 10 ml PRN PRN IV IV PROTOCOL; Start 02/21/17 at 14:00 Enoxaparin Sodium (Lovenox) 75 mg DAILY SC Last administered on 03/02/17 08:20 ; Admin Dose 75 MG; Start 02/23/17 at 09:00 Pantoprazole (Protonix Tab) 40 mg DAILY@06 PO Last administered on 03/02/17 06: 10; Admin Dose 40 MG; Start 02/24/17 at 06:00 Mupirocin (Bactroban) 1 applic BID TOP Last administered on 03/02/17 08:21; Admin Dose 1 APPLIC; Start 02/23/17 at 15:30 Hydralazine HCl 10 mg 10 mg Q8 PO Last administered on 03/02/17 06:10; Admin Dose 10 MG; Start 02/24/17 at 22:00 Doxycycline Hyclate/Sodium Chloride (Vibramycin/NS) 250 ml @ 250 mls/hr Q12 IVPB Last administered on 03/02/17 08:18; Admin Dose 250 MLS/HR; Start 02/25/17 at 21:00 Carvedilol (Coreg) 3.125 mg BID PO Last administered on 03/02/17 08:17; Admin Dose 3.125 MG; Start 03/01/17 at 21:00 Lisinopril (Zestril) 2.5 mg DAILY PO ; Start 03/03/17 at 09:00 Digoxin (Digoxin) 0.125 mg Q2D@13 PO ; Start 03/02/17 at 13:00 LORRIE STERLING NP Mar 02, 2017 13:07
[2017-03-02] MEDS: DIGOXIN 0.125 MG TAB PO SCH (13:11)
--- NOTE | 2017-03-02 17:06 | CONS ---
Date/Time of Note Date/Time of Note DATE: 03/02/17 TIME: 17:04 Assessment/Plan Assessment/Plan Chief Complaint/Hosp Course SUBJECTIVE DATA: No acute changes. The patient is awake, looks comfortable, afebrile. ANTIMICROBIALS: Doxycycline and Rocephin. PHYSICAL EXAMINATION: GENERAL: Well developed, middle-aged, white man, who is alert, in no distress. HEENT: Head atraumatic, normocephalic. Sclerae anicteric. Buccal mucosa pink. NECK: Supple. CHEST: Chest rise symmetrical. Breath sounds diminished at bases. HEART: S1, S2. ABDOMEN: Soft, bowel sounds present. EXTREMITIES: With bilateral trace edema. ASSESSMENT: 1. Resolving sepsis. 2. Community-acquired pneumonia. 3. Methicillin-resistant Staphylococcus aureus nares colonization. 4. Status post Staph bacteremia with repeat cultures negative. 5. Cardiomyopathy. 6. Non ST-elevation myocardial infarction (ID). 7. Acute possibly on chronic kidney disease. 8. History of drug abuse. PLAN: The patient remains stable, completed abx, will dc and observe, repeat cx prn. DW pt/staff Problems: Consultation Date/Type/Reason Admit Date/Time Feb 21, 2017 at 09:56 Initial Consult Date 02/21/17 Type of Consultation: id Referring Provider: NOLBERTO MEDINA MD Exam/Review of Systems Vital Signs Vitals Vital Signs Date Time Temp Pulse Resp B/P Pulse Ox O2 Delivery O2 Flow Rate FiO2 03/02/17 16:49 84 03/02/17 15:32 3.0 03/02/17 15:14 97.9 18 109/79 100 03/02/17 14:20 Nasal Cannula 02/27/17 19:57 21 Intake and Output 03/01/17 03/01/17 03/02/17 14:59 22:59 06:59 Intake Total 2350 ml 500 ml Output Total 1600 ml 850 ml Balance 750 ml -350 ml Results Result Diagram: 03/02/1715 03/02/1715 Results 24 hrs Laboratory Tests Test 03/02/17 06:15 03/02/17 06:56 White Blood Count 5.9 # Red Blood Count 4.38 L Hemoglobin 11.3 L Hematocrit 37.3 L Mean Corpuscular Volume 85.2 Mean Corpuscular Hemoglobin 25.8 L Mean Corpuscular Hemoglobin Concent 30.3 L Red Cell Distribution Width 16.5 H Platelet Count 205 Mean Platelet Volume 12.1 H Neutrophils % 67.8 Lymphocytes % 21.0 Monocytes % 10.7 Eosinophils % 0.0 Basophils % 0.2 Nucleated Red Blood Cells % 0.0 Neutrophils # (Manual) 4.0 Lymphocytes # 1.2 Monocytes # 0.6 Eosinophils # 0.0 Basophils # 0.0 Nucleated Red Blood Cells # 0.0 Sodium Level 131 L Potassium Level 3.9 Chloride Level 92 L Carbon Dioxide Level 33 H Anion Gap 10 Blood Urea Nitrogen 23 H Creatinine 0.81 Glucose Level 93 Calcium Level 7.9 L Phosphorus Level 3.4 Magnesium Level 1.6 L Lab Scanned Report REFERENCE LAB Medications Medications Current Medications Ondansetron HCl (Zofran Inj) 4 mg Q6H PRN IV NAUSEA AND/OR VOMITING; Start at 10:30 Acetaminophen (Tylenol Tab) 650 mg Q6H PRN PO PAIN LEVEL 1-3 OR FEVER Last administered on 02/24/17 14:00; Admin Dose 650 MG; Start 02/21/17 at 10:30 Acetaminophen (Tylenol Supp) 650 mg Q6H PRN [place] PAIN LEVEL 1-3 OR FEVER; Start 02/21/17 at 10:30 Morphine Sulfate (morphine) 2 mg Q4H PRN IV SEVERE PAIN LEVEL 7-10 Last administered on 03/02/17 15:19; Admin Dose 2 MG; Start 02/21/17 at 10:30 Docusate Sodium (Colace) 100 mg Q12H PRN PO CONSTIPATION; Start 02/21/17 at 10: 30 Magnesium Hydroxide (Milk Of Mag) 30 ml DAILY PRN PO CONSTIPATION; Start at 10:30 Bisacodyl (Dulcolax Supp) 10 mg DAILY PRN [place] CONSTIPATION; Start 02/21/17 at 10 :30 Aspirin (Aspirin) 81 mg DAILY PO Last administered on 03/02/17 08:16; Admin Dose 81 MG; Start 02/23/17 at 09:00 Nitroglycerin 1 tab 1 tab Q5M PRN SL CHEST PAIN Last administered on 02/24/17 14:17; Admin Dose 1 TAB; Start 02/21/17 at 10:30 Ceftriaxone Sodium (Rocephin) 50 ml @ 100 mls/hr Q24H IVPB Last administered on 03/02/17 12:23; Admin Dose 100 MLS/HR; Start 02/21/17 at 12:00 IV Flush (NS 10 ml) 10 ml PRN PRN IV IV PROTOCOL; Start 02/21/17 at 14:00 Enoxaparin Sodium (Lovenox) 75 mg DAILY SC Last administered on 03/02/17 08:20 ; Admin Dose 75 MG; Start 02/23/17 at 09:00 Pantoprazole (Protonix Tab) 40 mg DAILY@06 PO Last administered on 03/02/17 06: 10; Admin Dose 40 MG; Start 02/24/17 at 06:00 Mupirocin (Bactroban) 1 applic BID TOP Last administered on 03/02/17 08:21; Admin Dose 1 APPLIC; Start 02/23/17 at 15:30 Hydralazine HCl 10 mg 10 mg Q8 PO Last administered on 03/02/17 15:08; Admin Dose 10 MG; Start 02/24/17 at 22:00 Doxycycline Hyclate/Sodium Chloride (Vibramycin/NS) 250 ml @ 250 mls/hr Q12 IVPB Last administered on 03/02/17 08:18; Admin Dose 250 MLS/HR; Start 02/25/17 at 21:00 Carvedilol (Coreg) 3.125 mg BID PO Last administered on 03/02/17 08:17; Admin Dose 3.125 MG; Start 03/01/17 at 21:00 Lisinopril (Zestril) 2.5 mg DAILY PO ; Start 03/03/17 at 09:00 Digoxin (Digoxin) 0.125 mg Q2D@13 PO Last administered on 03/02/17 13:11; Admin Dose 0.125 MG; Start 03/02/17 at 13:00 BRETT DEL ANGEL NP Mar 02, 2017 17:05
[2017-03-03] VITALS (11 sets, daily range): BP systolic 115–133; BP diastolic 72–86; PULSE 71–81; RESP 18–19
[2017-03-03] MEDS: IPRATROPIUM (NEB) 0.5 MG/2.5 ML AMP HHN SCH ×4 (02:13→20:00)
[2017-03-03] MEDS: LEVALBUTEROL (NEB) 0.63 MG/3 ML AMP HHN SCH ×4 (02:13→20:00)
[2017-03-03] MEDS: morphine 2 MG INJ IV PRN ×3 (04:44→21:25)
[2017-03-03] MEDS: FUROSEMIDE 20 MG INJ IV SCH (06:29)
[2017-03-03] MEDS: PANTOPRAZOLE (EC) 40 MG TAB PO SCH (06:32)
[2017-03-03 07:14] LABS: BASOPHILS % 0.2 % (0.0-2.0); EOSINOPHILS % 0.2 % (0.0-7.0); HEMATOCRIT 34.9 % (42.0-52.0); HEMOGLOBIN 10.9 g/dl (14.0-18.0); LYMPHOCYTES # 1.2 10^3/ul (0.8-2.9); LYMPHOCYTES % 22.4 % (15.0-51.0); MEAN CORPUSCULAR HEMOGLOBIN 26.7 pg (29.0-33.0); MEAN CORPUSCULAR HGB CONC 31.2 g/dl (32.0-37.0); MEAN CORPUSCULAR VOLUME 85.3 fl (82.0-101.0); MEAN PLATELET VOLUME 12.1 fl (7.4-10.4); MONOCYTE # 0.5 10^3/ul (0.3-0.9); MONOCYTES % 9.5 % (0.0-11.0); NEUTROPHILS % 67.5 % (39.0-77.0); PLATELET COUNT 184 10^3/UL (140-415); RED BLOOD COUNT 4.09 10^6/ul (4.70-6.10); RED CELL DISTRIBUTION WIDTH 16.2 % (11.5-14.5); WHITE BLOOD COUNT 5.2 10^3/ul (4.8-10.8)
[2017-03-03 08:10] LABS: MAGNESIUM 1.8 mg/dl (1.7-2.5); PHOSPHORUS 3.2 mg/dl (2.5-4.9)
[2017-03-03 08:23] LABS: CALCIUM 7.9 mg/dl (8.4-10.2); CREATININE 0.75 mg/dl (0.61-1.24); POTASSIUM 3.6 mmol/L (3.5-5.1)
[2017-03-03] MEDS: LISINOPRIL 5 MG TAB PO SCH (08:41)
[2017-03-03] MEDS: METHADONE 10 MG TAB PO SCH (08:41)
[2017-03-03] MEDS: ASPIRIN 81 MG TAB PO SCH (08:42)
[2017-03-03] MEDS: ENOXAPARIN 80 MG/0.8 ML SYG SC SCH ×2 (08:56→21:32)
[2017-03-03] MEDS: MUPIROCIN 2% 22 GM OINT TOP SCH ×2 (08:57→21:25)
--- NOTE | 2017-03-03 09:51 | PN ---
DATE: 03/03/2017 SUBJECTIVE DATA: The patient is stable. No events overnight. No fevers, chills, nausea, vomiting. OBJECTIVE DATA: VITAL SIGNS: Blood pressure 127/86, temperature 98.6, respirations 18, pulse 81. HEENT: Head is normocephalic. NECK: Supple. HEART: Regular rate. LUNGS: Showed diminished breath sounds at the base. ABDOMEN: Soft, nontender to palpation. No rebound or guarding. EXTREMITIES: Negative for clubbing, cyanosis. No edema. DERMATOLOGIC: Clean. No rashes. MUSCULOSKELETAL: No joint effusion. NEUROLOGIC: Unchanged exam. MEDICATIONS: Reviewed. LABORATORY AND DIAGNOSTIC DATA: Shows sodium 133, BUN 23, creatinine 0.75. White count 5.2, hemoglobin 10.9, crit 34.9, platelet count is 184. ASSESSMENT AND PLAN: 1. Nonoliguric acute kidney injury on top of chronic kidney disease. Etiology secondary to hemodynamics. Renal function has improved. Continue current treatment, supportive care. 2. Anemia. Monitor H and H levels. 3. Mineral bone disorder. Continue to monitor count os levels. 4. Hypomagnesemia, improved. 5. Hyponatremia. Continue to monitor. Limit free water intake. 6. Sepsis. The patient is completing antibiotic course. 7. Congestive heart failure. Continue medical management. 8. Acute respiratory failure, improving. Continue current treatment plan. Dictated By: Frandy Gonzalez DO /[email or web address]/heather /Document#: [id number]
--- NOTE | 2017-03-03 10:39 | PN ---
Date/Time of Note Date/Time of Note DATE: 03/03/17 TIME: 10:36 Assessment/Plan VTE Prophylaxis VTE Prophylaxis Intervention: LMWH Lines/Catheters IV Catheter Type (from Nrs): PICC Line Central line still needed: Yes Urinary Cath still in place: Yes Reason Cath still needed: other (indicate) Assessment/Plan Chief Complaint/Hosp Course 1. Sepsis with underlying pneumonia [aspiration versus community-acquired] and gram-positive bacteremia. No evidence of septic shock. On antimicrobials as per infectious diseases. 2. Acute on chronic congestive heart failure exacerbation. Systolic and diastolic dysfunction. Continue diuresis. 3. Severe cardiomyopathy. Ejection fraction 15%. On ACEI and BB. Management as per cardiology. 4. Non-ST elevation myocardial infarction. Remains on therapeutic anticoagulation. Followed by cardiology. On Aspirin. 5. Acute nonoliguric kidney injury. Being followed by nephrology. Improving BUN and creatinine. Renal dose medications. 6. Heroin abuse. Being followed by pain management team. On methadone. 7. Homeless status. 8. Debility. Continue PT. 9. Fluids, electrolytes, and nutrition. Low cholesterol diet. 10. Prophylaxis. On therapeutic anticoagulation. 11. GI prophylaxis. Proton pump inhibitors. 12. Plan. Continue current management. Continue PT. Await further recommendations from consultants. May need placement. Case discussed with Dr. Mcgrath. Problems: Subjective 24 Hr Interval Summary Free Text/Dictation Vital signs stable. Exam/Review of Systems Vital Signs Vitals Vital Signs Date Time Temp Pulse Resp B/P Pulse Ox O2 Delivery O2 Flow Rate FiO2 03/03/17 08:59 81 03/03/17 07:36 98.6 18 127/86 99 03/03/17 02:14 3.0 03/03/17 02:14 Nasal Cannula 30 Intake and Output 03/02/17 03/02/17 03/03/17 15:00 23:00 07:00 Intake Total 400 ml 960 ml 350 ml Output Total 800 ml 800 ml Balance 400 ml 160 ml -450 ml Exam General: Adequately build 56 year-old male lying in bed in no apparent distress. HEENT: Normocephalic, atraumatic. Eyes: Anicteric sclerae, conjunctivae clear. ENT: Nasal septum midline, oral mucosa moist. Neck supple, no JVD noticed. Respiratory: Bilaterally diminished breath sounds. No use of accessory muscles of respiration. No adventitious breath sounds. Cardiovascular: S1, S2 heard. Lower rate and rhythm. Abdomen: Soft, nontender, and nondistended. Bowel sounds positive in all 4 quadrants. Genitourinary: Penoscrotal edema. Gupta catheter in place Extremities: No cyanosis, no clubbing. Peripheral pulses palpable. LUE bruising and edema. B/L LE 2+ edema. Neurologic: Cranial nerves II through XII grossly intact. The patient is awake, alert, and oriented. Results Result Diagram: 03/03/17 0633 03/03/17 0633 Results 24 hrs Laboratory Tests Test 03/03/17 06:33 White Blood Count 5.2 Red Blood Count 4.09 L Hemoglobin 10.9 L Hematocrit 34.9 L Mean Corpuscular Volume 85.3 Mean Corpuscular Hemoglobin 26.7 L Mean Corpuscular Hemoglobin Concent 31.2 L Red Cell Distribution Width 16.2 H Platelet Count 184 Mean Platelet Volume 12.1 H Neutrophils % 67.5 Lymphocytes % 22.4 Monocytes % 9.5 Eosinophils % 0.2 Basophils % 0.2 Nucleated Red Blood Cells % 0.0 Neutrophils # (Manual) 3.5 Lymphocytes # 1.2 Monocytes # 0.5 Eosinophils # 0.0 Basophils # 0.0 Nucleated Red Blood Cells # 0.0 Sodium Level 133 L Potassium Level 3.6 Chloride Level 93 L Carbon Dioxide Level 35 H Anion Gap 9 Blood Urea Nitrogen 23 H Creatinine 0.75 Glucose Level 80 Calcium Level 7.9 L Phosphorus Level 3.2 Magnesium Level 1.8 Thyroid Stimulating Hormone (TSH) 6.610 H Medications Medications Current Medications Ondansetron HCl (Zofran Inj) 4 mg Q6H PRN IV NAUSEA AND/OR VOMITING; Start at 10:30 Acetaminophen (Tylenol Tab) 650 mg Q6H PRN PO PAIN LEVEL 1-3 OR FEVER Last administered on 02/24/17 14:00; Admin Dose 650 MG; Start 02/21/17 at 10:30 Acetaminophen (Tylenol Supp) 650 mg Q6H PRN [place] PAIN LEVEL 1-3 OR FEVER; Start 02/21/17 at 10:30 Morphine Sulfate (morphine) 2 mg Q4H PRN IV SEVERE PAIN LEVEL 7-10 Last administered on 03/03/17 09:39; Admin Dose 2 MG; Start 02/21/17 at 10:30 Docusate Sodium (Colace) 100 mg Q12H PRN PO CONSTIPATION; Start 02/21/17 at 10: 30 Magnesium Hydroxide (Milk Of Mag) 30 ml DAILY PRN PO CONSTIPATION; Start at 10:30 Bisacodyl (Dulcolax Supp) 10 mg DAILY PRN [place] CONSTIPATION; Start 02/21/17 at 10 :30 Aspirin (Aspirin) 81 mg DAILY PO Last administered on 03/03/17 08:42; Admin Dose 81 MG; Start 02/23/17 at 09:00 Nitroglycerin (Nitroglycerin (Sl Tab) 0.4 Mg) 1 tab Q5M PRN SL CHEST PAIN Last administered on 02/24/17 14:17; Admin Dose 1 TAB; Start 02/21/17 at 10:30 IV Flush (NS 10 ml) 10 ml PRN PRN IV IV PROTOCOL; Start 02/21/17 at 14:00 Enoxaparin Sodium (Lovenox) 75 mg DAILY SC Last administered on 03/03/17 08:56 ; Admin Dose 75 MG; Start 02/23/17 at 09:00 Pantoprazole (Protonix Tab) 40 mg DAILY@06 PO Last administered on 03/03/17 06: 32; Admin Dose 40 MG; Start 02/24/17 at 06:00 Mupirocin (Bactroban) 1 applic BID TOP Last administered on 03/03/17 08:57; Admin Dose 1 APPLIC; Start 02/23/17 at 15:30 Hydralazine HCl (Apresoline) 10 mg Q8 PO Last administered on 03/03/17 06:32; Admin Dose 10 MG; Start 02/24/17 at 22:00 Carvedilol (Coreg) 3.125 mg BID PO Last administered on 03/03/17 08:42; Admin Dose 3.125 MG; Start 03/01/17 at 21:00 Lisinopril (Zestril) 2.5 mg DAILY PO Last administered on 03/03/17 08:41; Admin Dose 2.5 MG; Start 03/03/17 at 09:00 Digoxin (Digoxin) 0.125 mg Q2D@13 PO Last administered on 03/02/17 13:11; Admin Dose 0.125 MG; Start 03/02/17 at 13:00 LORRIE STERLING NP Mar 03, 2017 10:39
--- NOTE | 2017-03-03 13:11 | CONS ---
Date/Time of Note Date/Time of Note DATE: 03/03/17 TIME: 13:08 Assessment/Plan Assessment/Plan Additional Assessment/Plan Assessment and recommendations; 1. Patient admitted with multidrug overdose as well as CHF exacerbation with marked overall clinical improvement. 2. Possibly right lower lobe pneumonia with radiological improvement. 3. Underlying cardiomyopathy. 4. Persistent thigh and scrotal edema. 5. Coagulate negative bacteremia. Likely skin contaminant. Discontinue 20 mg IV twice daily dosing of Lasix, and start the patient on 40 mg IV daily in conjunction with Aldactone 25 mg orally daily. Continue other supportive measures. Consultation Date/Type/Reason Admit Date/Time Feb 21, 2017 at 09:56 Initial Consult Date 02/21/17 Type of Consultation: Pulmonary Referring Provider: NOLBERTO MEDINA MD 24 HR Interval Summary Free Text/Dictation Patient condition stable. Remains awake alert. Still complains of scrotal and thigh edema. Complains of difficulty walking due to edema. Denies any shortness of breath, chest pain, coughing, wheezing. Any fever or chills. General exam; middle-aged male, awake alert currently in no distress. Eating lunch on bed. Exam/Review of Systems Vital Signs Vitals Vital Signs Date Time Temp Pulse Resp B/P Pulse Ox O2 Delivery O2 Flow Rate FiO2 03/03/17 12:26 74 03/03/17 11:18 98.0 18 115/74 96 03/03/17 02:14 3.0 03/03/17 02:14 Nasal Cannula 30 Intake and Output 03/02/17 03/02/17 03/03/17 15:00 23:00 07:00 Intake Total 400 ml 960 ml 350 ml Output Total 800 ml 800 ml Balance 400 ml 160 ml -450 ml Exam HEENT exam; supple neck, positive JVD. No lymphadenopathy. Midline trachea. No thyromegaly. Patient has fair dentition. Pupils are midsize and reactive to light. Chest exam; clear to auscultation. S1-S2 audible, no murmurs. Regular rhythm. Abdomen exam; soft, nontender. Nondistended. No organomegaly. Bowel sounds audible. There is decrease in scrotal edema. Extremities; 1+ lower extremity edema. With bilateral thigh edema as well. CINDER BLOCK [place]ON exam; no focal deficit. Results Result Diagram: 03/03/1733 9/8/17 0633 Results 24 hrs Laboratory Tests Test 03/03/17 06:33 White Blood Count 5.2 Red Blood Count 4.09 L Hemoglobin 10.9 L Hematocrit 34.9 L Mean Corpuscular Volume 85.3 Mean Corpuscular Hemoglobin 26.7 L Mean Corpuscular Hemoglobin Concent 31.2 L Red Cell Distribution Width 16.2 H Platelet Count 184 Mean Platelet Volume 12.1 H Neutrophils % 67.5 Lymphocytes % 22.4 Monocytes % 9.5 Eosinophils % 0.2 Basophils % 0.2 Nucleated Red Blood Cells % 0.0 Neutrophils # (Manual) 3.5 Lymphocytes # 1.2 Monocytes # 0.5 Eosinophils # 0.0 Basophils # 0.0 Nucleated Red Blood Cells # 0.0 Sodium Level 133 L Potassium Level 3.6 Chloride Level 93 L Carbon Dioxide Level 35 H Anion Gap 9 Blood Urea Nitrogen 23 H Creatinine 0.75 Glucose Level 80 Calcium Level 7.9 L Phosphorus Level 3.2 Magnesium Level 1.8 Thyroid Stimulating Hormone (TSH) 6.610 H Medications Medications Current Medications Ondansetron HCl (Zofran Inj) 4 mg Q6H PRN IV NAUSEA AND/OR VOMITING; Start at 10:30 Acetaminophen (Tylenol Tab) 650 mg Q6H PRN PO PAIN LEVEL 1-3 OR FEVER Last administered on 02/24/17 14:00; Admin Dose 650 MG; Start 02/21/17 at 10:30 Acetaminophen (Tylenol Supp) 650 mg Q6H PRN [place] PAIN LEVEL 1-3 OR FEVER; Start 02/21/17 at 10:30 Morphine Sulfate (morphine) 2 mg Q4H PRN IV SEVERE PAIN LEVEL 7-10 Last administered on 03/03/17 09:39; Admin Dose 2 MG; Start 02/21/17 at 10:30 Docusate Sodium (Colace) 100 mg Q12H PRN PO CONSTIPATION; Start 02/21/17 at 10: 30 Magnesium Hydroxide (Milk Of Mag) 30 ml DAILY PRN PO CONSTIPATION; Start at 10:30 Bisacodyl (Dulcolax Supp) 10 mg DAILY PRN [place] CONSTIPATION; Start 02/21/17 at 10 :30 Aspirin (Aspirin) 81 mg DAILY PO Last administered on 03/03/17 08:42; Admin Dose 81 MG; Start 02/23/17 at 09:00 Nitroglycerin (Nitroglycerin (Sl Tab) 0.4 Mg) 1 tab Q5M PRN SL CHEST PAIN Last administered on 02/24/17 14:17; Admin Dose 1 TAB; Start 02/21/17 at 10:30 IV Flush (NS 10 ml) 10 ml PRN PRN IV IV PROTOCOL; Start 02/21/17 at 14:00 Enoxaparin Sodium (Lovenox) 75 mg DAILY SC Last administered on 03/03/17 08:56 ; Admin Dose 75 MG; Start 02/23/17 at 09:00 Pantoprazole (Protonix Tab) 40 mg DAILY@06 PO Last administered on 03/03/17 06: 32; Admin Dose 40 MG; Start 02/24/17 at 06:00 Mupirocin (Bactroban) 1 applic BID TOP Last administered on 03/03/17 08:57; Admin Dose 1 APPLIC; Start 02/23/17 at 15:30 Hydralazine HCl (Apresoline) 10 mg Q8 PO Last administered on 03/03/17 06:32; Admin Dose 10 MG; Start 02/24/17 at 22:00 Carvedilol (Coreg) 3.125 mg BID PO Last administered on 03/03/17 08:42; Admin Dose 3.125 MG; Start 03/01/17 at 21:00 Lisinopril (Zestril) 2.5 mg DAILY PO Last administered on 03/03/17 08:41; Admin Dose 2.5 MG; Start 03/03/17 at 09:00 Digoxin (Digoxin) 0.125 mg Q2D@13 PO Last administered on 03/02/17 13:11; Admin Dose 0.125 MG; Start 03/02/17 at 13:00 SUSHIL MORENO Mar 03, 2017 13:11
[2017-03-03] MEDS: SPIRONOLACTONE 25 MG TAB PO SCH (13:44)
--- NOTE | 2017-03-03 14:40 | CONS ---
Date/Time of Note Date/Time of Note DATE: 03/03/17 TIME: 14:37 Assessment/Plan Assessment/Plan Chief Complaint/Hosp Course IMP: 1.CHF-systolic acute on chronic with ongoing volume overload 2.Hypotension 3.Renal failure 4.Nstemi-trended negative 5. Acidosis 6. Bacteremia 7. Cardiomyopathy-low EF 15-20% by echo this admit Recc: -Tele -serial ecg's -Continue asa -Increase lasix diuresis -Continue low dose BB/ACEI as tolerated for treatment of cardiomyopathy -PO digoxin/aldactone Problems: Consultation Date/Type/Reason Admit Date/Time Feb 21, 2017 at 09:56 Initial Consult Date 02/21/17 Type of Consultation: cardiology Reason for Consultation cardiomyopathy Referring Provider: NOLBERTO MEDINA MD Exam/Review of Systems Vital Signs Vitals Vital Signs Date Time Temp Pulse Resp B/P Pulse Ox O2 Delivery O2 Flow Rate FiO2 03/03/17 13:11 81 22 99 Nasal Cannula 2.0 03/03/17 11:18 98.0 115/74 03/03/17 02:14 30 Intake and Output 03/02/17 03/02/17 03/03/17 15:00 23:00 07:00 Intake Total 400 ml 960 ml 350 ml Output Total 800 ml 800 ml Balance 400 ml 160 ml -450 ml Exam Review of Systems: CONSTITUTIONAL: No fevers, chills. PULMONARY: ongoing sob CARDIOVASCULAR: orthopnea GASTROINTESTINAL: No nausea/vomiting. GENITOURINARY: No hematuria/dysuria. MUSCULOSKELETAL: No myagias/arthalgias. PSYCHIATRIC: The patient denies depression. NEUROLOGIC: lethargic Constitutional: alert Psych: no complaints Head: normocephalic ENMT: mucosa pink and moist Neck: jvd, supple Respiratory: diminished breath sounds (at bases/B) Cardiovascular: regular rate and rhythm Gastrointestinal: non-tender, soft Musculoskeletal: muscle weakness (generalized) Extremities: pitting pedal edema (bilateral) Neurological: lethargic Results Result Diagram: 03/03/17 0633 03/03/17 0633 Results 24 hrs Laboratory Tests Test 03/03/17 06:33 White Blood Count 5.2 Red Blood Count 4.09 L Hemoglobin 10.9 L Hematocrit 34.9 L Mean Corpuscular Volume 85.3 Mean Corpuscular Hemoglobin 26.7 L Mean Corpuscular Hemoglobin Concent 31.2 L Red Cell Distribution Width 16.2 H Platelet Count 184 Mean Platelet Volume 12.1 H Neutrophils % 67.5 Lymphocytes % 22.4 Monocytes % 9.5 Eosinophils % 0.2 Basophils % 0.2 Nucleated Red Blood Cells % 0.0 Neutrophils # (Manual) 3.5 Lymphocytes # 1.2 Monocytes # 0.5 Eosinophils # 0.0 Basophils # 0.0 Nucleated Red Blood Cells # 0.0 Sodium Level 133 L Potassium Level 3.6 Chloride Level 93 L Carbon Dioxide Level 35 H Anion Gap 9 Blood Urea Nitrogen 23 H Creatinine 0.75 Glucose Level 80 Calcium Level 7.9 L Phosphorus Level 3.2 Magnesium Level 1.8 Thyroid Stimulating Hormone (TSH) 6.610 H Medications Medications Current Medications Ondansetron HCl (Zofran Inj) 4 mg Q6H PRN IV NAUSEA AND/OR VOMITING; Start at 10:30 Acetaminophen (Tylenol Tab) 650 mg Q6H PRN PO PAIN LEVEL 1-3 OR FEVER Last administered on 02/24/17 14:00; Admin Dose 650 MG; Start 02/21/17 at 10:30 Acetaminophen (Tylenol Supp) 650 mg Q6H PRN IN PAIN LEVEL 1-3 OR FEVER; Start 02/21/17 at 10:30 Morphine Sulfate (morphine) 2 mg Q4H PRN IV SEVERE PAIN LEVEL 7-10 Last administered on 03/03/17 09:39; Admin Dose 2 MG; Start 02/21/17 at 10:30 Docusate Sodium (Colace) 100 mg Q12H PRN PO CONSTIPATION; Start 02/21/17 at 10: 30 Magnesium Hydroxide (Milk Of Mag) 30 ml DAILY PRN PO CONSTIPATION; Start at 10:30 Bisacodyl (Dulcolax Supp) 10 mg DAILY PRN IN CONSTIPATION; Start 02/21/17 at 10 :30 Aspirin (Aspirin) 81 mg DAILY PO Last administered on 03/03/17 08:42; Admin Dose 81 MG; Start 02/23/17 at 09:00 Nitroglycerin (Nitroglycerin (Sl Tab) 0.4 Mg) 1 tab Q5M PRN SL CHEST PAIN Last administered on 02/24/17 14:17; Admin Dose 1 TAB; Start 02/21/17 at 10:30 IV Flush (NS 10 ml) 10 ml PRN PRN IV IV PROTOCOL; Start 02/21/17 at 14:00 Enoxaparin Sodium (Lovenox) 75 mg DAILY SC Last administered on 03/03/17 08:56 ; Admin Dose 75 MG; Start 02/23/17 at 09:00 Pantoprazole (Protonix Tab) 40 mg DAILY@06 PO Last administered on 03/03/17 06: 32; Admin Dose 40 MG; Start 02/24/17 at 06:00 Mupirocin (Bactroban) 1 applic BID TOP Last administered on 03/03/17 08:57; Admin Dose 1 APPLIC; Start 02/23/17 at 15:30 Hydralazine HCl (Apresoline) 10 mg Q8 PO Last administered on 03/03/17 13:44; Admin Dose 10 MG; Start 02/24/17 at 22:00 Carvedilol (Coreg) 3.125 mg BID PO Last administered on 03/03/17 08:42; Admin Dose 3.125 MG; Start 03/01/17 at 21:00 Lisinopril (Zestril) 2.5 mg DAILY PO Last administered on 03/03/17 08:41; Admin Dose 2.5 MG; Start 03/03/17 at 09:00 Digoxin (Digoxin) 0.125 mg Q2D@13 PO Last administered on 03/02/17 13:11; Admin Dose 0.125 MG; Start 03/02/17 at 13:00 Furosemide (Lasix) 40 mg DAILY@06 IV ; Start 03/04/17 at 06:00 Spironolactone (Aldactone) 25 mg DAILY@06 PO Last administered on 03/03/17 13: 44; Admin Dose 25 MG; Start 03/03/17 at 13:30 CELINE LI Mar 03, 2017 14:40
--- NOTE | 2017-03-03 15:45 | CONS ---
Date/Time of Note Date/Time of Note DATE: 03/03/17 TIME: 15:33 Assessment/Plan Assessment/Plan Chief Complaint/Hosp Course SUBJECTIVE DATA: No acute changes. The patient is awake, looks comfortable, afebrile. PHYSICAL EXAMINATION: GENERAL: Well developed, middle-aged, white man, who is alert, in no distress. HEENT: Head atraumatic, normocephalic. Sclerae anicteric. Buccal mucosa pink. NECK: Supple. CHEST: Chest rise symmetrical. Breath sounds diminished at bases. HEART: S1, S2. ABDOMEN: Soft, bowel sounds present. EXTREMITIES: With bilateral trace edema. ASSESSMENT: 1. Resolving sepsis. 2. Community-acquired pneumonia==> treated. 3. Methicillin-resistant Staphylococcus aureus nares colonization. 4. Status post Staph bacteremia with repeat cultures negative. 5. Cardiomyopathy. 6. Non ST-elevation myocardial infarction ([place]). 7. Acute possibly on chronic kidney disease. 8. History of drug abuse. PLAN: The patient remains stable, off abx, will see prn DW pt/staff Problems: Consultation Date/Type/Reason Admit Date/Time Feb 21, 2017 at 09:56 Initial Consult Date 02/21/17 Type of Consultation: ID Referring Provider: NLOBERTO MEDINA MD Exam/Review of Systems Vital Signs Vitals Vital Signs Date Time Temp Pulse Resp B/P Pulse Ox O2 Delivery O2 Flow Rate FiO2 03/03/17 13:11 81 22 99 Nasal Cannula 2.0 03/03/17 11:18 98.0 115/74 03/03/17 02:14 30 Intake and Output 03/02/17 03/02/17 03/03/17 15:00 23:00 07:00 Intake Total 400 ml 960 ml 350 ml Output Total 800 ml 800 ml Balance 400 ml 160 ml -450 ml Results Result Diagram: 03/03/17 0633 03/03/17 0633 Results 24 hrs Laboratory Tests Test 03/03/17 06:33 White Blood Count 5.2 Red Blood Count 4.09 L Hemoglobin 10.9 L Hematocrit 34.9 L Mean Corpuscular Volume 85.3 Mean Corpuscular Hemoglobin 26.7 L Mean Corpuscular Hemoglobin Concent 31.2 L Red Cell Distribution Width 16.2 H Platelet Count 184 Mean Platelet Volume 12.1 H Neutrophils % 67.5 Lymphocytes % 22.4 Monocytes % 9.5 Eosinophils % 0.2 Basophils % 0.2 Nucleated Red Blood Cells % 0.0 Neutrophils # (Manual) 3.5 Lymphocytes # 1.2 Monocytes # 0.5 Eosinophils # 0.0 Basophils # 0.0 Nucleated Red Blood Cells # 0.0 Sodium Level 133 L Potassium Level 3.6 Chloride Level 93 L Carbon Dioxide Level 35 H Anion Gap 9 Blood Urea Nitrogen 23 H Creatinine 0.75 Glucose Level 80 Calcium Level 7.9 L Phosphorus Level 3.2 Magnesium Level 1.8 Thyroid Stimulating Hormone (TSH) 6.610 H Medications Medications Current Medications Ondansetron HCl (Zofran Inj) 4 mg Q6H PRN IV NAUSEA AND/OR VOMITING; Start at 10:30 Acetaminophen (Tylenol Tab) 650 mg Q6H PRN PO PAIN LEVEL 1-3 OR FEVER Last administered on 02/24/17 14:00; Admin Dose 650 MG; Start 02/21/17 at 10:30 Acetaminophen (Tylenol Supp) 650 mg Q6H PRN [place] PAIN LEVEL 1-3 OR FEVER; Start 02/21/17 at 10:30 Morphine Sulfate (morphine) 2 mg Q4H PRN IV SEVERE PAIN LEVEL 7-10 Last administered on 03/03/17 09:39; Admin Dose 2 MG; Start 02/21/17 at 10:30 Docusate Sodium (Colace) 100 mg Q12H PRN PO CONSTIPATION; Start 02/21/17 at 10: 30 Magnesium Hydroxide (Milk Of Mag) 30 ml DAILY PRN PO CONSTIPATION; Start at 10:30 Bisacodyl (Dulcolax Supp) 10 mg DAILY PRN [place] CONSTIPATION; Start 02/21/17 at 10 :30 Aspirin (Aspirin) 81 mg DAILY PO Last administered on 03/03/17 08:42; Admin Dose 81 MG; Start 02/23/17 at 09:00 Nitroglycerin (Nitroglycerin (Sl Tab) 0.4 Mg) 1 tab Q5M PRN SL CHEST PAIN Last administered on 02/24/17 14:17; Admin Dose 1 TAB; Start 02/21/17 at 10:30 IV Flush (NS 10 ml) 10 ml PRN PRN IV IV PROTOCOL; Start 02/21/17 at 14:00 Pantoprazole (Protonix Tab) 40 mg DAILY@06 PO Last administered on 03/03/17 06: 32; Admin Dose 40 MG; Start 02/24/17 at 06:00 Mupirocin (Bactroban) 1 applic BID TOP Last administered on 03/03/17 08:57; Admin Dose 1 APPLIC; Start 02/23/17 at 15:30 Hydralazine HCl (Apresoline) 10 mg Q8 PO Last administered on 03/03/17 13:44; Admin Dose 10 MG; Start 02/24/17 at 22:00 Carvedilol (Coreg) 3.125 mg BID PO Last administered on 03/03/17 08:42; Admin Dose 3.125 MG; Start 03/01/17 at 21:00 Lisinopril (Zestril) 2.5 mg DAILY PO Last administered on 03/03/17 08:41; Admin Dose 2.5 MG; Start 03/03/17 at 09:00 Digoxin (Digoxin) 0.125 mg Q2D@13 PO Last administered on 03/02/17 13:11; Admin Dose 0.125 MG; Start 03/02/17 at 13:00 Spironolactone (Aldactone) 25 mg DAILY@06 PO Last administered on 03/03/17 13: 44; Admin Dose 25 MG; Start 03/03/17 at 13:30 Enoxaparin Sodium (Lovenox) 75 mg BID SC ; Start 03/03/17 at 21:00 BRETT DEL ANGEL NP Mar 03, 2017 15:45
[2017-03-03] MEDS: FUROSEMIDE 40 MG INJ IV SCH (17:42)
[2017-03-04] VITALS (13 sets, daily range): BP systolic 118–131; BP diastolic 72–83; PULSE 63–72; RESP 19–20
[2017-03-04] MEDS: LEVALBUTEROL (NEB) 0.63 MG/3 ML AMP HHN SCH ×4 (02:00→19:32)
[2017-03-04] MEDS: IPRATROPIUM (NEB) 0.5 MG/2.5 ML AMP HHN SCH ×4 (02:00→19:31)
[2017-03-04] MEDS ORDERED: FUROSEMIDE 40 MG INJ IV SCH (06:00)
[2017-03-04] MEDS: FUROSEMIDE 40 MG INJ IV SCH ×2 (06:24→18:12)
[2017-03-04] MEDS: PANTOPRAZOLE (EC) 40 MG TAB PO SCH (06:24)
[2017-03-04] MEDS: SPIRONOLACTONE 25 MG TAB PO SCH (06:24)
[2017-03-04] MEDS: METHADONE 10 MG TAB PO SCH (06:26)
[2017-03-04 07:11] LABS: BASOPHILS % 0.2 % (0.0-2.0); EOSINOPHILS % 0.5 % (0.0-7.0); HEMATOCRIT 35.4 % (42.0-52.0); HEMOGLOBIN 10.9 g/dl (14.0-18.0); LYMPHOCYTES # 1.2 10^3/ul (0.8-2.9); LYMPHOCYTES % 27.3 % (15.0-51.0); MEAN CORPUSCULAR HEMOGLOBIN 26.7 pg (29.0-33.0); MEAN CORPUSCULAR HGB CONC 30.8 g/dl (32.0-37.0); MEAN CORPUSCULAR VOLUME 86.6 fl (82.0-101.0); MONOCYTE # 0.3 10^3/ul (0.3-0.9); MONOCYTES % 7.5 % (0.0-11.0); PLATELET COUNT 206 10^3/UL (140-415); RED BLOOD COUNT 4.09 10^6/ul (4.70-6.10); WHITE BLOOD COUNT 4.3 10^3/ul (4.8-10.8)
[2017-03-04 07:33] LABS: ALBUMIN 2.7 g/dl (3.3-4.9); ALBUMIN/GLOBULIN RATIO 0.79; CALCIUM 8.1 mg/dl (8.4-10.2); CREATININE 0.73 mg/dl (0.61-1.24); POTASSIUM 3.4 mmol/L (3.5-5.1); TOTAL PROTEIN 6.1 g/dl (6.1-8.1)
[2017-03-04 08:06] LABS: MAGNESIUM 1.6 mg/dl (1.7-2.5); PHOSPHORUS 3.5 mg/dl (2.5-4.9)
[2017-03-04] MEDS ORDERED: POTASSIUM CHLORIDE (SR) 20 MEQ TAB PO STA (08:39)
[2017-03-04] MEDS ORDERED: MAGNESIUM SULFATE 2 GM/50 ML 50 ML IVPB ONE (09:00)
[2017-03-04] MEDS: morphine 2 MG INJ IV PRN ×2 (09:41→18:13)
[2017-03-04] MEDS: ASPIRIN 81 MG TAB PO SCH (09:42)
[2017-03-04] MEDS: LISINOPRIL 5 MG TAB PO SCH (09:44)
[2017-03-04] MEDS: ENOXAPARIN 80 MG/0.8 ML SYG SC SCH ×2 (10:03→21:04)
[2017-03-04] MEDS: MUPIROCIN 2% 22 GM OINT TOP SCH ×2 (10:05→20:59)
--- NOTE | 2017-03-04 10:07 | PN ---
Date/Time of Note Date/Time of Note DATE: 03/04/17 TIME: 10:05 Assessment/Plan VTE Prophylaxis VTE Prophylaxis Intervention: LMWH Lines/Catheters IV C[facility] Type ([facility] PICC Line Central line still needed: Yes Urinary Cath still in place: Yes Reason Cath still needed: other (indicate) Assessment/Plan Chief Complaint/Hosp Course 1. Sepsis with underlying pneumonia [aspiration versus community-acquired] and gram-positive bacteremia. No evidence of septic shock. On antimicrobials as per infectious diseases. 2. Acute on chronic congestive heart failure exacerbation. Systolic and diastolic dysfunction. Continue diuresis. 3. Severe cardiomyopathy. Ejection fraction 15%. On ACEI, BB, and aldosterone antagonists. Management as per cardiology. 4. Non-ST elevation myocardial infarction. Remains on therapeutic anticoagulation. Followed by cardiology. On Aspirin. 5. Acute nonoliguric kidney injury. Being followed by nephrology. Improving BUN and creatinine. Renal dose medications. 6. Heroin abuse. Being followed by pain management team. On methadone. 7. Homeless status. 8. Debility. Continue PT. 9. Fluids, electrolytes, and nutrition. Low cholesterol diet. 10. Prophylaxis. On therapeutic anticoagulation. 11. GI prophylaxis. Proton pump inhibitors. 12. Plan. Replete potassium and magnesium. Continue current management. Continue PT. Await further recommendations from consultants. May need placement. Case discussed with Dr. Mcgrath. Problems: Subjective 24 Hr Interval Summary Free Text/Dictation Patient remains afebrile. LUE swelling improving. Exam/Review of Systems Vital Signs Vitals Vital Signs Date Time Temp Pulse Resp B/P Pulse Ox O2 Delivery O2 Flow Rate FiO2 03/04/17 08:03 100 2.0 03/04/17 08:01 71 20 Nasal Cannula 03/04/17 07:32 97.9 118/81 03/03/17 02:14 30 Intake and Output 03/03/17 03/03/17 03/04/17 14:59 22:59 06:59 Intake Total 1200 ml 400 ml Output Total 950 ml 900 ml Balance 250 ml -500 ml Exam General: Adequately build 56 year-old male lying in bed in no apparent distress. HEENT: Normocephalic, atraumatic. Eyes: Anicteric sclerae, conjunctivae clear. ENT: Nasal septum midline, oral mucosa moist. Neck supple, no JVD noticed. Respiratory: Bilaterally diminished breath sounds. No use of accessory muscles of respiration. No adventitious breath sounds. Cardiovascular: S1, S2 heard. Regular rate and rhythm. Abdomen: Soft, nontender, and nondistended. Bowel sounds positive in all 4 quadrants. Genitourinary: Penoscrotal edema. Gupta catheter in place Extremities: No cyanosis, no clubbing. Peripheral pulses palpable. LUE bruising and edema. B/L LE 2+ edema. Neurologic: Cranial nerves II through XII grossly intact. The patient is awake, alert, and oriented. Results Result Diagram: 03/04/17 0620 03/04/17 0620 Results 24 hrs Laboratory Tests Test 03/04/17 06:20 White Blood Count 4.3 L Red Blood Count 4.09 L Hemoglobin 10.9 L Hematocrit 35.4 L Mean Corpuscular Volume 86.6 Mean Corpuscular Hemoglobin 26.7 L Mean Corpuscular Hemoglobin Concent 30.8 L Red Cell Distribution Width 16.0 H Platelet Count 206 Mean Platelet Volume 12.0 H Neutrophils % 64.0 Lymphocytes % 27.3 Monocytes % 7.5 Eosinophils % 0.5 Basophils % 0.2 Nucleated Red Blood Cells % 0.0 Neutrophils # (Manual) 2.7 Lymphocytes # 1.2 Monocytes # 0.3 Eosinophils # 0.0 Basophils # 0.0 Nucleated Red Blood Cells # 0.0 Sodium Level 134 L Potassium Level 3.4 L Chloride Level 95 L Carbon Dioxide Level 36 H Anion Gap 6 L Blood Urea Nitrogen 21 H Creatinine 0.73 Glucose Level 76 Calcium Level 8.1 L Phosphorus Level 3.5 Magnesium Level 1.6 L Total Bilirubin 0.0 L Direct Bilirubin 0.00 Indirect Bilirubin 0.0 Aspartate Amino Transf (AST/SGOT) 58 H Alanine Aminotransferase (ALT/SGPT) 53 Alkaline Phosphatase 65 Total Protein 6.1 Albumin 2.7 L Globulin 3.40 H Albumin/Globulin Ratio 0.79 Medications Medications Current Medications Ondansetron HCl (Zofran Inj) 4 mg Q6H PRN IV NAUSEA AND/OR VOMITING; Start at 10:30 Acetaminophen (Tylenol Tab) 650 mg Q6H PRN PO PAIN LEVEL 1-3 OR FEVER Last administered on 02/24/17 14:00; Admin Dose 650 MG; Start 02/21/17 at 10:30 Acetaminophen (Tylenol Supp) 650 mg Q6H PRN [place] PAIN LEVEL 1-3 OR FEVER; Start 02/21/17 at 10:30 Morphine Sulfate (morphine) 2 mg Q4H PRN IV SEVERE PAIN LEVEL 7-10 Last administered on 03/03/17 21:25; Admin Dose 2 MG; Start 02/21/17 at 10:30 Docusate Sodium (Colace) 100 mg Q12H PRN PO CONSTIPATION; Start 02/21/17 at 10: 30 Magnesium Hydroxide (Milk Of Mag) 30 ml DAILY PRN PO CONSTIPATION; Start at 10:30 Bisacodyl (Dulcolax Supp) 10 mg DAILY PRN [place] CONSTIPATION; Start 02/21/17 at 10 :30 Aspirin (Aspirin) 81 mg DAILY PO Last administered on 03/03/17 08:42; Admin Dose 81 MG; Start 02/23/17 at 09:00 Nitroglycerin (Nitroglycerin (Sl Tab) 0.4 Mg) 1 tab Q5M PRN SL CHEST PAIN Last administered on 02/24/17 14:17; Admin Dose 1 TAB; Start 02/21/17 at 10:30 IV Flush (NS 10 ml) 10 ml PRN PRN IV IV PROTOCOL; Start 02/21/17 at 14:00 Pantoprazole (Protonix Tab) 40 mg DAILY@06 PO Last administered on 03/04/17 06: 24; Admin Dose 40 MG; Start 02/24/17 at 06:00 Mupirocin (Bactroban) 1 applic BID TOP Last administered on 03/03/17 21:25; Admin Dose 1 APPLIC; Start 02/23/17 at 15:30 Hydralazine HCl (Apresoline) 10 mg Q8 PO Last administered on 03/04/17 06:24; Admin Dose 10 MG; Start 02/24/17 at 22:00 Carvedilol (Coreg) 3.125 mg BID PO Last administered on 03/03/17 21:24; Admin Dose 3.125 MG; Start 03/01/17 at 21:00 Lisinopril (Zestril) 2.5 mg DAILY PO Last administered on 03/03/17 08:41; Admin Dose 2.5 MG; Start 03/03/17 at 09:00 Digoxin (Digoxin) 0.125 mg Q2D@13 PO Last administered on 03/02/17 13:11; Admin Dose 0.125 MG; Start 03/02/17 at 13:00 Spironolactone (Aldactone) 25 mg DAILY@06 PO Last administered on 03/04/17 06: 24; Admin Dose 25 MG; Start 03/03/17 at 13:30 Enoxaparin Sodium 75 mg 75 mg BID SC Last administered on 03/03/17 21:32; Admin Dose 75 MG; Start 03/03/17 at 21:00 Magnesium Sulfate (Magnesium Sulfate 2 Gm/50 ml) 50 ml @ 25 mls/hr ONCE ONCE IVPB ; Start 03/04/17 at 09:00; Stop 03/04/17 at 10:59 LORRIE STERLING NP Mar 04, 2017 10:07
--- NOTE | 2017-03-04 12:11 | PN ---
DATE: 03/04/2017 SUBJECTIVE DATA: The patient is stable. No events overnight. No fevers, chills, nausea, or vomiting. OBJECTIVE DATA: VITAL SIGNS: Blood pressure is 118/71, temperature 97.9, respirations 20, and pulse 71. HEENT: Head is normocephalic. NECK: Supple. HEART: Regular rate. LUNGS: Diminished breath sounds at the base. ABDOMEN: Soft, nontender to palpation. No rebound or guarding. EXTREMITIES: Negative for clubbing, cyanosis. Trace positive edema. DERMATOLOGIC: No rashes. MUSCULOSKELETAL: No joint effusion. NEUROLOGIC: No change in exam. MEDICATIONS: Reviewed. LABORATORY AND DIAGNOSTIC DATA: Sodium 134, potassium 3.4, BUN is 21, creatinine 0.73. White count 4.3, hemoglobin 10.9, and platelet count is 206,000. ASSESSMENT AND PLAN: 1. Nonoliguric acute kidney injury on top of chronic kidney disease, etiology secondary to hemodynamics. Renal function has improved. Continue current treatment plan. Continue supportive care. 2. Anemia. Monitor hemoglobin and hematocrit levels. 3. Mineral bone disorder. Monitor calcium and phosphorus levels. 4. Hypomagnesemia, improved. 5. Hypokalemia. Replete potassium chloride. 6. Alkalosis. Possibly due to diuretic therapy. Continue to monitor. Consider Diamox. 7. Sepsis. The patient is completing antibiotic course. 8. Congestive heart failure. Continue medical management. 9. Acute respiratory failure. Clinically improving. Dictated By: Frandy Gonzalez DO /[email or web address]/[email or web address] /Document#: [id number]
[2017-03-04] MEDS: DIGOXIN 0.125 MG TAB PO SCH (15:01)
--- NOTE | 2017-03-04 16:56 | CONS ---
Date/Time of Note Date/Time of Note DATE: 03/04/17 TIME: 16:52 Assessment/Plan Assessment/Plan Additional Assessment/Plan Acute on chronic systolic heart failure Renal failure Bacteremia Anemia hemodynamically stable continue diuresis with Lasix Continue Coreg Continue lisinopril Continue Aldactone Continue digoxin Continue Hydralazine Continue Nebs as scheduled Consultation Date/Type/Reason Admit Date/Time Feb 21, 2017 at 09:56 Constitutional: improved, no complaints Respiratory: cough, shortness of breath Cardiovascular: edema (bilateral lower extremities edema and severe scrotal edema) Psychological: no complaints Social History Smoking Status: Current every day smoker Drug Use: heroin Exam/Review of Systems Vital Signs Vitals Vital Signs Date Time Temp Pulse Resp B/P Pulse Ox O2 Delivery O2 Flow Rate FiO2 03/04/17 16:00 65 03/04/17 15:50 98.0 19 119/77 98 03/04/17 14:00 Nasal Cannula 2.0 03/04/17 14:00 28 Intake and Output 03/03/17 03/03/17 03/04/17 14:59 22:59 06:59 Intake Total 1200 ml 400 ml Output Total 950 ml 900 ml Balance 250 ml -500 ml Exam Constitutional: alert Head: atraumatic, normocephalic Neck: non-tender, supple Respiratory: diminished breath sounds Cardiovascular: regular rate and rhythm Gastrointestinal: nl liver, spleen, non-tender, soft Extremities: normal pulses Results Result Diagram: 03/04/17 0620 03/04/17 0620 Results 24 hrs Laboratory Tests Test 03/04/17 06:20 White Blood Count 4.3 L Red Blood Count 4.09 L Hemoglobin 10.9 L Hematocrit 35.4 L Mean Corpuscular Volume 86.6 Mean Corpuscular Hemoglobin 26.7 L Mean Corpuscular Hemoglobin Concent 30.8 L Red Cell Distribution Width 16.0 H Platelet Count 206 Mean Platelet Volume 12.0 H Neutrophils % 64.0 Lymphocytes % 27.3 Monocytes % 7.5 Eosinophils % 0.5 Basophils % 0.2 Nucleated Red Blood Cells % 0.0 Neutrophils # (Manual) 2.7 Lymphocytes # 1.2 Monocytes # 0.3 Eosinophils # 0.0 Basophils # 0.0 Nucleated Red Blood Cells # 0.0 Sodium Level 134 L Potassium Level 3.4 L Chloride Level 95 L Carbon Dioxide Level 36 H Anion Gap 6 L Blood Urea Nitrogen 21 H Creatinine 0.73 Glucose Level 76 Calcium Level 8.1 L Phosphorus Level 3.5 Magnesium Level 1.6 L Total Bilirubin 0.0 L Direct Bilirubin 0.00 Indirect Bilirubin 0.0 Aspartate Amino Transf (AST/SGOT) 58 H Alanine Aminotransferase (ALT/SGPT) 53 Alkaline Phosphatase 65 Total Protein 6.1 Albumin 2.7 L Globulin 3.40 H Albumin/Globulin Ratio 0.79 Medications Medications Current Medications Ondansetron HCl (Zofran Inj) 4 mg Q6H PRN IV NAUSEA AND/OR VOMITING; Start at 10:30 Acetaminophen (Tylenol Tab) 650 mg Q6H PRN PO PAIN LEVEL 1-3 OR FEVER Last administered on 02/24/17 14:00; Admin Dose 650 MG; Start 02/21/17 at 10:30 Acetaminophen (Tylenol Supp) 650 mg Q6H PRN [place] PAIN LEVEL 1-3 OR FEVER; Start 02/21/17 at 10:30 Morphine Sulfate (morphine) 2 mg Q4H PRN IV SEVERE PAIN LEVEL 7-10 Last administered on 03/04/17 09:41; Admin Dose 2 MG; Start 02/21/17 at 10:30 Docusate Sodium (Colace) 100 mg Q12H PRN PO CONSTIPATION; Start 02/21/17 at 10: 30 Magnesium Hydroxide (Milk Of Mag) 30 ml DAILY PRN PO CONSTIPATION; Start at 10:30 Bisacodyl (Dulcolax Supp) 10 mg DAILY PRN [place] CONSTIPATION; Start 02/21/17 at 10 :30 Aspirin (Aspirin) 81 mg DAILY PO Last administered on 03/04/17 09:42; Admin Dose 81 MG; Start 02/23/17 at 09:00 Nitroglycerin (Nitroglycerin (Sl Tab) 0.4 Mg) 1 tab Q5M PRN SL CHEST PAIN Last administered on 02/24/17 14:17; Admin Dose 1 TAB; Start 02/21/17 at 10:30 IV Flush (NS 10 ml) 10 ml PRN PRN IV IV PROTOCOL; Start 02/21/17 at 14:00 Pantoprazole (Protonix Tab) 40 mg DAILY@06 PO Last administered on 03/04/17 06: 24; Admin Dose 40 MG; Start 02/24/17 at 06:00 Mupirocin (Bactroban) 1 applic BID TOP Last administered on 03/04/17 10:05; Admin Dose 1 APPLIC; Start 02/23/17 at 15:30 Hydralazine HCl (Apresoline) 10 mg Q8 PO Last administered on 03/04/17 15:01; Admin Dose 10 MG; Start 02/24/17 at 22:00 Carvedilol (Coreg) 3.125 mg BID PO Last administered on 03/04/17 09:45; Admin Dose 3.125 MG; Start 03/01/17 at 21:00 Lisinopril (Zestril) 2.5 mg DAILY PO Last administered on 03/04/17 09:44; Admin Dose 2.5 MG; Start 03/03/17 at 09:00 Digoxin (Digoxin) 0.125 mg Q2D@13 PO Last administered on 03/04/17 15:01; Admin Dose 0.125 MG; Start 03/02/17 at 13:00 Spironolactone (Aldactone) 25 mg DAILY@06 PO Last administered on 03/04/17 06: 24; Admin Dose 25 MG; Start 03/03/17 at 13:30 Enoxaparin Sodium (Lovenox) 75 mg BID SC Last administered on 03/04/17 10:03; Admin Dose 75 MG; Start 03/03/17 at 21:00 CHAPIN CALLE M.D. Mar 04, 2017 16:56
[2017-03-05] VITALS (13 sets, daily range): BP systolic 113–131; BP diastolic 73–86; PULSE 68–135; RESP 16–20
[2017-03-05] MEDS: morphine 2 MG INJ IV PRN ×3 (00:44→20:35)
[2017-03-05] MEDS: LEVALBUTEROL (NEB) 0.63 MG/3 ML AMP HHN SCH ×4 (01:39→19:59)
[2017-03-05] MEDS: IPRATROPIUM (NEB) 0.5 MG/2.5 ML AMP HHN SCH ×4 (01:39→19:59)
[2017-03-05] MEDS: FUROSEMIDE 40 MG INJ IV SCH ×2 (06:18→18:29)
[2017-03-05] MEDS: SPIRONOLACTONE 25 MG TAB PO SCH (06:18)
[2017-03-05] MEDS: PANTOPRAZOLE (EC) 40 MG TAB PO SCH (06:19)
[2017-03-05 06:59] LABS: BASOPHILS % 0.2 % (0.0-2.0); EOSINOPHILS % 0.4 % (0.0-7.0); HEMATOCRIT 37.1 % (42.0-52.0); HEMOGLOBIN 11.2 g/dl (14.0-18.0); LYMPHOCYTES # 1.4 10^3/ul (0.8-2.9); MEAN CORPUSCULAR HEMOGLOBIN 26.2 pg (29.0-33.0); MEAN CORPUSCULAR HGB CONC 30.2 g/dl (32.0-37.0); MEAN CORPUSCULAR VOLUME 86.7 fl (82.0-101.0); MEAN PLATELET VOLUME 11.5 fl (7.4-10.4); MONOCYTE # 0.3 10^3/ul (0.3-0.9); MONOCYTES % 7.5 % (0.0-11.0); NEUTROPHILS % 61.5 % (39.0-77.0); PLATELET COUNT 261 10^3/UL (140-415); RED BLOOD COUNT 4.28 10^6/ul (4.70-6.10); RED CELL DISTRIBUTION WIDTH 16.3 % (11.5-14.5); WHITE BLOOD COUNT 4.5 10^3/ul (4.8-10.8)
[2017-03-05 07:18] LABS: CALCIUM 8.1 mg/dl (8.4-10.2); CREATININE 0.69 mg/dl (0.61-1.24); POTASSIUM 3.6 mmol/L (3.5-5.1)
[2017-03-05 07:21] LABS: MAGNESIUM 1.7 mg/dl (1.7-2.5); PHOSPHORUS 3.7 mg/dl (2.5-4.9)
[2017-03-05] MEDS: ASPIRIN 81 MG TAB PO SCH (08:28)
[2017-03-05] MEDS: METHADONE 10 MG TAB PO SCH (08:28)
[2017-03-05] MEDS: MUPIROCIN 2% 22 GM OINT TOP SCH ×2 (08:30→20:34)
[2017-03-05] MEDS: LISINOPRIL 5 MG TAB PO SCH (08:30)
[2017-03-05] MEDS: ENOXAPARIN 80 MG/0.8 ML SYG SC SCH ×2 (08:40→20:38)
--- NOTE | 2017-03-05 08:41 | PN ---
DATE: 03/05/2017 SUBJECTIVE DATA: The patient is stable. No events overnight. No fevers, chills, nausea, vomiting. OBJECTIVE DATA: VITAL SIGNS: Blood pressure 127/73, respirations 18, pulse 79, temperature 97.8. HEENT: Head is normocephalic. NECK: Supple. HEART: Regular rate. LUNGS: Diminished breath sounds at the base. ABDOMEN: Soft, nontender to palpation. No rebound or guarding. EXTREMITIES: Negative for clubbing, cyanosis. No edema. DERMATOLOGIC: Clean. No rashes. MUSCULOSKELETAL: No joint effusion. NEUROLOGIC: No change in exam. MEDICATIONS: Reviewed. LABORATORY AND DIAGNOSTIC DATA: Has been re viewed. ASSESSMENT AND PLAN: 1. Nonoliguric acute kidney injury on top of chronic kidney disease. The patient's renal function improved. Continue current treatment. Supportive care. Renally dose all medications. 2. Anemia. Monitor H and H levels. 3. Mineral bone disorder. Monitor calcium and phosphorus levels. 4. Hypomagnesemia, hypokalemia. Continue to monitor and replete. 5. Alkalosis,improving. Continue to monitor. 6. Sepsis. Patient is completing antibiotic course. 7. History of congestive heart failure. Continue medical management. 8. Acute respiratory failure. Clinically improving. Dictated By: Frandy Gonzalez DO /[email or web address]/power /Document#: [id number]
--- NOTE | 2017-03-05 10:11 | PN ---
Date/Time of Note Date/Time of Note DATE: 03/05/17 TIME: 10:08 Assessment/Plan VTE Prophylaxis VTE Prophylaxis Intervention: LMWH Lines/Catheters IV Catheter Type (from Nrs): PICC Line Central line still needed: Yes Urinary Cath still in place: Yes Reason Cath still needed: other (indicate) Assessment/Plan Chief Complaint/Hosp Course 1. S/P sepsis with underlying pneumonia [aspiration versus community-acquired] and gram-positive bacteremia. No evidence of septic shock. S/P on antimicrobials as per infectious diseases. 2. Acute on chronic congestive heart failure exacerbation. Systolic and diastolic dysfunction. Continue diuresis. 3. Severe cardiomyopathy. Ejection fraction 15%. On ACEI, BB, and aldosterone antagonists. Management as per cardiology. 4. Non-ST elevation myocardial infarction. Remains on therapeutic anticoagulation. Followed by cardiology. On Aspirin. 5. Acute nonoliguric kidney injury. Being followed by nephrology. Improving BUN and creatinine. Renal dose medications. 6. Heroin abuse. Being followed by pain management team. On methadone. 7. Homeless status. 8. Debility. Continue PT. 9. Fluids, electrolytes, and nutrition. Low cholesterol diet. 10. Prophylaxis. On therapeutic anticoagulation. 11. GI prophylaxis. Proton pump inhibitors. 12. Plan. Continue current management. Continue PT. Await further recommendations from consultants. May need placement. Case discussed with Dr. Mcgrath. Problems: Subjective 24 Hr Interval Summary Free Text/Dictation Remains stable. Exam/Review of Systems Vital Signs Vitals Vital Signs Date Time Temp Pulse Resp B/P Pulse Ox O2 Delivery O2 Flow Rate FiO2 03/05/17 08:25 Nasal Cannula 2.0 03/05/17 08:14 97.8 79 18 127/73 100 03/05/17 01:40 21 Intake and Output 03/04/17 03/04/17 03/05/17 15:00 23:00 07:00 Intake Total 50 ml 1500 ml 500 ml Output Total 1300 ml 980 ml Balance 50 ml 200 ml -480 ml Exam General: Adequately build 56 year-old male lying in bed in no apparent distress. HEENT: Normocephalic, atraumatic. Eyes: Anicteric sclerae, conjunctivae clear. ENT: Nasal septum midline, oral mucosa moist. Neck supple, no JVD noticed. Respiratory: Bilaterally diminished breath sounds. No use of accessory muscles of respiration. No adventitious breath sounds. Cardiovascular: S1, S2 heard. Regular rate and rhythm. Abdomen: Soft, nontender, and nondistended. Bowel sounds positive in all 4 quadrants. Genitourinary: Penoscrotal edema. Gupta catheter in place Extremities: No cyanosis, no clubbing. Peripheral pulses palpable. LUE bruising and edema. B/L LE 2+ edema. Neurologic: Cranial nerves II through XII grossly intact. The patient is awake, alert, and oriented. Results Result Diagram: 03/05/17 0613 03/05/17 0614 Results 24 hrs Laboratory Tests Test 03/05/17 06:13 03/05/17 06:14 White Blood Count 4.5 L Red Blood Count 4.28 L Hemoglobin 11.2 L Hematocrit 37.1 L Mean Corpuscular Volume 86.7 Mean Corpuscular Hemoglobin 26.2 L Mean Corpuscular Hemoglobin Concent 30.2 L Red Cell Distribution Width 16.3 H Platelet Count 261 # Mean Platelet Volume 11.5 H Neutrophils % 61.5 Lymphocytes % 30.0 Monocytes % 7.5 Eosinophils % 0.4 Basophils % 0.2 Nucleated Red Blood Cells % 0.0 Neutrophils # (Manual) 2.8 Lymphocytes # 1.4 Monocytes # 0.3 Eosinophils # 0.0 Basophils # 0.0 Nucleated Red Blood Cells # 0.0 Sodium Level 140 Potassium Level 3.6 Chloride Level 97 Carbon Dioxide Level 39 H Anion Gap 8 Blood Urea Nitrogen 16 Creatinine 0.69 Glucose Level 76 Calcium Level 8.1 L Phosphorus Level 3.7 Magnesium Level 1.7 Medications Medications Current Medications Ondansetron HCl (Zofran Inj) 4 mg Q6H PRN IV NAUSEA AND/OR VOMITING; Start at 10:30 Acetaminophen (Tylenol Tab) 650 mg Q6H PRN PO PAIN LEVEL 1-3 OR FEVER Last administered on 02/24/17 14:00; Admin Dose 650 MG; Start 02/21/17 at 10:30 Acetaminophen (Tylenol Supp) 650 mg Q6H PRN [place] PAIN LEVEL 1-3 OR FEVER; Start 02/21/17 at 10:30 Morphine Sulfate (morphine) 2 mg Q4H PRN IV SEVERE PAIN LEVEL 7-10 Last administered on 03/05/17 00:44; Admin Dose 2 MG; Start 02/21/17 at 10:30 Docusate Sodium (Colace) 100 mg Q12H PRN PO CONSTIPATION; Start 02/21/17 at 10: 30 Magnesium Hydroxide (Milk Of Mag) 30 ml DAILY PRN PO CONSTIPATION; Start at 10:30 Bisacodyl (Dulcolax Supp) 10 mg DAILY PRN [place] CONSTIPATION; Start 02/21/17 at 10 :30 Aspirin (Aspirin) 81 mg DAILY PO Last administered on 03/05/17 08:28; Admin Dose 81 MG; Start 02/23/17 at 09:00 Nitroglycerin (Nitroglycerin (Sl Tab) 0.4 Mg) 1 tab Q5M PRN SL CHEST PAIN Last administered on 02/24/17 14:17; Admin Dose 1 TAB; Start 02/21/17 at 10:30 IV Flush (NS 10 ml) 10 ml PRN PRN IV IV PROTOCOL; Start 02/21/17 at 14:00 Pantoprazole (Protonix Tab) 40 mg DAILY@06 PO Last administered on 03/05/17 06 :19; Admin Dose 40 MG; Start 02/24/17 at 06:00 Mupirocin (Bactroban) 1 applic BID TOP Last administered on 03/05/17 08:30; Admin Dose 1 APPLIC; Start 02/23/17 at 15:30 Hydralazine HCl (Apresoline) 10 mg Q8 PO Last administered on 03/05/17 06:19; Admin Dose 10 MG; Start 02/24/17 at 22:00 Carvedilol (Coreg) 3.125 mg BID PO Last administered on 03/05/17 08:29; Admin Dose 3.125 MG; Start 03/01/17 at 21:00 Lisinopril (Zestril) 2.5 mg DAILY PO Last administered on 03/05/17 08:30; Admin Dose 2.5 MG; Start 03/03/17 at 09:00 Digoxin (Digoxin) 0.125 mg Q2D@13 PO Last administered on 03/04/17 15:01; Admin Dose 0.125 MG; Start 03/02/17 at 13:00 Spironolactone (Aldactone) 25 mg DAILY@06 PO Last administered on 03/05/17 06: 18; Admin Dose 25 MG; Start 03/03/17 at 13:30 Enoxaparin Sodium (Lovenox) 75 mg BID SC Last administered on 03/05/17t 08:40; Admin Dose 75 MG; Start 03/03/17 at 21:00 LORRIE STERLING NP Mar 05, 2017 10:11
[2017-03-05] MEDS ORDERED: POTASSIUM CHLORIDE (SR) 20 MEQ TAB PO STA (13:46)
--- NOTE | 2017-03-05 13:48 | CONS ---
Date/Time of Note Date/Time of Note DATE: 03/05/17 TIME: 13:45 Assessment/Plan Assessment/Plan Additional Assessment/Plan Acute on chronic systolic heart failure Renal failure resolved Anemia Hemodynamically stable Continue diuresis with Lasix Replete potassium and Magnesium Continue Coreg Continue lisinopril Continue Aldactone Continue digoxin Continue Hydralazine Continue Nebs as scheduled Consultation Date/Type/Reason Admit Date/Time Feb 21, 2017 at 09:56 Initial Consult Date 02/21/17 Type of Consultation: ID Referring Provider: NOLBERTO MEDINA MD Exam/Review of Systems Vital Signs Vitals Vital Signs Date Time Temp Pulse Resp B/P Pulse Ox O2 Delivery O2 Flow Rate FiO2 03/05/17 11:25 97.7 82 18 131/81 93 03/05/17 08:25 Nasal Cannula 2.0 03/05/17 01:40 21 Intake and Output 03/04/17 03/04/17 03/05/17 15:00 23:00 07:00 Intake Total 50 ml 1500 ml 500 ml Output Total 1300 ml 980 ml Balance 50 ml 200 ml -480 ml Results Result Diagram: 03/05/17 0613 03/05/17 0614 Results 24 hrs Laboratory Tests Test 03/05/17 06:13 03/05/17 06:14 White Blood Count 4.5 L Red Blood Count 4.28 L Hemoglobin 11.2 L Hematocrit 37.1 L Mean Corpuscular Volume 86.7 Mean Corpuscular Hemoglobin 26.2 L Mean Corpuscular Hemoglobin Concent 30.2 L Red Cell Distribution Width 16.3 H Platelet Count 261 # Mean Platelet Volume 11.5 H Neutrophils % 61.5 Lymphocytes % 30.0 Monocytes % 7.5 Eosinophils % 0.4 Basophils % 0.2 Nucleated Red Blood Cells % 0.0 Neutrophils # (Manual) 2.8 Lymphocytes # 1.4 Monocytes # 0.3 Eosinophils # 0.0 Basophils # 0.0 Nucleated Red Blood Cells # 0.0 Sodium Level 140 Potassium Level 3.6 Chloride Level 97 Carbon Dioxide Level 39 H Anion Gap 8 Blood Urea Nitrogen 16 Creatinine 0.69 Glucose Level 76 Calcium Level 8.1 L Phosphorus Level 3.7 Magnesium Level 1.7 Medications Medications Current Medications Ondansetron HCl (Zofran Inj) 4 mg Q6H PRN IV NAUSEA AND/OR VOMITING; Start at 10:30 Acetaminophen (Tylenol Tab) 650 mg Q6H PRN PO PAIN LEVEL 1-3 OR FEVER Last administered on 02/24/17 14:00; Admin Dose 650 MG; Start 02/21/17 at 10:30 Acetaminophen (Tylenol Supp) 650 mg Q6H PRN [place] PAIN LEVEL 1-3 OR FEVER; Start 02/21/17 at 10:30 Morphine Sulfate (morphine) 2 mg Q4H PRN IV SEVERE PAIN LEVEL 7-10 Last administered on 03/05/17 00:44; Admin Dose 2 MG; Start 02/21/17 at 10:30 Docusate Sodium (Colace) 100 mg Q12H PRN PO CONSTIPATION; Start 02/21/17 at 10: 30 Magnesium Hydroxide (Milk Of Mag) 30 ml DAILY PRN PO CONSTIPATION; Start at 10:30 Bisacodyl (Dulcolax Supp) 10 mg DAILY PRN [place] CONSTIPATION; Start 02/21/17 at 10 :30 Aspirin (Aspirin) 81 mg DAILY PO Last administered on 03/05/17 08:28; Admin Dose 81 MG; Start 02/23/17 at 09:00 Nitroglycerin (Nitroglycerin (Sl Tab) 0.4 Mg) 1 tab Q5M PRN SL CHEST PAIN Last administered on 02/24/17 14:17; Admin Dose 1 TAB; Start 02/21/17 at 10:30 IV Flush (NS 10 ml) 10 ml PRN PRN IV IV PROTOCOL; Start 02/21/17 at 14:00 Pantoprazole (Protonix Tab) 40 mg DAILY@06 PO Last administered on 03/05/17 06 :19; Admin Dose 40 MG; Start 02/24/17 at 06:00 Mupirocin (Bactroban) 1 applic BID TOP Last administered on 03/05/17 08:30; Admin Dose 1 APPLIC; Start 02/23/17 at 15:30 Hydralazine HCl (Apresoline) 10 mg Q8 PO Last administered on 03/05/17 06:19; Admin Dose 10 MG; Start 02/24/17 at 22:00 Carvedilol (Coreg) 3.125 mg BID PO Last administered on 03/05/17 08:29; Admin Dose 3.125 MG; Start 03/01/17 at 21:00 Lisinopril (Zestril) 2.5 mg DAILY PO Last administered on 03/05/17 08:30; Admin Dose 2.5 MG; Start 03/03/17 at 09:00 Digoxin (Digoxin) 0.125 mg Q2D@13 PO Last administered on 03/04/17 15:01; Admin Dose 0.125 MG; Start 03/02/17 at 13:00 Spironolactone (Aldactone) 25 mg DAILY@06 PO Last administered on 03/05/17 06: 18; Admin Dose 25 MG; Start 03/03/17 at 13:30 Enoxaparin Sodium (Lovenox) 75 mg BID SC Last administered on 03/05/17 08:40; Admin Dose 75 MG; Start 03/03/17 at 21:00 CHAPIN CALLE M.D. Mar 05, 2017 13:48
[2017-03-05] MEDS ORDERED: MAGNESIUM SULFATE 2 GM/50 ML 50 ML IVPB ONE (14:00)
[2017-03-06] VITALS (11 sets, daily range): BP systolic 115–131; BP diastolic 74–90; PULSE 73–81; RESP 16–18
[2017-03-06] MEDS: IPRATROPIUM (NEB) 0.5 MG/2.5 ML AMP HHN SCH ×4 (01:00→21:53)
[2017-03-06] MEDS: LEVALBUTEROL (NEB) 0.63 MG/3 ML AMP HHN SCH ×4 (01:00→21:52)
[2017-03-06] MEDS: SPIRONOLACTONE 25 MG TAB PO SCH (05:37)
[2017-03-06] MEDS: PANTOPRAZOLE (EC) 40 MG TAB PO SCH (05:37)
[2017-03-06] MEDS: FUROSEMIDE 40 MG INJ IV SCH ×2 (05:38→18:45)
[2017-03-06] MEDS: morphine 2 MG INJ IV PRN ×3 (06:24→21:07)
[2017-03-06 07:34] LABS: BASOPHILS % 0.4 % (0.0-2.0); EOSINOPHILS % 0.4 % (0.0-7.0); HEMATOCRIT 39.3 % (42.0-52.0); HEMOGLOBIN 11.6 g/dl (14.0-18.0); LYMPHOCYTES # 1.3 10^3/ul (0.8-2.9); LYMPHOCYTES % 25.4 % (15.0-51.0); MEAN CORPUSCULAR HEMOGLOBIN 25.7 pg (29.0-33.0); MEAN CORPUSCULAR HGB CONC 29.5 g/dl (32.0-37.0); MEAN CORPUSCULAR VOLUME 86.9 fl (82.0-101.0); MEAN PLATELET VOLUME 11.5 fl (7.4-10.4); MONOCYTE # 0.4 10^3/ul (0.3-0.9); MONOCYTES % 6.8 % (0.0-11.0); NEUTROPHILS % 66.6 % (39.0-77.0); PLATELET COUNT 303 10^3/UL (140-415); RED BLOOD COUNT 4.52 10^6/ul (4.70-6.10); RED CELL DISTRIBUTION WIDTH 16.4 % (11.5-14.5); WHITE BLOOD COUNT 5.3 10^3/ul (4.8-10.8)
[2017-03-06 08:00] LABS: MAGNESIUM 1.7 mg/dl (1.7-2.5); PHOSPHORUS 3.9 mg/dl (2.5-4.9)
[2017-03-06 08:06] LABS: CALCIUM 8.7 mg/dl (8.4-10.2); CREATININE 0.73 mg/dl (0.61-1.24); POTASSIUM 3.8 mmol/L (3.5-5.1)
[2017-03-06] MEDS: ASPIRIN 81 MG TAB PO SCH (08:28)
[2017-03-06] MEDS: METHADONE 10 MG TAB PO SCH (08:28)
[2017-03-06] MEDS: LISINOPRIL 5 MG TAB PO SCH (08:29)
[2017-03-06] MEDS: ENOXAPARIN 80 MG/0.8 ML SYG SC SCH ×2 (08:31→21:06)
[2017-03-06] MEDS: MUPIROCIN 2% 22 GM OINT TOP SCH ×2 (09:16→21:06)
--- NOTE | 2017-03-06 10:59 | CONS ---
Date/Time of Note Date/Time of Note DATE: 03/06/17 TIME: 10:57 Assessment/Plan Assessment/Plan Additional Assessment/Plan Assessment and recommendations; 1. Patient admitted with CHF exacerbation due to underlying cardiomyopathy and drug overdose. Clinically markedly improved. 2. Marked reduction in scrotal and lower extremity edema. Continue current treatment. Remove Gupta catheter. Consultation Date/Type/Reason Admit Date/Time Feb 21, 2017 at 09:56 Initial Consult Date 02/21/17 Type of Consultation: Pulmonary Referring Provider: NOLBERTO MEDINA MD 24 HR Interval Summary Free Text/Dictation Patient's condition is stable. Denies any shortness of breath. Any coughing. Scrotal and bilateral thigh edema is markedly improved. General exam; middle-aged male, awake and alert. Currently in no distress. Exam/Review of Systems Vital Signs Vitals Vital Signs Date Time Temp Pulse Resp B/P Pulse Ox O2 Delivery O2 Flow Rate FiO2 03/06/17 08:52 Nasal Cannula 2.0 03/06/17 08:38 81 03/06/17 07:52 98.0 18 128/78 99 03/05/17 01:40 21 Intake and Output 03/05/17 03/05/17 03/06/17 15:00 23:00 07:00 Intake Total 1200 ml 1600 ml Output Total 3400 ml 3000 ml Balance -2200 ml -1400 ml Exam HEENT exam; supple neck, no JVD. No lymphadenopathy. Midline trachea. No thyromegaly. Pharynx is clear. Patient has fair dentition. Chest exam; diminished but clear breath sounds. S1-S2 audible, no murmurs. Regular rhythm. Abdomen exam; soft, no organomegaly. Bowel sounds audible. Nontender. There is significant improvement in scrotal edema. Extremity exam; no peripheral edema. 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 Results Result Diagram: 03/06/17 0624 03/06/17 0649 Results 24 hrs Laboratory Tests Test 03/06/17 06:24 03/06/17 06:49 White Blood Count 5.3 Red Blood Count 4.52 L Hemoglobin 11.6 L Hematocrit 39.3 L Mean Corpuscular Volume 86.9 Mean Corpuscular Hemoglobin 25.7 L Mean Corpuscular Hemoglobin Concent 29.5 L Red Cell Distribution Width 16.4 H Platelet Count 303 Mean Platelet Volume 11.5 H Neutrophils % 66.6 Lymphocytes % 25.4 Monocytes % 6.8 Eosinophils % 0.4 Basophils % 0.4 Nucleated Red Blood Cells % 0.0 Neutrophils # (Manual) 3.5 Lymphocytes # 1.3 Monocytes # 0.4 Eosinophils # 0.0 Basophils # 0.0 Nucleated Red Blood Cells # 0.0 Sodium Level 141 Potassium Level 3.8 Chloride Level 96 L Carbon Dioxide Level 39 H Anion Gap 10 Blood Urea Nitrogen 16 Creatinine 0.73 Glucose Level 89 Calcium Level 8.7 Phosphorus Level 3.9 Magnesium Level 1.7 Medications Medications Current Medications Ondansetron HCl (Zofran Inj) 4 mg Q6H PRN IV NAUSEA AND/OR VOMITING; Start at 10:30 Acetaminophen (Tylenol Tab) 650 mg Q6H PRN PO PAIN LEVEL 1-3 OR FEVER Last administered on 02/24/17 14:00; Admin Dose 650 MG; Start 02/21/17 at 10:30 Acetaminophen (Tylenol Supp) 650 mg Q6H PRN [place] PAIN LEVEL 1-3 OR FEVER; Start 02/21/17 at 10:30 Morphine Sulfate (morphine) 2 mg Q4H PRN IV SEVERE PAIN LEVEL 7-10 Last administered on 03/06/17 06:24; Admin Dose 2 MG; Start 02/21/17 at 10:30 Docusate Sodium (Colace) 100 mg Q12H PRN PO CONSTIPATION; Start 02/21/17 at 10: 30 Magnesium Hydroxide (Milk Of Mag) 30 ml DAILY PRN PO CONSTIPATION; Start at 10:30 Bisacodyl (Dulcolax Supp) 10 mg DAILY PRN [place] CONSTIPATION; Start 02/21/17 at 10 :30 Aspirin (Aspirin) 81 mg DAILY PO Last administered on 03/06/17 08:28; Admin Dose 81 MG; Start 02/23/17 at 09:00 Nitroglycerin (Nitroglycerin (Sl Tab) 0.4 Mg) 1 tab Q5M PRN SL CHEST PAIN Last administered on 02/24/17 14:17; Admin Dose 1 TAB; Start 02/21/17 at 10:30 IV Flush (NS 10 ml) 10 ml PRN PRN IV IV PROTOCOL; Start 02/21/17 at 14:00 Pantoprazole (Protonix Tab) 40 mg DAILY@06 PO Last administered on 03/06/17 05 :37; Admin Dose 40 MG; Start 02/24/17 at 06:00 Mupirocin (Bactroban) 1 applic BID TOP Last administered on 03/06/17 09:16; Admin Dose 1 APPLIC; Start 02/23/17 at 15:30 Hydralazine HCl (Apresoline) 10 mg Q8 PO Last administered on 03/06/17 05:37; Admin Dose 10 MG; Start 02/24/17 at 22:00 Carvedilol (Coreg) 3.125 mg BID PO Last administered on 03/06/17 08:30; Admin Dose 3.125 MG; Start 03/01/17 at 21:00 Lisinopril (Zestril) 2.5 mg DAILY PO Last administered on 03/06/17 08:29; Admin Dose 2.5 MG; Start 03/03/17 at 09:00 Digoxin (Digoxin) 0.125 mg Q2D@13 PO Last administered on 03/04/17 15:01; Admin Dose 0.125 MG; Start 03/02/17 at 13:00 Spironolactone (Aldactone) 25 mg DAILY@06 PO Last administered on 03/06/17 05: 37; Admin Dose 25 MG; Start 03/03/17 at 13:30 Enoxaparin Sodium (Lovenox) 75 mg BID SC Last administered on 03/06/17 08:31; Admin Dose 75 MG; Start 03/03/17 at 21:00 SUSHIL MORENO Mar 06, 2017 10:59
--- NOTE | 2017-03-06 11:09 | CONS ---
Date/Time of Note Date/Time of Note DATE: 03/06/17 TIME: 11:06 Assessment/Plan Assessment/Plan Chief Complaint/Hosp Course IMP: 1.CHF-systolic acute on chronic with ongoing volume overload 2.Hypotension 3.Renal failure-now improved 4.Nstemi-trended negative 5. Acidosis 6. Bacteremia 7. Cardiomyopathy-low EF 15-20% by echo this admit 8. PAF- in SR Recc: -Tele -serial ecg's -Continue asa -Continue lasix diuresis with significant improvement in volume status -Continue low dose BB/ACEI as tolerated for treatment of cardiomyopathy -PO digoxin/aldactone -Continue lovenox with transition to xarelto or eliquis at d/c Problems: Consultation Date/Type/Reason Admit Date/Time Feb 21, 2017 at 09:56 Initial Consult Date 02/21/17 Type of Consultation: cardiology Reason for Consultation CHF Referring Provider: NOLBERTO MEDINA MD Exam/Review of Systems Vital Signs Vitals Vital Signs Date Time Temp Pulse Resp B/P Pulse Ox O2 Delivery O2 Flow Rate FiO2 03/06/17 08:52 Nasal Cannula 2.0 03/06/17 08:38 81 03/06/17 07:52 98.0 18 128/78 99 03/05/17 01:40 21 Intake and Output 03/05/17 03/05/17 03/06/17 15:00 23:00 07:00 Intake Total 1200 ml 1600 ml Output Total 3400 ml 3000 ml Balance -2200 ml -1400 ml Exam Review of Systems: CONSTITUTIONAL: No fevers, chills. PULMONARY: No sob CARDIOVASCULAR: No chest pain/palpitations GASTROINTESTINAL: No nausea/vomiting. GENITOURINARY: No hematuria/dysuria. MUSCULOSKELETAL: No myagias/arthalgias. PSYCHIATRIC: The patient denies depression. NEUROLOGIC: No weakness Constitutional: alert Head: normocephalic ENMT: mucosa pink and moist Neck: jvd (9 cm water), supple Respiratory: diminished breath sounds (at bases/B) Cardiovascular: regular rate and rhythm Gastrointestinal: non-tender, soft Musculoskeletal: muscle weakness (generalized) Extremities: pitting pedal edema (bilateral but decreased) Neurological: lethargic Results Result Diagram: 03/06/17 0624 03/06/17 0649 Results 24 hrs Laboratory Tests Test 03/06/17 06:24 03/06/17 06:49 White Blood Count 5.3 Red Blood Count 4.52 L Hemoglobin 11.6 L Hematocrit 39.3 L Mean Corpuscular Volume 86.9 Mean Corpuscular Hemoglobin 25.7 L Mean Corpuscular Hemoglobin Concent 29.5 L Red Cell Distribution Width 16.4 H Platelet Count 303 Mean Platelet Volume 11.5 H Neutrophils % 66.6 Lymphocytes % 25.4 Monocytes % 6.8 Eosinophils % 0.4 Basophils % 0.4 Nucleated Red Blood Cells % 0.0 Neutrophils # (Manual) 3.5 Lymphocytes # 1.3 Monocytes # 0.4 Eosinophils # 0.0 Basophils # 0.0 Nucleated Red Blood Cells # 0.0 Sodium Level 141 Potassium Level 3.8 Chloride Level 96 L Carbon Dioxide Level 39 H Anion Gap 10 Blood Urea Nitrogen 16 Creatinine 0.73 Glucose Level 89 Calcium Level 8.7 Phosphorus Level 3.9 Magnesium Level 1.7 Medications Medications Current Medications Ondansetron HCl (Zofran Inj) 4 mg Q6H PRN IV NAUSEA AND/OR VOMITING; Start at 10:30 Acetaminophen (Tylenol Tab) 650 mg Q6H PRN PO PAIN LEVEL 1-3 OR FEVER Last administered on 02/24/17 14:00; Admin Dose 650 MG; Start 02/21/17 at 10:30 Acetaminophen (Tylenol Supp) 650 mg Q6H PRN [place] PAIN LEVEL 1-3 OR FEVER; Start 02/21/17 at 10:30 Morphine Sulfate (morphine) 2 mg Q4H PRN IV SEVERE PAIN LEVEL 7-10 Last administered on 03/06/17 06:24; Admin Dose 2 MG; Start 02/21/17 at 10:30 Docusate Sodium (Colace) 100 mg Q12H PRN PO CONSTIPATION; Start 02/21/17 at 10: 30 Magnesium Hydroxide (Milk Of Mag) 30 ml DAILY PRN PO CONSTIPATION; Start at 10:30 Bisacodyl (Dulcolax Supp) 10 mg DAILY PRN [place] CONSTIPATION; Start 02/21/17 at 10 :30 Aspirin (Aspirin) 81 mg DAILY PO Last administered on 03/06/17 08:28; Admin Dose 81 MG; Start 02/23/17 at 09:00 Nitroglycerin (Nitroglycerin (Sl Tab) 0.4 Mg) 1 tab Q5M PRN SL CHEST PAIN Last administered on 02/24/17 14:17; Admin Dose 1 TAB; Start 02/21/17 at 10:30 IV Flush (NS 10 ml) 10 ml PRN PRN IV IV PROTOCOL; Start 02/21/17 at 14:00 Pantoprazole (Protonix Tab) 40 mg DAILY@06 PO Last administered on 03/06/17 05 :37; Admin Dose 40 MG; Start 02/24/17 at 06:00 Mupirocin (Bactroban) 1 applic BID TOP Last administered on 03/06/17 09:16; Admin Dose 1 APPLIC; Start 02/23/17 at 15:30 Hydralazine HCl (Apresoline) 10 mg Q8 PO Last administered on 03/06/17 05:37; Admin Dose 10 MG; Start 02/24/17 at 22:00 Carvedilol (Coreg) 3.125 mg BID PO Last administered on 03/06/17 08:30; Admin Dose 3.125 MG; Start 03/01/17 at 21:00 Lisinopril (Zestril) 2.5 mg DAILY PO Last administered on 03/06/17 08:29; Admin Dose 2.5 MG; Start 03/03/17 at 09:00 Digoxin (Digoxin) 0.125 mg Q2D@13 PO Last administered on 03/04/17 15:01; Admin Dose 0.125 MG; Start 03/02/17 at 13:00 Spironolactone (Aldactone) 25 mg DAILY@06 PO Last administered on 03/06/17 05: 37; Admin Dose 25 MG; Start 03/03/17 at 13:30 Enoxaparin Sodium (Lovenox) 75 mg BID SC Last administered on 03/06/17 08:31; Admin Dose 75 MG; Start 03/03/17 at 21:00 CELINE LI Mar 06, 2017 11:09
[2017-03-06] MEDS: DIGOXIN 0.125 MG TAB PO SCH (14:00)
--- NOTE | 2017-03-06 16:07 | PN ---
Date/Time of Note Date/Time of Note DATE: 03/06/17 TIME: 15:56 Assessment/Plan VTE Prophylaxis VTE Prophylaxis Intervention: LMWH Lines/Catheters IV [facility] PICC Line Urinary Cath still in place: Yes Assessment/Plan Chief Complaint/Hosp Course Assessment and Plan: 1. s/p sepsis with suspect aspiration pneumonia vs. community acquired pneumonia. Patient was seen by ID media sales consultant. Status post antibiotics. Will monitor for now. 2. Acute on chronic CHF exacerbation systolic and diastolic dysfunction. Continue diuresis. 3. Cardiomyopathy with ejection fraction 50%. Continue optimization with IAN inhibitor and beta-adán as well as an aldosterone antagonist. Exercise Instruct following. 4. Non-ST elevated myocardial infarction. Continue on anticoagulation. Exercise Instruct following. On antiplatelet therapy. 5. Acute kidney injury. Medications to be renally dosed. Sales Strategy Manager following. 6. History of heroin abuse. On methadone at this time. Cessation was advised. 7. Homeless status. We will see for placement. 8. Debility. Continue physical therapy. Disposition plan: Still awaiting placement. Discharged in medically stable and cleared by consultants Discussed plan of care with Dr. Foster Problems: Subjective 24 Hr Interval Summary Free Text/Dictation no s/s of respiratory distress. Exam/Review of Systems Vital Signs Vitals Vital Signs Date Time Temp Pulse Resp B/P Pulse Ox O2 Delivery O2 Flow Rate FiO2 03/06/17 14:54 88 20 99 Nasal Cannula 2.0 03/06/17 11:47 98.0 125/74 03/05/17 01:40 21 Intake and Output 03/05/17 03/05/17 03/06/17 15:00 23:00 07:00 Intake Total 1200 ml 1600 ml Output Total 3400 ml 3000 ml Balance -2200 ml -1400 ml Exam Constitutional: alert, oriented Psych: nl mood/affect Head: normocephalic Eyes: nl conjunctiva Neck: supple Respiratory: clear to auscultation Cardiovascular: other (regular rate) Gastrointestinal: non-tender, soft Musculoskeletal: swelling (ble ) Neurological: PATIENT APPOINTMENT COORDINATOR II-XII intact, nl mental status, nl speech Results Result Diagram: 03/06/17 0624 03/06/17 0649 Results 24 hrs Laboratory Tests Test 03/06/17 06:24 03/06/17 06:49 White Blood Count 5.3 Red Blood Count 4.52 L Hemoglobin 11.6 L Hematocrit 39.3 L Mean Corpuscular Volume 86.9 Mean Corpuscular Hemoglobin 25.7 L Mean Corpuscular Hemoglobin Concent 29.5 L Red Cell Distribution Width 16.4 H Platelet Count 303 Mean Platelet Volume 11.5 H Neutrophils % 66.6 Lymphocytes % 25.4 Monocytes % 6.8 Eosinophils % 0.4 Basophils % 0.4 Nucleated Red Blood Cells % 0.0 Neutrophils # (Manual) 3.5 Lymphocytes # 1.3 Monocytes # 0.4 Eosinophils # 0.0 Basophils # 0.0 Nucleated Red Blood Cells # 0.0 Sodium Level 141 Potassium Level 3.8 Chloride Level 96 L Carbon Dioxide Level 39 H Anion Gap 10 Blood Urea Nitrogen 16 Creatinine 0.73 Glucose Level 89 Calcium Level 8.7 Phosphorus Level 3.9 Magnesium Level 1.7 Medications Medications Current Medications Ondansetron HCl (Zofran Inj) 4 mg Q6H PRN IV NAUSEA AND/OR VOMITING; Start at 10:30 Acetaminophen (Tylenol Tab) 650 mg Q6H PRN PO PAIN LEVEL 1-3 OR FEVER Last administered on 02/24/17 14:00; Admin Dose 650 MG; Start 02/21/17 at 10:30 Acetaminophen (Tylenol Supp) 650 mg Q6H PRN [place] PAIN LEVEL 1-3 OR FEVER; Start 02/21/17 at 10:30 Morphine Sulfate (morphine) 2 mg Q4H PRN IV SEVERE PAIN LEVEL 7-10 Last administered on 03/06/17 14:00; Admin Dose 2 MG; Start 02/21/17 at 10:30 Docusate Sodium (Colace) 100 mg Q12H PRN PO CONSTIPATION; Start 02/21/17 at 10: 30 Magnesium Hydroxide (Milk Of Mag) 30 ml DAILY PRN PO CONSTIPATION; Start at 10:30 Bisacodyl (Dulcolax Supp) 10 mg DAILY PRN [place] CONSTIPATION; Start 02/21/17 at 10 :30 Aspirin (Aspirin) 81 mg DAILY PO Last administered on 03/06/17 08:28; Admin Dose 81 MG; Start 02/23/17 at 09:00 Nitroglycerin (Nitroglycerin (Sl Tab) 0.4 Mg) 1 tab Q5M PRN SL CHEST PAIN Last administered on 02/24/17 14:17; Admin Dose 1 TAB; Start 02/21/17 at 10:30 IV Flush (NS 10 ml) 10 ml PRN PRN IV IV PROTOCOL; Start 02/21/17 at 14:00 Pantoprazole (Protonix Tab) 40 mg DAILY@06 PO Last administered on 03/06/17 05 :37; Admin Dose 40 MG; Start 02/24/17 at 06:00 Mupirocin (Bactroban) 1 applic BID TOP Last administered on 03/06/17 09:16; Admin Dose 1 APPLIC; Start 02/23/17 at 15:30 Hydralazine HCl (Apresoline) 10 mg Q8 PO Last administered on 03/06/17 14:00; Admin Dose 10 MG; Start 02/24/17 at 22:00 Carvedilol (Coreg) 3.125 mg BID PO Last administered on 03/06/17 08:30; Admin Dose 3.125 MG; Start 03/01/17 at 21:00 Lisinopril (Zestril) 2.5 mg DAILY PO Last administered on 03/06/17 08:29; Admin Dose 2.5 MG; Start 03/03/17 at 09:00 Digoxin (Digoxin) 0.125 mg Q2D@13 PO Last administered on 03/06/17 14:00; Admin Dose 0.125 MG; Start 03/02/17 at 13:00 Spironolactone (Aldactone) 25 mg DAILY@06 PO Last administered on 03/06/17 05: 37; Admin Dose 25 MG; Start 03/03/17 at 13:30 Enoxaparin Sodium (Lovenox) 75 mg BID SC Last administered on 03/06/17 08:31; Admin Dose 75 MG; Start 03/03/17 at 21:00 TEODORO DALEY Mar 06, 2017 16:06
--- NOTE | 2017-03-06 17:45 | PN ---
DATE: 03/06/2017 SUBJECTIVE DATA: Patient is stable. No events overnight. No fevers, chills, nausea, or vomiting. No shortness of breath. OBJECTIVE DATA: VITAL SIGNS: Blood pressure is 120/78, respirations 18, pulse 83, temperature 98.0 HEENT: Head is normocephalic. NECK: Supple. HEART: Regular rate. RESPIRATORY: Show diminished breath sounds at the base. ABDOMEN: Soft, nontender to palpation. No rebound or guarding. EXTREMITIES: Negative for clubbing, cyanosis. No edema. DERMATOLOGIC: No rashes. MUSCULOSKELETAL: No joint effusion. NEUROLOGIC: No change in exam. MEDICATIONS: Reviewed. LABORATORY AND DIAGNOSTIC DATA: Has been reviewed. ASSESSMENT AND PLAN: 1. Nonoliguric acute kidney injury on top of chronic kidney disease. Patient's renal function has improved. Will continue current treatment. Supportive care. 2. Anemia. Monitor H and H levels. 3. Mineral bone disorder. Monitor calcium and phosphorus levels. 4. Hypomagnesemia, hypokalemia. Continue to monitor and replete. 5. Alkalosis. Etiology may be due to compensatory hypercapnia. Will continue to monitor. 6. Sepsis. Patient completed antibiotic course. 7. History of congestive heart failure. Continue medical management. 8. Acute respiratory failure, improving. 9. Will follow the patient p.r.n. Dictated By: Frandy Gonzalez DO /[email or web address]/elena /Document#: [id number]
[2017-03-07] VITALS (8 sets, daily range): BP systolic 105–126; BP diastolic 74–87; PULSE 80–96; RESP 18–20
[2017-03-07] MEDS: LEVALBUTEROL (NEB) 0.63 MG/3 ML AMP HHN SCH ×4 (02:11→19:58)
[2017-03-07] MEDS: IPRATROPIUM (NEB) 0.5 MG/2.5 ML AMP HHN SCH ×4 (02:11→19:58)
[2017-03-07] MEDS: SPIRONOLACTONE 25 MG TAB PO SCH (05:52)
[2017-03-07] MEDS: PANTOPRAZOLE (EC) 40 MG TAB PO SCH (05:52)
[2017-03-07] MEDS: FUROSEMIDE 40 MG INJ IV SCH ×2 (05:53→17:03)
[2017-03-07] MEDS: METHADONE 10 MG TAB PO SCH (07:33)
[2017-03-07 07:43] LABS: BASOPHILS % 0.4 % (0.0-2.0); HEMATOCRIT 37.3 % (42.0-52.0); HEMOGLOBIN 11.3 g/dl (14.0-18.0); LYMPHOCYTES # 1.1 10^3/ul (0.8-2.9); LYMPHOCYTES % 21.4 % (15.0-51.0); MEAN CORPUSCULAR HEMOGLOBIN 26.7 pg (29.0-33.0); MEAN CORPUSCULAR HGB CONC 30.3 g/dl (32.0-37.0); MONOCYTE # 0.3 10^3/ul (0.3-0.9); MONOCYTES % 5.8 % (0.0-11.0); PLATELET COUNT 318 10^3/UL (140-415); RED BLOOD COUNT 4.24 10^6/ul (4.70-6.10); RED CELL DISTRIBUTION WIDTH 16.1 % (11.5-14.5); WHITE BLOOD COUNT 5.2 10^3/ul (4.8-10.8)
[2017-03-07] MEDS: LISINOPRIL 5 MG TAB PO SCH (08:16)
[2017-03-07] MEDS: ASPIRIN 81 MG TAB PO SCH (08:16)
[2017-03-07 08:18] LABS: CALCIUM 8.8 mg/dl (8.4-10.2); CREATININE 0.68 mg/dl (0.61-1.24); POTASSIUM 3.9 mmol/L (3.5-5.1)
[2017-03-07] MEDS: ENOXAPARIN 80 MG/0.8 ML SYG SC SCH ×2 (08:18→21:06)
[2017-03-07] MEDS: MUPIROCIN 2% 22 GM OINT TOP SCH ×2 (08:20→22:15)
--- NOTE | 2017-03-07 10:27 | PN ---
DATE: 03/07/2017 SUBJECTIVE DATA: The patient is stable. No events overnight. No fevers, chills, nausea, vomiting. No shortness of breath. OBJECTIVE DATA: VITAL SIGNS: Blood pressure 163/77, temperature respiration 20, and pulse 96. HEENT: Head is normocephalic. NECK: Supple. HEART: Regular rate. LUNGS: Diminished breath sounds at the base. ABDOMEN: Soft, nontender to palpation. No rebound or guarding. EXTREMITIES: Negative for clubbing, cyanosis. No edema. DERMATOLOGIC: No rashes. MUSCULOSKELETAL: No joint effusion. NEUROLOGIC: Unchanged exam. MEDICATIONS: Reviewed. LABORATORY AND DIAGNOSTIC DATA: Shows sodium 141, potassium 3.9, BUN 40, creatinine 16.68. White count 5.2, hemoglobin 9.3, hematocrit 37.3, platelet count 318,000. ASSESSMENT AND PLAN: 1. Nonoliguric acute kidney injury on top, chronic kidney disease. The patient's renal function has improved. Continue treatment plan. 2. Anemia. Monitor hemoglobin and hematocrit levels. 3. Mineral bone disorder. Monitor calcium and phosphorus levels. 4. Hypomagnesemia, hypokalemia, improved. Continue to monitor. 5. Alkalosis, possibly compensatory from hypercapnia. Continue to observe. 6. Sepsis. Continue the patient has completed antibiotic course. 7. History of congestive heart failure. 8. Acute respiratory failure, improved. Please note, will follow up as needed. Dictated By: Frandy Gonzalez DO /[email or web address]/mariam /Document#: [id number]
--- NOTE | 2017-03-07 13:16 | PN ---
Date/Time of Note Date/Time of Note DATE: 03/07/17 TIME: 13:14 Assessment/Plan VTE Prophylaxis VTE Prophylaxis Intervention: LMWH Lines/Catheters [facility] PICC Line Urinary Cath still in place: No Assessment/Plan Chief Complaint/Hosp Course Assessment and Plan: 1. s/p sepsis with suspect aspiration pneumonia vs. community acquired pneumonia. Patient was seen by ID customer care voice consultant. Status post antibiotics. Will monitor for now. Improved 2. Acute on chronic CHF exacerbation systolic and diastolic dysfunction. Continue diuresis. stable at present 3. Cardiomyopathy with ejection fraction 15%. Continue optimization with IAN inhibitor and beta-adán as well as an aldosterone antagonist. Manager Grocery following. 4. Non-ST elevated myocardial infarction. Continue on anticoagulation. Manager Grocery following. On antiplatelet therapy. 5. Acute kidney injury. Medications to be renally dosed. Sterile Process Coordinator following. 6. History of heroin abuse. On methadone at this time. Cessation was advised. 7. Homeless status. We will see for placement. 8. Debility. Continue physical therapy. Disposition plan: Still awaiting placement. transfer to med/surg Discussed plan of care with Dr. Foster Problems: Subjective 24 Hr Interval Summary Free Text/Dictation No specific complaints at this time. Appears comfortable at present. Exam/Review of Systems Vital Signs Vitals Vital Signs Date Time Temp Pulse Resp B/P Pulse Ox O2 Delivery O2 Flow Rate FiO2 03/07/17 12:37 86 03/07/17 11:41 97.5 20 105/74 97 03/07/17 08:25 Nasal Cannula 1.0 03/05/17 01:40 21 Intake and Output 03/06/17 03/06/17 03/07/17 15:00 23:00 07:00 Intake Total 1200 ml 800 ml Output Total 2300 ml 3000 ml Balance -1100 ml -2200 ml Exam Constitutional: alert, oriented Psych: nl mood/affect Head: normocephalic Eyes: nl conjunctiva Neck: supple Respiratory: clear to auscultation Cardiovascular: other (regular rate) Gastrointestinal: non-tender, soft Musculoskeletal: swelling (ble ) Neurological: RN LONG TERM CARE II-XII intact, nl mental status, nl speech Results Result Diagram: 03/07/17 0651 03/07/17 0651 Results 24 hrs Laboratory Tests Test 03/07/17 06:51 White Blood Count 5.2 Red Blood Count 4.24 L Hemoglobin 11.3 L Hematocrit 37.3 L Mean Corpuscular Volume 88.0 Mean Corpuscular Hemoglobin 26.7 L Mean Corpuscular Hemoglobin Concent 30.3 L Red Cell Distribution Width 16.1 H Platelet Count 318 Mean Platelet Volume 11.0 H Neutrophils % 72.0 Lymphocytes % 21.4 Monocytes % 5.8 Eosinophils % 0.0 Basophils % 0.4 Nucleated Red Blood Cells % 0.0 Neutrophils # (Manual) 3.7 Lymphocytes # 1.1 Monocytes # 0.3 Eosinophils # 0.0 Basophils # 0.0 Nucleated Red Blood Cells # 0.0 Sodium Level 141 Potassium Level 3.9 Chloride Level 95 L Carbon Dioxide Level 40 H Anion Gap 10 Blood Urea Nitrogen 16 Creatinine 0.68 Glucose Level 98 Calcium Level 8.8 Medications Medications Current Medications Ondansetron HCl (Zofran Inj) 4 mg Q6H PRN IV NAUSEA AND/OR VOMITING; Start at 10:30 Acetaminophen (Tylenol Tab) 650 mg Q6H PRN PO PAIN LEVEL 1-3 OR FEVER Last administered on 02/24/17 14:00; Admin Dose 650 MG; Start 02/21/17 at 10:30 Acetaminophen (Tylenol Supp) 650 mg Q6H PRN [place] PAIN LEVEL 1-3 OR FEVER; Start 02/21/17 at 10:30 Morphine Sulfate (morphine) 2 mg Q4H PRN IV SEVERE PAIN LEVEL 7-10 Last administered on 03/06/17 21:07; Admin Dose 2 MG; Start 02/21/17 at 10:30 Docusate Sodium (Colace) 100 mg Q12H PRN PO CONSTIPATION; Start 02/21/17 at 10: 30 Magnesium Hydroxide (Milk Of Mag) 30 ml DAILY PRN PO CONSTIPATION; Start at 10:30 Bisacodyl (Dulcolax Supp) 10 mg DAILY PRN [place] CONSTIPATION; Start 02/21/17 at 10 :30 Aspirin (Aspirin) 81 mg DAILY PO Last administered on 03/07/17 08:16; Admin Dose 81 MG; Start 02/23/17 at 09:00 Nitroglycerin (Nitroglycerin (Sl Tab) 0.4 Mg) 1 tab Q5M PRN SL CHEST PAIN Last administered on 02/24/17 14:17; Admin Dose 1 TAB; Start 02/21/17 at 10:30 IV Flush (NS 10 ml) 10 ml PRN PRN IV IV PROTOCOL; Start 02/21/17 at 14:00 Pantoprazole (Protonix Tab) 40 mg DAILY@06 PO Last administered on 03/07/17 05 :52; Admin Dose 40 MG; Start 02/24/17 at 06:00 Mupirocin (Bactroban) 1 applic BID TOP Last administered on 03/07/17 08:20; Admin Dose 1 APPLIC; Start 02/23/17 at 15:30 Hydralazine HCl (Apresoline) 10 mg Q8 PO Last administered on 03/07/17 05:53; Admin Dose 10 MG; Start 02/24/17 at 22:00 Carvedilol (Coreg) 3.125 mg BID PO Last administered on 03/07/17 08:17; Admin Dose 3.125 MG; Start 03/01/17 at 21:00 Lisinopril (Zestril) 2.5 mg DAILY PO Last administered on 03/07/17 08:16; Admin Dose 2.5 MG; Start 03/03/17 at 09:00 Digoxin (Digoxin) 0.125 mg Q2D@13 PO Last administered on 03/06/17 14:00; Admin Dose 0.125 MG; Start 03/02/17 at 13:00 Spironolactone (Aldactone) 25 mg DAILY@06 PO Last administered on 03/07/17 05: 52; Admin Dose 25 MG; Start 03/03/17 at 13:30 Enoxaparin Sodium (Lovenox) 75 mg BID SC Last administered on 03/07/17 08:18; Admin Dose 75 MG; Start 03/03/17 at 21:00 TEODORO DALEY Mar 07, 2017 13:16
[2017-03-07] MEDS: morphine 2 MG INJ IV PRN ×2 (17:03→21:16)
[2017-03-08] MEDS: IPRATROPIUM (NEB) 0.5 MG/2.5 ML AMP HHN SCH ×3 (01:31→13:36)
[2017-03-08] MEDS: LEVALBUTEROL (NEB) 0.63 MG/3 ML AMP HHN SCH ×3 (01:31→13:36)
[2017-03-08 01:46] VITALS: BP 116/88; PULSE 87
[2017-03-08] MEDS: morphine 2 MG INJ IV PRN ×2 (01:47→06:38)
[2017-03-08 02:02] VITALS: BP 128/91; RESP 18
[2017-03-08 05:00] VITALS: BP 123/96; PULSE 90
[2017-03-08] MEDS: PANTOPRAZOLE (EC) 40 MG TAB PO SCH (05:45)
[2017-03-08] MEDS: SPIRONOLACTONE 25 MG TAB PO SCH (05:45)
[2017-03-08] MEDS: FUROSEMIDE 40 MG INJ IV SCH (05:45)
[2017-03-08] MEDS: METHADONE 10 MG TAB PO SCH (07:47)
[2017-03-08 08:03] VITALS: BP 125/92; RESP 18
[2017-03-08] MEDS: ASPIRIN 81 MG TAB PO SCH (09:02)
[2017-03-08] MEDS: LISINOPRIL 5 MG TAB PO SCH (09:02)
[2017-03-08] MEDS: ENOXAPARIN 80 MG/0.8 ML SYG SC SCH (09:04)
[2017-03-08] MEDS: MUPIROCIN 2% 22 GM OINT TOP SCH (09:09)
--- NOTE | 2017-03-08 09:19 | CONS ---
Date/Time of Note Date/Time of Note DATE: 03/08/17 TIME: Assessment/Plan Assessment/Plan Additional Assessment/Plan Assessment and recommendations; next 1. Patient admitted with drug overdose and sepsis with marked overall clinical improvement. 2. Cardiomyopathy with generalized edema with marked interval movement as well. Continue current treatment. Discontinue intravenous Lasix and switch the patient to oral Lasix 40 mg twice daily. Consider discharge. Consultation Date/Type/Reason Admit Date/Time Feb 21, 2017 at 09:56 Initial Consult Date 02/21/17 Type of Consultation: Pulmonary Referring Provider: NOLBERTO MEDINA MD 24 HR Interval Summary Free Text/Dictation Patient condition stable. Reports very minimal shortness of breath upon exertion. There is marked reduction in scrotal and thigh edema. General exam; middle-aged male, awake and alert. Currently in no distress. Exam/Review of Systems Vital Signs Vitals Vital Signs Date Time Temp Pulse Resp B/P Pulse Ox O2 Delivery O2 Flow Rate FiO2 03/08/17 08:03 97.2 92 18 125/92 100 03/07/17 20:00 Nasal Cannula 2.0 03/05/17 01:40 21 Intake and Output 03/07/17 03/07/17 03/08/17 15:00 23:00 07:00 Intake Total 960 ml 570 ml Output Total 1300 ml 1250 ml Balance -340 ml -680 ml Exam HEENT exam; supple neck, positive JVD. No lymphadenopathy. Midline trachea. No thyromegaly. Pharynx is clear. Patient has good dentition. Chest exam; clear to auscultation. S1-S2 audible, no murmurs. Regular rhythm. Abdomen exam; soft, no organomegaly. Bowel sounds audible. Nontender. There is marked reduction in scrotal edema. Extremity exam; no peripheral edema. ABORIGINAL LIAISON OFFICER exam; no focal deficit. Results Result Diagram: 03/07/1765003/07/17650 Medications Medications Current Medications Ondansetron HCl (Zofran Inj) 4 mg Q6H PRN IV NAUSEA AND/OR VOMITING; Start at 10:30 Acetaminophen (Tylenol Tab) 650 mg Q6H PRN PO PAIN LEVEL 1-3 OR FEVER Last administered on 02/24/17t 14:00; Admin Dose 650 MG; Start 02/21/17 at 10:30 Acetaminophen (Tylenol Supp) 650 mg Q6H PRN [place] PAIN LEVEL 1-3 OR FEVER; Start 02/21/17 at 10:30 Morphine Sulfate (morphine) 2 mg Q4H PRN IV SEVERE PAIN LEVEL 7-10 Last administered on 03/08/17 06:38; Admin Dose 2 MG; Start 02/21/17 at 10:30 Docusate Sodium (Colace) 100 mg Q12H PRN PO CONSTIPATION; Start 02/21/17 at 10: 30 Magnesium Hydroxide (Milk Of Mag) 30 ml DAILY PRN PO CONSTIPATION; Start at 10:30 Bisacodyl (Dulcolax Supp) 10 mg DAILY PRN [place] CONSTIPATION; Start 02/21/17 at 10 :30 Aspirin (Aspirin) 81 mg DAILY PO Last administered on 03/08/17 09:02; Admin Dose 81 MG; Start 02/23/17 at 09:00 Nitroglycerin (Nitroglycerin (Sl Tab) 0.4 Mg) 1 tab Q5M PRN SL CHEST PAIN Last administered on 02/24/17 14:17; Admin Dose 1 TAB; Start 02/21/17 at 10:30 IV Flush (NS 10 ml) 10 ml PRN PRN IV IV PROTOCOL; Start 02/21/17 at 14:00 Pantoprazole (Protonix Tab) 40 mg DAILY@06 PO Last administered on 03/08/17 05 :45; Admin Dose 40 MG; Start 02/24/17 at 06:00 Mupirocin (Bactroban) 1 applic BID TOP Last administered on 03/08/17 09:09; Admin Dose 1 APPLIC; Start 02/23/17 at 15:30 Hydralazine HCl (Apresoline) 10 mg Q8 PO Last administered on 03/08/17 05:45; Admin Dose 10 MG; Start 02/24/17 at 22:00 Carvedilol (Coreg) 3.125 mg BID PO Last administered on 03/08/17 09:03; Admin Dose 3.125 MG; Start 03/01/17 at 21:00 Lisinopril (Zestril) 2.5 mg DAILY PO Last administered on 03/08/17 09:02; Admin Dose 2.5 MG; Start 03/03/17 at 09:00 Digoxin (Digoxin) 0.125 mg Q2D@13 PO Last administered on 03/06/17 14:00; Admin Dose 0.125 MG; Start 03/02/17 at 13:00 Spironolactone (Aldactone) 25 mg DAILY@06 PO Last administered on 03/08/17 05: 45; Admin Dose 25 MG; Start 03/03/17 at 13:30 Enoxaparin Sodium (Lovenox) 75 mg BID SC Last administered on 03/08/17 09:04; Admin Dose 75 MG; Start 03/03/17 at 21:00 SUSHIL MORENO Mar 08, 2017 09:19
[2017-03-08] MEDS ORDERED: METH10TA2 PO (09:52)
[2017-03-08] MEDS ORDERED: CARV3.1260 PO (09:52)
[2017-03-08] MEDS ORDERED: LISI-313 PO (09:52)
[2017-03-08] MEDS ORDERED: ASPI81TA3 PO (09:52)
[2017-03-08] MEDS ORDERED: SPIR25TA PO (09:52)
[2017-03-08] MEDS ORDERED: FURO40TA4 PO (09:52)
[2017-03-08] MEDS ORDERED: DIGO125T PO (09:52)
[2017-03-08] MEDS ORDERED: HYDR-3670 PO (09:52)
[2017-03-08] MEDS ORDERED: PANT40TA4 PO (09:52)
[2017-03-08] MEDS: DIGOXIN 0.125 MG TAB PO SCH (13:00)
--- NOTE | 2017-03-08 14:09 | CONS ---
Date/Time of Note Date/Time of Note DATE: 03/08/17 TIME: 14:04 Assessment/Plan Assessment/Plan Chief Complaint/Hosp Course IMP: 1.CHF-systolic acute on chronic with ongoing volume overload 2.Hypotension 3.Renal failure-now improved 4.Nstemi-trended negative 5. Acidosis 6. Bacteremia 7. Cardiomyopathy-low EF 15-20% by echo this admit 8. PAF- in SR Recc: -Tele -serial ecg's -Continue asa -Continue lasix diuresis with significant improvement in volume status -Continue low dose BB/ACEI as tolerated for treatment of cardiomyopathy -PO digoxin/aldactone -Start eliquis for AF Problems: Consultation Date/Type/Reason Admit Date/Time Feb 21, 2017 at 09:56 Initial Consult Date 02/21/17 Type of Consultation: cardiology Reason for Consultation Chest pain Referring Provider: NOLBERTO MEDINA MD Exam/Review of Systems Vital Signs Vitals Vital Signs Date Time Temp Pulse Resp B/P Pulse Ox O2 Delivery O2 Flow Rate FiO2 03/08/17 09:26 Nasal Cannula 2.0 03/08/17 08:03 97.2 92 18 125/92 100 03/05/17 01:40 21 Intake and Output 03/07/17 03/07/17 03/08/17 15:00 23:00 07:00 Intake Total 960 ml 570 ml Output Total 1300 ml 1250 ml Balance -340 ml -680 ml Exam Review of Systems: CONSTITUTIONAL: No fevers, chills. PULMONARY: No sob CARDIOVASCULAR: No chest pain/palpitations GASTROINTESTINAL: No nausea/vomiting. GENITOURINARY: No hematuria/dysuria. MUSCULOSKELETAL: No myagias/arthalgias. PSYCHIATRIC: The patient denies depression. NEUROLOGIC: lethargic Constitutional: alert Psych: no complaints Head: normocephalic ENMT: mucosa pink and moist Neck: jvd (9-10 cm water), supple Respiratory: diminished breath sounds (at bases/B) Cardiovascular: regular rate and rhythm Gastrointestinal: non-tender, soft Musculoskeletal: muscle tone (normal) Extremities: pitting pedal edema (B) Neurological: other (No focal deficits) Results Result Diagram: 03/07/17 0651 03/07/17 0651 Medications Medications Current Medications Ondansetron HCl (Zofran Inj) 4 mg Q6H PRN IV NAUSEA AND/OR VOMITING; Start at 10:30 Acetaminophen (Tylenol Tab) 650 mg Q6H PRN PO PAIN LEVEL 1-3 OR FEVER Last administered on 02/24/17 14:00; Admin Dose 650 MG; Start 02/21/17 at 10:30 Acetaminophen (Tylenol Supp) 650 mg Q6H PRN [place] PAIN LEVEL 1-3 OR FEVER; Start 02/21/17 at 10:30 Morphine Sulfate (morphine) 2 mg Q4H PRN IV SEVERE PAIN LEVEL 7-10 Last administered on 03/08/17 06:38; Admin Dose 2 MG; Start 02/21/17 at 10:30 Docusate Sodium (Colace) 100 mg Q12H PRN PO CONSTIPATION; Start 02/21/17 at 10: 30 Magnesium Hydroxide (Milk Of Mag) 30 ml DAILY PRN PO CONSTIPATION; Start at 10:30 Bisacodyl (Dulcolax Supp) 10 mg DAILY PRN [place] CONSTIPATION; Start 02/21/17 at 10 :30 Aspirin (Aspirin) 81 mg DAILY PO Last administered on 03/08/17 09:02; Admin Dose 81 MG; Start 02/23/17 at 09:00 Nitroglycerin (Nitroglycerin (Sl Tab) 0.4 Mg) 1 tab Q5M PRN SL CHEST PAIN Last administered on 02/24/17 14:17; Admin Dose 1 TAB; Start 02/21/17 at 10:30 IV Flush (NS 10 ml) 10 ml PRN PRN IV IV PROTOCOL; Start 02/21/17 at 14:00 Pantoprazole (Protonix Tab) 40 mg DAILY@06 PO Last administered on 03/08/17 05 :45; Admin Dose 40 MG; Start 02/24/17 at 06:00 Mupirocin (Bactroban) 1 applic BID TOP Last administered on 03/08/17 09:09; Admin Dose 1 APPLIC; Start 02/23/17 at 15:30 Hydralazine HCl (Apresoline) 10 mg Q8 PO Last administered on 03/08/17 05:45; Admin Dose 10 MG; Start 02/24/17 at 22:00 Carvedilol (Coreg) 3.125 mg BID PO Last administered on 03/08/17 09:03; Admin Dose 3.125 MG; Start 03/01/17 at 21:00 Lisinopril (Zestril) 2.5 mg DAILY PO Last administered on 03/08/17 09:02; Admin Dose 2.5 MG; Start 03/03/17 at 09:00 Digoxin (Digoxin) 0.125 mg Q2D@13 PO Last administered on 03/06/17 14:00; Admin Dose 0.125 MG; Start 03/02/17 at 13:00 Spironolactone (Aldactone) 25 mg DAILY@06 PO Last administered on 03/08/17 05: 45; Admin Dose 25 MG; Start 03/03/17 at 13:30 CELINE LI Mar 08, 2017 14:09
[2017-03-08 15:04] VITALS: BP 115/81; RESP 18
[2017-03-08] MEDS ORDERED: FUROSEMIDE 40 MG TAB PO SCH (18:00)
[2017-03-08] MEDS ORDERED: APIXABAN 5 MG TABLET PO SCH (21:00)
== END 2017-03-08 15:55 | disposition home or self-care (01) | DRG 871 ==
LOC: E/R 07:55 → ICU 09:56 → TEL 02-23 04:10 → PP2 03-07 17:54
PROVIDERS: ADMIT Internal Medicine; ATTEND Internal Medicine
PROC: 02HV33Z Insertion of Infusion Device into Superior Vena Cava, Percutaneous Approach (ICD-10-PCS; principal; 2017-02-21)
PROC: B548ZZA Ultrasonography of Superior Vena Cava, Guidance (ICD-10-PCS; 2017-02-21)
DX: A41.9 Sepsis, unspecified organism (principal); J18.9 Pneumonia, unspecified organism; I21.4 Non-ST elevation (NSTEMI) myocardial infarction; J96.02 Acute respiratory failure with hypercapnia; I50.43 Acute on chronic combined systolic (congestive) and diastolic (congestive) heart failure; E87.2 Acidosis; N17.9 Acute kidney failure, unspecified; I13.0 Hypertensive heart and chronic kidney disease with heart failure and stage 1 through stage 4 chronic kidney disease, or unspecified chronic kidney disease; R18.8 Other ascites; N18.3 Chronic kidney disease, stage 3 (moderate); I42.9 Cardiomyopathy, unspecified; E87.1 Hypo-osmolality and hyponatremia; T40.1X1A Poisoning by heroin, accidental (unintentional), initial encounter; F17.210 Nicotine dependence, cigarettes, uncomplicated; J44.9 Chronic obstructive pulmonary disease, unspecified; D64.9 Anemia, unspecified; N50.89 Other specified disorders of the male genital organs; E83.42 Hypomagnesemia; I48.0 Paroxysmal atrial fibrillation; E87.6 Hypokalemia; Z59.0 Homelessness
CPT/HCPCS: 36415; 36569; 36600; 71010; 76775; 76937; 80048; 80053; 80061; 80307; 81001; 81003; 82043; 82550; 82553; 82803; 82962; 83036; 83605; 83690; 83735; 84100; 84155; 84300; 84436; 84443; 84479; 84484; 85025; 85610; 85730; 86704; 86709; 86803; 87040; 87081; 87086; 87340; 93005; 93306; 93970; 93971; 94640; 94664; 96374; 96375; 97110; 97116; 97161; 97530; J1940; C1769; J0456; J0696; J1650; J2270; J2310; J2405; J2997; J3475; J7030; J7042; J7050; P9045